=== PATIENT | male | born 1960 | race Caucasian/White ===

== ENCOUNTER 2022-01-26 16:26 | Emergency (ER) | payer MEDICAID, SELFPAY ==
[2022-01-26 17:32] VITALS: BP 139/53; PULSE 94; RESP 18; TEMP 36.2; O2SAT 100; BMI 18.0
[2022-01-26 17:53] LABS: MANUAL DIFF FLAG NO
[2022-01-26 17:53] LABS: Glucose, Whole Blood 213 mg/dL (60-115)
[2022-01-26 18:05] LABS: Basophils Percent Auto 0.2 % (0-2); Eosinophils Absolute Auto 0.1 X10*3/uL (0.0-0.4); Eosinophils Percent Auto 0.4 % (0-4); Hematocrit 40.9 % (42.0-52.0); Hemoglobin 14.6 g/dl (14.0-18.0); Imm Gran Abs Auto 0.07 X10*3/uL (0.00-0.03); Imm Gran Pct Auto 0.6 % (0.0-0.4); Lymphocytes Absolute Auto 2.4 X10*3/uL (1.2-4.9); Lymphocytes Percent Auto 19.8 % (20-40); Mean Corpuscular HGB Conc 35.7 g/dl (31.0-36.0); Mean Corpuscular Hemoglobin 32.7 pg (27.0-33.0); Mean Corpuscular Volume 91.7 fL (80.0-98.0); Mean Platelet Volume 10.2 fL (9.4-12.4); Monocytes Absolute Auto 0.8 X10*3/uL (0.1-1.2); Monocytes Percent Auto 6.7 % (2-11); Neutrophils Absolute Auto 8.9 x10*3/uL (2.0-8.3); Neutrophils Percent Auto 72.3 % (45-73); Platelet Count 159 X10*3/uL (160-400); Red Blood Count 4.46 X10*6/uL (4.60-5.80); Red Cell Distribution Width 11.6 % (11.0-16.0); White Blood Count 12.3 X10*3/uL (4.8-10.8)
[2022-01-26 18:12] LABS: Anion Gap 17 (12-20); Blood Urea Nitrogen 42 mg/dL (9-16); Calcium 10.2 mg/dL (8.4-10.2); Carbon Dioxide 32 mmol/L (22-29); Chloride 88 mmol/L (96-108); Creatinine Clr Calc Pharmacy 37.9; Estimated Glomerular Filt Rate 47; Glucose Random 127 mg/dL (60-115); Potassium 4.4 mmol/L (3.3-5.1); Sodium 133 mmol/L (135-145)
--- NOTE | 2022-01-26 20:55 | ED.GENADULT ---
HPI - General Adult General Chief complaint: General Medical Stated complaint: ref by doc pancreas not producing enough insulin Time Seen by Provider: 01/26/22 20:55 Source: patient Mode of arrival: ambulatory Limitations: no limitations History of Present Illness HPI narrative: Patient diabetic unable to get insulin for last few weeks and metformin for last 2 months lost about 40 lb in 1 year went to [facility] with a checked his blood sugar was read high and was given 10 units of insulin and sent to the hospital patient been nauseated and vomiting on arrival patient's blood sugar was 213 denies any abdominal pain no fever no chills Related Data Home Medications Medication Instructions Recorded Confirmed insulin glargine 100 unit/mL (3 15 unit SUBCUT QAM 05/18/21 mL) subcutaneous pen (Lantus Solostar U-100 Insulin) Previous Rx's Medication Instructions Recorded blood-glucose meter #1 ea 01/26/22 glipizide 5 mg tablet 5 mg PO DAILY #30 tab 01/26/22 insulin glargine 100 unit/mL (3 15 unit (0.15 mL) SUBCUT QAM #15 ml 01/26/22 mL) subcutaneous pen (Lantus Solostar U-100 Insulin) Allergies Allergy/AdvReac Type Severity Reaction Status Date / Time amitriptyline Allergy Unknown stutter Verified 01/26/22 17:35 gabapentin Allergy Unknown confused Verified 01/26/22 17:35 No Known Allergies Allergy Unverified 07/24/20 16:46 [No Known Allergies*] Review of Systems Review of Systems: Yes all other systems are reviewed and are negative [facility] Past Medical History Medical History (Updated 01/27/22 @ 00:01 by German Melgoza) Diabetes Neuropathy Social History Social History Alcohol intake: current Alcohol intake frequency: a few times a week Alcohol type: other Patient Tobacco Use Status: Current everyday Tobacco user Smoked in Last 30 Days: Yes Use of substances other than those prescribed or required for medical reasons: Yes Substance Use Type: Marijuana Substance Use Frequency: Daily Substance Use Frequency Other:: marijuana for foot pain Advance Directives: No Advance Directives Information Provided: No Physical Exam ED Vital Signs: Vital Signs - 24 hr 01/26/22 17:32 01/26/22 21:08 Temperature 97.2 F 97.8 F Pulse Rate 94 97 Respiratory Rate 18 18 Blood Pressure 139/53 L 141/68 H Pulse Oximetry 100 100 BMI result Body Mass Index 18.0 Appearance: Alert. Oriented X3. No acute distress. Eyes: No pallor or icterus ENT: Pharynx normal. Oral Mucosa moist Neck: Normal inspection. Neck supple. CVS: Normal heart rate and rhythm. Pulses normal. Respiratory: No respiratory distress. Equal air entry bilateral, no wheezing/rales/rhonchi Abdomen: Soft and nontender. Bowel sounds are present, no mass palpable, no CVA tenderness Skin: Skin warm and dry. Normal skin color. Normal skin turgor. Extremities: No lower extremity edema. No calf tenderness Neuro: Oriented X 3. Medical Decision Making MDM Narrative Medical decision making narrative: Patient diabetic not taking his medications blood sugar control after 10 units of insulin given by the [facility]. Will discharge patient home on glipizide will hold metformin as he has elevated creatinine. Will get the prescription for Lantus also advised to take Lantus if blood sugars continue to be high Lab Data Lab results reviewed: Yes I reviewed the patient's lab results. Result diagrams: 01/26/22 17:51 01/26/22 17:51 Labs: Lab Results 01/26/22 01/26/22 01/26/22 Range/Units 17:48 17:51 17:51 WBC 12.3 H (4.8-10.8) X10*3/uL RBC 4.46 L (4.60-5.80) X10*6/uL Hgb 14.6 (14.0-18.0) g/dl Hct 40.9 L (42.0-52.0) % MCV 91.7 (80.0-98.0) fL MCH 32.7 (27.0-33.0) pg MCHC 35.7 (31.0-36.0) g/dl RDW 11.6 (11.0-16.0) % Plt Count 159 L (160-400) X10*3/uL MPV 10.2 (9.4-12.4) fL Immature Gran % (Auto) 0.6 H (0.0-0.4) % Neut % (Auto) 72.3 (45-73) % Lymph % (Auto) 19.8 L (20-40) % [place] % (Auto) 6.7 (2-11) % Eos % (Auto) 0.4 (0-4) % Baso % (Auto) 0.2 (0-2) % Lymph # (Auto) 2.4 (1.2-4.9) X10*3/uL [place] # (Auto) 0.8 (0.1-1.2) X10*3/uL Eos # (Auto) 0.1 (0.0-0.4) X10*3/uL Baso # (Auto) 0.0 (0.0-0.2) X10*3/uL Abs Immat Gran (auto) 0.07 H (0.00-0.03) X10*3/uL Absolute Neuts (auto) 8.9 H (2.0-8.3) x10*3/uL Absolute Nucleated RBC 0.000 (0.0-0.012) X10*3/uL Nucleated RBC % (auto) 0.0 (0.0-0.2) /100WBC Sodium 133 L (135-145) mmol/L Potassium 4.4 (3.3-5.1) mmol/L Chloride 88 L (96-108) mmol/L Carbon Dioxide 32 H (22-29) mmol/L Anion Gap 17 (12-20) BUN 42 H (9-16) mg/dL Creatinine 1.51 H (0.5-1.4) mg/dL Estim Creat Clear Calc 37.9 Estimated GFR 47 POC Glucose 213 H (60-115) mg/dL Random Glucose 127 H (60-115) mg/dL Calcium 10.2 (8.4-10.2) mg/dL Total Bilirubin 1.0 (0.0-1.0) mg/dL Direct Bilirubin 0.5 (0.0-0.5) mg/dL AST 47 H (5-37) U/L ALT 76 H (0-40) U/L Alkaline Phosphatase 120 H (39-117) U/L Total Protein 7.5 (6.5-8.0) g/dL Albumin 4.2 (3.5-5.0) g/dL Lipase 37 (8-78) U/L 01/26/22 Range/Units 21:00 WBC (4.8-10.8) X10*3/uL RBC (4.60-5.80) X10*6/uL Hgb (14.0-18.0) g/dl Hct (42.0-52.0) % MCV (80.0-98.0) fL MCH (27.0-33.0) pg MCHC (31.0-36.0) g/dl RDW (11.0-16.0) % Plt Count (160-400) X10*3/uL MPV (9.4-12.4) fL Immature Gran % (Auto) (0.0-0.4) % Neut % (Auto) (45-73) % Lymph % (Auto) (20-40) % [place] % (Auto) (2-11) % Eos % (Auto) (0-4) % Baso % (Auto) (0-2) % Lymph # (Auto) (1.2-4.9) X10*3/uL [place] # (Auto) (0.1-1.2) X10*3/uL Eos # (Auto) (0.0-0.4) X10*3/uL Baso # (Auto) (0.0-0.2) X10*3/uL Abs Immat Gran (auto) (0.00-0.03) X10*3/uL Absolute Neuts (auto) (2.0-8.3) x10*3/uL Absolute Nucleated RBC (0.0-0.012) X10*3/uL Nucleated RBC % (auto) (0.0-0.2) /100WBC Sodium (135-145) mmol/L Potassium (3.3-5.1) mmol/L Chloride (96-108) mmol/L Carbon Dioxide (22-29) mmol/L Anion Gap (12-20) BUN (9-16) mg/dL Creatinine (0.5-1.4) mg/dL Estim Creat Clear Calc Estimated GFR POC Glucose 155 H (60-115) mg/dL Random Glucose (60-115) mg/dL Calcium (8.4-10.2) mg/dL Total Bilirubin (0.0-1.0) mg/dL Direct Bilirubin (0.0-0.5) mg/dL AST (5-37) U/L ALT (0-40) U/L Alkaline Phosphatase (39-117) U/L Total Protein (6.5-8.0) g/dL Albumin (3.5-5.0) g/dL Lipase (8-78) U/L Discharge Plan Discharge Clinical Impression: Hyperglycemia due to diabetes mellitus Patient Disposition: Home, Self-Care Instructions: Diabetic Hyperglycemia (ED) Additional Instructions: Take glipizide as prescribed Do not take metformin Take insulin if blood sugar is higher than 250mg daily Check blood sugar daily Drink plenty of fluid Follow with PCP Prescriptions: New Lantus Solostar U-100 Insulin 100 unit/mL (3 mL) insulin pen 15 unit subcut QAM Qty: 15 0RF (DME) blood-glucose meter Kit See Rx Instructions .Route Qty: 1 0RF Rx Instructions: As directed glipizide 5 mg tablet 5 mg PO DAILY Qty: 30 0RF No Action Lantus Solostar U-100 Insulin 100 unit/mL (3 mL) insulin pen 15 unit subcut QAM 0RF Interventions: ED Discharge Assessment Last Done: 01/26/22 23:18 Discharge Date/Time: 01/26/22 23:20
[2022-01-26 21:08] VITALS: BP 141/68; PULSE 97; RESP 18; TEMP 36.6; O2SAT 100
[2022-01-26 21:09] LABS: Glucose, Whole Blood 155 mg/dL (60-115)
--- NOTE | 2022-01-26 21:11 | PC.NURSE ---
pt a&ox3, vss - bp slightly elevated, pt reports that he has been off medication for diabetes due to insurance changes (off metformin for ~2 months, off lantus for ~2 weeks). was seen at [facility] this morning to refill meds - BG high at [facility], given 10u insulin per pt and sent here by provider.
[2022-01-26 21:27] LABS: Alanine Aminotransferase 76 U/L (0-40); Albumin Level 4.2 g/dL (3.5-5.0); Alkaline Phosphatase 120 U/L (39-117); Aspartate Amino Transferase 47 U/L (5-37); Bilirubin Direct 0.5 mg/dL (0.0-0.5); Lipase 37 U/L (8-78); Total Protein 7.5 g/dL (6.5-8.0)
[2022-01-26] MEDS: 0.9 % Sodium Chloride 1,000 ML 999 ML IV (21:50)
--- NOTE | 2022-01-26 21:50 | PC.NURSE ---
iv inserted, lab drawn, ivf hanging per order
[2022-01-27 07:14] LABS: Estimated Average Glucose 278 mg/dL; Hemoglobin A1c % 11.3 %
== END 2022-01-26 23:20 | disposition home or self-care (01) ==
PROVIDERS: Emergency Provider Internal Medicine
DX: E11.65 Type 2 diabetes mellitus with hyperglycemia (principal); R11.2 Nausea with vomiting, unspecified; F17.200 Nicotine dependence, unspecified, uncomplicated
CPT/HCPCS: 36415; 80048; 80076; 82947; 83036; 83690; 85025; 96360; 99284

== ENCOUNTER 2023-10-28 21:44 | Inpatient (IN) | payer MEDICAID, SELFPAY ==
--- NOTE | 2023-10-28 | ECG_ITS ---
Test Reason : FAILURE TO TRIVE Blood Pressure : / mmHG Vent. Rate : 118 BPM Atrial Rate : 118 BPM P-R Int : 116 ms QRS Dur : 066 ms QT Int : 288 ms P-R-T Axes : 044 022 014 degrees QTc Int : 403 ms Sinus tachycardia Nonspecific ST abnormality Abnormal ECG No previous ECGs available Referred By: Generic ED Physician Electronically Signed By:GUS NEGRON MD
--- NOTE | ~2023-10-28 | XR_ITS ---
EXAMINATION: XR CHEST CLINICAL INFORMATION: Status post PICC placement. COMPARISON: Most recent CT chest dated 11/12/2023. TECHNIQUE: Frontal view of the chest was obtained. FINDINGS: Interval placement of a left-sided central venous catheter with the tip in the region of the cavoatrial junction. Diffuse interstitial prominence with patchy bilateral airspace opacities, redemonstrated. Findings are slightly decreased when compared to prior examinations. No pleural effusion or pneumothorax. Stable cardiac mediastinal silhouette. XR/XR chest 1V IMPRESSION: 1. Left-sided central venous catheter with the tip in the region of the cavoatrial junction. 2. Diffuse interstitial prominence with patchy bilateral airspace opacities, slightly decreased when compared to the prior examinations.
--- NOTE | ~2023-10-28 | CT_ITS ---
EXAMINATION: CT FOOT WITH CONTRAST, RIGHT CLINICAL INFORMATION: Swelling and drainage. Question gangrene. COMPARISON: None available. TECHNIQUE: CT scan of the right foot is performed with contrast. 85 mL of Omnipaque 350 given intravenously. Reconstruction imaging performed at the acquisition workstation. This CT examination was performed using dose optimization techniques as appropriate, variously including the following: *Automated exposure control *Adjustment of mA and/or kV according to patient size (this includes techniques or standardized protocols for targeted exams where dose is matched to indication/reason for exam; i.e. extremities or head) *Use of iterative reconstruction technique DLP: 149 mGy-cm FINDINGS: There are scattered areas of gas noted throughout the foot extending from the hindfoot through the midfoot into the forefoot. The gas extends primarily along the plantar aspect of the foot but also extends between the third and fourth web space into the dorsal subcutaneous soft tissues in the forefoot. Possible superficial irregularity/ulceration overlying the lateral aspect of the base of the fifth metatarsal suspicious for ulceration. There also appears to be some irregularity of the cortical surface of the base of the fifth metatarsal and perhaps small fracture fragments or bony fragments in the same area. Suspect a small amount of gas extends into the fifth tarsometatarsal joint. There is generalized fluidlike density circumferentially about the foot throughout, compatible with edema and/or cellulitis. No localized fluid collection within the soft tissues. There is [id number] osteoarthritis of the first metatarsophalangeal joint with subchondral cystic change. CT/CT foot RT w IV con IMPRESSION: 1. Extensive gas throughout the foot and extending into the subcutaneous soft tissues of the forefoot. 2. The findings are concerning for gas-forming soft tissue infection/cellulitis. 3. There is some irregularity of the cortical surface of the base of the fifth metatarsal and perhaps small fracture fragments in the same area. This is suspicious for concomitant osteomyelitis perhaps with complicating small fracture fragments. 4. Generalized fluidlike density throughout the foot compatible with edema and/or cellulitis. 5. No localized fluid collection/abscess within the soft tissues.
--- NOTE | ~2023-10-28 | US_ITS ---
EXAMINATION: US RIGHT LOWER EXTREMITY DUPLEX. CLINICAL INFORMATION: White gangrene COMPARISON: None TECHNIQUE: Right lower extremity duplex Doppler techniques with wave form analysis and measurement of velocities in the common femoral, profunda femoral, superficial femoral, popliteal, tibial and peroneal arteries. The study was performed only at rest. 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 Distal to this, flow is preserved through the tibial vessels but velocities reduced due to upstream occlusion. If clinically indicated, CTA runoff should be obtained for further evaluation.
--- NOTE | ~2023-10-28 | XR_ITS ---
EXAMINATION: XR chest 1V CLINICAL INFORMATION: Hypoxia COMPARISON: None TECHNIQUE: Single portable frontal view. Tubes and lines: None Lungs and pleura: Bilateral hazy interstitial opacification upper lobes and both lower lobes concerning for infiltrates. Blunting of right costophrenic angle suggesting small right subpulmonic pleural effusion. Heart and mediastinum: The mediastinum is within normal limits.. Bones/soft tissue: Skeletal structures included are normal for patient's age. XR/XR chest 1V IMPRESSION: * Bilateral hazy interstitial opacification suggesting diffuse patchy infiltrates. * Small right subpulmonic pleural effusion.
--- NOTE | ~2023-10-28 | XR_ITS ---
EXAMINATION: XR CHEST CLINICAL INFORMATION: Hypoxia COMPARISON: Chest x-ray on 11/15/2023 TECHNIQUE: Frontal view of the chest was obtained. FINDINGS: The cardiac silhouette is normal. There is significant increase in the bilateral interstitial and alveolar opacities compared to the prior exam. Lung volumes are diminished. There are no pleural effusions or pneumothoraces. XR/XR chest 1V IMPRESSION: Significant increase in the bilateral interstitial and alveolar opacities.
--- NOTE | ~2023-10-28 | XR_ITS ---
EXAMINATION: XR CHEST CLINICAL INFORMATION: Hypoxia COMPARISON: 10/31/2023. TECHNIQUE: Frontal view of the chest was obtained. FINDINGS: There has been progression of extensive bilateral pulmonary opacities since 10/31/2023. No vascular congestion or effusions. Heart and mediastinum within normal limits. Bony structures are intact. XR/XR chest 1V IMPRESSION: Progression of extensive bilateral pulmonary opacities suspicious for multifocal pneumonia.
[2023-10-28 21:53] VITALS: BP 194/72; PULSE 115; RESP 16; TEMP 38.5; O2SAT 95; BMI 23.5
[2023-10-28 22:51] LABS: Hematocrit 28.2 % (42.0-52.0); Mean Corpuscular HGB Conc 31.9 g/dl (31.0-36.0); Mean Corpuscular Hemoglobin 28.8 pg (27.0-33.0); Mean Corpuscular Volume 90.4 fL (80.0-98.0); Platelet Count 277 X10*3/uL (160-400); Red Blood Count 3.12 X10*6/uL (4.60-5.80); Red Cell Distribution Width 13.8 % (11.0-16.0); White Blood Count 18.8 X10*3/uL (4.8-10.8)
[2023-10-28 22:56] VITALS: BP 176/69; PULSE 116; RESP 16; TEMP 38.5; O2SAT 100
[2023-10-28 23:04] LABS: Alanine Aminotransferase 45 U/L (0-40); Albumin Level 2.5 g/dL (3.5-5.0); Alkaline Phosphatase 214 U/L (39-117); Anion Gap 9 (12-20); Aspartate Amino Transferase 90 U/L (5-37); Bilirubin Total 0.7 mg/dL (0.0-1.0); Blood Urea Nitrogen 32 mg/dL (9-16); Calcium 8.1 mg/dL (8.4-10.2); Carbon Dioxide 27 mmol/L (22-29); Chloride 100 mmol/L (96-108); Creatinine Clr Calc Pharmacy 63.1; Estimated Glomerular Filt Rate > 60; Glucose Random 214 mg/dL (60-115); Lipase 19 U/L (8-78); Potassium 3.8 mmol/L (3.3-5.1); Sodium 132 mmol/L (135-145); Total Protein 7.7 g/dL (6.5-8.0)
[2023-10-28 23:08] LABS: VBG Base Excess 2.5 mmol/L; VBG HCO3 27 mmol/L (22-26); VBG pCO2 43 mmHg; VBG pO2 40 mmHg
[2023-10-28 23:12] LABS: Lactic Acid 1.7 mmol/L (0.5-2.0)
--- NOTE | 2023-10-28 23:15 | ED.GENADULT ---
HPI - General Adult General Chief complaint: Failure to Thrive Stated complaint: Fall/Head inj/Unable to feel feet Time Seen by Provider: 10/28/23 23:02 Source: patient and RN notes reviewed Mode of arrival: ambulatory Limitations: no limitations History of Present Illness HPI narrative: This is a 63-year-old male, with a history of diabetes noncompliant on medication, presenting to the emergency department presenting to the emergency department with complaints of right foot pain x several weeks. Patient denies any recent trauma or injury to his right foot. He reported to the nurse that he has not taken his sock off in over 10 days. He has been in bed for the last 2 weeks. He denies any chest pain or shortness of breath. He denies any abdominal pain, nausea, vomiting or diarrhea. Denies history of similar symptoms in the past. MD complaint: Foot pain Onset (ago): week(s) Location: lower extremity Radiation: non-radiation Quality: aching Pain Consistency: constant Relieving factors: none Exacerbating factors: none Associated symptoms: denies other symptoms Treatments prior to arrival: none Related Data Home Medications Medication Instructions Recorded Confirmed insulin glargine 100 unit/mL (3 15 unit subcut QAM 05/18/21 mL) subcutaneous pen (Lantus Solostar U-100 Insulin) Previous Rx's Medication Instructions Recorded blood-glucose meter #1 ea 01/26/22 glipizide 5 mg tablet 5 mg PO DAILY #30 tabs 01/26/22 insulin glargine 100 unit/mL (3 15 unit (0.15 mL) subcut QAM #15 mL 01/26/22 mL) subcutaneous pen (Lantus Solostar U-100 Insulin) Allergies Allergy/AdvReac Type Severity Reaction Status Date / Time amitriptyline Allergy Unknown stutter Verified 01/26/22 17:35 gabapentin Allergy Unknown confused Verified 01/26/22 17:35 No Known Allergies Allergy Unverified 07/24/20 16:46 [No Known Allergies*] Review of Systems Review of Systems: Yes all other systems are reviewed and are negative Constitutional: Constitutional: Reports as per [facility] Past Medical History Attestation statement: The following information was validated with the patient. Medical History Neuropathy Diabetes Social History Social History Alcohol intake: current Alcohol intake frequency: a few times a week Alcohol type: beer Patient Tobacco Use Status: Current everyday Tobacco user Smoked in Last 30 Days: Yes Use of substances other than those prescribed or required for medical reasons: No Substance Use Type: Marijuana Advance Directives: No Advance Directives Information Provided: No Nutrition Risks: Diabetes new onset/Uncontrolled Physical Exam ED Vital Signs: Vital Signs - 24 hr 10/28/23 21:53 10/28/23 22:56 10/28/23 22:56 Temperature 101.3 F H 101.3 F H Pulse Rate 115 H 116 H Respiratory Rate 16 16 Blood Pressure 194/72 H 176/69 H Pulse Oximetry 95 100 100 Oxygen Delivery Method Room Air Room Air Room Air BMI result Body Mass Index 23.5 Const General: cooperative and ill appearing Nutritional Appearance: cachectic Orientation/consciousness: patient oriented x3 Limitations: no limitations HENMT Head: Yes normal to inspection, Yes normocephalic and Yes atraumatic Ears: hearing grossly normal bilaterally General nose exam: Normal external nose present Face and sinus: Yes normal facial exam Mouth: Normal oral and palatal mucosa present, oropharynx normal and moist mucous membranes Throat: Yes posterior oropharynx normal Eyes General: appearance normal, both eyes and all related structures Eyelids: Yes eyelids normal Conjunctivae: conjunctivae normal Sclerae: sclerae normal Pupils: Equal, round and reactive pupils present EOM: EOMs intact bilaterally Neck Neck: Yes normal visual inspection, Yes full ROM and Yes no lymphadenopathy Lymphatic: no lymphadenopathy noted Chest Chest palpation & inspection: normal inspection of the chest Resp Effort & Inspection: normal respiratory effort and able to speak in complete sentences Auscultation: clear to auscultation bilaterally, no crackles, no rales, no rhonchi and no wheezes Cardio Rate: regular rate Rhythm: regular rhythm Heart sounds: S1 normal heart sound present and S2 normal heart sound present GI Inspection: Yes normal to inspection Skin General skin exam: no rashes or lesions noted Trauma: no lacerations or abrasions Wounds: no wounds Neuro General: patient oriented x3 and moves all extremities Cranial nerves: Yes Equal, round and reactive pupils present Extrem Other: Right foot, with erythema edema and skin sloughing with necrotic tissue noted. DP pulses 2+. Able to flex and extend at the ankle with no pain. General: Yes normal to inspection Right upper extremity: normal to inspection Left upper extremity: normal to inspection Right lower extremity: normal to inspection Left lower extremity: normal to inspection Medications Administered Generic Name Dose Route Start Last Admin Trade Name Freq PRN Reason Stop Dose Admin Acetaminophen 650 mg 10/28/23 23:35 10/29/23 00:39 Acetaminophen 325 Mg Tablet PO 650 mg Q6H PRN Administration Pain, Mild (Pain Scale 1-3) Enoxaparin Sodium 40 mg 10/29/23 00:00 10/29/23 00:24 Enoxaparin Sodium 40 Mg/0.4 Ml Syringe SUBCUT 40 mg BEDTIME ANN Administration Insulin Glargine 14 unit 10/28/23 23:30 10/29/23 00:23 Insulin Glargine,Hum.Rec.Anlog 100 Unit/Ml 10 Ml Vial SUBCUT 14 unit BEDTIME ANN Administration Melatonin 6 mg 10/28/23 23:35 10/29/23 00:39 Melatonin 3 Mg Tablet PO 6 mg BEDTIME PRN Administration Insomnia Sodium Chloride 3 ml 10/29/23 00:00 10/29/23 00:24 0.9 % Sodium Chloride Flush 3 Ml Syringe IVFLUSH 3 ml QSHIFT ANN Administration Discontinued Medications Generic Name Dose Route Start Last Admin Trade Name Freq PRN Reason Stop Dose Admin Sodium Chloride 2,041.17 mls @ 2,041.17 mls/hr 10/28/23 23:21 10/29/23 01:03 Ns 30 ml/kg infuse over 1 hr (2041.17 ml) 10/29/23 00:20 Infused IV Infusion .Q1H STA Piperacillin Sod/Tazobactam 50 mls @ 100 mls/hr 10/28/23 23:21 10/29/23 00:20 Sod 3.375 gm/ Sodium Chloride IV 10/28/23 23:50 Infused ONCE ONE Infusion Vancomycin HCl 1,000 mg/ 535 mls @ 267.5 mls/hr 10/28/23 23:21 10/29/23 00:22 Vancomycin HCl 750 mg/ Sodium IV 10/29/23 01:20 267.5 mls/hr Chloride ONCE ONE Administration Medical Decision Making Medical Decision Making MDM Narrative: 63-year-old male, with history of diabetes noncompliant on medications, presenting to the emergency department with complaints of right foot pain times several weeks. Patient with obvious [id number] necrotic tissue with sloughing, likely requiring vascular intervention. No trauma or injury. I evaluated patient at 11:30PM, patient febrile at 1:01 a.m. 0.3, tachycardic 116, blood pressure 176/69. Patient is cachectic and ill-appearing. Labs were ordered performed revealing leukocytosis at 18.8k, with normocytic anemia with an H&H of 9/28.2. Patient is hyponatremic at 132, elevated liver transaminases, which patient has had a history of, last year. Elevated troponin at 222.5> likely due to increased demand. He has no chest pain. Patient is meeting sepsis criteria. IV fluids, Zosyn and vanco ordered. Consult with hospitalist Dr. Dueñas, who accepts transfer of care. Differential Diagnosis Differential Diagnoses: The differential diagnosis associated with the presentation includes Bacteremia, necrotic wound, osteomyelitis Admission/Observation Consideration of admission/observation: Escalation of care including admission/observation considered Patient needing admission and observation given meeting sepsis criteria Lab Data MDM Lab Attestation statement: I reviewed the patient's lab results. See above 10/28/23 22:40 10/28/23 22:40 Labs: Lab Results 10/28/23 10/28/23 10/28/23 Range/Units 22:40 22:45 22:57 WBC 18.8 H (4.8-10.8) X10*3/uL RBC 3.12 L D (4.60-5.80) X10*6/uL Hgb 9.0 L D (14.0-18.0) g/dl Hct 28.2 L D (42.0-52.0) % MCV 90.4 (80.0-98.0) fL MCH 28.8 (27.0-33.0) pg MCHC 31.9 (31.0-36.0) g/dl RDW 13.8 (11.0-16.0) % Plt Count 277 D (160-400) X10*3/uL MPV 9.0 L (9.4-12.4) fL Absolute Nucleated RBC 0.000 (0.0-0.012) X10*3/uL Nucleated RBC % (auto) 0.0 (0.0-0.2) /100WBC VBG pH 7.40 (7.32-7.43) VBG pCO2 43 mmHg VBG pO2 40 mmHg VBG HCO3 27 H (22-26) mmol/L VBG O2 Saturation 62.0 % VBG Base Excess 2.5 mmol/L Sodium 132 L (135-145) mmol/L Potassium 3.8 (3.3-5.1) mmol/L Chloride 100 (96-108) mmol/L Carbon Dioxide 27 (22-29) mmol/L Anion Gap 9 L (12-20) BUN 32 H (9-16) mg/dL Creatinine 1.12 (0.5-1.4) mg/dL Estim Creat Clear Calc 63.1 Estimated GFR > 60 POC Glucose (60-115) mg/dL Random Glucose 214 H (60-115) mg/dL Lactic Acid 1.7 (0.5-2.0) mmol/L Calcium 8.1 L D (8.4-10.2) mg/dL Total Bilirubin 0.7 (0.0-1.0) mg/dL AST 90 H (5-37) U/L ALT 45 H (0-40) U/L Alkaline Phosphatase 214 H (39-117) U/L Troponin I High Sens 222.5 H* (<3.5-35.0) ng/L Total Protein 7.7 (6.5-8.0) g/dL Albumin 2.5 L (3.5-5.0) g/dL Lipase 19 (8-78) U/L Influenza Type A (PCR) NEGATIVE (Negative) Influenza Type B (PCR) NEGATIVE (Negative) RSV RNA Qual (PCR) NEGATIVE (Negative) SARS-CoV-2 RNA (RT-PCR) NEGATIVE (Negative) 10/28/23 Range/Units 23:18 WBC (4.8-10.8) X10*3/uL RBC (4.60-5.80) X10*6/uL Hgb (14.0-18.0) g/dl Hct (42.0-52.0) % MCV (80.0-98.0) fL MCH (27.0-33.0) pg MCHC (31.0-36.0) g/dl RDW (11.0-16.0) % Plt Count (160-400) X10*3/uL MPV (9.4-12.4) fL Absolute Nucleated RBC (0.0-0.012) X10*3/uL Nucleated RBC % (auto) (0.0-0.2) /100WBC VBG pH (7.32-7.43) VBG pCO2 mmHg VBG pO2 mmHg VBG HCO3 (22-26) mmol/L VBG O2 Saturation % VBG Base Excess mmol/L Sodium (135-145) mmol/L Potassium (3.3-5.1) mmol/L Chloride (96-108) mmol/L Carbon Dioxide (22-29) mmol/L Anion Gap (12-20) BUN (9-16) mg/dL Creatinine (0.5-1.4) mg/dL Estim Creat Clear Calc Estimated GFR POC Glucose 210 H (60-115) mg/dL Random Glucose (60-115) mg/dL Lactic Acid (0.5-2.0) mmol/L Calcium (8.4-10.2) mg/dL Total Bilirubin (0.0-1.0) mg/dL AST (5-37) U/L ALT (0-40) U/L Alkaline Phosphatase (39-117) U/L Troponin I High Sens (<3.5-35.0) ng/L Total Protein (6.5-8.0) g/dL Albumin (3.5-5.0) g/dL Lipase (8-78) U/L Influenza Type A (PCR) (Negative) Influenza Type B (PCR) (Negative) RSV RNA Qual (PCR) (Negative) SARS-CoV-2 RNA (RT-PCR) (Negative) Independent Interpretation I performed an independent interpretation of an: EKG Interpretation: Sinus tachycardia at a ventricular rate of 118 beats per minute, no ST elevation or depression. QTC 403 Chronic Conditions Patient?s care impacted by: Diabetes Critical Care Time Critical Care Time Critical Care Time: Yes Total Critical Care Time: 60 Attestation: I have personally provided critical care time exclusive of time spent on separately billable procedures. Time includes review of lab data, radiology results, discussion with consultants, and monitoring for potential decompensation. Intervention performed as documented. Discharge Plan Discharge Clinical Impression: Sepsis, Foot infection Patient Disposition: Admitted As Inpatient
[2023-10-28 23:18] LABS: Troponin-I High Sensitivity 222.5 ng/L (<3.5-35.0)
[2023-10-28 23:19] LABS: Venous Blood Gas Refer to POC result
[2023-10-28 23:23] LABS: Glucose, Whole Blood 210 mg/dL (60-115)
--- NOTE | 2023-10-28 23:24 | PC.NURSE ---
Pt aox4 presents reporting feeling tired and cold. Sinus tach on monitor. HR 115. Rectal temp 101.3F. Necrotic right foot. MLP notified. Picture uploaded to MAR Pt reports having to take insulin to manage diabetes but running out of medication. POC 210.
[2023-10-28] MEDS: Piperacillin Sodium/Tazobactam 3.375 GM in 0.9 % Sodium Chloride 50 ML IV (23:31)
[2023-10-28 23:32] LABS: Influenza A PCR NEGATIVE (Negative); Influenza B PCR NEGATIVE (Negative); Resp Syncy Virus RNA Qual PCR NEGATIVE (Negative); SARS COV2 PCR INHOUSE NEGATIVE (Negative)
[2023-10-28] MEDS: 0.9 % Sodium Chloride 2,041.17 ML 2041.17 ML IV (23:32)
--- NOTE | 2023-10-28 23:36 | PM.IMHP ---
History of Present Illness Date of Service: 10/28/23 Chief Complaint: foot infection This is a 63-year-old male with pertinent history of insulin-dependent diabetes mellitus, noncompliant with medications who presents to the emergency department for evaluation of right foot pain. Patient states he has been having right foot pain for the last few weeks. It is associated with foul-smelling purulent drainage. Patient has not removed his socks for the last 10 days. No associated fevers or chills. No nausea, vomiting. No history of trauma or similar complaints in the past. Patient states he did get out of his bed for the last 2 weeks. No chest discomfort, palpitations, shortness of breath, abdominal pain, changes in urinary or bowel habits. In the emergency department, patient was found to be septic and glucose found to be elevated Review of Systems Constitutional: Constitutional: Reports malaise and Reports weakness Cardiovascular: Cardiovascular: Reports no additional cardiovascular complaints Respiratory: Respiratory: Reports no additional respiratory complaints Gastrointestinal: Gastrointestinal: Reports no additional gastrointestinal complaints Genitourinary: Genitourinary: Reports no additional male genitourinary complaints Musculoskeletal: Musculoskeletal: Reports arthralgias Neurologic: Reports weakness [facility] Medical History Neuropathy Diabetes Pertinent family history: No family history of early CAD Social History Alcohol intake: current Alcohol intake frequency: a few times a week Alcohol type: beer Patient Tobacco Use Status: Current everyday Tobacco user Smoked in Last 30 Days: Yes Use of substances other than those prescribed or required for medical reasons: No Substance Use Type: Marijuana Advance Directives: No Advance Directives Information Provided: No Nutrition Risks: Diabetes new onset/Uncontrolled Meds Allergies Allergy/AdvReac Type Severity Reaction Status Date / Time amitriptyline Allergy Unknown stutter Verified 01/26/22 17:35 gabapentin Allergy Unknown confused Verified 01/26/22 17:35 No Known Allergies Allergy Unverified 07/24/20 16:46 [No Known Allergies*] Active Medications: Current Medications Dextrose (Dextrose 50 % 25 Gm/50 Ml Syringe) 25 gm IVPUSH Q15M PRN; Protocol PRN Reason: per Hypoglycemia Standing Ord. Glucose (Glucose Gel 15 Gm Gel..Gram.) 15 gm PO Q15M PRN; Protocol PRN Reason: per Hypoglycemia Standing Ord. Sodium Chloride (Ns) 2,041.17 mls @ 2,041.17 mls/hr 30 ml/kg infuse over 1 hr (2041.17 ml) IV .Q1H STA Stop: 10/29/23 00:20 Last Admin: 10/28/23 23:32 Dose: 2,041.17 mls/hr Piperacillin Sod/Tazobactam (Sod 3.375 gm/ Sodium Chloride) 50 mls @ 100 mls/hr IV ONCE ONE Stop: 10/28/23 23:50 Last Admin: 10/28/23 23:31 Dose: 100 mls/hr Vancomycin HCl 1,000 mg/Vancomycin HCl 750 mg/ Sodium Chloride 535 mls @ 267.5 mls/hr IV ONCE ONE Stop: 10/29/23 01:20 Piperacillin Sod/Tazobactam (Sod 4.5 gm/ Sodium Chloride) 100 mls @ 200 mls/hr IV Q6H [facility] Insulin Glargine (Insulin Glargine,Hum.Rec.Anlog 100 Unit/Ml 10 Ml Vial) 14 unit SUBCUT BEDTIME ANN Insulin Human Lispro (Insulin Lispro 100 Unit/Ml 3 Ml Vial) 0 unit SUBCUT QIDACHS ANN; Protocol Pharmacy Consult (Consult Rx Vancomycin Dosing) 1 each MISCELLANE DAILY PRN PRN Reason: Consult order Home Medications Medication Instructions Recorded Confirmed Last Taken Type insulin glargine 100 unit/mL (3 15 unit subcut QAM 05/18/21 Unknown History mL) subcutaneous pen (Lantus Solostar U-100 Insulin) Physical Exam Vital Signs and Narrative: Vital Signs: Last Vital Signs Temp 101.3 F H 10/28/23 22:56 Pulse 116 H 10/28/23 22:56 Resp 16 10/28/23 22:56 BP 176/69 H 10/28/23 22:56 Pulse Ox 100 10/28/23 22:56 O2 Del Method Room Air 10/28/23 22:56 BMI result Body Mass Index 23.5 Middle-aged male, ill-appearing, poorly kempt lying in bed in no distress Neck supple, no JVD Tachycardic with regular rhythm, S1-S2 heard Regular breath sounds bilaterally, no wheezing or crackles appreciated Abdomen soft nontender, no guarding, no rigidity Patient is awake, alert and oriented to self, place, time and person ; no focal motor deficit Extremity: Right foot as imaged below Psych: Normal mood Extrem: Other: Right foot, with erythema edema and skin sloughing with necrotic tissue noted. DP pulses 2+. Able to flex and extend at the ankle with no pain. General: Yes normal to inspection Right upper extremity: normal to inspection Left upper extremity: normal to inspection Right lower extremity: normal to inspection Left lower extremity: normal to inspection Results Labs 10/28/23 22:40 10/28/23 22:40 Labs: Laboratory Results - last 24 hr 10/28/23 10/28/23 10/28/23 22:40 22:45 22:57 MCV 90.4 MCH 28.8 MCHC 31.9 RDW 13.8 Plt Count 277 D MPV 9.0 L Absolute Nucleated RBC 0.000 Nucleated RBC % (auto) 0.0 VBG pH 7.40 VBG pCO2 43 VBG pO2 40 VBG HCO3 27 H VBG O2 Saturation 62.0 VBG Base Excess 2.5 Anion Gap 9 L Estim Creat Clear Calc 63.1 Estimated GFR > 60 POC Glucose Random Glucose 214 H Lactic Acid 1.7 Calcium 8.1 L D Total Bilirubin 0.7 AST 90 H ALT 45 H Alkaline Phosphatase 214 H Total Protein 7.7 Albumin 2.5 L Lipase 19 Influenza Type A (PCR) NEGATIVE Influenza Type B (PCR) NEGATIVE RSV RNA Qual (PCR) NEGATIVE SARS-CoV-2 RNA (RT-PCR) NEGATIVE 10/28/23 23:18 MCV MCH MCHC RDW Plt Count MPV Absolute Nucleated RBC Nucleated RBC % (auto) VBG pH VBG pCO2 VBG pO2 VBG HCO3 VBG O2 Saturation VBG Base Excess Anion Gap Estim Creat Clear Calc Estimated GFR POC Glucose 210 H Random Glucose Lactic Acid Calcium Total Bilirubin AST ALT Alkaline Phosphatase Total Protein Albumin Lipase Influenza Type A (PCR) Influenza Type B (PCR) RSV RNA Qual (PCR) SARS-CoV-2 RNA (RT-PCR) Assessment and Plan (1) Sepsis: Status: Acute (2) Foot infection: Status: Acute Plan This is a 63-year-old male with pertinent history of insulin-dependent diabetes mellitus, noncompliant with medications who presents to the emergency department for evaluation of right foot pain. #. Sepsis due to right foot wet gangrene with purulent cellulitis: Will admit patient and initiating empiric IV antibiotics. Resuscitated with IV crystalloids. Lactic acid and blood culture obtained. Consulting vascular surgery, appreciate assistance. Imaging pending #. Insulin-dependent diabetes mellitus with hyperglycemia: Initiating basal plus insulin regimen. Patient is noncompliant with his antihyperglycemics #. Normocytic anemia due to chronic disease: Hemoglobin above transfusion threshold #. Elevated troponin: Likely type 2 in the setting of increased demand. No chest pain. Will trend DVT prophylaxis: Kayy Full code Admit as inpatient and will require two night minimum hospital stay for IV antibiotics (as above), which is not possible in a lesser acute setting. Specialist consult pending Quality Stroke Does the patient have a stroke diagnosis?: No VTE Prior VTE?: No VTE Risk Level:: Medical - moderate - high VTE Device Contraindication: Treatment Not Indicated VTE Drug Contraindication: N/A - Med Ordered
--- NOTE | 2023-10-28 23:57 | PC.NURSE ---
Dry dressing applied to right foot. Pt tolerated well.
[2023-10-29] VITALS (10 sets, daily range): BP systolic 132–161; BP diastolic 56–70; PULSE 64–104; RESP 12–22; TEMP 36.4–37.3; O2SAT 82–98; BMI 19.7
[2023-10-29] MEDS: vancomycin HCL 1,000 MG, vancomycin HCL 750 MG in 0.9 % Sodium Chloride 500 ML 267.5 MG IV (00:22)
[2023-10-29] MEDS: Insulin Glargine,Hum.rec.anlog 100 UNIT/ML 10 ML VIAL 14 UNIT SUBCUT (00:23)
[2023-10-29] MEDS: Enoxaparin Sodium 40 MG/0.4 ML SYRINGE SUBCUT ×2 (00:24→23:09)
[2023-10-29] MEDS: 0.9 % Sodium Chloride Flush 3 ML SYRINGE IVFLUSH ×3 (00:24→14:18)
[2023-10-29] MEDS: Melatonin 3 MG TABLET 6 MG PO ×2 (00:39→23:10)
[2023-10-29] MEDS: Acetaminophen 325 MG TABLET 650 MG PO (00:39)
--- NOTE | 2023-10-29 01:14 | PC.NURSE ---
Pt declining to have imaging studies done at this time. Pt states I want to be left alone. I want to sleep. If I don't sleep here then I will go home to sleep . Pt encouraged to stay and follow through with treatment. Pt continues to decline having studies done. [place] text sent to Dr. Dueñas who orders for pt to rest at this time and will revisit doing imaging at a later time. O2 sat noted to be at 82% RA while pt sleeping. Pt placed on 2L nc with o2 improvement to 94%. No distress noted. Pt currently resting at the bedside. IV fluids done. Vanco running. Pt tolerating well.
--- NOTE | 2023-10-29 03:46 | PC.NURSE ---
Pt reporting right foot pain, 06/16. Requesting pain medication and sleep medication as melatonin had no effect. [place] text sent to Dr. Dueñas.
--- NOTE | 2023-10-29 04:07 | PC.NURSE ---
New orders for pain and sleep in the JAN. Pt declined new orders stating they will not work. Pt continues to decline imaging studies and reports I will be going home in a few hours. [place] text sent to Dr. Dueñas.
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
[2023-10-29] MEDS: Morphine Sulfate 4 MG/ML CARTRIDGE IVPUSH ×2 (05:20→15:14)
[2023-10-29] MEDS: ondansetron HCL 4 MG/2 ML VIAL IVPUSH (05:20)
--- NOTE | 2023-10-29 05:30 | PC.NURSE ---
Pt medicated as ordered for pain. Pt tolerated well. Pt agrees to have imaging done in one hour. Pt advised room has been assigned and ct scan and u/s will be done prior to pt going upstairs. Pt states Give me about an hour . Ct scan dept notified pt is ready to have scans done.
[2023-10-29] MEDS: Piperacillin Sodium/Tazobactam 4.5 GM in 0.9 % Sodium Chloride 100 ML IV ×4 (06:04→23:10)
--- NOTE | 2023-10-29 07:43 | PC.NURSE ---
patient agreeable to ultrasound at this time, I guess I don't have any other choice . educated on need for imaging.
[2023-10-29] MEDS: iohexoL 350 MG/ML 100 ML INFUS..BTL IV (08:34)
--- NOTE | 2023-10-29 09:10 | PHA.MEDREC ---
Pharmacy Consult ? Medication Reconciliation Pharmacy has completed the medication reconciliation. Patient reports no home prescription medications. Takes tylenol PM prn.
[2023-10-29 09:18] LABS: Glucose, Whole Blood 114 mg/dL (60-115)
--- NOTE | 2023-10-29 09:26 | PHA.PROG ---
Admission Date/Time: October 28, 2023 23:35 Indication: diabetic foot Weight in k.039 kg Adjusted body weight in Kg: [place] body weight in Kg: Obesity Dosing Indication % IBW: Serum Creatinine - Last 168 Hours 10/28/23 22:40 Creatinine 1.12 Estimated CrCl and GFR - Last 168 Hours 10/28/23 22:40 Estim Creat Clear Calc 63.1 Estimated GFR > 60 Vancomycin Loading Dose: 1750 Current Vancomycin Dosing Regimen: 750 q12h Vancomycin Monitoring using AUC goal of 400 - 600 range with trough as surrogate marker: 533 Date and Time for next Vancomycin Level to be drawn: 10/30/23 1000 Pharmacist Comments on Vancomycin Plan: Vancomycin dosing will take advantage of [employer] as a clinical decision support tool that uses Bayesian modeling to calculate individual patient's pharmacokinetic parameters and forecast the patient's drug concentration time course with the target goal AUC 24 range of 400 - 600 mg/L/hr.
[2023-10-29 09:57] LABS: Hematocrit 24.5 % (42.0-52.0); Hemoglobin 7.4 g/dl (14.0-18.0); Mean Corpuscular HGB Conc 30.2 g/dl (31.0-36.0); Mean Corpuscular Hemoglobin 29.2 pg (27.0-33.0); Mean Corpuscular Volume 96.8 fL (80.0-98.0); Mean Platelet Volume 9.6 fL (9.4-12.4); Platelet Count 168 X10*3/uL (160-400); Red Blood Count 2.53 X10*6/uL (4.60-5.80); Red Cell Distribution Width 13.9 % (11.0-16.0); White Blood Count 9.8 X10*3/uL (4.8-10.8)
[2023-10-29 10:15] LABS: Anion Gap 10 (12-20); Blood Urea Nitrogen 31 mg/dL (9-16); Chloride 107 mmol/L (96-108); Creatinine Clr Calc Pharmacy 70.6; Estimated Glomerular Filt Rate > 60; Glucose Random 105 mg/dL (60-115); Potassium 3.5 mmol/L (3.3-5.1); Sodium 132 mmol/L (135-145)
[2023-10-29 10:25] LABS: Troponin-I High Sensitivity 129.8 ng/L (<3.5-35.0)
[2023-10-29 10:26] LABS: Calcium 7.2 mg/dL (8.4-10.2); Carbon Dioxide 19 mmol/L (22-29)
--- NOTE | 2023-10-29 11:23 | PC.NURSE ---
Addendum entered by Sendy Thompson RN 10/29/23 11:25: patient refusing lunch time POC and vital signs.education provided on the importance of blood sugar control and vital sign monitoring, but patient still refuses. MD notified. Original Note: patient refusing lunch time POC and vital signs. MD notified
[2023-10-29] MEDS: vancomycin HCL 750 MG in 0.9 % Sodium Chloride 250 ML 265 MG IV (14:13)
--- NOTE | 2023-10-29 15:03 | HO.PM.IMPN ---
Subjective Subjective Date of Service: 10/29/23 Review of Systems Follow up gangrene some pain to foot noted No fever or chills Physical Exam Vital Signs: Vital Signs: Last Vital Signs Temp 97.5 F 10/29/23 08:00 Pulse 64 10/29/23 08:00 Resp 18 10/29/23 08:00 BP 132/63 10/29/23 08:00 Pulse Ox 98 10/29/23 08:00 O2 Del Method Room Air 10/29/23 08:00 O2 Flow Rate 2 10/29/23 03:44 BMI result Body Mass Index 19.7 Appearing in no acute distress lung sounds are clear to auscultation heart regular rate rhythm, clear S1, S2 positive bowel sounds, abdomen is soft, nontender neuro patient is alert x3, no focal deficits Right foot dry and wet gangrene noted, malodorous Objective Data Active Medications Acetaminophen (Acetaminophen 325 Mg Tablet) 650 mg PO Q6H PRN PRN Reason: Pain, Mild (Pain Scale 1-3) Last Admin: 10/29/23 00:39 Dose: 650 mg Documented By: ZAHIDA Dextrose (Dextrose 50 % 25 Gm/50 Ml Syringe) 25 gm IVPUSH Q15M PRN; Protocol PRN Reason: per Hypoglycemia Standing Ord. Enoxaparin Sodium (Enoxaparin Sodium 40 Mg/0.4 Ml Syringe) 40 mg SUBCUT BEDTIME [facility] Last Admin: 10/29/23 00:24 Dose: 40 mg Documented By: ZAHIDA Glucose (Glucose Gel 15 Gm Gel..Gram.) 15 gm PO Q15M PRN; Protocol PRN Reason: per Hypoglycemia Standing Ord. Piperacillin Sod/Tazobactam (Sod 4.5 gm/ Sodium Chloride) 100 mls @ 200 mls/hr IV Q6H [facility] Last Infusion: 10/29/23 14:19 Dose: Infused Documented By: SAROJ Vancomycin HCl 750 mg/ Sodium (Chloride) 265 mls @ 265 mls/hr IV Q12H [facility] Last Admin: 10/29/23 14:13 Dose: 265 mls/hr Documented By: SARJO Insulin Glargine (Insulin Glargine,Hum.Rec.Anlog 100 Unit/Ml 10 Ml Vial) 14 unit SUBCUT BEDTIME [facility] Last Admin: 10/29/23 00:23 Dose: 14 unit Documented By: ZAHIDA Insulin Human Lispro (Insulin Lispro 100 Unit/Ml 3 Ml Vial) [facility] Protocol Last Admin: 10/29/23 11:33 Dose: Not Given Documented By: SAROJ Non-Admin Reason: patient refused POC Melatonin (Melatonin 3 Mg Tablet) 6 mg PO BEDTIME PRN PRN Reason: Insomnia Last Admin: 10/29/23 00:39 Dose: 6 mg Documented By: ZAHIDA Morphine Sulfate (Morphine Sulfate 4 Mg/Ml Cartridge) 4 mg IVPUSH Q6H PRN; Protocol PRN Reason: Pain, Severe (Pain Scale 7-10) Last Admin: 10/29/23 05:20 Dose: 4 mg Documented By: AZHIDA Ondansetron HCl (Ondansetron Hcl 4 Mg/2 Ml Vial) 4 mg IVPUSH Q8H PRN PRN Reason: Nausea and Vomiting Last Admin: 10/29/23 05:20 Dose: 4 mg Documented By: ZAHIDA Pharmacy Consult (Consult Rx Vancomycin Dosing) 1 each MISCELLANE DAILY PRN PRN Reason: Consult order Sodium Chloride (0.9 % Sodium Chloride Flush 3 Ml Syringe) [facility] Last Admin: 10/29/23 14:18 Dose: 3 ml Documented By: SAROJ Tramadol HCl (Tramadol Hcl 50 Mg Tablet) 50 mg PO Q4H PRN PRN Reason: Pain, Moderate(Pain Scale 4-6) Zolpidem Tartrate (Zolpidem Tartrate 5 Mg Tablet) 5 mg PO BEDTIME PRN PRN Reason: Insomnia Labs 10/29/23 09:34 10/29/23 09:34 Labs: Laboratory Results - last 24 hr 10/28/23 10/28/23 10/28/23 22:40 22:45 22:57 MCV 90.4 MCH 28.8 MCHC 31.9 RDW 13.8 Plt Count 277 D MPV 9.0 L Absolute Nucleated RBC 0.000 Nucleated RBC % (auto) 0.0 VBG pH 7.40 VBG pCO2 43 VBG pO2 40 VBG HCO3 27 H VBG O2 Saturation 62.0 VBG Base Excess 2.5 Anion Gap 9 L Estim Creat Clear Calc 63.1 Estimated GFR > 60 POC Glucose Random Glucose 214 H Lactic Acid 1.7 Calcium 8.1 L D Total Bilirubin 0.7 AST 90 H ALT 45 H Alkaline Phosphatase 214 H Total Protein 7.7 Albumin 2.5 L Lipase 19 Influenza Type A (PCR) NEGATIVE Influenza Type B (PCR) NEGATIVE RSV RNA Qual (PCR) NEGATIVE SARS-CoV-2 RNA (RT-PCR) NEGATIVE 10/28/23 10/29/23 10/29/23 23:18 08:55 09:34 MCV 96.8 D MCH 29.2 MCHC 30.2 L RDW 13.9 Plt Count 168 D MPV 9.6 Absolute Nucleated RBC 0.000 Nucleated RBC % (auto) 0.0 VBG pH VBG pCO2 VBG pO2 VBG HCO3 VBG O2 Saturation VBG Base Excess Anion Gap 10 L Estim Creat Clear Calc 70.6 Estimated GFR > 60 POC Glucose 210 H 114 Random Glucose 105 Lactic Acid Calcium 7.2 L D Total Bilirubin AST ALT Alkaline Phosphatase Total Protein Albumin Lipase Influenza Type A (PCR) Influenza Type B (PCR) RSV RNA Qual (PCR) SARS-CoV-2 RNA (RT-PCR) Microbiology Microbiology Results: Microbiology 10/28/23 22:40 Blood Culture - Preliminary Blood - Venous Prelim: GPC Gram Stain only Assessment and Plan (1) Foot infection: Status: Acute Plan 63-year-old male with pertinent history of insulin-dependent diabetes mellitus, noncompliant with medications who presents to the emergency department for evaluation of right foot pain. GPC bacteremia 1/2 continue vancomcyin follow final cx Sepsis due to right foot wet gangrene with purulent cellulitis Vancomycin and Zosyn Resuscitated with IV crystalloids. Lactic acid and blood culture obtained. General surgery>rec amputation, patient declined today, will check in am keep NPO after midnight Insulin-dependent diabetes mellitus 2 sliding scale, ada diet Normocytic anemia due to chronic disease Hemoglobin above transfusion threshold Elevated troponin Likely type 2 in the setting of increased demand. No chest pain. Will trend DVT prophylaxis: Kayy Attending Dr. Oden Full code continued hospital stay for IV antibiotics (as above), which is not possible in a lesser acute setting. Specialist consult pending for possible amputation Quality Stroke Does the patient have a stroke diagnosis?: No VTE Prior VTE?: No VTE Risk Level:: Medical - moderate - high VTE Device Contraindication: Treatment Not Indicated VTE Drug Contraindication: N/A - Med Ordered
--- NOTE | 2023-10-29 15:14 | P.CONGS_ITS ---
History of Present Illness Consult details Consult date: 10/29/23 Narrative: 63M admitted last night for right foot pain. The patient is currently not very cooperative and does not answer questions well. He says he has had neuropathy on both feet but does not say how long he has had problems with pain and foul-odor. According the admit notes, he has had pain for several weeks and had not taken his socks off for 10 days prior to admission. In the ER, he was noted to have dark discoloration of the entire sole of his right foot, along with foul odor. He had fulfilled sepsis criteria so he was admitted. He does not have fever or chills. He has a known history of diabetes but his blood sugars appear to have been good since he had been admitted to the hospital. He says he lives with his brother. He admits that he has very poor self-care. Review of Systems 2 Constitutional: Constitutional: Denies chills and Denies fever(s) Cardiovascular: Cardiovascular: Denies chest pain Respiratory: Respiratory: Denies cough Gastrointestinal: Gastrointestinal: Denies abdominal pain Genitourinary: Genitourinary: Denies difficulty urinating Musculoskeletal: Comments: Right foot pain, also neuropathy PMFSH Past Medical History Medical History (Updated 11/03/23 @ 08:17 by Richard Gross MD) Gangrene of foot Bacteremia Neuropathy Diabetes Social History Social History Household Members: Family Housing: Apartment Do you presently have visiting nurse or other home services: No Alcohol intake: current Alcohol intake frequency: does not drink Alcohol type: beer Comment: Patient off unit in [place] Patient Tobacco Use Status: Current everyday Tobacco user Tobacco use type: Cigarette e-Cigarette/Vaping Use: Never Used Second Hand Smoke Exposure: No Substance Use Type: Marijuana and Opiates service: No Meds Allergies Allergy/AdvReac Type Severity Reaction Status Date / Time amitriptyline Allergy Unknown stutter Verified 01/26/22 17:35 gabapentin Allergy Unknown confused Verified 01/26/22 17:35 Active Medications: Current Medications Acetaminophen (Acetaminophen 325 Mg Tablet) 650 mg PO Q6H PRN PRN Reason: Pain, Mild (Pain Scale 1-3) Last Admin: 10/29/23 00:39 Dose: 650 mg Dextrose (Dextrose 50 % 25 Gm/50 Ml Syringe) 25 gm IVPUSH Q15M PRN; Protocol PRN Reason: per Hypoglycemia Standing Ord. Enoxaparin Sodium (Enoxaparin Sodium 40 Mg/0.4 Ml Syringe) 40 mg SUBCUT BEDTIME [facility] Last Admin: 10/29/23 00:24 Dose: 40 mg Glucose (Glucose Gel 15 Gm Gel..Gram.) 15 gm PO Q15M PRN; Protocol PRN Reason: per Hypoglycemia Standing Ord. Piperacillin Sod/Tazobactam (Sod 4.5 gm/ Sodium Chloride) 100 mls @ 200 mls/hr IV Q6H [facility] Last Infusion: 10/29/23 14:19 Dose: Infused Vancomycin HCl 750 mg/ Sodium (Chloride) 265 mls @ 265 mls/hr IV Q12H [facility] Last Admin: 10/29/23 14:13 Dose: 265 mls/hr Insulin Glargine (Insulin Glargine,Hum.Rec.Anlog 100 Unit/Ml 10 Ml Vial) 14 unit SUBCUT BEDTIME [facility] Last Admin: 10/29/23 00:23 Dose: 14 unit Insulin Human Lispro (Insulin Lispro 100 Unit/Ml 3 Ml Vial) 0 unit SUBCUT QIDACHS [facility]; Protocol Last Admin: 10/29/23 11:33 Dose: Not Given Melatonin (Melatonin 3 Mg Tablet) 6 mg PO BEDTIME PRN PRN Reason: Insomnia Last Admin: 10/29/23 00:39 Dose: 6 mg Morphine Sulfate (Morphine Sulfate 4 Mg/Ml Cartridge) 4 mg IVPUSH Q6H PRN; Protocol PRN Reason: Pain, Severe (Pain Scale 7-10) Last Admin: 10/29/23 05:20 Dose: 4 mg Ondansetron HCl (Ondansetron Hcl 4 Mg/2 Ml Vial) 4 mg IVPUSH Q8H PRN PRN Reason: Nausea and Vomiting Last Admin: 10/29/23 05:20 Dose: 4 mg Pharmacy Consult (Consult Rx Vancomycin Dosing) 1 each MISCELLANE DAILY PRN PRN Reason: Consult order Sodium Chloride (0.9 % Sodium Chloride Flush 3 Ml Syringe) [facility] Last Admin: 10/29/23 14:18 Dose: 3 ml Tramadol HCl (Tramadol Hcl 50 Mg Tablet) 50 mg PO Q4H PRN PRN Reason: Pain, Moderate(Pain Scale 4-6) Zolpidem Tartrate (Zolpidem Tartrate 5 Mg Tablet) 5 mg PO BEDTIME PRN PRN Reason: Insomnia Home Medications Medication Instructions Recorded Confirmed Last Taken Type diphenhydramine 25 2 tab PO BEDTIME PRN Pain 10/29/23 10/29/23 Unknown History mg-acetaminophen 500 mg tablet Physical Exam 2 Vital Signs: Vital Signs: Last Vital Signs Temp 97.5 F 10/29/23 08:00 Pulse 64 10/29/23 08:00 Resp 18 10/29/23 08:00 BP 132/63 10/29/23 08:00 Pulse Ox 98 10/29/23 08:00 O2 Del Method Room Air 10/29/23 08:00 O2 Flow Rate 2 10/29/23 03:44 BMI result Body Mass Index 19.7 Const: General: comfortable and no acute distress O rientation/consciousness: patient oriented x3 Neck: Neck: Yes no lymphadenopathy Resp: Auscultation: clear to auscultation bilaterally Cardio: Rhythm: regular rhythm GI: Palpation (GI): Soft to palpation, nontender and no guarding Neuro: General: patient oriented x3 Extrem: Other: the entire sole of the right foot is darkly discolored with fall other consistent with gangrene of the skin and the subcutaneous layer, with open wounds, no cellulitis of dorsum Results Labs 11/03/23 05:37 11/03/23 05:37 Labs: Abnormal lab results 10/28/23 10/28/23 10/28/23 Range/Units 22:40 22:57 23:18 WBC 18.8 H (4.8-10.8) X10*3/uL RBC 3.12 L D (4.60-5.80) X10*6/uL Hgb 9.0 L D (14.0-18.0) g/dl Hct 28.2 L D (42.0-52.0) % MCHC (31.0-36.0) g/dl MPV 9.0 L (9.4-12.4) fL VBG HCO3 27 H (22-26) mmol/L Sodium 132 L (135-145) mmol/L Carbon Dioxide (22-29) mmol/L Anion Gap 9 L (12-20) BUN 32 H (9-16) mg/dL POC Glucose 210 H (60-115) mg/dL Random Glucose 214 H (60-115) mg/dL Calcium 8.1 L D (8.4-10.2) mg/dL AST 90 H (5-37) U/L ALT 45 H (0-40) U/L Alkaline Phosphatase 214 H (39-117) U/L Troponin I High Sens 222.5 H* (<3.5-35.0) ng/L Albumin 2.5 L (3.5-5.0) g/dL 10/29/23 Range/Units 09:34 WBC (4.8-10.8) X10*3/uL RBC 2.53 L (4.60-5.80) X10*6/uL Hgb 7.4 L (14.0-18.0) g/dl Hct 24.5 L (42.0-52.0) % MCHC 30.2 L (31.0-36.0) g/dl MPV (9.4-12.4) fL VBG HCO3 (22-26) mmol/L Sodium 132 L (135-145) mmol/L Carbon Dioxide 19 L (22-29) mmol/L Anion Gap 10 L (12-20) BUN 31 H (9-16) mg/dL POC Glucose (60-115) mg/dL Random Glucose (60-115) mg/dL Calcium 7.2 L D (8.4-10.2) mg/dL AST (5-37) U/L ALT (0-40) U/L Alkaline Phosphatase (39-117) U/L Troponin I High Sens 129.8 H* (<3.5-35.0) ng/L Albumin (3.5-5.0) g/dL Short CBC 10/28/23 10/29/23 Range/Units 22:40 09:34 WBC 18.8 H 9.8 (4.8-10.8) X10*3/uL Hgb 9.0 L D 7.4 L (14.0-18.0) g/dl Hct 28.2 L D 24.5 L (42.0-52.0) % Plt Count 277 D 168 D (160-400) X10*3/uL BMP 10/28/23 10/29/23 22:40 09:34 Sodium 132 L 132 L Potassium 3.8 3.5 Chloride 100 107 Carbon Dioxide 27 19 L BUN 32 H 31 H Creatinine 1.12 1.00 Calcium 8.1 L D 7.2 L D Liver Function 10/28/23 Range/Units 22:40 Total Bilirubin 0.7 (0.0-1.0) mg/dL AST 90 H (5-37) U/L ALT 45 H (0-40) U/L Alkaline Phosphatase 214 H (39-117) U/L Albumin 2.5 L (3.5-5.0) g/dL All other labs normal. Imaging Additional studies: Laboratory Results WBC 9.8 X10*3/uL (4.8-10.8) 10/29/23 09:34 RBC 2.53 X10*6/uL (4.60-5.80) L 10/29/23 09:34 Hgb 7.4 g/dl (14.0-18.0) L 10/29/23 09:34 Hct 24.5 % (42.0-52.0) L 10/29/23 09:34 MCV 96.8 fL (80.0-98.0) D 10/29/23 09:34 MCH 29.2 pg (27.0-33.0) 10/29/23 09:34 MCHC 30.2 g/dl (31.0-36.0) L 10/29/23 09:34 RDW 13.9 % (11.0-16.0) 10/29/23 09:34 Plt Count 168 X10*3/uL (160-400) D 10/29/23 09:34 MPV 9.6 fL (9.4-12.4) 10/29/23 09:34 Absolute Nucleated RBC 0.000 X10*3/uL (0.0-0.012) 10/29/23 09:34 Nucleated RBC % (auto) 0.0 /100WBC (0.0-0.2) 10/29/23 09:34 VBG pH 7.40 (7.32-7.43) 10/28/23 22:57 VBG pCO2 43 mmHg 10/28/23 22:57 VBG pO2 40 mmHg 10/28/23 22:57 VBG HCO3 27 mmol/L (22-26) H 10/28/23 22:57 VBG O2 Saturation 62.0 % 10/28/23 22:57 VBG Base Excess 2.5 mmol/L 10/28/23 22:57 Sodium 132 mmol/L (135-145) L 10/29/23 09:34 Potassium 3.5 mmol/L (3.3-5.1) 10/29/23 09:34 Chloride 107 mmol/L (96-108) 10/29/23 09:34 Carbon Dioxide 19 mmol/L (22-29) L 10/29/23 09:34 Anion Gap 10 (12-20) L 10/29/23 09:34 BUN 31 mg/dL (9-16) H 10/29/23 09:34 Creatinine 1.00 mg/dL (0.5-1.4) 10/29/23 09:34 Estim Creat Clear Calc 70.6 10/29/23 09:34 Estimated GFR > 60 10/29/23 09:34 POC Glucose 114 mg/dL (60-115) 10/29/23 08:55 Random Glucose 105 mg/dL (60-115) 10/29/23 09:34 Lactic Acid 1.7 mmol/L (0.5-2.0) 10/28/23 22:45 Calcium 7.2 mg/dL (8.4-10.2) L D 10/29/23 09:34 Total Bilirubin 0.7 mg/dL (0.0-1.0) 10/28/23 22:40 AST 90 U/L (5-37) H 10/28/23 22:40 ALT 45 U/L (0-40) H 10/28/23 22:40 Alkaline Phosphatase 214 U/L (39-117) H 10/28/23 22:40 Troponin I High Sens 129.8 ng/L (<3.5-35.0) H* 10/29/23 09:34 Total Protein 7.7 g/dL (6.5-8.0) 10/28/23 22:40 Albumin 2.5 g/dL (3.5-5.0) L 10/28/23 22:40 Lipase 19 U/L (8-78) 10/28/23 22:40 Influenza Type A (PCR) NEGATIVE (Negative) 10/28/23 22:45 Influenza Type B (PCR) NEGATIVE (Negative) 10/28/23 22:45 RSV RNA Qual (PCR) NEGATIVE (Negative) 10/28/23 22:45 SARS-CoV-2 RNA (RT-PCR) NEGATIVE (Negative) 10/28/23 22:45 Impressions Duplex Scan Lower Extremity Artery 10/29/23 07:53 IMPRESSION: 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 Distal to this, flow is preserved through the tibial vessels but velocities reduced due to upstream occlusion. If clinically indicated, CTA runoff should be obtained for further evaluation. Foot CT 10/29/23 08:51 IMPRESSION: 1. Extensive gas throughout the foot and extending into the subcutaneous soft tissues of the forefoot. 2. The findings are concerning for gas-forming soft tissue infection/cellulitis. 3. There is some irregularity of the cortical surface of the base of the fifth metatarsal and perhaps small fracture fragments in the same area. This is suspicious for concomitant osteomyelitis perhaps with complicating small fracture fragments. 4. Generalized fluidlike density throughout the foot compatible with edema and/or cellulitis. 5. No localized fluid collection/abscess within the soft tissues. Assessment and Plan (1) Foot infection: Status: Acute He has what appears to gangrene of the skin and part of the subcutaneous layer of the entire plantar aspect of the foot and subcutaneous layer. He does that he has had this for several weeks prior. He admits to have poor self-care. I explained to him that it may be best to proceed with debridement and possible BKA. I did explained to the technique of this procedure. I reviewed the risks of bleeding, infections, poor healing, postop pain, as well as the benefits and alternatives He had repeatedly refused to proceed with surgery at this time. I had revisited this with him along with the hospitalist service and he remains adamant about not going ahead with amputation. He says that he might think about it . He understands the risk of worsening sepsis. I had multiple discussions with the patient and he says that he refused any surgical option at this time. I will revision with him in the morning. He also stated that he does not want any family member involved with this decision making for now. He does look comfortable at this time and is not toxic looking. He does not have tachycardia or fever. However, I did explain to him that it will still be best to proceed with debridement and possible BKA. His x-ray shows air in the subcutaneous layer although this may be secondary to tracking from his open wounds. (2) Gangrene of foot: Status: Acute As above Procedures Date of Service Date of Service: 11/03/23
--- NOTE | 2023-10-29 16:12 | MHC.CM.PN ---
PT REPORTS HE LIVES WITH HIS BROTHER AND IS INDEPENDENT WITH CARE WHEN ASKED IF HE USES DME, HE STATES NOT YET HE HAS NO PCP HE DECLINES TO COMPLETE A HCP DCP: HOME NO SERVICES PT STATES HE HAS A RIDE
[2023-10-29 16:24] LABS: Glucose, Whole Blood 89 mg/dL (60-115)
[2023-10-29 20:43] LABS: Glucose, Whole Blood 74 mg/dL (60-115)
[2023-10-29] MEDS: traMADoL HCL 50 MG TABLET PO (23:11)
[2023-10-30] VITALS (9 sets, daily range): BP systolic 134–180; BP diastolic 61–77; PULSE 65–97; RESP 16–20; TEMP 36.3–37.4; O2SAT 90–95
[2023-10-30] MEDS: Morphine Sulfate 4 MG/ML CARTRIDGE IVPUSH ×4 (00:14→20:30)
[2023-10-30] MEDS: vancomycin HCL 750 MG in 0.9 % Sodium Chloride 250 ML 265 MG IV (00:15)
--- NOTE | 2023-10-30 01:17 | PC.NURSE ---
pt POC at hs 74, orders for NPO at 0000. notified of lab values with order from to hold scheduled hs lantus.
[2023-10-30] MEDS: Piperacillin Sodium/Tazobactam 4.5 GM in 0.9 % Sodium Chloride 100 ML IV ×3 (05:48→20:27)
[2023-10-30 05:52] LABS: MANUAL DIFF FLAG NO
[2023-10-30 06:04] LABS: Basophils Percent Auto 0.1 % (0-2); Eosinophils Percent Auto 0.2 % (0-4); Hematocrit 22.4 % (42.0-52.0); Hemoglobin 7.3 g/dl (14.0-18.0); Imm Gran Abs Auto 0.11 X10*3/uL (0.00-0.03); Imm Gran Pct Auto 0.7 % (0.0-0.4); Lymphocytes Absolute Auto 1.2 X10*3/uL (1.2-4.9); Lymphocytes Percent Auto 7.6 % (20-40); Mean Corpuscular HGB Conc 32.6 g/dl (31.0-36.0); Mean Corpuscular Hemoglobin 29.4 pg (27.0-33.0); Mean Corpuscular Volume 90.3 fL (80.0-98.0); Mean Platelet Volume 9.2 fL (9.4-12.4); Monocytes Absolute Auto 1.2 X10*3/uL (0.1-1.2); Monocytes Percent Auto 7.7 % (2-11); Neutrophils Absolute Auto 12.8 x10*3/uL (2.0-8.3); Neutrophils Percent Auto 83.7 % (45-73); Platelet Count 232 X10*3/uL (160-400); Red Blood Count 2.48 X10*6/uL (4.60-5.80); Red Cell Distribution Width 13.8 % (11.0-16.0); White Blood Count 15.2 X10*3/uL (4.8-10.8)
--- NOTE | 2023-10-30 06:04 | PC.NURSE ---
pt agitated repeatedly stating he is not having surgery today and to give him something to drink. Attempted to educate pt on importance of procedure, without success. Md aware that pt is refusing procedure today.
[2023-10-30 06:08] LABS: Anion Gap 11 (12-20); Blood Urea Nitrogen 28 mg/dL (9-16); Calcium 7.5 mg/dL (8.4-10.2); Carbon Dioxide 21 mmol/L (22-29); Chloride 108 mmol/L (96-108); Creatinine Clr Calc Pharmacy 53.9; Estimated Glomerular Filt Rate > 60; Glucose Random 64 mg/dL (60-115); Potassium 3.6 mmol/L (3.3-5.1); Sodium 136 mmol/L (135-145)
[2023-10-30] MEDS: ondansetron HCL 4 MG/2 ML VIAL IVPUSH (07:39)
[2023-10-30] MEDS: traMADoL HCL 50 MG TABLET PO (07:39)
[2023-10-30] MEDS: Dextrose 50 % 25 GM/50 ML SYRINGE IVPUSH (07:39)
[2023-10-30] MEDS: Acetaminophen 325 MG TABLET 650 MG PO (07:40)
[2023-10-30 07:46] LABS: Glucose, Whole Blood 66 mg/dL (60-115)
[2023-10-30] MEDS: 0.9 % Sodium Chloride Flush 3 ML SYRINGE IVFLUSH ×3 (07:51→13:47)
--- NOTE | 2023-10-30 07:56 | PC.NURSE ---
Patient refusing surgery this morning, stating, I need ice water and a jalil nilsa . POC- 6, given dextrose IV. Dr. Gross aware of patient's requests , state he will speak with him at the bedside. Will keep NPO for now.
[2023-10-30 08:09] LABS: Iron 12 mcg/dL (45-160); Percent Iron Saturation 10 % (15-50); Total Iron Binding Capacity 123 mcg/dL (228-428); Unsaturated Iron Binding 111 ug/dL
[2023-10-30 09:09] LABS: Glucose, Whole Blood 110 mg/dL (60-115)
[2023-10-30 09:20] LABS: Vancomycin Trough 28.9 mcg/mL (10.0-20.0)
--- NOTE | 2023-10-30 09:44 | HE.PHANOTE ---
Vanco level 28.9 after 3 doses of vancomycin. Of note, the pt weight was in as 68 kg when the loading dose was ordered then was corrected to 57 kg. Pt's Scr has increased so crcl has gone from 70 to 54. Hold dose, recheck level at 2130 and resume as appropriate.
--- NOTE | 2023-10-30 10:34 | PM.PNGS ---
Subjective Subjective Date of Service: 11/01/23 Interval history: No new events patient describes some pain on the foot on the right side does not want to proceed with surgery today no fever overnight Physical Exam Vital Signs: Vital Signs: Last Vital Signs Temp 97.4 F 10/30/23 10:14 Pulse 65 10/30/23 10:14 Resp 18 10/30/23 10:14 BP 134/61 10/30/23 10:14 Pulse Ox 92 10/30/23 07:27 O2 Del Method Room Air 10/30/23 07:27 O2 Flow Rate 2 10/29/23 03:44 BMI result Body Mass Index 19.7 Const: General: comfortable and no acute distress Orientation/consciousness: patient oriented x3 Resp: Effort & Inspection: normal respiratory effort Cardio: Rate: regular rate GI: Palpation (GI): Soft to palpation and not firm Neuro: General: patient oriented x3 Extrem: Other: discoloration of the entire plantar aspect of right foot consistent with gangrene, with daughter, no cellulitis on the skin of the dorsum of the foot Objective Data Active Medications Acetaminophen (Acetaminophen 325 Mg Tablet) 650 mg PO Q6H PRN PRN Reason: Pain, Mild (Pain Scale 1-3) Last Admin: 10/30/23 07:40 Dose: 650 mg Documented By: SARABJIT Dextrose (Dextrose 50 % 25 Gm/50 Ml Syringe) 25 gm IVPUSH Q15M PRN; Protocol PRN Reason: per Hypoglycemia Standing Ord. Last Admin: 10/30/23 07:39 Dose: 25 gm Documented By: SARBAJIT Enoxaparin Sodium (Enoxaparin Sodium 40 Mg/0.4 Ml Syringe) 40 mg SUBCUT BEDTIME [facility] Last Admin: 10/29/23 23:09 Dose: 40 mg Documented By: LALITHA Glucose (Glucose Gel 15 Gm Gel..Gram.) 15 gm PO Q15M PRN; Protocol PRN Reason: per Hypoglycemia Standing Ord. Piperacillin Sod/Tazobactam (Sod 4.5 gm/ Sodium Chloride) 100 mls @ 200 mls/hr IV Q6H [facility] Last Infusion: 10/30/23 06:18 Dose: Infused Documented By: LALITHA Vancomycin HCl 750 mg/ Sodium (Chloride) 265 mls @ 265 mls/hr IV Q12H [facility] Last Infusion: 10/30/23 01:15 Dose: Infused Documented By: LALITHA Insulin Glargine (Insulin Glargine,Hum.Rec.Anlog 100 Unit/Ml 10 Ml Vial) 14 unit SUBCUT BEDTIME [facility] Last Admin: 10/29/23 21:00 Dose: Not Given Documented By: LALITHA Non-Admin Reason: Physician Approved Insulin Human Lispro (Insulin Lispro 100 Unit/Ml 3 Ml Vial) [facility]; Protocol Last Admin: 10/30/23 07:51 Dose: Not Given Documented By: SARABJIT Non-Admin Reason: No Insulin Coverage Melatonin (Melatonin 3 Mg Tablet) 6 mg PO BEDTIME PRN PRN Reason: Insomnia Last Admin: 10/29/23 23:10 Dose: 6 mg Documented By: LALITHA Morphine Sulfate (Morphine Sulfate 4 Mg/Ml Cartridge) 4 mg IVPUSH Q6H PRN; Protocol PRN Reason: Pain, Severe (Pain Scale 7-10) Last Admin: 10/30/23 06:53 Dose: 4 mg Documented By: LALITHA Ondansetron HCl (Ondansetron Hcl 4 Mg/2 Ml Vial) 4 mg IVPUSH Q8H PRN PRN Reason: Nausea and Vomiting Last Admin: 10/30/23 07:39 Dose: 4 mg Documented By: SARABJIT Pharmacy Consult (Consult Rx Vancomycin Dosing) 1 each MISCELLANE DAILY PRN PRN Reason: Consult order Sodium Chloride (0.9 % Sodium Chloride Flush 3 Ml Syringe) 3 ml IVFSH [facility] Last Admin: 10/30/23 07:51 Dose: 3 ml Documented By: SARABJIT Tramadol HCl (Tramadol Hcl 50 Mg Tablet) 50 mg PO Q4H PRN PRN Reason: Pain, Moderate(Pain Scale 4-6) Last Admin: 10/30/23 07:39 Dose: 50 mg Documented By: SARABJIT Zolpidem Tartrate (Zolpidem Tartrate 5 Mg Tablet) 5 mg PO BEDTIME PRN PRN Reason: Insomnia Labs 11/01/23 06:51 11/01/23 06:51 Labs: Laboratory Results - last 24 hr 10/29/23 10/29/23 10/30/23 16:19 20:39 05:37 MCV 90.3 D MCH 29.4 MCHC 32.6 RDW 13.8 Plt Count 232 D MPV 9.2 L Immature Gran % (Auto) 0.7 H Neut % (Auto) 83.7 H Lymph % (Auto) 7.6 L Emanuel % (Auto) 7.7 Eos % (Auto) 0.2 Baso % (Auto) 0.1 Lymph # (Auto) 1.2 Emanuel # (Auto) 1.2 Eos # (Auto) 0.0 Baso # (Auto) 0.0 Abs Immat Gran (auto) 0.11 H Absolute Neuts (auto) 12.8 H Absolute Nucleated RBC 0.000 Nucleated RBC % (auto) 0.0 Hold Purple Top Anion Gap 11 L Estim Creat Clear Calc 53.9 Estimated GFR > 60 POC Glucose 89 74 Random Glucose 64 Calcium 7.5 L Iron 12 L TIBC 123 L % Saturation 10 L Unsat Iron Binding 111 Hold Yellow Top Vancomycin Trough Blood Type Antibody Screen Crossmatch 10/30/23 10/30/23 10/30/23 07:29 08:39 09:05 MCV MCH MCHC RDW Plt Count MPV Immature Gran % (Auto) Neut % (Auto) Lymph % (Auto) Emanuel % (Auto) Eos % (Auto) Baso % (Auto) Lymph # (Auto) Emanuel # (Auto) Eos # (Auto) Baso # (Auto) Abs Immat Gran (auto) Absolute Neuts (auto) Absolute Nucleated RBC Nucleated RBC % (auto) Hold Purple Top SEE NOTE Anion Gap Estim Creat Clear Calc Estimated GFR POC Glucose 66 110 Random Glucose Calcium Iron TIBC % Saturation Unsat Iron Binding Hold Yellow Top See Note Vancomycin Trough 28.9 H* Blood Type O Positive Antibody Screen NEGATIVE Crossmatch See Detail Microbiology Microbiology Results: Microbiology 10/28/23 22:40 Blood Culture - Preliminary Blood - Venous Prelim: GPC Gram Stain only 10/28/23 22:40 Blood Culture - Preliminary Blood - Venous Prelim: GPC Gram Stain only Procedures Date of Service Date of Service: 11/01/23 Progress Note: A&P Assessment and plan (1) Foot infection: Status: Acute Assessment and Plan: exam consistent with gangrene of the skin and subcutaneous tissue of the right foot he continues to refuse any surgical intervention I have had multiple discussions with him morning with regards to this he says he understands that he will not get better without debridement at least or BKA he says that he will continue to think about surgical option he says he will not be ready to decide on this for a couple of days he says he does not want me to talk to any family member he appears to be competent with regards to the decision- making Plan he still does not want surgery today he says he will do it tomorrow he understands risk of worsening infection scheduled again for debridement, poss. BKA of rigt foot tomorrow seen and examined independently Time Spent With Patient Time: Total time managing care of this patient today ____ minutes. Quality Stroke Does the patient have a stroke diagnosis?: No VTE Prior VTE?: No VTE Risk Level:: Medical - moderate - high VTE Device Contraindication: Treatment Not Indicated VTE Drug Contraindication: N/A - Med Ordered
--- NOTE | 2023-10-30 11:13 | HO.PM.IMPN ---
Subjective Subjective Date of Service: 10/30/23 Review of Systems Follow up gangrene some pain to foot noted No fever or chills Physical Exam Vital Signs: Vital Signs: Last Vital Signs Temp 97.4 F 10/30/23 10:14 Pulse 65 10/30/23 10:14 Resp 18 10/30/23 10:14 BP 134/61 10/30/23 10:14 Pulse Ox 92 10/30/23 07:27 O2 Del Method Room Air 10/30/23 07:27 O2 Flow Rate 2 10/29/23 03:44 BMI result Body Mass Index 19.7 Appearing in no acute distress lung sounds are clear to auscultation heart regular rate rhythm, clear S1, S2 positive bowel sounds, abdomen is soft, nontender neuro patient is alert x3, no focal deficits Objective Data Active Medications Acetaminophen (Acetaminophen 325 Mg Tablet) 650 mg PO Q6H PRN PRN Reason: Pain, Mild (Pain Scale 1-3) Last Admin: 10/30/23 07:40 Dose: 650 mg Documented By: SARABJIT Dextrose (Dextrose 50 % 25 Gm/50 Ml Syringe) 25 gm IVPUSH Q15M PRN; Protocol PRN Reason: per Hypoglycemia Standing Ord. Last Admin: 10/30/23 07:39 Dose: 25 gm Documented By: SARABJIT Enoxaparin Sodium (Enoxaparin Sodium 40 Mg/0.4 Ml Syringe) 40 mg SUBCUT BEDTIME ANN Last Admin: 10/29/23 23:09 Dose: 40 mg Documented By: LALITHA Glucose (Glucose Gel 15 Gm Gel..Gram.) 15 gm PO Q15M PRN; Protocol PRN Reason: per Hypoglycemia Standing Ord. Piperacillin Sod/Tazobactam (Sod 4.5 gm/ Sodium Chloride) 100 mls @ 200 mls/hr IV Q6H [facility] Last Infusion: 10/30/23 06:18 Dose: Infused Documented By: LALITHA Vancomycin HCl 750 mg/ Sodium (Chloride) 265 mls @ 265 mls/hr IV Q12H [facility] Last Infusion: 10/30/23 01:15 Dose: Infused Documented By: LALITHA Insulin Glargine (Insulin Glargine,Hum.Rec.Anlog 100 Unit/Ml 10 Ml Vial) 14 unit SUBCUT BEDTIME [facility] Last Admin: 10/29/23 21:00 Dose: Not Given Documented By: LALITHA Non-Admin Reason: Physician Approved Insulin Human Lispro (Insulin Lispro 100 Unit/Ml 3 Ml Vial) 0 unit SUBCUT [facility]; Protocol Last Admin: 10/30/23 07:51 Dose: Not Given Documented By: SARABJIT Non-Admin Reason: No Insulin Coverage Melatonin (Melatonin 3 Mg Tablet) 6 mg PO BEDTIME PRN PRN Reason: Insomnia Last Admin: 10/29/23 23:10 Dose: 6 mg Documented By: LALITHA Morphine Sulfate (Morphine Sulfate 4 Mg/Ml Cartridge) 4 mg IVPUSH Q6H PRN; Protocol PRN Reason: Pain, Severe (Pain Scale 7-10) Last Admin: 10/30/23 06:53 Dose: 4 mg Documented By: LALITHA Ondansetron HCl (Ondansetron Hcl 4 Mg/2 Ml Vial) 4 mg IVPUSH Q8H PRN PRN Reason: Nausea and Vomiting Last Admin: 10/30/23 07:39 Dose: 4 mg Documented By: SARABJIT Pharmacy Consult (Consult Rx Vancomycin Dosing) 1 each MISCELLANE DAILY PRN PRN Reason: Consult order Sodium Chloride (0.9 % Sodium Chloride Flush 3 Ml Syringe) 3 ml [facility] [place] Last Admin: 10/30/23 07:51 Dose: 3 ml Documented By: SARABJIT Tramadol HCl (Tramadol Hcl 50 Mg Tablet) 50 mg PO Q4H PRN PRN Reason: Pain, Moderate(Pain Scale 4-6) Last Admin: 10/30/23 07:39 Dose: 50 mg Documented By: SARABJIT Zolpidem Tartrate (Zolpidem Tartrate 5 Mg Tablet) 5 mg PO BEDTIME PRN PRN Reason: Insomnia Labs 10/30/23 05:37 10/30/23 05:37 Labs: Laboratory Results - last 24 hr 10/29/23 10/29/23 10/30/23 16:19 20:39 05:37 MCV 90.3 D MCH 29.4 MCHC 32.6 RDW 13.8 Plt Count 232 D MPV 9.2 L Immature Gran % (Auto) 0.7 H Neut % (Auto) 83.7 H Lymph % (Auto) 7.6 L [place] % (Auto) 7.7 Eos % (Auto) 0.2 Baso % (Auto) 0.1 Lymph # (Auto) 1.2 [place] # (Auto) 1.2 Eos # (Auto) 0.0 Baso # (Auto) 0.0 Abs Immat Gran (auto) 0.11 H Absolute Neuts (auto) 12.8 H Absolute Nucleated RBC 0.000 Nucleated RBC % (auto) 0.0 Hold Purple Top Anion Gap 11 L Estim Creat Clear Calc 53.9 Estimated GFR > 60 POC Glucose 89 74 Random Glucose 64 Calcium 7.5 L Iron 12 L TIBC 123 L % Saturation 10 L Unsat Iron Binding 111 Hold Yellow Top Vancomycin Trough Blood Type Antibody Screen Crossmatch 10/30/23 10/30/23 10/30/23 07:29 08:39 09:05 MCV MCH MCHC RDW Plt Count MPV Immature Gran % (Auto) Neut % (Auto) Lymph % (Auto) [place] % (Auto) Eos % (Auto) Baso % (Auto) Lymph # (Auto) [place] # (Auto) Eos # (Auto) Baso # (Auto) Abs Immat Gran (auto) Absolute Neuts (auto) Absolute Nucleated RBC Nucleated RBC % (auto) Hold Purple Top SEE NOTE Anion Gap Estim Creat Clear Calc Estimated GFR POC Glucose 66 110 Random Glucose Calcium Iron TIBC % Saturation Unsat Iron Binding Hold Yellow Top See Note Vancomycin Trough 28.9 H* Blood Type O Positive Antibody Screen NEGATIVE Crossmatch See Detail Microbiology Microbiology Results: Microbiology 10/28/23 22:40 Blood Culture - Preliminary Blood - Venous Staphylococcus aureus 10/28/23 22:40 Blood Culture - Preliminary Blood - Venous Staphylococcus aureus Assessment and Plan (1) Foot infection: Status: Acute Plan 63-year-old male with pertinent history of insulin-dependent diabetes mellitus, noncompliant with medications who presents to the emergency department for evaluation of right foot pain. 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 General surgery>rec amputation. Plan will be for Tuesday keep NPO after midnight tuesday night Insulin-dependent diabetes mellitus 2 sliding scale, ada diet Normocytic anemia due to chronic disease Hemoglobin above transfusion threshold Elevated troponin Likely type 2 in the setting of increased demand. No chest pain. Will trend DVT prophylaxis: Lovenox Attending Dr. Oden Full code continued hospital stay for IV antibiotics (as above), which is not possible in a lesser acute setting. Specialist consult pending for possible amputation Quality Stroke Does the patient have a stroke diagnosis?: No VTE Prior VTE?: No VTE Risk Level:: Medical - moderate - high VTE Device Contraindication: Treatment Not Indicated VTE Drug Contraindication: N/A - Med Ordered
[2023-10-30 11:31] LABS: Glucose, Whole Blood 99 mg/dL (60-115)
[2023-10-30 15:32] LABS: Glucose, Whole Blood 134 mg/dL (60-115)
[2023-10-30 16:32] LABS: Appearance Urine Cloudy; Color Urine Dark Yellow; Glucose Urine UA Negative (Negative); Leukocyte Esterase Urine Negative (Negative); Nitrite Urine Negative (Negative); Specific Gravity - Urine >= 1.030 (1.005-1.025); UMIC TRIGGER UACC YES; Urine Blood Moderate (2+) (Negative); Urine Ketones Negative (Negative); Urine Protein 100 (2+) mg/dL (Neg-Trace)
[2023-10-30 17:03] LABS: Bacteria Urine None Seen (None Seen); Hyaline Casts Urine 0-2 /LPF (0-2); WBC Urine 0-5 /HPF (0-5)
--- NOTE | 2023-10-30 18:39 | PC.NURSE ---
Patient had a fall at this time. This was a witnessed fall. JOSEPH Mejia in room with patient when patient asked to stand to use urinal. JOSEPH Mejia originally was by his side for balance when patient refused to let her be by him anymore, requesting privacy. JOSEPH Mejia was by the room sink the entire time when patient began to lose his balance. Per patient he felt himself losing balance, grabbed the bedside rail and lowered self to ground, landing on right side side. Did not hit head. Did not lose consciousness. Patient denies any pain or injury at this time. MD Cari at bedside at this time to assess patient. No further interventions ordered at this time.
--- NOTE | 2023-10-30 18:46 | PM.EVENT ---
Event Note Date of Service: 10/30/23 Event Note: patient had witnessed mechanical fall, no LOC, no head strike, denies pain or injury. Time Spent With Patient Time: Total time managing care of this patient today ____ minutes.
[2023-10-30 20:25] LABS: Glucose, Whole Blood 117 mg/dL (60-115)
[2023-10-30] MEDS: Enoxaparin Sodium 40 MG/0.4 ML SYRINGE SUBCUT (20:27)
[2023-10-30 21:51] LABS: Vancomycin Random 23.1 mcg/mL (15-20)
--- NOTE | 2023-10-30 22:05 | HE.PHANOTE ---
RE: vanco Trough on 10/30 came back high at 23.1; held PM dose. another level to be drawn 10/31 @0800. Changed dose to 750mg Q24H pending level, predicted trough of 474 mg/L, trough of 14.5
[2023-10-31] VITALS (9 sets, daily range): BP systolic 112–172; BP diastolic 54–95; PULSE 62–95; RESP 16–20; TEMP 36.2–37.3; O2SAT 79–98
[2023-10-31] MEDS: 0.9 % Sodium Chloride Flush 3 ML SYRINGE IVFLUSH ×3 (02:36→11:02)
[2023-10-31] MEDS: Piperacillin Sodium/Tazobactam 4.5 GM in 0.9 % Sodium Chloride 100 ML IV ×2 (02:36→07:29)
[2023-10-31 07:13] LABS: Creatinine Clr Calc Pharmacy 41.1; Estimated Glomerular Filt Rate 48; Vancomycin Random 18.4 mcg/mL (15-20)
--- NOTE | 2023-10-31 07:27 | HE.PHANOTE ---
RE GUILLERMO SCR ELEVATED AT 1.48, TROUGH TODAY WAS 18.4. WILL LOWER THE DOSE AND ALSO GIVE IN THE EVENING TO GIVE BODY MORE TIME TO CLEAR. RANDOM LEVEL DUE 11/01 @1800. AUC 417, TROUGH 13.6 MAGALY
[2023-10-31] MEDS: traMADoL HCL 50 MG TABLET PO ×2 (07:29→14:53)
[2023-10-31] MEDS: Morphine Sulfate 4 MG/ML CARTRIDGE IVPUSH ×3 (07:29→20:54)
[2023-10-31] MEDS: Acetaminophen 325 MG TABLET 650 MG PO ×2 (07:29→15:46)
[2023-10-31 07:42] LABS: Glucose, Whole Blood 163 mg/dL (60-115)
[2023-10-31] MEDS: Insulin Lispro 100 UNIT/ML 3 ML VIAL SUBCUT (07:45)
--- NOTE | 2023-10-31 07:50 | PC.NURSE ---
Rocket gummy candy infused with cannbis found on patient's bedside table. Patient agreeable to lock them up with security at this time to be returned upon discharge. Meghan Dowling GAS MAKER HELPER at bedside during event.
--- NOTE | 2023-10-31 09:18 | HO.PM.IMPN ---
Subjective Subjective Date of Service: 10/31/23 Review of Systems Follow up gangrene some pain to foot noted No fever or chills Physical Exam Vital Signs: Vital Signs: Last Vital Signs Temp 99.1 F 10/31/23 07:17 Pulse 75 10/31/23 07:17 Resp 18 10/31/23 07:17 BP 120/56 L 10/31/23 07:17 Pulse Ox 95 10/31/23 08:01 O2 Del Method Nasal Cannula 10/31/23 08:01 O2 Flow Rate 2 10/31/23 08:01 BMI result Body Mass Index 19.7 Appearing in no acute distress lung sounds are clear to auscultation heart regular rate rhythm, clear S1, S2 positive bowel sounds, abdomen is soft, nontender neuro patient is alert x3, no focal deficits And dry gangrene, degloving of skin Objective Data Active Medications Acetaminophen (Acetaminophen 325 Mg Tablet) 650 mg PO Q6H PRN PRN Reason: Pain, Mild (Pain Scale 1-3) Last Admin: 10/31/23 07:29 Dose: 650 mg Documented By: SARABJIT Dextrose (Dextrose 50 % 25 Gm/50 Ml Syringe) 25 gm IVPUSH Q15M PRN; Protocol PRN Reason: per Hypoglycemia Standing Ord. Last Admin: 10/30/23 07:39 Dose: 25 gm Documented By: SARABJIT Enoxaparin Sodium (Enoxaparin Sodium 40 Mg/0.4 Ml Syringe) 40 mg SUBCUT BEDTIME ANN Last Admin: 10/30/23 20:27 Dose: 40 mg Documented By: SONIA Glucose (Glucose Gel 15 Gm Gel..Gram.) 15 gm PO Q15M PRN; Protocol PRN Reason: per Hypoglycemia Standing Ord. Piperacillin Sod/Tazobactam (Sod 4.5 gm/ Sodium Chloride) 100 mls @ 200 mls/hr IV Q6H ANN Last Admin: 10/31/23 07:29 Dose: 200 mls/hr Documented By: SARABJIT Vancomycin HCl 500 mg/ Sodium (Chloride) 110 mls @ 110 mls/hr IV Q24H [facility] Insulin Glargine (Insulin Glargine,Hum.Rec.Anlog 100 Unit/Ml 10 Ml Vial) 14 unit SUBCUT BEDTIME ANN Last Admin: 10/30/23 20:48 Dose: Not Given Documented By: SONIA Non-Admin Reason: poc 117 Insulin Human Lispro (Insulin Lispro 100 Unit/Ml 3 Ml Vial) 0 unit SUBCUT [facility]; Protocol Last Admin: 10/31/23 07:45 Dose: 2 unit Documented By: SARABJIT Melatonin (Melatonin 3 Mg Tablet) 6 mg PO BEDTIME PRN PRN Reason: Insomnia Last Admin: 10/29/23 23:10 Dose: 6 mg Documented By: LALITHA Morphine Sulfate (Morphine Sulfate 4 Mg/Ml Cartridge) 4 mg IVPUSH Q6H PRN; Protocol PRN Reason: Pain, Severe (Pain Scale 7-10) Last Admin: 10/31/23 07:29 Dose: 4 mg Documented By: SARABJIT Ondansetron HCl (Ondansetron Hcl 4 Mg/2 Ml Vial) 4 mg IVPUSH Q8H PRN PRN Reason: Nausea and Vomiting Last Admin: 10/30/23 07:39 Dose: 4 mg Documented By: SARABJIT Pharmacy Consult (Consult Rx Vancomycin Dosing) 1 each MISCELLANE DAILY PRN PRN Reason: Consult order Sodium Chloride (0.9 % Sodium Chloride Flush 3 Ml Syringe) 3 ml [facility] [place] Last Admin: 10/31/23 07:29 Dose: 3 ml Documented By: SARABJIT Tramadol HCl (Tramadol Hcl 50 Mg Tablet) 50 mg PO Q4H PRN PRN Reason: Pain, Moderate(Pain Scale 4-6) Last Admin: 10/31/23 07:29 Dose: 50 mg Documented By: SARABJIT Zolpidem Tartrate (Zolpidem Tartrate 5 Mg Tablet) 5 mg PO BEDTIME PRN PRN Reason: Insomnia Labs 10/30/23 05:37 10/31/23 06:45 Labs: Laboratory Results - last 24 hr 10/30/23 10/30/23 10/30/23 08:39 11:20 15:08 Estim Creat Clear Calc Estimated GFR POC Glucose 99 134 H Urine Color Urine Appearance Urine pH Ur Specific [place] Urine Protein Urine Glucose (UA) Urine Ketones Urine Blood Urine Nitrite Ur Leukocyte Esterase Urine RBC Urine WBC Ur Squamous Epith Cells Urine Bacteria Hyaline Casts Vancomycin Trough 28.9 H* Random Vancomycin Blood Type O Positive Antibody Screen NEGATIVE Crossmatch See Detail 10/30/23 10/30/23 10/30/23 16:17 20:19 21:28 Estim Creat Clear Calc Estimated GFR POC Glucose 117 H Urine Color Dark Yellow Urine Appearance Cloudy Urine pH 5.0 Ur Specific [place] >= 1.030 H Urine Protein 100 (2+) H Urine Glucose (UA) Negative Urine Ketones Negative Urine Blood Moderate (2+) H Urine Nitrite Negative Ur Leukocyte Esterase Negative Urine RBC 3-5 H Urine WBC 0-5 Ur Squamous Epith Cells 6-10 Urine Bacteria None Seen Hyaline Casts 0-2 Vancomycin Trough Random Vancomycin 23.1 H Blood Type Antibody Screen Crossmatch 10/31/23 10/31/23 06:45 07:24 Estim Creat Clear Calc 41.1 Estimated GFR 48 POC Glucose 163 H Urine Color Urine Appearance Urine pH Ur Specific [place] Urine Protein Urine Glucose (UA) Urine Ketones Urine Blood Urine Nitrite Ur Leukocyte Esterase Urine RBC Urine WBC Ur Squamous Epith Cells Urine Bacteria Hyaline Casts Vancomycin Trough Random Vancomycin 18.4 Blood Type Antibody Screen Crossmatch Microbiology Microbiology Results: Microbiology 10/28/23 22:40 Blood Culture - Final Blood - Venous Staphylococcus aureus 10/28/23 22:40 Blood Culture - Final Blood - Venous Staphylococcus aureus Assessment and Plan (1) Foot infection: Status: Acute Plan 63-year-old male with pertinent history of insulin-dependent diabetes mellitus, noncompliant with medications who presents to the emergency department for evaluation of right foot pain. staph aureus 2/2 Sensitive to clindamycin follow final cx Infectious disease consultation Sepsis due to right foot wet gangrene with purulent cellulitis Sepsis resolved Blood cultures sensitive to clindamycin, also on vanco Resuscitated with IV crystalloids. General surgery>rec amputation. Plan will be for Tuesday keep NPO after midnight Tuesday night Fall had a witnessed fall overnight 10/30/2023 TIGER MACHINE OPERATOR was in the room with him to help him get up, he slowly slid to the ground no injury Insulin-dependent diabetes mellitus 2 sliding scale, ada diet Normocytic anemia due to chronic disease Hemoglobin above transfusion threshold Elevated troponin Likely type 2 in the setting of increased demand. No chest pain. Will trend DVT prophylaxis: Lovejesusitax Attending Dr. Teran Full code continued hospital stay for IV antibiotics (as above), which is not possible in a lesser acute setting. Specialist consult pending for possible amputation Quality Stroke Does the patient have a stroke diagnosis?: No VTE Prior VTE?: No VTE Risk Level:: Medical - moderate - high VTE Device Contraindication: Treatment Not Indicated VTE Drug Contraindication: N/A - Med Ordered
[2023-10-31 10:12] LABS: Hemoglobin 8.3 g/dl (14.0-18.0); Mean Corpuscular HGB Conc 31.9 g/dl (31.0-36.0); Mean Corpuscular Hemoglobin 29.5 pg (27.0-33.0); Mean Corpuscular Volume 92.5 fL (80.0-98.0); Mean Platelet Volume 9.4 fL (9.4-12.4); Platelet Count 215 X10*3/uL (160-400); Red Blood Count 2.81 X10*6/uL (4.60-5.80); Red Cell Distribution Width 14.3 % (11.0-16.0); White Blood Count 13.7 X10*3/uL (4.8-10.8)
[2023-10-31] MEDS: Dextrose 50 % 25 GM/50 ML SYRINGE IVPUSH (10:26)
[2023-10-31 10:30] LABS: Anion Gap 12 (12-20); Blood Urea Nitrogen 30 mg/dL (9-16); Calcium 7.7 mg/dL (8.4-10.2); Carbon Dioxide 23 mmol/L (22-29); Chloride 108 mmol/L (96-108); Creatinine Clr Calc Pharmacy 41.1; Estimated Glomerular Filt Rate 48; Glucose Random 59 mg/dL (60-115); Potassium 3.5 mmol/L (3.3-5.1); Sodium 139 mmol/L (135-145)
[2023-10-31 10:31] LABS: B Type Natriuretic Peptide 1670 pg/mL (<100)
[2023-10-31] MEDS: Furosemide 20 MG/2 ML VIAL IVPUSH ×2 (11:01→16:52)
[2023-10-31] MEDS: Clindamycin Phosphate/D5W 600 MG/50 ML PIGGYBACK 100 MG IV ×3 (11:02→22:26)
[2023-10-31 11:30] LABS: Glucose, Whole Blood 189 mg/dL (60-115)
[2023-10-31] MEDS: Iron Sucrose Complex 200 MG in 0.9 % Sodium Chloride 100 ML 440 MG IV (11:42)
[2023-10-31] MEDS: Ferrous Sulfate 324 MG TABLET.DR PO (15:47)
[2023-10-31 16:08] LABS: Glucose, Whole Blood 133 mg/dL (60-115)
[2023-10-31 17:30] LABS: OBS1 NEGATIVE (NEGATIVE)
[2023-10-31 17:31] LABS: OBS Int Ctl Valid YES
[2023-10-31 20:18] LABS: Glucose, Whole Blood 151 mg/dL (60-115)
[2023-10-31] MEDS: vancomycin HCL 500 MG in 0.9 % Sodium Chloride 100 ML 110 MG IV (20:54)
[2023-11-01] MEDS: 0.9 % Sodium Chloride Flush 3 ML SYRINGE IVFLUSH ×4 (00:05→16:45)
[2023-11-01] MEDS: Morphine Sulfate 4 MG/ML CARTRIDGE IVPUSH ×3 (02:48→18:19)
[2023-11-01 03:53] VITALS: BP 156/72; PULSE 76; RESP 18; TEMP 37; O2SAT 98
[2023-11-01] MEDS: Clindamycin Phosphate/D5W 600 MG/50 ML PIGGYBACK 100 MG IV ×4 (04:16→22:08)
[2023-11-01 05:27] VITALS: BMI 20.9
--- NOTE | 2023-11-01 07:00 | CA_ITS ---
Transthoracic Echocardiogram Patient (Last, First, Middle): Dov Ji, Gender: Male Date of : 1960 Age: 63 Procedure Date: 11/01/2023 Procedure Type: Transthoracic Echocardiogram Location: [facility] [place] Height: 170.18 cm Weight: 60.33 kg BSA: 1.70 m2 Heart Rate: 87 bpm BP: 160 / 60 mmHg Hide Dyer: DEVAN Referring MD: Meghan Dowling NP Symptoms: chf Study Quality: Adequate ECG Rhythm: Sinus Conclusions: - The left ventricular systolic function is low normal. The visually estimated ejection fraction is between 50-55%. - The basal inferior, mid inferior, and mid inferoseptal segments are hypokinetic. - Evidence suggests grade II (moderate) diastolic dysfunction. - There is mild mitral valve regurgitation. - There is mild tricuspid valve regurgitation. - Mild to moderate pulmonary hypertension is present. - There is a small loculated pericardial effusion overlying the right atrium. Findings Left Ventricle Normal left ventricular cavity size. There is normal left ventricular wall thickness. The left ventricular systolic function is low normal. The visually estimated ejection fraction is between 50-55%. There is evidence of regional wall motion abnormalities. Evidence suggests grade II (moderate) diastolic dysfunction. Wall Motion Rest Echo Findings The basal inferior, mid inferior, and mid inferoseptal segments are hypokinetic. Right Ventricle Normal right ventricular cavity size and systolic function. Atria The left atrium is mildly dilated. The right atrium is normal in size. Aortic Valve There is a normal trileaflet aortic valve. There is no aortic valve stenosis. There is no aortic valve regurgitation. Mitral Valve There is mild posterior mitral annular calcification. There is mild mitral valve regurgitation. There is no mitral valve stenosis. Pulmonic Valve The pulmonic valve is likely normal. Tricuspid Valve Normal tricuspid valve structure. There is mild tricuspid valve regurgitation. The right ventricular systolic pressure is 55 mmHg. Mild to moderate pulmonary hypertension is present. Great Vessels The asc aorta is normal in size. Venous The inferior vena cava is normal in size and collapses greater than 50% with inspiration. Pericardium/Pleural There is a small loculated pericardial effusion overlying the right atrium. There are no definitive echocardiographic findings of tamponade physiology. Prior Study Comparison No prior study available for comparison. Measurements 2D Linear Measurements IVSd: 1.03 0.6-0.9/0.6-1.0 cm LVIDd: 4.46 3.9-5.3/4.2-5.9 cm LVIDd Index: 2.62 2.4-3.2/2.2-3.1 cm/m2 LVIDs: 3.18 2.0-3.6 cm LVPWd: 0.99 0.7-1.1 cm LA Diam: 3.60 2.7-3.8/3.0-4.0 cm LAIDs Index: 2.12 1.5-2.3 cm/m2 LV Mass: 190.59 67-162/88-224 g LV Mass Index: 112.11 43-95/49-115 g/m2 LVOT Diam: 2.00 3.0+(-)1.3 cm 2D Systolic Function EF 4C: 54.10 >55% EF 2C: 56.30 >55% EF BiP: 54.90 >55% Mitral Valve MV Pk E: 1.18 MV PK A: 0.99 MV Decel Time: 139.00 E/A: 1.20 E'Lateral: 7.94 E'Medial: 6.31 E/E' Med: 18.70 E/E' Lat: 14.90 PHT: 41.00 MVA PHT: 5.37 Decel [place]: 8.52 Aortic Valve AoV Pk Koby: 1.35 AoV Mn Koby: 0.88 AoV VTI: 0.28 AoV Pk Grad: 7.00 Aov Mn Grad: 4.00 JORGE LUIS Cont.VTI: 2.32 LVOT LVOT Pk Koby: 1.08 LVOT Mn Koby: 0.67 LVOT VTI: 0.21 LVOT Pk Grad: 5.00 LVOT Mn Grad: 2.00 LVOT Diam: 2.00 LVOT Area: 3.14 Diastolic Function MV Pk E: 1.18 MV Pk A: 0.99 E/A: 1.20 E'Medial: 6.31 E/E' Med: 18.70 E' Laterial: 7.94 E/E' Lat: 14.90 Right Ventricle TAPSE (mm): 26.10 Tricuspid Valve TR Pk Koby: 3.59 TR Pk Grad: 52.00 RA Press: 3.00 RVSP: 55.00 Great Vessels Aorta Sinus of Valsalva: 3.10 2.0-3.5 cm Ao Asc: 3.30 2.1-3.4 cm Pulmonary Valve PV Pk Koby: 1.03 Peak PV Grad: 4.00 Updated in Other Vendor System with Status of Final Bayron Mauricio MD electronically signed on 11/01/2023 11:15:52 AM with status of Final
[2023-11-01 07:08] LABS: Glucose, Whole Blood 154 mg/dL (60-115)
[2023-11-01 07:10] VITALS: BP 160/60; PULSE 85; RESP 20; TEMP 37.3; O2SAT 97
[2023-11-01 07:21] LABS: Hematocrit 28.5 % (42.0-52.0); Hemoglobin 9.2 g/dl (14.0-18.0); Mean Corpuscular HGB Conc 32.3 g/dl (31.0-36.0); Mean Corpuscular Hemoglobin 29.1 pg (27.0-33.0); Mean Corpuscular Volume 90.2 fL (80.0-98.0); Mean Platelet Volume 8.9 fL (9.4-12.4); Platelet Count 247 X10*3/uL (160-400); Red Blood Count 3.16 X10*6/uL (4.60-5.80); Red Cell Distribution Width 14.2 % (11.0-16.0); White Blood Count 15.9 X10*3/uL (4.8-10.8)
[2023-11-01 07:42] LABS: Anion Gap 12 (12-20); Blood Urea Nitrogen 28 mg/dL (9-16); Carbon Dioxide 20 mmol/L (22-29); Chloride 107 mmol/L (96-108); Creatinine Clr Calc Pharmacy 45.5; Estimated Glomerular Filt Rate 50; Glucose Random 141 mg/dL (60-115); Potassium 3.8 mmol/L (3.3-5.1); Sodium 135 mmol/L (135-145)
[2023-11-01 07:46] LABS: B Type Natriuretic Peptide 1228 pg/mL (<100)
--- NOTE | 2023-11-01 07:47 | PM.PNGS ---
Subjective Subjective Date of Service: 11/01/23 <Alexandria Watts PA-C - Last Filed: 11/01/23 12:32> 11/01/23 <Richard Gross MD - Last Filed: 11/01/23 13:26> Interval history: Refusing surgical intervention today but states tomorrow is the day. States he still needs to talk to some people. Refusing dressing change states it was changed late last night. <Alexandria Watts PA-C - Last Filed: 11/01/23 12:32> Physical Exam Vital Signs: Vital Signs: Last Vital Signs Temp 99.2 F 11/01/23 07:10 Pulse 85 11/01/23 07:10 Resp 20 11/01/23 07:10 BP 160/60 H 11/01/23 07:10 Pulse Ox 97 11/01/23 07:10 O2 Del Method Nasal Cannula 11/01/23 07:10 O2 Flow Rate 4 11/01/23 07:10 BMI result Body Mass Index 20.9 <Alexandria Watts PA-C - Last Filed: 11/01/23 12:32> Const: General: comfortable, no acute distress and alert <Alexandria Watts PA-C - Last Filed: 11/01/23 12:32> Orientation/consciousness: patient oriented x3 <Alexandria Watts PA-C - Last Filed: 11/01/23 12:32> Neuro: General: patient oriented x3 <Alexandria Watts PA-C - Last Filed: 11/01/23 12:32> Extrem: Other: right foot dressing intact <Alexandria Watts PA-C - Last Filed: 11/01/23 12:32> Objective Data Active Medications Acetaminophen (Acetaminophen 325 Mg Tablet) 650 mg PO Q6H PRN PRN Reason: Pain, Mild (Pain Scale 1-3) Last Admin: 10/31/23 15:46 Dose: 650 mg Documented By: SARABJIT Dextrose (Dextrose 50 % 25 Gm/50 Ml Syringe) 25 gm IVPUSH Q15M PRN; Protocol PRN Reason: per Hypoglycemia Standing Ord. Last Admin: 10/31/23 10:26 Dose: 25 gm Documented By: SARABJIT Enoxaparin Sodium (Enoxaparin Sodium 40 Mg/0.4 Ml Syringe) 40 mg SUBCUT BEDTIME [facility] Last Admin: 10/31/23 21:29 Dose: Not Given Documented By: RUBEN Non-Admin Reason: Physician Approved Comments: Patient scheduled for surgery tomorrow 11/01. Ferrous Sulfate (Ferrous Sulfate 324 Mg Tablet.) 324 mg PO BIDWM [facility] Last Admin: 10/31/23 15:47 Dose: 324 mg Documented By: SARABJIT Furosemide (Furosemide 20 Mg/2 Ml Vial) 20 mg IVPUSH BID@0900,1800 [facility]; Protocol Last Admin: 10/31/23 16:52 Dose: 20 mg Documented By: SARABJIT Glucose (Glucose Gel 15 Gm Gel..Gram.) 15 gm PO Q15M PRN; Protocol PRN Reason: per Hypoglycemia Standing Ord. Vancomycin HCl 500 mg/ Sodium (Chloride) 110 mls @ 110 mls/hr IV Q24H [facility] Last Infusion: 10/31/23 22:33 Dose: Infused Documented By: RUBEN Clindamycin Phosphate (Cleocin) 600 mg in 50 mls @ 100 mls/hr IV Q6H [facility] Last Infusion: 11/01/23 04:50 Dose: Infused Documented By: GUMARO Insulin Glargine (Insulin Glargine,Hum.Rec.Anlog 100 Unit/Ml 10 Ml Vial) 14 unit SUBCUT BEDTIME [facility] Last Admin: 10/31/23 21:29 Dose: Not Given Documented By: RUBEN Non-Admin Reason: POC 151, NPO after midnight. Insulin Human Lispro (Insulin Lispro 100 Unit/Ml 3 Ml Vial) 0 unit SUBCUT QIDACHS [facility]; Protocol Last Admin: 10/31/23 21:13 Dose: Not Given Documented By: RUBEN Non-Admin Reason: POC 151, NPO after midnight. Melatonin (Melatonin 3 Mg Tablet) 6 mg PO BEDTIME PRN PRN Reason: Insomnia Last Admin: 10/29/23 23:10 Dose: 6 mg Documented By: LALITHA Morphine Sulfate (Morphine Sulfate 4 Mg/Ml Cartridge) 4 mg IVPUSH Q6H PRN; Protocol PRN Reason: Pain, Severe (Pain Scale 7-10) Last Admin: 11/01/23 02:48 Dose: 4 mg Documented By: GUMARO Ondansetron HCl (Ondansetron Hcl 4 Mg/2 Ml Vial) 4 mg IVPUSH Q8H PRN PRN Reason: Nausea and Vomiting Last Admin: 10/30/23 07:39 Dose: 4 mg Documented By: SARABJIT Pharmacy Consult (Consult Rx Vancomycin Dosing) 1 each MISCELLANE DAILY PRN PRN Reason: Consult order Sodium Chloride (0.9 % Sodium Chloride Flush 3 Ml Syringe) [address] [facility] Last Admin: 11/01/23 00:05 Dose: 3 ml Documented By: GUMARO Tramadol HCl (Tramadol Hcl 50 Mg Tablet) 50 mg PO Q4H PRN PRN Reason: Pain, Moderate(Pain Scale 4-6) Last Admin: 10/31/23 14:53 Dose: 50 mg Documented By: SARABJIT Zolpidem Tartrate (Zolpidem Tartrate 5 Mg Tablet) 5 mg PO BEDTIME PRN PRN Reason: Insomnia <Alexandria Watts PA-C - Last Filed: 11/01/23 12:32> Labs CBC & Chem 7: 11/01/23 06:51 11/01/23 06:51 <Alexandria Watts PA-C - Last Filed: 11/01/23 12:32> Labs: Laboratory Results - last 24 hr 10/31/23 10/31/23 10/31/23 09:42 11:25 16:05 MCV 92.5 MCH 29.5 MCHC 31.9 RDW 14.3 Plt Count 215 MPV 9.4 Absolute Nucleated RBC 0.000 Nucleated RBC % (auto) 0.0 Anion Gap 12 Estim Creat Clear Calc 41.1 Estimated GFR 48 POC Glucose 189 H 133 H Random Glucose 59 L* Calcium 7.7 L B-Natriuretic Peptide 1670 H Stool Occult Blood 10/31/23 10/31/23 10/31/23 17:08 17:15 20:09 MCV MCH MCHC RDW Plt Count MPV Absolute Nucleated RBC Nucleated RBC % (auto) Anion Gap Estim Creat Clear Calc Estimated GFR POC Glucose 151 H Random Glucose Calcium B-Natriuretic Peptide Stool Occult Blood Cancelled NEGATIVE 11/01/23 11/01/23 06:51 07:04 MCV 90.2 MCH 29.1 MCHC 32.3 RDW 14.2 Plt Count 247 MPV 8.9 L Absolute Nucleated RBC 0.000 Nucleated RBC % (auto) 0.0 Anion Gap 12 Estim Creat Clear Calc 45.5 Estimated GFR 50 POC Glucose 154 H Random Glucose 141 H Calcium 8.0 L B-Natriuretic Peptide 1228 H Stool Occult Blood <Alexandria Watts PA-C - Last Filed: 11/01/23 12:32> Microbiology Microbiology Results: Microbiology 10/28/23 22:40 Blood Culture - Final Blood - Venous Staphylococcus aureus 10/28/23 22:40 Blood Culture - Final Blood - Venous Staphylococcus aureus <Alexandria Watts PA-C - Last Filed: 11/01/23 12:32> Procedures Date of Service Date of Service: 11/01/23 <Alexandria Watts PA-C - Last Filed: 11/01/23 12:32> 11/01/23 <Richard Gross MD - Last Filed: 11/01/23 13:26> Progress Note: A&P Assessment and plan (1) Foot infection: Status: Acute <Alexandria Watts PA-C - Last Filed: 11/01/23 12:32> Assessment and Plan: Refusing debridement or BKA today says Says he will do it tomorrow He understands risk of worsening infection I explained the technique of excision debridement and likely BKA I reviewed the risks including but not limited to bleeding, infections, poor healing, the need for more proximal amputation, postop pain as well as the benefits, and alternatives. He has given consent Seen examined independently <Richard Gross MD - Last Filed: 11/01/23 13:26> (2) Diabetes: Status: Acute <Alexandria Watts PA-C - Last Filed: 11/01/23 12:32> Assessment and Plan: Refusing surgical intervention again today but is currently in agreement for tomorrow. Can eat today, NPO after midnight. Plan for BKA tomorrow. Continue local wound care. <Alexandria Watts PA-C - Last Filed: 11/01/23 12:32> Time Spent With Patient Time: Total time managing care of this patient today ____ minutes. <JON Rolle Last Filed: 11/01/23 12:32> Quality Stroke Does the patient have a stroke diagnosis?: No <Alexandria Watts PA-C - Last Filed: 11/01/23 12:32> VTE Prior VTE?: No <Alexandria Watts PA-C - Last Filed: 11/01/23 12:32> VTE Risk Level:: Medical - moderate - high <Alexandria Watts PA-C - Last Filed: 11/01/23 12:32> VTE Device Contraindication: Treatment Not Indicated <Alexandria Watts PA-C - Last Filed: 11/01/23 12:32> VTE Drug Contraindication: N/A - Med Ordered <Alexandria Watts PA-C - Last Filed: 11/01/23 12:32>
[2023-11-01] MEDS: Insulin Lispro 100 UNIT/ML 3 ML VIAL SUBCUT (08:13)
[2023-11-01] MEDS: Furosemide 20 MG/2 ML VIAL IVPUSH ×2 (08:14→16:44)
--- NOTE | 2023-11-01 09:21 | P.CONGS_ITS ---
History of Present Illness Consult details Consult date: 11/01/23 Reason for consult: other (PAD) Narrative: Very complex 63-year-old gentleman presents for evaluation regarding nonhealing right foot ulcer. He originally presented on October 28. He reports that he had now removed his shoes and socks in over a week. He has had significant discomfort of that foot. Was brought in to the emergency room. He has been seen and assessed by the general surgery team who has actually been planning for amputation. Unfortunately the patient has been quite resistant to this. Review of Systems 2 Review of Systems: Yes all other systems are reviewed and are negative Constitutional: Constitutional: Reports no additional constitutional complaints ENT: Reports Normal hearing present Cardiovascular: Cardiovascular: Denies chest pain, Denies chest pain at rest, Denies chest pain with activity and Denies pedal edema Respiratory: Respiratory: Denies cough Gastrointestinal: Gastrointestinal: Denies abdominal pain Musculoskeletal: Musculoskeletal: Denies abnormal gait, Denies muscle cramps and Denies radiating pain into limb Integumentary/Breasts: Skin/Breast: Denies skin ulcer and Denies wounds Neurologic: Reports Normal hearing present and Denies abnormal gait Psychiatric: Psychiatric: Reports no additional psychiatric complaints PMFSH Past Medical History Medical History Neuropathy Diabetes Social History Social History Household Members: Family Housing: Apartment Do you presently have visiting nurse or other home services: No Alcohol intake: current Alcohol intake frequency: a few times a week Alcohol type: beer Patient Tobacco Use Status: Current someday Tobacco user Tobacco use type: Cigarette e-Cigarette/Vaping Use: Never Used Substance Use Type: Marijuana and Opiates service: No Meds Allergies Allergy/AdvReac Type Severity Reaction Status Date / Time amitriptyline Allergy Unknown stutter Verified 01/26/22 17:35 gabapentin Allergy Unknown confused Verified 01/26/22 17:35 No Known Allergies Allergy Unverified 07/24/20 16:46 [No Known Allergies*] Active Medications: Current Medications Acetaminophen (Acetaminophen 325 Mg Tablet) 650 mg PO Q6H PRN PRN Reason: Pain, Mild (Pain Scale 1-3) Last Admin: 10/31/23 15:46 Dose: 650 mg Dextrose (Dextrose 50 % 25 Gm/50 Ml Syringe) 25 gm IVPUSH Q15M PRN; Protocol PRN Reason: per Hypoglycemia Standing Ord. Last Admin: 10/31/23 10:26 Dose: 25 gm Enoxaparin Sodium (Enoxaparin Sodium 40 Mg/0.4 Ml Syringe) 40 mg SUBCUT BEDTIME [facility] Last Admin: 10/31/23 21:29 Dose: Not Given Ferrous Sulfate (Ferrous Sulfate 324 Mg Tablet.Dr) 324 mg PO BIDWM [facility] Last Admin: 10/31/23 15:47 Dose: 324 mg Furosemide (Furosemide 20 Mg/2 Ml Vial) 20 mg IVPUSH BID@0900,1800 [facility]; Protocol Last Admin: 11/01/23 08:14 Dose: 20 mg Glucose (Glucose Gel 15 Gm Gel..Gram.) 15 gm PO Q15M PRN; Protocol PRN Reason: per Hypoglycemia Standing Ord. Vancomycin HCl 500 mg/ Sodium (Chloride) 110 mls @ 110 mls/hr IV Q24H [facility] Last Infusion: 10/31/23 22:33 Dose: Infused Clindamycin Phosphate (Cleocin) 600 mg in 50 mls @ 100 mls/hr IV Q6H [facility] Last Admin: 11/01/23 08:17 Dose: 100 mls/hr Insulin Glargine (Insulin Glargine,Hum.Rec.Anlog 100 Unit/Ml 10 Ml Vial) 14 unit SUBCUT BEDTIME [facility] Last Admin: 10/31/23 21:29 Dose: Not Given Insulin Human Lispro (Insulin Lispro 100 Unit/Ml 3 Ml Vial) 0 unit SUBCUT QIDACHS [facility]; Protocol Last Admin: 11/01/23 08:13 Dose: 2 unit Melatonin (Melatonin 3 Mg Tablet) 6 mg PO BEDTIME PRN PRN Reason: Insomnia Last Admin: 10/29/23 23:10 Dose: 6 mg Morphine Sulfate (Morphine Sulfate 4 Mg/Ml Cartridge) 4 mg IVPUSH Q6H PRN; Protocol PRN Reason: Pain, Severe (Pain Scale 7-10) Last Admin: 11/01/23 02:48 Dose: 4 mg Ondansetron HCl (Ondansetron Hcl 4 Mg/2 Ml Vial) 4 mg IVPUSH Q8H PRN PRN Reason: Nausea and Vomiting Last Admin: 10/30/23 07:39 Dose: 4 mg Pharmacy Consult (Consult Rx Vancomycin Dosing) 1 each MISCELLANE DAILY PRN PRN Reason: Consult order Sodium Chloride (0.9 % Sodium Chloride Flush 3 Ml Syringe) [address] [facility] Last Admin: 11/01/23 08:14 Dose: 3 ml Tramadol HCl (Tramadol Hcl 50 Mg Tablet) 50 mg PO Q4H PRN PRN Reason: Pain, Moderate(Pain Scale 4-6) Last Admin: 10/31/23 14:53 Dose: 50 mg Zolpidem Tartrate (Zolpidem Tartrate 5 Mg Tablet) 5 mg PO BEDTIME PRN PRN Reason: Insomnia Home Medications Medication Instructions Recorded Confirmed Last Taken Type diphenhydramine 25 2 tab PO BEDTIME PRN Pain 10/29/23 10/29/23 Unknown History mg-acetaminophen 500 mg tablet Physical Exam 2 Vital Signs: Vital Signs: Last Vital Signs Temp 99.2 F 11/01/23 07:10 Pulse 85 11/01/23 07:10 Resp 20 11/01/23 07:10 BP 160/60 H 11/01/23 07:10 Pulse Ox 97 11/01/23 07:10 O2 Del Method Nasal Cannula 11/01/23 07:10 O2 Flow Rate 4 11/01/23 07:10 BMI result Body Mass Index 20.9 Const: General: cooperative, healthy appearing and comfortable O rientation/consciousness: oriented to person, oriented to place and oriented to time HEENT: Head: Yes normal to inspection Neck: Neck: Yes normal visual inspection Carotids: no bruits Chest: Chest palpation & inspection: normal inspection of the chest Resp: Effort & Inspection: normal respiratory effort and able to speak in complete sentences Auscultation: clear to auscultation bilaterally, no crackles, no rales, no rhonchi and no wheezes Cardio: Rate: regular rate Rhythm: regular rhythm Heart sounds: S1 normal heart sound present and S2 normal heart sound present Bruits: no carotid bruits Peripheral pulses: Peripheral pulses 2+ throughout GI: Inspection: Yes normal to inspection Skin: Other: Right foot devitalized tissue foul odor Wounds: no wounds Hair: normal Neuro: General: oriented to person, oriented to place and oriented to time Cranial nerves: Yes CN's II-XII intact bilaterally and Yes Normal hearing present Cognition (Neuro): normal cognition Motor exam (neuro): 5/5 motor strength present throughout Extrem: Other: venous exam: No significant superficial varicosities or spider telangiectasias, minimal edema General: No clubbing, No cyanosis and No edema Psych: Appearance: grossly normal Mental Status: mental status grossly normal Speech and movement: Normal speech and movement present Results Labs 11/01/23 06:51 11/01/23 06:51 Labs: Abnormal lab results 10/31/23 10/31/23 10/31/23 Range/Units 09:42 11:25 16:05 WBC 13.7 H (4.8-10.8) X10*3/uL RBC 2.81 L (4.60-5.80) X10*6/uL Hgb 8.3 L (14.0-18.0) g/dl Hct 26.0 L (42.0-52.0) % MPV (9.4-12.4) fL Carbon Dioxide (22-29) mmol/L BUN 30 H (9-16) mg/dL Creatinine 1.48 H (0.5-1.4) mg/dL POC Glucose 189 H 133 H (60-115) mg/dL Random Glucose 59 L* (60-115) mg/dL Calcium 7.7 L (8.4-10.2) mg/dL B-Natriuretic Peptide 1670 H (<100) pg/mL 10/31/23 11/01/23 11/01/23 Range/Units 20:09 06:51 07:04 WBC 15.9 H (4.8-10.8) X10*3/uL RBC 3.16 L (4.60-5.80) X10*6/uL Hgb 9.2 L (14.0-18.0) g/dl Hct 28.5 L (42.0-52.0) % MPV 8.9 L (9.4-12.4) fL Carbon Dioxide 20 L (22-29) mmol/L BUN 28 H (9-16) mg/dL Creatinine 1.42 H (0.5-1.4) mg/dL POC Glucose 151 H 154 H (60-115) mg/dL Random Glucose 141 H (60-115) mg/dL Calcium 8.0 L (8.4-10.2) mg/dL B-Natriuretic Peptide 1228 H (<100) pg/mL Short CBC 10/31/23 11/01/23 Range/Units 09:42 06:51 WBC 13.7 H 15.9 H (4.8-10.8) X10*3/uL Hgb 8.3 L 9.2 L (14.0-18.0) g/dl Hct 26.0 L 28.5 L (42.0-52.0) % Plt Count 215 247 (160-400) X10*3/uL BMP 10/31/23 11/01/23 09:42 06:51 Sodium 139 135 Potassium 3.5 3.8 Chloride 108 107 Carbon Dioxide 23 20 L BUN 30 H 28 H Creatinine 1.48 H 1.42 H Calcium 7.7 L 8.0 L Urine 10/30/23 Range/Units 16:17 Urine Color Dark Yellow Urine Appearance Cloudy Urine pH 5.0 (5.0-9.0) Ur Specific [place] >= 1.030 H (1.005-1.025) Urine Protein 100 (2+) H (Neg-Trace) mg/dL Urine Glucose (UA) Negative (Negative) mg/dL All other labs normal. Imaging Additional studies: Ultrasound from 10/29/2023 demonstrates complete occlusion of that right SFA Assessment and Plan (1) PAD (peripheral artery disease): Status: Acute Plan In short patient has nonhealing right lower extremity diabetic foot ulcer with peripheral arterial disease. Unfortunately he has a total SFA occlusion with a devitalized foot. Of note last hemoglobin A1c was 11.2. I agree with the General surgery team that the best course of action is a below-knee amputation. He is at high risk for this not to heal and may require an above knee amputation. We did have an extensive discussion about compliance and diabetes control. In addition I did discuss the importance of good nutrition in order to heal this amputation. May be helpful to have a nutrition evaluation as well. We will follow on an as-needed basis with you. Thank you for allowing us to assist in his care. If there are any questions or concerns please do not hesitate to contact us. Procedures Date of Service Date of Service: 11/01/23
--- NOTE | 2023-11-01 09:57 | P.PNIM_ITS ---
Subjective Subjective Date of Service: 11/01/23 Review of Systems Follow up gangrene some pain to foot noted No fever or chills Physical Exam 2 Vital Signs: Vital Signs: Last Vital Signs Temp 99.2 F 11/01/23 07:10 Pulse 85 11/01/23 07:10 Resp 20 11/01/23 07:10 BP 160/60 H 11/01/23 07:10 Pulse Ox 97 11/01/23 07:10 O2 Del Method Nasal Cannula 11/01/23 07:10 O2 Flow Rate 4 11/01/23 07:10 BMI result Body Mass Index 20.9 Appearing in no acute distress lung sounds are clear to auscultation heart regular rate rhythm, clear S1, S2 positive bowel sounds, abdomen is soft, nontender neuro patient is alert x3, no focal deficits Right foot wet and dry gangrene Objective Data Active Medications Acetaminophen (Acetaminophen 325 Mg Tablet) 650 mg PO Q6H PRN PRN Reason: Pain, Mild (Pain Scale 1-3) Last Admin: 10/31/23 15:46 Dose: 650 mg Documented By: SARABJIT Dextrose (Dextrose 50 % 25 Gm/50 Ml Syringe) 25 gm IVPUSH Q15M PRN; Protocol PRN Reason: per Hypoglycemia Standing Ord. Last Admin: 10/31/23 10:26 Dose: 25 gm Documented By: SARABJIT Enoxaparin Sodium (Enoxaparin Sodium 40 Mg/0.4 Ml Syringe) 40 mg SUBCUT BEDTIME [facility] Last Admin: 10/31/23 21:29 Dose: Not Given Documented By: RUBEN Non-Admin Reason: Physician Approved Comments: Patient scheduled for surgery tomorrow 11/01. Ferrous Sulfate (Ferrous Sulfate 324 Mg Arun.) 324 mg PO BIDWM [facility] Last Admin: 10/31/23 15:47 Dose: 324 mg Documented By: SARABJIT Furosemide (Furosemide 20 Mg/2 Ml Vial) 20 mg IVPUSH BID@0900,1800 [facility]; Protocol Last Admin: 11/01/23 08:14 Dose: 20 mg Documented By: PRAVEEN Glucose (Glucose Gel 15 Gm Gel..Gram.) 15 gm PO Q15M PRN; Protocol PRN Reason: per Hypoglycemia Standing Ord. Vancomycin HCl 500 mg/ Sodium (Chloride) 110 mls @ 110 mls/hr IV Q24H [facility] Last Infusion: 10/31/23 22:33 Dose: Infused Documented By: RUBEN Clindamycin Phosphate (Cleocin) 600 mg in 50 mls @ 100 mls/hr IV Q6H [facility] Last Admin: 11/01/23 08:17 Dose: 100 mls/hr Documented By: PRAVEEN Insulin Glargine (Insulin Glargine,Hum.Rec.Anlog 100 Unit/Ml 10 Ml Vial) 14 unit SUBCUT BEDTIME [facility] Last Admin: 10/31/23 21:29 Dose: Not Given Documented By: RUBEN Non-Admin Reason: POC 151, NPO after midnight. Insulin Human Lispro (Insulin Lispro 100 Unit/Ml 3 Ml Vial) 0 unit SUBCUT QIDACHS [facility]; Protocol Last Admin: 11/01/23 08:13 Dose: 2 unit Documented By: PRAVEEN Melatonin (Melatonin 3 Mg Tablet) 6 mg PO BEDTIME PRN PRN Reason: Insomnia Last Admin: 10/29/23 23:10 Dose: 6 mg Documented By: LALITHA Morphine Sulfate (Morphine Sulfate 4 Mg/Ml Cartridge) 4 mg IVPUSH Q6H PRN; Protocol PRN Reason: Pain, Severe (Pain Scale 7-10) Last Admin: 11/01/23 02:48 Dose: 4 mg Documented By: GUMARO Ondansetron HCl (Ondansetron Hcl 4 Mg/2 Ml Vial) 4 mg IVPUSH Q8H PRN PRN Reason: Nausea and Vomiting Last Admin: 10/30/23 07:39 Dose: 4 mg Documented By: SARABJIT Pharmacy Consult (Consult Rx Vancomycin Dosing) 1 each MISCELLANE DAILY PRN PRN Reason: Consult order Sodium Chloride (0.9 % Sodium Chloride Flush 3 Ml Syringe) [facility] Last Admin: 11/01/23 08:14 Dose: 3 ml Documented By: PRAVEEN Tramadol HCl (Tramadol Hcl 50 Mg Tablet) 50 mg PO Q4H PRN PRN Reason: Pain, Moderate(Pain Scale 4-6) Last Admin: 10/31/23 14:53 Dose: 50 mg Documented By: SARABJIT Zolpidem Tartrate (Zolpidem Tartrate 5 Mg Tablet) 5 mg PO BEDTIME PRN PRN Reason: Insomnia Labs 11/01/23 06:51 11/01/23 06:51 Labs: Laboratory Results - last 24 hr 10/31/23 10/31/23 10/31/23 09:42 11:25 16:05 MCV 92.5 MCH 29.5 MCHC 31.9 RDW 14.3 Plt Count 215 MPV 9.4 Absolute Nucleated RBC 0.000 Nucleated RBC % (auto) 0.0 Anion Gap 12 Estim Creat Clear Calc 41.1 Estimated GFR 48 POC Glucose 189 H 133 H Random Glucose 59 L* Calcium 7.7 L B-Natriuretic Peptide 1670 H Stool Occult Blood 10/31/23 10/31/23 10/31/23 17:08 17:15 20:09 MCV MCH MCHC RDW Plt Count MPV Absolute Nucleated RBC Nucleated RBC % (auto) Anion Gap Estim Creat Clear Calc Estimated GFR POC Glucose 151 H Random Glucose Calcium B-Natriuretic Peptide Stool Occult Blood Cancelled NEGATIVE 11/01/23 11/01/23 06:51 07:04 MCV 90.2 MCH 29.1 MCHC 32.3 RDW 14.2 Plt Count 247 MPV 8.9 L Absolute Nucleated RBC 0.000 Nucleated RBC % (auto) 0.0 Anion Gap 12 Estim Creat Clear Calc 45.5 Estimated GFR 50 POC Glucose 154 H Random Glucose 141 H Calcium 8.0 L B-Natriuretic Peptide 1228 H Stool Occult Blood Microbiology Microbiology Results: Microbiology 10/28/23 22:40 Blood Culture - Final Blood - Venous Staphylococcus aureus 10/28/23 22:40 Blood Culture - Final Blood - Venous Staphylococcus aureus Assessment and Plan (1) Foot infection: Status: Acute Plan 63-year-old male with pertinent history of insulin-dependent diabetes mellitus, noncompliant with medications who presents to the emergency department for evaluation of right foot pain. Iron def anemia. unspecified no acute blood loss s/p PRBC tx 10/30/23 iron 12, TIBC 123 s/p iron infusion iron sup started stable HH today Acute hypoxic resp failure secondary to CHF, unspecified hypoxia resolved BNP 1670, 1228 cxr noted opacifications and small effusion continue lasix 20mg BID IV Echo pending Sepsis due to right foot wet gangrene with purulent cellulitis Sepsis resolved Blood cultures sensitive to clindamycin, also on vanco Resuscitated with IV crystalloids. General surgery>rec amputation, likely BKA. Plan will be for Tuesday keep NPO after midnight tonight staph aureus 2/2 Sensitive to clindamycin follow final cx Infectious disease consultation CKD stage 3 close to baseline Fall had a witnessed fall overnight 10/30/2023 DR[employer] CAPTAIN was in the room with him to help him get up, he slowly slid to the ground no injury Insulin-dependent diabetes mellitus 2 sliding scale, ada diet Elevated troponin Likely type 2 in the setting of increased demand. No chest pain. Will trend DVT prophylaxis: Kayy Attending Dr. Dunham Full code continued hospital stay for IV antibiotics (as above), which is not possible in a lesser acute setting. Specialist consult pending for possible amputation Quality Stroke Does the patient have a stroke diagnosis?: No VTE Prior VTE?: No VTE Risk Level:: Medical - moderate - high VTE Device Contraindication: Treatment Not Indicated VTE Drug Contraindication: N/A - Med Ordered
[2023-11-01] MEDS: Ferrous Sulfate 324 MG TABLET.DR PO ×2 (10:25→15:59)
[2023-11-01 10:55] LABS: Glucose, Whole Blood 94 mg/dL (60-115)
[2023-11-01 11:00] VITALS: BP 180/70; PULSE 92; RESP 20; TEMP 37.1; O2SAT 93
[2023-11-01] MEDS: Acetaminophen 325 MG TABLET 650 MG PO (11:34)
--- NOTE | 2023-11-01 13:28 | MHC.CM.PN ---
CM spoke to pt. to ask if we can set him up and a PCP appt., he does not currently have one. He agreed to having us try to get him an appt. and requested that it be in [place]. CM to follow up, and assist with DC planning.
[2023-11-01 15:03] VITALS: BP 146/66; PULSE 75; RESP 20; TEMP 36.3; O2SAT 93
--- NOTE | 2023-11-01 16:01 | P.CDIM_ITS ---
PROVIDER RESPONSE TEXT: To clarify, the appropriate diagnosis supported by the clinical indicators: Other (explain): Gangrenous foot QUERY TEXT: PHYSICIAN'S DOCUMENTATION REQUEST Date of Query: 11/01/2023 02:20 PM EST Patient Name: Dov Ji Admit Date: 10/29/2023 Dear Meghan Dowling, A review of the medical record indicates additional documentation may be needed. Please review below and update the documentation accordingly. Documentation includes the conditions of purulent cellulitis and Insulin-dependent diabetes mellitus 2 . Please clarify the relationship between these conditions: Yes, purulent cellulitis is related to / associated with / due to Insulin-dependent diabetes mellitus 2 No, purulent cellulitis is not related to / associated with / due to Insulin-dependent diabetes melli tus 2 Other (explain) Clinically unable to determine (explain) Thank you, Mary Lundberg RN Use of terms such as suspected, likely, concern for, or probable (associated with a specific diagnosi s that is being evaluated, monitored, or treated as if it exists) are acceptable and can be coded in the inpatient se tting, when documented at the time of discharge. Please use your independent medical judgment in providing your response. THIS QUERY IS PART OF THE PERMANENT MEDICAL RECORD
[2023-11-01 16:06] LABS: Glucose, Whole Blood 108 mg/dL (60-115)
[2023-11-01] MEDS: traMADoL HCL 50 MG TABLET PO (16:44)
[2023-11-01 19:36] LABS: Vancomycin Random 15.7 mcg/mL (15-20)
[2023-11-01 19:49] VITALS: BP 189/73; PULSE 93; RESP 20; TEMP 37.4; O2SAT 96
[2023-11-01] MEDS: Enoxaparin Sodium 40 MG/0.4 ML SYRINGE SUBCUT (20:44)
[2023-11-01] MEDS: vancomycin HCL 500 MG in 0.9 % Sodium Chloride 100 ML 110 MG IV (20:45)
[2023-11-01 21:18] LABS: Glucose, Whole Blood 132 mg/dL (60-115)
[2023-11-01 22:07] VITALS: BP 170/68
[2023-11-01] MEDS: Insulin Glargine,Hum.rec.anlog 100 UNIT/ML 10 ML VIAL 14 UNIT SUBCUT (22:08)
[2023-11-02] VITALS (13 sets, daily range): BP systolic 124–192; BP diastolic 45–87; PULSE 70–116; RESP 16–21; TEMP 36.3–37.9; O2SAT 90–99; BMI 19.2
[2023-11-02] MEDS: Clindamycin Phosphate/D5W 600 MG/50 ML PIGGYBACK 100 MG IV ×2 (03:47→11:48)
--- NOTE | 2023-11-02 07:23 | PM.EVENT ---
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
[2023-11-02 07:28] LABS: Glucose, Whole Blood 79 mg/dL (60-115)
--- NOTE | 2023-11-02 08:18 | P.CONAN_ITS ---
HPI - Anesthesia Eval Consult details Narrative: for right below knee amputation PMFSH Active Problems Active Problems: All Active Problems (Updated 11/01/23 @ 09:26 by Bin Wesley MD) PAD (peripheral artery disease) (Acute) Foot infection (Acute) Sepsis (Acute) Diabetes (Acute) Past Medical History Medical History Neuropathy Diabetes Family History Family history of problems with anesthesia: No Surgical History History of Problems with Anesthesia: No Social History Social History Household Members: Family Housing: Apartment Do you presently have visiting nurse or other home services: No Alcohol intake: current Alcohol intake frequency: does not drink Alcohol type: beer Patient Tobacco Use Status: Current everyday Tobacco user Tobacco use type: Cigarette e-Cigarette/Vaping Use: Never Used Second Hand Smoke Exposure: No Substance Use Type: Marijuana and Opiates service: No Meds Allergies Allergy/AdvReac Type Severity Reaction Status Date / Time amitriptyline Allergy Unknown stutter Verified 01/26/22 17:35 gabapentin Allergy Unknown confused Verified 01/26/22 17:35 Active Medications: Current Medications Acetaminophen (Acetaminophen 325 Mg Tablet) 650 mg PO Q6H PRN PRN Reason: Pain, Mild (Pain Scale 1-3) Last Admin: 11/01/23 11:34 Dose: 650 mg Dextrose (Dextrose 50 % 25 Gm/50 Ml Syringe) 25 gm IVPUSH Q15M PRN; Protocol PRN Reason: per Hypoglycemia Standing Ord. Last Admin: 10/31/23 10:26 Dose: 25 gm Enoxaparin Sodium (Enoxaparin Sodium 40 Mg/0.4 Ml Syringe) 40 mg SUBCUT BEDTIME NAN Last Admin: 11/01/23 20:44 Dose: 40 mg Ferrous Sulfate (Ferrous Sulfate 324 Mg Tablet.Dr) 324 mg PO BIDWM ANN Last Admin: 11/02/23 07:37 Dose: Not Given Furosemide (Furosemide 20 Mg/2 Ml Vial) 20 mg IVPUSH BID@0900,1800 ANN; Protocol Last Admin: 11/02/23 08:10 Dose: Not Given Glucose (Glucose Gel 15 Gm Gel..Gram.) 15 gm PO Q15M PRN; Protocol PRN Reason: per Hypoglycemia Standing Ord. Vancomycin HCl 500 mg/ Sodium (Chloride) 110 mls @ 110 mls/hr IV Q24H [facility] Last Infusion: 11/01/23 22:12 Dose: Infused Clindamycin Phosphate (Cleocin) 600 mg in 50 mls @ 100 mls/hr IV Q6H [facility] Last Infusion: 11/02/23 04:35 Dose: Infused Insulin Glargine (Insulin Glargine,Hum.Rec.Anlog 100 Unit/Ml 10 Ml Vial) 14 unit SUBCUT BEDTIME [facility] Last Admin: 11/01/23 22:08 Dose: 14 unit Insulin Human Lispro (Insulin Lispro 100 Unit/Ml 3 Ml Vial) 0 unit SUBCUT QIDACHS [facility]; Protocol Last Admin: 11/02/23 07:36 Dose: Not Given Melatonin (Melatonin 3 Mg Tablet) 6 mg PO BEDTIME PRN PRN Reason: Insomnia Last Admin: 10/29/23 23:10 Dose: 6 mg Morphine Sulfate (Morphine Sulfate 4 Mg/Ml Cartridge) 4 mg IVPUSH Q6H PRN; Protocol PRN Reason: Pain, Severe (Pain Scale 7-10) Last Admin: 11/01/23 18:19 Dose: 4 mg Ondansetron HCl (Ondansetron Hcl 4 Mg/2 Ml Vial) 4 mg IVPUSH Q8H PRN PRN Reason: Nausea and Vomiting Last Admin: 10/30/23 07:39 Dose: 4 mg Pharmacy Consult (Consult Rx Vancomycin Dosing) 1 each MISCELLANE DAILY PRN PRN Reason: Consult order Sodium Chloride (0.9 % Sodium Chloride Flush 3 Ml Syringe) [facility] Last Admin: 11/02/23 07:38 Dose: Not Given Tramadol HCl (Tramadol Hcl 50 Mg Tablet) 50 mg PO Q4H PRN PRN Reason: Pain, Moderate(Pain Scale 4-6) Last Admin: 11/01/23 16:44 Dose: 50 mg Zolpidem Tartrate (Zolpidem Tartrate 5 Mg Tablet) 5 mg PO BEDTIME PRN PRN Reason: Insomnia Home Medications Medication Instructions Recorded Confirmed Last Taken Type diphenhydramine 25 2 tab PO BEDTIME PRN Pain 10/29/23 10/29/23 Unknown History mg-acetaminophen 500 mg tablet Exam Height,Weight and Vital Signs: Height 5 ft 7 in Weight 55.6 kg Last Vital Signs Temp 100.2 F 11/02/23 06:44 Pulse 99 11/02/23 06:44 Resp 16 11/02/23 06:44 BP 144/57 H 11/02/23 06:44 Pulse Ox 90 L 11/02/23 06:44 O2 Del Method Room Air 11/02/23 06:44 O2 Flow Rate 2 11/02/23 02:00 Pertinent Lab Results Pertinent Lab Results: Laboratory Tests 10/28/23 10/28/23 10/28/23 22:40 22:45 22:57 WBC 18.8 H RBC 3.12 L D Hgb 9.0 L D Hct 28.2 L D MCV 90.4 MCH 28.8 MCHC 31.9 RDW 13.8 Plt Count 277 D MPV 9.0 L Immature Gran % (Auto) Neut % (Auto) Lymph % (Auto) [place] % (Auto) Eos % (Auto) Baso % (Auto) Lymph # (Auto) [place] # (Auto) Eos # (Auto) Baso # (Auto) Abs Immat Gran (auto) Absolute Neuts (auto) Absolute Nucleated RBC 0.000 Nucleated RBC % (auto) 0.0 Hold Purple Top VBG pH 7.40 VBG pCO2 43 VBG pO2 40 VBG HCO3 27 H VBG O2 Saturation 62.0 VBG Base Excess 2.5 Sodium 132 L Potassium 3.8 Chloride 100 Carbon Dioxide 27 Anion Gap 9 L BUN 32 H Creatinine 1.12 Estim Creat Clear Calc 63.1 Estimated GFR > 60 POC Glucose Random Glucose 214 H Lactic Acid 1.7 Calcium 8.1 L D Iron TIBC % Saturation Unsat Iron Binding Total Bilirubin 0.7 AST 90 H ALT 45 H Alkaline Phosphatase 214 H Troponin I High Sens 222.5 H* B-Natriuretic Peptide Total Protein 7.7 Albumin 2.5 L Lipase 19 Hold Yellow Top Urine Color Urine Appearance Urine pH Ur Specific [place] Urine Protein Urine Glucose (UA) Urine Ketones Urine Blood Urine Nitrite Ur Leukocyte Esterase Urine RBC Urine WBC Ur Squamous Epith Cells Urine Bacteria Hyaline Casts Stool Occult Blood Vancomycin Trough Random Vancomycin Influenza Type A (PCR) NEGATIVE Influenza Type B (PCR) NEGATIVE RSV RNA Qual (PCR) NEGATIVE SARS-CoV-2 RNA (RT-PCR) NEGATIVE Blood Type Antibody Screen Crossmatch 10/28/23 10/29/23 10/29/23 23:18 08:55 09:34 WBC 9.8 RBC 2.53 L Hgb 7.4 L Hct 24.5 L MCV 96.8 D MCH 29.2 MCHC 30.2 L RDW 13.9 Plt Count 168 D MPV 9.6 Immature Gran % (Auto) Neut % (Auto) Lymph % (Auto) [place] % (Auto) Eos % (Auto) Baso % (Auto) Lymph # (Auto) [place] # (Auto) Eos # (Auto) Baso # (Auto) Abs Immat Gran (auto) Absolute Neuts (auto) Absolute Nucleated RBC 0.000 Nucleated RBC % (auto) 0.0 Hold Purple Top VBG pH VBG pCO2 VBG pO2 VBG HCO3 VBG O2 Saturation VBG Base Excess Sodium 132 L Potassium 3.5 Chloride 107 Carbon Dioxide 19 L Anion Gap 10 L BUN 31 H Creatinine 1.00 Estim Creat Clear Calc 70.6 Estimated GFR > 60 POC Glucose 210 H 114 Random Glucose 105 Lactic Acid Calcium 7.2 L D Iron TIBC % Saturation Unsat Iron Binding Total Bilirubin AST ALT Alkaline Phosphatase Troponin I High Sens 129.8 H* B-Natriuretic Peptide Total Protein Albumin Lipase Hold Yellow Top Urine Color Urine Appearance Urine pH Ur Specific [place] Urine Protein Urine Glucose (UA) Urine Ketones Urine Blood Urine Nitrite Ur Leukocyte Esterase Urine RBC Urine WBC Ur Squamous Epith Cells Urine Bacteria Hyaline Casts Stool Occult Blood Vancomycin Trough Random Vancomycin Influenza Type A (PCR) Influenza Type B (PCR) RSV RNA Qual (PCR) SARS-CoV-2 RNA (RT-PCR) Blood Type Antibody Screen Crossmatch 10/29/23 10/29/23 10/30/23 16:19 20:39 05:37 WBC 15.2 H RBC 2.48 L Hgb 7.3 L Hct 22.4 L MCV 90.3 D MCH 29.4 MCHC 32.6 RDW 13.8 Plt Count 232 D MPV 9.2 L Immature Gran % (Auto) 0.7 H Neut % (Auto) 83.7 H Lymph % (Auto) 7.6 L [place] % (Auto) 7.7 Eos % (Auto) 0.2 Baso % (Auto) 0.1 Lymph # (Auto) 1.2 [place] # (Auto) 1.2 Eos # (Auto) 0.0 Baso # (Auto) 0.0 Abs Immat Gran (auto) 0.11 H Absolute Neuts (auto) 12.8 H Absolute Nucleated RBC 0.000 Nucleated RBC % (auto) 0.0 Hold Purple Top VBG pH VBG pCO2 VBG pO2 VBG HCO3 VBG O2 Saturation VBG Base Excess Sodium 136 Potassium 3.6 Chloride 108 Carbon Dioxide 21 L Anion Gap 11 L BUN 28 H Creatinine 1.13 Estim Creat Clear Calc 53.9 Estimated GFR > 60 POC Glucose 89 74 Random Glucose 64 Lactic Acid Calcium 7.5 L Iron 12 L TIBC 123 L % Saturation 10 L Unsat Iron Binding 111 Total Bilirubin AST ALT Alkaline Phosphatase Troponin I High Sens B-Natriuretic Peptide Total Protein Albumin Lipase Hold Yellow Top Urine Color Urine Appearance Urine pH Ur Specific [place] Urine Protein Urine Glucose (UA) Urine Ketones Urine Blood Urine Nitrite Ur Leukocyte Esterase Urine RBC Urine WBC Ur Squamous Epith Cells Urine Bacteria Hyaline Casts Stool Occult Blood Vancomycin Trough Random Vancomycin Influenza Type A (PCR) Influenza Type B (PCR) RSV RNA Qual (PCR) SARS-CoV-2 RNA (RT-PCR) Blood Type Antibody Screen Crossmatch 10/30/23 10/30/23 10/30/23 07:29 08:39 09:05 WBC RBC Hgb Hct MCV MCH MCHC RDW Plt Count MPV Immature Gran % (Auto) Neut % (Auto) Lymph % (Auto) [place] % (Auto) Eos % (Auto) Baso % (Auto) Lymph # (Auto) [place] # (Auto) Eos # (Auto) Baso # (Auto) Abs Immat Gran (auto) Absolute Neuts (auto) Absolute Nucleated RBC Nucleated RBC % (auto) Hold Purple Top SEE NOTE VBG pH VBG pCO2 VBG pO2 VBG HCO3 VBG O2 Saturation VBG Base Excess Sodium Potassium Chloride Carbon Dioxide Anion Gap BUN Creatinine Estim Creat Clear Calc Estimated GFR POC Glucose 66 110 Random Glucose Lactic Acid Calcium Iron TIBC % Saturation Unsat Iron Binding Total Bilirubin AST ALT Alkaline Phosphatase Troponin I High Sens B-Natriuretic Peptide Total Protein Albumin Lipase Hold Yellow Top See Note Urine Color Urine Appearance Urine pH Ur Specific [place] Urine Protein Urine Glucose (UA) Urine Ketones Urine Blood Urine Nitrite Ur Leukocyte Esterase Urine RBC Urine WBC Ur Squamous Epith Cells Urine Bacteria Hyaline Casts Stool Occult Blood Vancomycin Trough 28.9 H* Random Vancomycin Influenza Type A (PCR) Influenza Type B (PCR) RSV RNA Qual (PCR) SARS-CoV-2 RNA (RT-PCR) Blood Type O Positive Antibody Screen NEGATIVE Crossmatch See Detail 10/30/23 10/30/23 10/30/23 11:20 15:08 16:17 WBC RBC Hgb Hct MCV MCH MCHC RDW Plt Count MPV Immature Gran % (Auto) Neut % (Auto) Lymph % (Auto) [place] % (Auto) Eos % (Auto) Baso % (Auto) Lymph # (Auto) [place] # (Auto) Eos # (Auto) Baso # (Auto) Abs Immat Gran (auto) Absolute Neuts (auto) Absolute Nucleated RBC Nucleated RBC % (auto) Hold Purple Top VBG pH VBG pCO2 VBG pO2 VBG HCO3 VBG O2 Saturation VBG Base Excess Sodium Potassium Chloride Carbon Dioxide Anion Gap BUN Creatinine Estim Creat Clear Calc Estimated GFR POC Glucose 99 134 H Random Glucose Lactic Acid Calcium Iron TIBC % Saturation Unsat Iron Binding Total Bilirubin AST ALT Alkaline Phosphatase Troponin I High Sens B-Natriuretic Peptide Total Protein Albumin Lipase Hold Yellow Top Urine Color Dark Yellow Urine Appearance Cloudy Urine pH 5.0 Ur Specific [place] >= 1.030 H Urine Protein 100 (2+) H Urine Glucose (UA) Negative Urine Ketones Negative Urine Blood Moderate (2+) H Urine Nitrite Negative Ur Leukocyte Esterase Negative Urine RBC 3-5 H Urine WBC 0-5 Ur Squamous Epith Cells 6-10 Urine Bacteria None Seen Hyaline Casts 0-2 Stool Occult Blood Vancomycin Trough Random Vancomycin Influenza Type A (PCR) Influenza Type B (PCR) RSV RNA Qual (PCR) SARS-CoV-2 RNA (RT-PCR) Blood Type Antibody Screen Crossmatch 10/30/23 10/30/23 10/31/23 20:19 21:28 06:45 WBC RBC Hgb Hct MCV MCH MCHC RDW Plt Count MPV Immature Gran % (Auto) Neut % (Auto) Lymph % (Auto) [place] % (Auto) Eos % (Auto) Baso % (Auto) Lymph # (Auto) [place] # (Auto) Eos # (Auto) Baso # (Auto) Abs Immat Gran (auto) Absolute Neuts (auto) Absolute Nucleated RBC Nucleated RBC % (auto) Hold Purple Top VBG pH VBG pCO2 VBG pO2 VBG HCO3 VBG O2 Saturation VBG Base Excess Sodium Potassium Chloride Carbon Dioxide Anion Gap BUN Creatinine 1.48 H Estim Creat Clear Calc 41.1 Estimated GFR 48 POC Glucose 117 H Random Glucose Lactic Acid Calcium Iron TIBC % Saturation Unsat Iron Binding Total Bilirubin AST ALT Alkaline Phosphatase Troponin I High Sens B-Natriuretic Peptide Total Protein Albumin Lipase Hold Yellow Top Urine Color Urine Appearance Urine pH Ur Specific [place] Urine Protein Urine Glucose (UA) Urine Ketones Urine Blood Urine Nitrite Ur Leukocyte Esterase Urine RBC Urine WBC Ur Squamous Epith Cells Urine Bacteria Hyaline Casts Stool Occult Blood Vancomycin Trough Random Vancomycin 23.1 H 18.4 Influenza Type A (PCR) Influenza Type B (PCR) RSV RNA Qual (PCR) SARS-CoV-2 RNA (RT-PCR) Blood Type Antibody Screen Crossmatch 10/31/23 10/31/23 10/31/23 07:24 09:42 11:25 WBC 13.7 H RBC 2.81 L Hgb 8.3 L Hct 26.0 L MCV 92.5 MCH 29.5 MCHC 31.9 RDW 14.3 Plt Count 215 MPV 9.4 Immature Gran % (Auto) Neut % (Auto) Lymph % (Auto) [place] % (Auto) Eos % (Auto) Baso % (Auto) Lymph # (Auto) [place] # (Auto) Eos # (Auto) Baso # (Auto) Abs Immat Gran (auto) Absolute Neuts (auto) Absolute Nucleated RBC 0.000 Nucleated RBC % (auto) 0.0 Hold Purple Top VBG pH VBG pCO2 VBG pO2 VBG HCO3 VBG O2 Saturation VBG Base Excess Sodium 139 Potassium 3.5 Chloride 108 Carbon Dioxide 23 Anion Gap 12 BUN 30 H Creatinine 1.48 H Estim Creat Clear Calc 41.1 Estimated GFR 48 POC Glucose 163 H 189 H Random Glucose 59 L* Lactic Acid Calcium 7.7 L Iron TIBC % Saturation Unsat Iron Binding Total Bilirubin AST ALT Alkaline Phosphatase Troponin I High Sens B-Natriuretic Peptide 1670 H Total Protein Albumin Lipase Hold Yellow Top Urine Color Urine Appearance Urine pH Ur Specific [place] Urine Protein Urine Glucose (UA) Urine Ketones Urine Blood Urine Nitrite Ur Leukocyte Esterase Urine RBC Urine WBC Ur Squamous Epith Cells Urine Bacteria Hyaline Casts Stool Occult Blood Vancomycin Trough Random Vancomycin Influenza Type A (PCR) Influenza Type B (PCR) RSV RNA Qual (PCR) SARS-CoV-2 RNA (RT-PCR) Blood Type Antibody Screen Crossmatch 10/31/23 10/31/23 10/31/23 16:05 17:08 17:15 WBC RBC Hgb Hct MCV MCH MCHC RDW Plt Count MPV Immature Gran % (Auto) Neut % (Auto) Lymph % (Auto) [place] % (Auto) Eos % (Auto) Baso % (Auto) Lymph # (Auto) [place] # (Auto) Eos # (Auto) Baso # (Auto) Abs Immat Gran (auto) Absolute Neuts (auto) Absolute Nucleated RBC Nucleated RBC % (auto) Hold Purple Top VBG pH VBG pCO2 VBG pO2 VBG HCO3 VBG O2 Saturation VBG Base Excess Sodium Potassium Chloride Carbon Dioxide Anion Gap BUN Creatinine Estim Creat Clear Calc Estimated GFR POC Glucose 133 H Random Glucose Lactic Acid Calcium Iron TIBC % Saturation Unsat Iron Binding Total Bilirubin AST ALT Alkaline Phosphatase Troponin I High Sens B-Natriuretic Peptide Total Protein Albumin Lipase Hold Yellow Top Urine Color Urine Appearance Urine pH Ur Specific [place] Urine Protein Urine Glucose (UA) Urine Ketones Urine Blood Urine Nitrite Ur Leukocyte Esterase Urine RBC Urine WBC Ur Squamous Epith Cells Urine Bacteria Hyaline Casts Stool Occult Blood Cancelled NEGATIVE Vancomycin Trough Random Vancomycin Influenza Type A (PCR) Influenza Type B (PCR) RSV RNA Qual (PCR) SARS-CoV-2 RNA (RT-PCR) Blood Type Antibody Screen Crossmatch 10/31/23 11/01/23 11/01/23 20:09 06:51 07:04 WBC 15.9 H RBC 3.16 L Hgb 9.2 L Hct 28.5 L MCV 90.2 MCH 29.1 MCHC 32.3 RDW 14.2 Plt Count 247 MPV 8.9 L Immature Gran % (Auto) Neut % (Auto) Lymph % (Auto) [place] % (Auto) Eos % (Auto) Baso % (Auto) Lymph # (Auto) [place] # (Auto) Eos # (Auto) Baso # (Auto) Abs Immat Gran (auto) Absolute Neuts (auto) Absolute Nucleated RBC 0.000 Nucleated RBC % (auto) 0.0 Hold Purple Top VBG pH VBG pCO2 VBG pO2 VBG HCO3 VBG O2 Saturation VBG Base Excess Sodium 135 Potassium 3.8 Chloride 107 Carbon Dioxide 20 L Anion Gap 12 BUN 28 H Creatinine 1.42 H Estim Creat Clear Calc 45.5 Estimated GFR 50 POC Glucose 151 H 154 H Random Glucose 141 H Lactic Acid Calcium 8.0 L Iron TIBC % Saturation Unsat Iron Binding Total Bilirubin AST ALT Alkaline Phosphatase Troponin I High Sens B-Natriuretic Peptide 1228 H Total Protein Albumin Lipase Hold Yellow Top Urine Color Urine Appearance Urine pH Ur Specific [place] Urine Protein Urine Glucose (UA) Urine Ketones Urine Blood Urine Nitrite Ur Leukocyte Esterase Urine RBC Urine WBC Ur Squamous Epith Cells Urine Bacteria Hyaline Casts Stool Occult Blood Vancomycin Trough Random Vancomycin Influenza Type A (PCR) Influenza Type B (PCR) RSV RNA Qual (PCR) SARS-CoV-2 RNA (RT-PCR) Blood Type Antibody Screen Crossmatch 11/01/23 11/01/23 11/01/23 10:51 16:03 19:08 WBC RBC Hgb Hct MCV MCH MCHC RDW Plt Count MPV Immature Gran % (Auto) Neut % (Auto) Lymph % (Auto) [place] % (Auto) Eos % (Auto) Baso % (Auto) Lymph # (Auto) [place] # (Auto) Eos # (Auto) Baso # (Auto) Abs Immat Gran (auto) Absolute Neuts (auto) Absolute Nucleated RBC Nucleated RBC % (auto) Hold Purple Top VBG pH VBG pCO2 VBG pO2 VBG HCO3 VBG O2 Saturation VBG Base Excess Sodium Potassium Chloride Carbon Dioxide Anion Gap BUN Creatinine Estim Creat Clear Calc Estimated GFR POC Glucose 94 108 Random Glucose Lactic Acid Calcium Iron TIBC % Saturation Unsat Iron Binding Total Bilirubin AST ALT Alkaline Phosphatase Troponin I High Sens B-Natriuretic Peptide Total Protein Albumin Lipase Hold Yellow Top Urine Color Urine Appearance Urine pH Ur Specific [place] Urine Protein Urine Glucose (UA) Urine Ketones Urine Blood Urine Nitrite Ur Leukocyte Esterase Urine RBC Urine WBC Ur Squamous Epith Cells Urine Bacteria Hyaline Casts Stool Occult Blood Vancomycin Trough Random Vancomycin 15.7 Influenza Type A (PCR) Influenza Type B (PCR) RSV RNA Qual (PCR) SARS-CoV-2 RNA (RT-PCR) Blood Type Antibody Screen Crossmatch 11/01/23 11/02/23 21:07 07:24 WBC RBC Hgb Hct MCV MCH MCHC RDW Plt Count MPV Immature Gran % (Auto) Neut % (Auto) Lymph % (Auto) [place] % (Auto) Eos % (Auto) Baso % (Auto) Lymph # (Auto) [place] # (Auto) Eos # (Auto) Baso # (Auto) Abs Immat Gran (auto) Absolute Neuts (auto) Absolute Nucleated RBC Nucleated RBC % (auto) Hold Purple Top VBG pH VBG pCO2 VBG pO2 VBG HCO3 VBG O2 Saturation VBG Base Excess Sodium Potassium Chloride Carbon Dioxide Anion Gap BUN Creatinine Estim Creat Clear Calc Estimated GFR POC Glucose 132 H 79 Random Glucose Lactic Acid Calcium Iron TIBC % Saturation Unsat Iron Binding Total Bilirubin AST ALT Alkaline Phosphatase Troponin I High Sens B-Natriuretic Peptide Total Protein Albumin Lipase Hold Yellow Top Urine Color Urine Appearance Urine pH Ur Specific [place] Urine Protein Urine Glucose (UA) Urine Ketones Urine Blood Urine Nitrite Ur Leukocyte Esterase Urine RBC Urine WBC Ur Squamous Epith Cells Urine Bacteria Hyaline Casts Stool Occult Blood Vancomycin Trough Random Vancomycin Influenza Type A (PCR) Influenza Type B (PCR) RSV RNA Qual (PCR) SARS-CoV-2 RNA (RT-PCR) Blood Type Antibody Screen Crossmatch Airway Mallampati Class: Patient Non-Cooperative Neck ROM: Limited Heart: rrr Lungs: cta Assessment and Plan Assessment Anesthesia Assessment: Anesthesia Plan Discussed Final Anesthetic Review Family History of Problems with Anesthesia: No History of Problems with Anesthesia: No NPO: Yes ASA Class: IV Final Preanesthetic Review: No Changes in Pt Med Stat, Meds/Allgs Chart Reviewed, Consent Obtained/Reviewed and Anes Risks/Benef Reviewed Patient Risk: Intermediate Procedure Risk: Intermediate Anesthetic Plan Anesthetic Plan: MAC: Disposition: Standard PACU
[2023-11-02 08:44] LABS: Creatinine Clr Calc Pharmacy 51.2; Estimated Glomerular Filt Rate > 60
--- NOTE | 2023-11-02 08:50 | HO.WOUND ---
Wound Consult: Initial 63yr old male admitted to [facility] on? 10/28/23 23:35- See progress notes and H&P for detailed history. Brief chart review reveals patient is set for OR today for Right BKA. Dr Luz Gross and general surgery team will continue to follow and make topical recommendations. No topical interventions needed at this time will discontinue Wound care consult at this time. TT with provider Jessica Dowling NP to reconsult if surgery signs off and topical interventions are needed.
--- NOTE | 2023-11-02 10:01 | W.PM.OPN ---
Operative Note Operative Note Date of Service: 11/02/23 Narrative: Preop Diagnosis: Gangrene, right foot Postop diagnosis: The same Procedure: Below-knee amputation, right foot Surgeon: Richard Gross MD Assistants: Ramos Wesley MD, KAYLYNN Watts The patient is a 63-year-old male, with known diabetes, markedly elevated hemoglobin A1c, admitted for gangrene of the right foot. He had been refusing amputation but eventually had agreed. He understood the technique of the planned procedure as well as the risks, benefits, and alternatives. He was brought to the operating room. He was placed supine under monitored anesthesia care. I femoral block had been done earlier by the anesthesiologist. The right leg was prepped and draped all the way to above the knee. A tourniquet had been position in the proximal thigh. A surgical time-out was done. The patient was getting IV antibiotics on schedule. I marked my planned line of incision about 15 cm distal to the tibial tubercle transversely, and downwards distally on both lateral aspects. Made the incision on the skin using a blade 15. This carried down with electrocautery through the full-thickness of the skin, subcutaneous fat and fascia. We proceeded to expose the tibia mom for sleep. We used a bone saw to transect this about 1 cm proximal to the skin level. We proceeded to then expose the pedicles and ligated and divided these. We divided through the anterior and lateral compartments to expose the fibula. The fibula was transected with a bone saw. This allowed us access to the posterior compartment and we proceeded to continue to divide the muscles and preserve the gastrocnemius as a flap. We completed the amputation by dividing the rest of the muscle attachments. We had the tourniquet up and we least this after completion of the transection of the muscles. The specimen was sent for pathology. We proceeded to ensure hemostasis by ligating any significant vessel. I used electrocautery as well on the divided muscle. We irrigated. I proceeded to transect more of the fibula using a bone saw about 1 cm proximal to the level of the tibia. We irrigated. Once hemostasis was confirmed, I proceeded to then do myodesis of the gastrocnemius flap to the tibia using a nylon 2-0 stitch. The gastrocnemius flap appeared viable with good vascular supply. We reapposed the fascia to complete our flap closure using served to 0 simple interrupted sutures. Skin closure was achieved with skin lavon. Things were applied. The procedure was completed The patient tolerated procedure well. There were no immediate complications. Initial final counts of sponges and instruments were correct. Estimated blood loss was about 50 cc The patient was then transferred to the recovery room with stable vital signs.
--- NOTE | 2023-11-02 10:28 | MHC.CM.PN ---
Per ROUNDS discussion, not medically cleared for dc (surgical debridement today vs BKA of (R) Foot); Patient has no PCP and may need STR. CM will follow.
[2023-11-02 11:33] LABS: Glucose, Whole Blood 68 mg/dL (60-115)
--- NOTE | 2023-11-02 12:58 | P.CNID_ITS ---
History of Present Illness Data of Consult Service Date: 11/01/23 Requesting physician: Tacho Duncan Primary Care Provider: None Physician HPI Reason for consult: sepsis,right foot OM,PSSA bacteremia He presents with redness and pain right foot for last two weeks ,worsening and in bed. He has fever,leukocytosis and tachycardia. He has PSSA bacteremia and OM fifth right metatarsal on CT scan. He has DM not well controlled. Review of Systems 2 Musculoskeletal: Comments: right foot pain PMFSH Past Medical History Medical History (Updated 11/02/23 @ 13:03 by Mone Peters MD) Bacteremia Neuropathy Diabetes Family History Family history: reviewed and not pertinent Social History Social History Household Members: Family Housing: Apartment Do you presently have visiting nurse or other home services: No Alcohol intake: current Alcohol intake frequency: does not drink Alcohol type: beer Comment: Patient off unit in OR Patient Tobacco Use Status: Current everyday Tobacco user Tobacco use type: Cigarette e-Cigarette/Vaping Use: Never Used Second Hand Smoke Exposure: No Substance Use Type: Marijuana and Opiates service: No Meds Allergies Allergy/AdvReac Type Severity Reaction Status Date / Time amitriptyline Allergy Unknown stutter Verified 01/26/22 17:35 gabapentin Allergy Unknown confused Verified 01/26/22 17:35 Active Medications: Current Medications Acetaminophen (Acetaminophen 325 Mg Tablet) 650 mg PO Q6H PRN PRN Reason: Pain, Mild (Pain Scale 1-3) Last Admin: 11/01/23 11:34 Dose: 650 mg Dextrose (Dextrose 50 % 25 Gm/50 Ml Syringe) 25 gm IVPUSH Q15M PRN; Protocol PRN Reason: per Hypoglycemia Standing Ord. Last Admin: 10/31/23 10:26 Dose: 25 gm Enoxaparin Sodium (Enoxaparin Sodium 40 Mg/0.4 Ml Syringe) 40 mg SUBCUT BEDTIME ANN Last Admin: 11/01/23 20:44 Dose: 40 mg Ferrous Sulfate (Ferrous Sulfate 324 Mg Tablet.Dr) 324 mg PO BIDWM ANN Last Admin: 11/02/23 07:37 Dose: Not Given Furosemide (Furosemide 20 Mg/2 Ml Vial) 20 mg IVPUSH BID@0900,1800 ANN; Protocol Last Admin: 11/02/23 08:10 Dose: Not Given Glucose (Glucose Gel 15 Gm Gel..Gram.) 15 gm PO Q15M PRN; Protocol PRN Reason: per Hypoglycemia Standing Ord. Vancomycin HCl 500 mg/ Sodium (Chloride) 110 mls @ 110 mls/hr IV Q24H [facility] Last Infusion: 11/01/23 22:12 Dose: Infused Clindamycin Phosphate (Cleocin) 600 mg in 50 mls @ 100 mls/hr IV Q6H [facility] Insulin Glargine (Insulin Glargine,Hum.Rec.Anlog 100 Unit/Ml 10 Ml Vial) 14 unit SUBCUT BEDTIME [facility] Last Admin: 11/01/23 22:08 Dose: 14 unit Insulin Human Lispro (Insulin Lispro 100 Unit/Ml 3 Ml Vial) 0 unit SUBCUT QIDACHS [facility]; Protocol Last Admin: 11/02/23 11:36 Dose: Not Given Melatonin (Melatonin 3 Mg Tablet) 6 mg PO BEDTIME PRN PRN Reason: Insomnia Last Admin: 10/29/23 23:10 Dose: 6 mg Morphine Sulfate (Morphine Sulfate 4 Mg/Ml Cartridge) 4 mg IVPUSH Q4H PRN; Protocol PRN Reason: Pain, Severe (Pain Scale 7-10) Ondansetron HCl (Ondansetron Hcl 4 Mg/2 Ml Vial) 4 mg IVPUSH Q8H PRN PRN Reason: Nausea and Vomiting Last Admin: 10/30/23 07:39 Dose: 4 mg Pharmacy Consult (Consult Rx Vancomycin Dosing) 1 each MISCELLANE DAILY PRN PRN Reason: Consult order Sodium Chloride (0.9 % Sodium Chloride Flush 3 Ml Syringe) 3 ml IVFLUSH [facility] Last Admin: 11/02/23 07:38 Dose: Not Given Tramadol HCl (Tramadol Hcl 50 Mg Tablet) 50 mg PO Q4H PRN PRN Reason: Pain, Moderate(Pain Scale 4-6) Last Admin: 11/01/23 16:44 Dose: 50 mg Tramadol HCl (Tramadol Hcl 50 Mg Tablet) 100 mg PO Q4H PRN PRN Reason: Pain, Severe (Pain Scale 7-10) Zolpidem Tartrate (Zolpidem Tartrate 5 Mg Tablet) 5 mg PO BEDTIME PRN PRN Reason: Insomnia Home Medications Medication Instructions Recorded Confirmed Last Taken Type diphenhydramine 25 2 tab PO BEDTIME PRN Pain 10/29/23 10/29/23 Unknown History mg-acetaminophen 500 mg tablet Physical Exam 2 Vital Signs: Vital Signs: Last Vital Signs Temp 98.5 F 11/02/23 11:20 Pulse 77 11/02/23 11:20 Resp 20 11/02/23 11:20 BP 154/70 H 11/02/23 11:20 Pulse Ox 98 11/02/23 11:20 O2 Del Method Nasal Cannula 11/02/23 11:20 O2 Flow Rate 1 11/02/23 11:20 BMI result Body Mass Index 19.2 Extrem: Other: right foot degloving type tissue injury odor and serous discharge pulses plus 2 bilaterally Results Labs 11/01/23 06:51 11/02/23 08:20 Labs: BMP 11/02/23 08:20 Creatinine 1.16 Microbiology Microbiology Results: Microbiology 10/28/23 22:40 Blood - Venous Blood Culture - Final Staphylococcus aureus 10/28/23 22:40 Blood - Venous Blood Culture - Final Staphylococcus aureus Assessment and Plan (1) PAD (peripheral artery disease): Status: Acute (2) Foot infection: Status: Acute (3) Sepsis: Status: Acute (4) Diabetes: Status: Acute (5) Bacteremia: Status: Acute He has penicillin sensitive staph aureus bacteremia This is likely related to foot infection. There is no MRSA but anerobes may be implicated. Plan Kefzol and Flagyl Alternatively PCN can be used but Kefzol has ease of administration. Surgery to see if foot remains viable. 4-6 weeks IV Kefzol from first negative blood culture. Flagyl likely 10 days.
[2023-11-02 13:05] LABS: Glucose, Whole Blood 91 mg/dL (60-115)
--- NOTE | 2023-11-02 13:26 | P.PNIM_ITS ---
Subjective Subjective Date of Service: 11/02/23 Interval History: underwent right BKA this a.m. without issue. No acute issues the immediate postop period Review of Systems Denies chest pain Denies shortness of breath Denies nausea vomiting diarrhea Denies fever chills Physical Exam 2 Vital Signs: Vital Signs: Last Vital Signs Temp 98.5 F 11/02/23 11:20 Pulse 77 11/02/23 11:20 Resp 20 11/02/23 11:20 BP 154/70 H 11/02/23 11:20 Pulse Ox 98 11/02/23 11:20 O2 Del Method Nasal Cannula 11/02/23 11:20 O2 Flow Rate 1 11/02/23 11:20 BMI result Body Mass Index 19.2 Const: Other: awake alert oriented x3 no acute distress Resp: Other: clear to auscultation bilaterally no rales rhonchi or wheezes Cardio: Other: no S4; positive S1-S2; no S3 murmurs rubs or gallops GI: Other: soft nontender nondistended normoactive bow Extrem: Other: right BKA stump dressing clean during intact. Objective Data Active Medications Acetaminophen (Acetaminophen 325 Mg Tablet) 650 mg PO Q6H PRN PRN Reason: Pain, Mild (Pain Scale 1-3) Last Admin: 11/01/23 11:34 Dose: 650 mg Documented By: PRAVEEN Dextrose (Dextrose 50 % 25 Gm/50 Ml Syringe) 25 gm IVPUSH Q15M PRN; Protocol PRN Reason: per Hypoglycemia Standing Ord. Last Admin: 10/31/23 10:26 Dose: 25 gm Documented By: SARABJIT Enoxaparin Sodium (Enoxaparin Sodium 40 Mg/0.4 Ml Syringe) 40 mg SUBCUT BEDTIME [facility] Last Admin: 11/01/23 20:44 Dose: 40 mg Documented By: HOLLI Ferrous Sulfate (Ferrous Sulfate 324 Mg Tablet.) 324 mg PO BIDWM [facility] Last Admin: 11/02/23 07:37 Dose: Not Given Documented By: DIANA Non-Admin Reason: Patient in OR Furosemide (Furosemide 20 Mg/2 Ml Vial) 20 mg IVPUSH BID@0900,1800 [facility]; Protocol Last Admin: 11/02/23 08:10 Dose: Not Given Documented By: DIANA Non-Admin Reason: Patient off unit in OR Glucose (Glucose Gel 15 Gm Gel..Gram.) 15 gm PO Q15M PRN; Protocol PRN Reason: per Hypoglycemia Standing Ord. Cefazolin Sodium 2 gm/ Sodium (Chloride) 50 mls @ 100 mls/hr IV Q8H [facility] Metronidazole (Flagyl) 500 mg in 100 mls @ 100 mls/hr IV Q8H [facility] Insulin Glargine (Insulin Glargine,Hum.Rec.Anlog 100 Unit/Ml 10 Ml Vial) 14 unit SUBCUT BEDTIME [facility] Last Admin: 11/01/23 22:08 Dose: 14 unit Documented By: HOLLI Insulin Human Lispro (Insulin Lispro 100 Unit/Ml 3 Ml Vial) 0 unit SUBCUT QIDACHS [facility]; Protocol Last Admin: 11/02/23 11:36 Dose: Not Given Documented By: DIANA Non-Admin Reason: BG below range, not indicated Melatonin (Melatonin 3 Mg Tablet) 6 mg PO BEDTIME PRN PRN Reason: Insomnia Last Admin: 10/29/23 23:10 Dose: 6 mg Documented By: LALITHA Morphine Sulfate (Morphine Sulfate 4 Mg/Ml Cartridge) 4 mg IVPUSH Q4H PRN; Protocol PRN Reason: Pain, Severe (Pain Scale 7-10) Ondansetron HCl (Ondansetron Hcl 4 Mg/2 Ml Vial) 4 mg IVPUSH Q8H PRN PRN Reason: Nausea and Vomiting Last Admin: 10/30/23 07:39 Dose: 4 mg Documented By: SARABJIT Pharmacy Consult (Consult Rx Vancomycin Dosing) 1 each MISCELLANE DAILY PRN PRN Reason: Consult order Sodium Chloride (0.9 % Sodium Chloride Flush 3 Ml Syringe) 3 ml IVFLUSH QSHIFT [facility] Last Admin: 11/02/23 07:38 Dose: Not Given Documented By: DIANA Non-Admin Reason: Patient in OR Tramadol HCl (Tramadol Hcl 50 Mg Tablet) 50 mg PO Q4H PRN PRN Reason: Pain, Moderate(Pain Scale 4-6) Last Admin: 11/01/23 16:44 Dose: 50 mg Documented By: PRAVEEN Tramadol HCl (Tramadol Hcl 50 Mg Tablet) 100 mg PO Q4H PRN PRN Reason: Pain, Severe (Pain Scale 7-10) Zolpidem Tartrate (Zolpidem Tartrate 5 Mg Tablet) 5 mg PO BEDTIME PRN PRN Reason: Insomnia Labs 11/01/23 06:51 11/02/23 08:20 Labs: Laboratory Results - last 24 hr 11/01/23 11/01/23 11/01/23 16:03 19:08 21:07 Estim Creat Clear Calc Estimated GFR POC Glucose 108 132 H Random Vancomycin 15.7 Blood Type Antibody Screen 11/02/23 11/02/23 11/02/23 07:24 08:20 11:26 Estim Creat Clear Calc 51.2 Estimated GFR > 60 POC Glucose 79 68 Random Vancomycin Blood Type O Positive Antibody Screen NEGATIVE 11/02/23 13:01 Estim Creat Clear Calc Estimated GFR POC Glucose 91 Random Vancomycin Blood Type Antibody Screen Assessment and Plan (1) Sepsis: Status: Acute (2) Bacteremia: Status: Acute (3) PAD (peripheral artery disease): Status: Acute Plan 63-year-old male with pertinent history of insulin-dependent diabetes mellitus, noncompliant with medications who presents to the emergency department for evaluation of right foot pain. 1.Sepsis due to right foot wet gangrene with purulent cellulitis Sepsis resolved; To OR this a.m. for successful right BKA. No acute issues postop. 2/2 blood cultures with MSSA;ID recommends Kefzol 4-6 weeks after negative blood culture; metronidazole 10 day total - continue Kefzol as ordered - repeat blood cultures today - once blood cultures negative will need PICC line 2.Iron def anemia. unspecified No acute blood loss; receive 1 unit of packed red cells as well as in [place] transfusion - continue oral iron supplement - follow CBCs 3.Acute hypoxic resp failure secondary to CHF,(unspecified) Hypoxia resolved; echo with LVEF 55%...good response to IV Lasix - continue current Lasix dosing -follow renals/divalents 4.MSSA -as per #1 5.CKD stage 3 Creatinine now back to baseline; stable -follow renal/divalents 6.Insulin-dependent diabetes mellitus 2 Sugars slightly lower than normal. Follow his response to diet -DC Lantus at bedtime -lispro correctional scale -adjust as indicated Lovenox Full code Requires ongoing hospitalization for IV antibiotics to treat positive blood cultures. Will need ongoing follow in hospital until 2 blood cultures have been negative for 48 hours and ultimately will need PICC line Quality Stroke Does the patient have a stroke diagnosis?: No VTE Prior VTE?: No VTE Risk Level:: Medical - moderate - high VTE Device Contraindication: Treatment Not Indicated VTE Drug Contraindication: N/A - Med Ordered
[2023-11-02] MEDS: metroNIDAZOLE/NS 500 MG/100 ML PIGGYBACK 100 MG IV (14:07)
--- NOTE | 2023-11-02 15:11 | PM.EVENT ---
Event Note Date of Service: 11/02/23 Event Note: Seen postop Status post BKA from this morning Says he has good pain control Stable vital signs Dressings dry Pain management Keep current dressings on for at least 48 hours Keep right leg elevated on pillow Time Spent With Patient Time: Total time managing care of this patient today ____ minutes.
[2023-11-02 16:24] LABS: Glucose, Whole Blood 89 mg/dL (60-115)
[2023-11-02] MEDS: Ferrous Sulfate 324 MG TABLET.DR PO (16:29)
[2023-11-02] MEDS: lisinopriL 5 MG TABLET PO (16:29)
[2023-11-02] MEDS: 0.9 % Sodium Chloride Flush 3 ML SYRINGE IVFLUSH (16:29)
[2023-11-02] MEDS: Morphine Sulfate 4 MG/ML CARTRIDGE IVPUSH ×2 (16:36→20:43)
[2023-11-02] MEDS: Furosemide 20 MG/2 ML VIAL IVPUSH (17:58)
[2023-11-02 18:47] LABS: Vancomycin Random 15.2 mcg/mL (15-20)
[2023-11-02 20:24] LABS: Glucose, Whole Blood 88 mg/dL (60-115)
[2023-11-02] MEDS: Enoxaparin Sodium 40 MG/0.4 ML SYRINGE SUBCUT (20:43)
[2023-11-03] VITALS (7 sets, daily range): BP systolic 102–188; BP diastolic 62–80; PULSE 80–115; RESP 20; TEMP 36.2–36.9; O2SAT 92–95
[2023-11-03] MEDS: Morphine Sulfate 4 MG/ML CARTRIDGE IVPUSH ×6 (00:40→22:33)
[2023-11-03] MEDS: metroNIDAZOLE/NS 500 MG/100 ML PIGGYBACK 100 MG IV ×3 (01:40→14:12)
[2023-11-03] MEDS: 0.9 % Sodium Chloride Flush 3 ML SYRINGE IVFLUSH ×3 (01:41→16:13)
[2023-11-03] MEDS: traMADoL HCL 50 MG TABLET 100 MG PO ×2 (02:01→07:54)
[2023-11-03] MEDS: HYDROmorphone HCl 1 MG/ML SYRINGE IVPUSH (04:01)
[2023-11-03 05:55] LABS: MANUAL DIFF FLAG NO
[2023-11-03 06:17] LABS: Basophils Percent Auto 0.1 % (0-2); Hematocrit 26.1 % (42.0-52.0); Hemoglobin 8.9 g/dl (14.0-18.0); Imm Gran Abs Auto 0.25 X10*3/uL (0.00-0.03); Imm Gran Pct Auto 1.6 % (0.0-0.4); Lymphocytes Absolute Auto 0.8 X10*3/uL (1.2-4.9); Lymphocytes Percent Auto 5.4 % (20-40); Mean Corpuscular HGB Conc 34.1 g/dl (31.0-36.0); Mean Corpuscular Hemoglobin 29.7 pg (27.0-33.0); Mean Platelet Volume 8.7 fL (9.4-12.4); Monocytes Absolute Auto 0.9 X10*3/uL (0.1-1.2); Monocytes Percent Auto 5.7 % (2-11); Neutrophils Absolute Auto 13.2 x10*3/uL (2.0-8.3); Neutrophils Percent Auto 87.2 % (45-73); Platelet Count 217 X10*3/uL (160-400); Red Cell Distribution Width 14.5 % (11.0-16.0); White Blood Count 15.2 X10*3/uL (4.8-10.8)
[2023-11-03 06:22] LABS: Alanine Aminotransferase 16 U/L (0-40); Albumin Level 1.9 g/dL (3.5-5.0); Alkaline Phosphatase 107 U/L (39-117); Anion Gap 13 (12-20); Aspartate Amino Transferase 43 U/L (5-37); Bilirubin Total 0.5 mg/dL (0.0-1.0); Blood Urea Nitrogen 18 mg/dL (9-16); Calcium 7.6 mg/dL (8.4-10.2); Carbon Dioxide 21 mmol/L (22-29); Chloride 104 mmol/L (96-108); Creatinine Clr Calc Pharmacy 61.9; Estimated Glomerular Filt Rate > 60; Glucose Fasting 60 mg/dL (60-99); Potassium 3.1 mmol/L (3.3-5.1); Sodium 135 mmol/L (135-145); Total Protein 6.2 g/dL (6.5-8.0)
[2023-11-03 07:04] LABS: Glucose, Whole Blood 51 mg/dL (60-115)
--- NOTE | 2023-11-03 07:31 | PC.NURSE ---
Patient c/o right leg pain throughout night. BP as high [id number]/75. Hospitalist notified Dilaudid 1 mg IVP ordered as additional medication. Noted to have good effect. Patient sleeping intermittently .
[2023-11-03 07:33] LABS: Glucose, Whole Blood 104 mg/dL (60-115)
[2023-11-03] MEDS: Acetaminophen 325 MG TABLET 650 MG PO ×2 (07:54→16:23)
[2023-11-03] MEDS: Ferrous Sulfate 324 MG TABLET.DR PO ×2 (07:55→16:23)
[2023-11-03] MEDS: lisinopriL 5 MG TABLET PO (07:55)
[2023-11-03] MEDS: Furosemide 20 MG/2 ML VIAL IVPUSH ×2 (07:55→16:23)
[2023-11-03] MEDS: Potassium Chloride Packet 20 MEQ PACKET 40 MEQ PO ×2 (07:56→22:38)
--- NOTE | 2023-11-03 07:56 | HO.POSTANES ---
Post Anesthesia Evaluation Post Anesthesia Evaluation Date of Service: 11/03/23 Vital Signs: Vital Signs Temp Pulse Resp BP Pulse Ox O2 Del Method O2 Flow Rate 11/03/23 07:05 98.5 F 100 20 170/80 H 92 Nasal Cannula 3 11/03/23 03:10 98.0 F 115 H 20 188/75 H 92 Nasal Cannula 11/03/23 02:04 185/80 H 11/02/23 23:33 99.5 F 116 H 21 H 192/87 H 91 L Nasal Cannula 11/02/23 20:42 98.0 F Anesthesia: General LMA Mental Status: Awake Pain Control: Satisfactory Nausea/Vomiting: None Hydration: Adequate Anesthesia-Related Issues: No Anes. Related Issues
[2023-11-03 08:08] LABS: Estimated Average Glucose 117 mg/dL; Hemoglobin A1c % 5.7 % (<6.0)
--- NOTE | 2023-11-03 08:16 | PM.PNGS ---
Subjective Subjective Date of Service: 11/03/23 Interval history: says he is comfortable no events reported Physical Exam Vital Signs: Vital Signs: Last Vital Signs Temp 98.5 F 11/03/23 07:05 Pulse 100 11/03/23 07:05 Resp 20 11/03/23 07:05 BP 170/80 H 11/03/23 07:05 Pulse Ox 92 11/03/23 07:05 O2 Del Method Nasal Cannula 11/03/23 07:05 O2 Flow Rate 3 11/03/23 07:05 BMI result Body Mass Index 19.2 Const: General: comfortable and no acute distress Resp: Effort & Inspection: normal respiratory effort Extrem: Other: dressings dry Objective Data Active Medications Acetaminophen (Acetaminophen 325 Mg Tablet) 650 mg PO Q6H PRN PRN Reason: Pain, Mild (Pain Scale 1-3) Last Admin: 11/03/23 07:54 Dose: 650 mg Documented By: JOHN Dextrose (Dextrose 50 % 25 Gm/50 Ml Syringe) 25 gm IVPUSH Q15M PRN; Protocol PRN Reason: per Hypoglycemia Standing Ord. Last Admin: 10/31/23 10:26 Dose: 25 gm Documented By: SARABJIT Enoxaparin Sodium (Enoxaparin Sodium 40 Mg/0.4 Ml Syringe) 40 mg SUBCUT BEDTIME [facility] Last Admin: 11/02/23 20:43 Dose: 40 mg Documented By: SONIA Ferrous Sulfate (Ferrous Sulfate 324 Mg Tablet.Dr) 324 mg PO BIDWM [facility] Last Admin: 11/03/23 07:55 Dose: 324 mg Documented By: JOHN Furosemide (Furosemide 20 Mg/2 Ml Vial) 20 mg IVPUSH BID@0900,1800 [facility]; Protocol Last Admin: 11/03/23 07:55 Dose: 20 mg Documented By: JOHN Glucose (Glucose Gel 15 Gm Gel..Gram.) 15 gm PO Q15M PRN; Protocol PRN Reason: per Hypoglycemia Standing Ord. Cefazolin Sodium 2 gm/ Sodium (Chloride) 50 mls @ 100 mls/hr IV Q8H [facility] Last Infusion: 11/03/23 06:33 Dose: Infused Documented By: SONIA Metronidazole (Flagyl) 500 mg in 100 mls @ 100 mls/hr IV Q8H [facility] Last Admin: 11/03/23 07:56 Dose: 100 mls/hr Documented By: JOHN Insulin Glargine (Insulin Glargine,Hum.Rec.Anlog 100 Unit/Ml 10 Ml Vial) 14 unit SUBCUT BEDTIME [facility] Last Admin: 11/02/23 20:44 Dose: Not Given Documented By: SONIA Non-Admin Reason: No Insulin Coverage Insulin Human Lispro (Insulin Lispro 100 Unit/Ml 3 Ml Vial) 0 unit SUBCUT QIDACHS [facility]; Protocol Last Admin: 11/03/23 07:43 Dose: Not Given Documented By: JOHN Non-Admin Reason: No Insulin Coverage Lisinopril (Lisinopril 5 Mg Tablet) 5 mg PO DAILY [facility]; Protocol Last Admin: 11/03/23 07:55 Dose: 5 mg Documented By: JOHN Melatonin (Melatonin 3 Mg Tablet) 6 mg PO BEDTIME PRN PRN Reason: Insomnia Last Admin: 10/29/23 23:10 Dose: 6 mg Documented By: LALITHA Morphine Sulfate (Morphine Sulfate 4 Mg/Ml Cartridge) 4 mg IVPUSH Q3H PRN; Protocol PRN Reason: Pain, Severe (Pain Scale 7-10) Ondansetron HCl (Ondansetron Hcl 4 Mg/2 Ml Vial) 4 mg IVPUSH Q8H PRN PRN Reason: Nausea and Vomiting Last Admin: 10/30/23 07:39 Dose: 4 mg Documented By: SARABJIT Potassium Chloride (Potassium Chloride Packet 20 Meq Packet) 40 meq PO BID [facility] Stop: 11/03/23 21:01 Last Admin: 11/03/23 07:56 Dose: 40 meq Documented By: JOHN Sodium Chloride (0.9 % Sodium Chloride Flush 3 Ml Syringe) 3 ml IVFLUSH QSHIFT [facility] Last Admin: 11/03/23 07:55 Dose: 3 ml Documented By: JOHN Tramadol HCl (Tramadol Hcl 50 Mg Tablet) 100 mg PO Q4H PRN PRN Reason: Pain, Severe (Pain Scale 7-10) Last Admin: 11/03/23 07:54 Dose: 100 mg Documented By: JOHN Labs 11/03/23 05:37 11/03/23 05:37 Labs: Laboratory Results - last 24 hr 11/02/23 11/02/2311/02/23 08:20 11:26 13:01 MCV MCH MCHC RDW Plt Count MPV Immature Gran % (Auto) Neut % (Auto) Lymph % (Auto) Harmon % (Auto) Eos % (Auto) Baso % (Auto) Lymph # (Auto) Harmon # (Auto) Eos # (Auto) Baso # (Auto) Abs Immat Gran (auto) Absolute Neuts (auto) Absolute Nucleated RBC Nucleated RBC % (auto) Anion Gap Estim Creat Clear Calc 51.2 Estimated GFR > 60 POC Glucose 68 91 Fasting Glucose Estimat Average Glucose Hemoglobin A1c % Calcium Total Bilirubin AST ALT Alkaline Phosphatase Total Protein Albumin Random Vancomycin Blood Type O Positive Antibody Screen NEGATIVE 11/02/23 11/02/23 11/02/23 16:05 18:13 20:19 MCV MCH MCHC RDW Plt Count MPV Immature Gran % (Auto) Neut % (Auto) Lymph % (Auto) Harmon % (Auto) Eos % (Auto) Baso % (Auto) Lymph # (Auto) Harmon # (Auto) Eos # (Auto) Baso # (Auto) Abs Immat Gran (auto) Absolute Neuts (auto) Absolute Nucleated RBC Nucleated RBC % (auto) Anion Gap Estim Creat Clear Calc Estimated GFR POC Glucose 89 88 Fasting Glucose Estimat Average Glucose Hemoglobin A1c % Calcium Total Bilirubin AST ALT Alkaline Phosphatase Total Protein Albumin Random Vancomycin 15.2 Blood Type Antibody Screen 11/03/23 11/03/23 11/03/23 05:37 06:57 07:29 MCV 87.0 MCH 29.7 MCHC 34.1 RDW 14.5 Plt Count 217 MPV 8.7 L Immature Gran % (Auto) 1.6 H Neut % (Auto) 87.2 H Lymph % (Auto) 5.4 L Harmon % (Auto) 5.7 Eos % (Auto) 0.0 Baso % (Auto) 0.1 Lymph # (Auto) 0.8 L Harmon # (Auto) 0.9 Eos # (Auto) 0.0 Baso # (Auto) 0.0 Abs Immat Gran (auto) 0.25 H Absolute Neuts (auto) 13.2 H Absolute Nucleated RBC 0.000 Nucleated RBC % (auto) 0.0 Anion Gap 13 Estim Creat Clear Calc 61.9 Estimated GFR > 60 POC Glucose 51 L* 104 Fasting Glucose 60 Estimat Average Glucose 117 Hemoglobin A1c % 5.7 Calcium 7.6 L Total Bilirubin 0.5 AST 43 H ALT 16 Alkaline Phosphatase 107 Total Protein 6.2 L Albumin 1.9 L Random Vancomycin Blood Type Antibody Screen Procedures Date of Service Date of Service: 11/03/23 Progress Note: A&P Assessment and plan (1) Gangrene of foot: Status: Acute Assessment and Plan: S/P BKA good pain control will keep dressings for today - plan to change tomorrow replace K Time Spent With Patient Time: Total time managing care of this patient today ____ minutes. Quality Stroke Does the patient have a stroke diagnosis?: No VTE Prior VTE?: No VTE Risk Level:: Medical - moderate - high VTE Device Contraindication: Treatment Not Indicated VTE Drug Contraindication: N/A - Med Ordered
[2023-11-03 10:55] LABS: Glucose, Whole Blood 103 mg/dL (60-115)
--- NOTE | 2023-11-03 12:32 | P.PNIM_ITS ---
Subjective Subjective Date of Service: 11/03/23 Interval History: seen and examined this morning follow up for bacteremia, gangrene of right foot s/p right BKA patient frustrated and declines evaluation and physical exam this morning unable to obtain ROS as patient not cooperative. feels fine Physical Exam 2 Vital Signs: Vital Signs: Last Vital Signs Temp 97.1 F 11/03/23 10:59 Pulse 80 11/03/23 10:59 Resp 20 11/03/23 10:59 BP 150/68 H 11/03/23 10:59 Pulse Ox 92 11/03/23 10:59 O2 Del Method Nasal Cannula 11/03/23 10:59 O2 Flow Rate 3 11/03/23 10:59 BMI result Body Mass Index 19.2 Const: General: no acute distress, alert and awake Nutritional Appearance: thin Resp: Other: breathing non labored, speaking in full sentences Extrem: Other: RLE wrapped in dry intact dressing Objective Data Active Medications Acetaminophen (Acetaminophen 325 Mg Tablet) 650 mg PO Q6H PRN PRN Reason: Pain, Mild (Pain Scale 1-3) Last Admin: 11/03/23 07:54 Dose: 650 mg Documented By: JOHN Dextrose (Dextrose 50 % 25 Gm/50 Ml Syringe) 25 gm IVPUSH Q15M PRN; Protocol PRN Reason: per Hypoglycemia Standing Ord. Last Admin: 10/31/23 10:26 Dose: 25 gm Documented By: SARABJIT Enoxaparin Sodium (Enoxaparin Sodium 40 Mg/0.4 Ml Syringe) 40 mg SUBCUT BEDTIME [facility] Last Admin: 11/02/23 20:43 Dose: 40 mg Documented By: SONIA Ferrous Sulfate (Ferrous Sulfate 324 Mg Tablet.) 324 mg PO BIDWM ANN Last Admin: 11/03/23 07:55 Dose: 324 mg Documented By: JOHN Furosemide (Furosemide 20 Mg/2 Ml Vial) 20 mg IVPUSH BID@0900,1800 [facility]; Protocol Last Admin: 11/03/23 07:55 Dose: 20 mg Documented By: JOHN Glucose (Glucose Gel 15 Gm Gel..Gram.) 15 gm PO Q15M PRN; Protocol PRN Reason: per Hypoglycemia Standing Ord. Cefazolin Sodium 2 gm/ Sodium (Chloride) 50 mls @ 100 mls/hr IV Q8H [facility] Last Infusion: 12/28/23 06:33 Dose: Infused Documented By: SONIA Metronidazole (Flagyl) 500 mg in 100 mls @ 100 mls/hr IV Q8H [facility] Last Infusion: 11/03/23 09:32 Dose: Infused Documented By: JOHN Insulin Human Lispro (Insulin Lispro 100 Unit/Ml 3 Ml Vial) 0 unit SUBCUT QIDACHS [facility]; Protocol Last Admin: 11/03/23 07:43 Dose: Not Given Documented By: JOHN Non-Admin Reason: No Insulin Coverage Lisinopril (Lisinopril 5 Mg Tablet) 5 mg PO DAILY [facility]; Protocol Last Admin: 11/03/23 07:55 Dose: 5 mg Documented By: JOHN Melatonin (Melatonin 3 Mg Tablet) 6 mg PO BEDTIME PRN PRN Reason: Insomnia Last Admin: 10/29/23 23:10 Dose: 6 mg Documented By: LALITHA Morphine Sulfate (Morphine Sulfate 4 Mg/Ml Cartridge) 4 mg IVPUSH Q3H PRN; Protocol PRN Reason: Pain, Severe (Pain Scale 7-10) Last Admin: 11/03/23 11:02 Dose: 4 mg Documented By: JOHN Ondansetron HCl (Ondansetron Hcl 4 Mg/2 Ml Vial) 4 mg IVPUSH Q8H PRN PRN Reason: Nausea and Vomiting Last Admin: 10/30/23 07:39 Dose: 4 mg Documented By: SARABJIT Potassium Chloride (Potassium Chloride Packet 20 Meq Packet) 40 meq PO BID [facility] Stop: 11/03/23 21:01 Last Admin: 11/03/23 07:56 Dose: 40 meq Documented By: JOHN Sodium Chloride (0.9 % Sodium Chloride Flush 3 Ml Syringe) [facility] Last Admin: 11/03/23 07:55 Dose: 3 ml Documented By: JOHN Tramadol HCl (Tramadol Hcl 50 Mg Tablet) 100 mg PO Q4H PRN PRN Reason: Pain, Severe (Pain Scale 7-10) Last Admin: 11/03/23 07:54 Dose: 100 mg Documented By: JOHN Labs 11/03/23 05:37 11/03/23 05:37 Labs: Laboratory Results - last 24 hr 11/02/23 11/02/23 11/02/23 13:01 16:05 18:13 MCV MCH MCHC RDW Plt Count MPV Immature Gran % (Auto) Neut % (Auto) Lymph % (Auto) [place] % (Auto) Eos % (Auto) Baso % (Auto) Lymph # (Auto) [place] # (Auto) Eos # (Auto) Baso # (Auto) Abs Immat Gran (auto) Absolute Neuts (auto) Absolute Nucleated RBC Nucleated RBC % (auto) Anion Gap Estim Creat Clear Calc Estimated GFR POC Glucose 91 89 Fasting Glucose Estimat Average Glucose Hemoglobin A1c % Calcium Total Bilirubin AST ALT Alkaline Phosphatase Total Protein Albumin Random Vancomycin 15.2 11/02/23 11/03/23 11/03/23 20:19 05:37 06:57 MCV 87.0 MCH 29.7 MCHC 34.1 RDW 14.5 Plt Count 217 MPV 8.7 L Immature Gran % (Auto) 1.6 H Neut % (Auto) 87.2 H Lymph % (Auto) 5.4 L [place] % (Auto) 5.7 Eos % (Auto) 0.0 Baso % (Auto) 0.1 Lymph # (Auto) 0.8 L [place] # (Auto) 0.9 Eos # (Auto) 0.0 Baso # (Auto) 0.0 Abs Immat Gran (auto) 0.25 H Absolute Neuts (auto) 13.2 H Absolute Nucleated RBC 0.000 Nucleated RBC % (auto) 0.0 Anion Gap 13 Estim Creat Clear Calc 61.9 Estimated GFR > 60 POC Glucose 88 51 L* Fasting Glucose 60 Estimat Average Glucose 117 Hemoglobin A1c % 5.7 Calcium 7.6 L Total Bilirubin 0.5 AST 43 H ALT 16 Alkaline Phosphatase 107 Total Protein 6.2 L Albumin 1.9 L Random Vancomycin 11/03/23 11/03/23 07:29 10:51 MCV MCH MCHC RDW Plt Count MPV Immature Gran % (Auto) Neut % (Auto) Lymph % (Auto) [place] % (Auto) Eos % (Auto) Baso % (Auto) Lymph # (Auto) [place] # (Auto) Eos # (Auto) Baso # (Auto) Abs Immat Gran (auto) Absolute Neuts (auto) Absolute Nucleated RBC Nucleated RBC % (auto) Anion Gap Estim Creat Clear Calc Estimated GFR POC Glucose 104 103 Fasting Glucose Estimat Average Glucose Hemoglobin A1c % Calcium Total Bilirubin AST ALT Alkaline Phosphatase Total Protein Albumin Random Vancomycin Assessment and Plan (1) Gangrene of foot: Status: Acute (2) Bacteremia: Status: Acute (3) Diabetes: Status: Acute Plan This is a 63-year-old male with pertinent history of insulin-dependent diabetes mellitus, noncompliant with medications who presents to the emergency department for evaluation of right foot pain found to have gangrene and subsequently underwent right BKA Sepsis due to right foot wet gangrene with purulent cellulitis and MSSA bacteremia s/p right BKA 11/02 2/2 blood cultures with MSSA; ID recommends Kefzol 4-6 weeks from first negative blood culture; metronidazole 10 day total - continue Kefzol, flagyl - repeat blood cultures pending - once blood cultures negative will need PICC line - surgery following Acute hypoxic resp failure secondary to acute HFpEF echo with LVEF 50-55%, small pericardial effusion, grade II diastolic dysfunction and basal inferior, mid inferior and mid inferoseptal hypokinesis. no previous echo for comparison mild elevation in cardiac enzymes. EKG with sinus tachycardia, no previous EKG for comparison -continue current Lasix dosing -will obtain cardiology consult MSSA -as per #1 Hypokalemia K 3.1 replace and follow HTN continue lisinopril started this admission, titrate prn Iron def anemia. unspecified No acute blood loss; receive 1 unit of packed red cells as well as iron transfusion H/H stable - continue oral iron supplement CKD stage 3 Creatinine now back to baseline; stable -follow renal/divalents Insulin-dependent diabetes mellitus 2 episode of asymptomatic hypoglycemia 11/03 am Hba1c checked and 5.7 will d/c Lantus -continue SSI, follow POCs Lovenox Full code attending - Dr. Dunham Requires ongoing hospitalization for IV antibiotics to treat positive blood cultures. Will need ongoing follow in hospital until 2 blood cultures have been negative for 48 hours and ultimately will need PICC line and likely placement. Quality Stroke Does the patient have a stroke diagnosis?: No VTE Prior VTE?: No VTE Risk Level:: Medical - moderate - high VTE Device Contraindication: Treatment Not Indicated VTE Drug Contraindication: N/A - Med Ordered
--- NOTE | 2023-11-03 13:02 | MHC.CM.PN ---
CM office obtained new PCP appt. for pt with Dr. Anna Singh in [place]. Information was given to pt. along with the number for him to call [facility] to let them know if change in PCP. Pt accepted and was appreciative of information.
[2023-11-03 16:08] LABS: Glucose, Whole Blood 110 mg/dL (60-115)
[2023-11-03] MEDS: ceFAZolin Sodium/Dextrose,Iso 2 GM/50 ML PIGGYBACK IV (16:13)
[2023-11-03 20:44] LABS: Glucose, Whole Blood 108 mg/dL (60-115)
[2023-11-03] MEDS: Enoxaparin Sodium 40 MG/0.4 ML SYRINGE SUBCUT (22:37)
[2023-11-03 23:58] LABS: Glucose, Whole Blood 106 mg/dL (60-115)
[2023-11-04] VITALS (11 sets, daily range): BP systolic 122–196; BP diastolic 66–102; PULSE 87–134; RESP 13–22; TEMP 36.3–37.4; O2SAT 91–97; BMI 19.3
--- NOTE | 2023-11-04 | ECG_ITS ---
Test Reason : TACHYCARDIA Blood Pressure : / mmHG Vent. Rate : 139 BPM Atrial Rate : 139 BPM P-R Int : 152 ms QRS Dur : 066 ms QT Int : 292 ms P-R-T Axes : 069 024 026 degrees QTc Int : 444 ms Sinus tachycardia Abnormal ECG When compared with ECG of 28-OCT-2023 22:30, No significant change was found Referred By: Judy Hernandez Electronically Signed By:LILLIAN GOFF
[2023-11-04] MEDS: metroNIDAZOLE/NS 500 MG/100 ML PIGGYBACK 100 MG IV ×4 (00:26→23:33)
[2023-11-04] MEDS: 0.9 % Sodium Chloride Flush 3 ML SYRINGE IVFLUSH ×3 (00:41→20:36)
[2023-11-04] MEDS: ceFAZolin Sodium/Dextrose,Iso 2 GM/50 ML PIGGYBACK IV ×2 (01:30→10:47)
[2023-11-04] MEDS: Morphine Sulfate 4 MG/ML CARTRIDGE IVPUSH ×5 (03:46→23:33)
[2023-11-04 06:47] LABS: Glucose, Whole Blood 136 mg/dL (60-115)
[2023-11-04 06:56] LABS: Basophils Percent Auto 0.2 % (0-2); Eosinophils Percent Auto 0.1 % (0-4); Hematocrit 34.3 % (42.0-52.0); Hemoglobin 11.2 g/dl (14.0-18.0); Imm Gran Abs Auto 0.11 X10*3/uL (0.00-0.03); Imm Gran Pct Auto 0.7 % (0.0-0.4); Lymphocytes Absolute Auto 0.5 X10*3/uL (1.2-4.9); MANUAL DIFF FLAG SCAN; Mean Corpuscular HGB Conc 32.7 g/dl (31.0-36.0); Mean Corpuscular Hemoglobin 28.9 pg (27.0-33.0); Mean Corpuscular Volume 88.4 fL (80.0-98.0); Mean Platelet Volume 8.9 fL (9.4-12.4); Monocytes Absolute Auto 0.4 X10*3/uL (0.1-1.2); Monocytes Percent Auto 2.5 % (2-11); Neutrophils Absolute Auto 14.7 x10*3/uL (2.0-8.3); Neutrophils Percent Auto 93.5 % (45-73); Platelet Count 248 X10*3/uL (160-400); Red Blood Count 3.88 X10*6/uL (4.60-5.80); Red Cell Distribution Width 14.8 % (11.0-16.0); SCAN SMEAR FLAG 1; White Blood Count 15.7 X10*3/uL (4.8-10.8)
[2023-11-04 07:12] LABS: Alanine Aminotransferase 12 U/L (0-40); Albumin Level 1.9 g/dL (3.5-5.0); Alkaline Phosphatase 110 U/L (39-117); Anion Gap 14 (12-20); Aspartate Amino Transferase 41 U/L (5-37); Bilirubin Total 0.4 mg/dL (0.0-1.0); Blood Urea Nitrogen 23 mg/dL (9-16); Calcium 7.9 mg/dL (8.4-10.2); Carbon Dioxide 20 mmol/L (22-29); Chloride 105 mmol/L (96-108); Creatinine Clr Calc Pharmacy 56.6; Estimated Glomerular Filt Rate > 60; Glucose Fasting 127 mg/dL (60-99); Potassium 3.9 mmol/L (3.3-5.1); Sodium 135 mmol/L (135-145); Total Protein 6.5 g/dL (6.5-8.0)
[2023-11-04 07:16] LABS: B Type Natriuretic Peptide 1465 pg/mL (<100)
[2023-11-04 07:20] LABS: SLIDE REVIEW VERIFIED
[2023-11-04] MEDS: Furosemide 20 MG/2 ML VIAL IVPUSH (08:12)
[2023-11-04] MEDS: lisinopriL 10 MG TABLET PO (08:23)
[2023-11-04] MEDS: Ferrous Sulfate 324 MG TABLET.DR PO ×2 (08:23→18:28)
[2023-11-04] MEDS: traMADoL HCL 50 MG TABLET 100 MG PO ×2 (08:27→19:41)
[2023-11-04] MEDS: Acetaminophen 325 MG TABLET 650 MG PO ×2 (08:27→19:42)
[2023-11-04] MEDS: Furosemide 40 MG/4 ML VIAL IVPUSH (09:03)
[2023-11-04 09:06] LABS: ABG Base Excess -1.2 mmol/L; ABG HCO3 21 mmol/L (22-26); ABG pCO2 29 mmHg (32-45); ABG pH 7.47 (7.35-7.45); ABG pO2 110 mmHg (83-108)
[2023-11-04 09:43] LABS: Magnesium 1.6 mg/dL (1.6-2.6)
[2023-11-04 09:59] LABS: Procalcitonin 0.78 ng/mL
[2023-11-04 10:01] LABS: Glucose, Whole Blood 145 mg/dL (60-115)
--- NOTE | 2023-11-04 10:03 | P.CONCA_ITS ---
History of Present Illness History of Present Illness Date of Service: 11/04/23 Chief complaint: foot infection Narrative: This is a cardiology consultation regarding abnormal echocardiogram. It showed evidence of wall motion abnormalities as well as diastolic dysfunction. Hence we are contacted. He has been in the hospital for the last few days. Per initial H and P, history of insulin-dependent diabetes, but not compliant with medications. Apparently, came with right foot pain and full smelling purulent drainage. Per surgical note, he apparently underwent right below knee amputation for gangrene. In this context, echocardiogram was abnormal showing wall motion abnormalities as above. Try to evaluate patient at the bedside but he is not able to really give lot of answers. He is quite tachycardic and when I specifically questioned him about chest pain or shortness of breath, he states no. Otherwise, the ict development manager is also the bedside trying to evaluate him for ICU care. Otherwise, no history is obtainable apart from what is available in the chart. Review of Systems 2 Review of Systems: Patient not able to give much of review of systems. Neurologic: Reports confusion Psychiatric: Psychiatric: Reports confusion PMFSH Past Medical History Medical History (Updated 11/04/23 @ 10:17 by Bayron Mauricio MD) Gangrene of foot Bacteremia Neuropathy Diabetes Family History Pertinent family history: Unable to obtain. Family history: reviewed and not pertinent Social History Social History Household Members: Family Housing: Apartment Do you presently have visiting nurse or other home services: No Alcohol intake: current Alcohol intake frequency: does not drink Alcohol type: beer Comment: Patient off unit in [place] Patient Tobacco Use Status: Current everyday Tobacco user Tobacco use type: Cigarette e-Cigarette/Vaping Use: Never Used Second Hand Smoke Exposure: No Substance Use Type: Marijuana and Opiates service: No Meds Allergies Allergy/AdvReac Type Severity Reaction Status Date / Time amitriptyline Allergy Unknown stutter Verified 01/26/22 17:35 gabapentin Allergy Unknown confused Verified 01/26/22 17:35 Active Medications: Current Medications Acetaminophen (Acetaminophen 325 Mg Tablet) 650 mg PO Q6H PRN PRN Reason: Pain, Mild (Pain Scale 1-3) Last Admin: 11/04/23 08:27 Dose: 650 mg Dextrose (Dextrose 50 % 25 Gm/50 Ml Syringe) 25 gm IVPUSH Q15M PRN; Protocol PRN Reason: per Hypoglycemia Standing Ord. Last Admin: 10/31/23 10:26 Dose: 25 gm Enoxaparin Sodium (Enoxaparin Sodium 40 Mg/0.4 Ml Syringe) 40 mg SUBCUT BEDTIME [facility] Last Admin: 11/03/23 22:37 Dose: 40 mg Ferrous Sulfate (Ferrous Sulfate 324 Mg Tablet.Dr) 324 mg PO BIDWM [facility] Last Admin: 11/04/23 08:23 Dose: 324 mg Furosemide (Furosemide 20 Mg/2 Ml Vial) 40 mg IVPUSH BID@0900,1800 [facility]; Protocol Glucose (Glucose Gel 15 Gm Gel..Gram.) 15 gm PO Q15M PRN; Protocol PRN Reason: per Hypoglycemia Standing Ord. Metronidazole (Flagyl) 500 mg in 100 mls @ 100 mls/hr IV Q8H [facility] Last Infusion: 11/04/23 08:21 Dose: Infused Cefazolin Sodium/Dextrose (Ancef) 2 gm in 50 mls @ 100 mls/hr IV Q8H [facility] Last Infusion: 11/04/23 02:00 Dose: Infused Insulin Human Lispro (Insulin Lispro 100 Unit/Ml 3 Ml Vial) 0 unit SUBCUT QIDACHS [facility]; Protocol Last Admin: 11/04/23 08:20 Dose: Not Given Lisinopril (Lisinopril 10 Mg Tablet) 10 mg PO DAILY [facility]; Protocol Last Admin: 11/04/23 08:23 Dose: 10 mg Melatonin (Melatonin 3 Mg Tablet) 6 mg PO BEDTIME PRN PRN Reason: Insomnia Last Admin: 10/29/23 23:10 Dose: 6 mg Morphine Sulfate (Morphine Sulfate 4 Mg/Ml Cartridge) 4 mg IVPUSH Q3H PRN; Protocol PRN Reason: Pain, Severe (Pain Scale 7-10) Last Admin: 11/04/23 08:09 Dose: 4 mg Ondansetron HCl (Ondansetron Hcl 4 Mg/2 Ml Vial) 4 mg IVPUSH Q8H PRN PRN Reason: Nausea and Vomiting Last Admin: 10/30/23 07:39 Dose: 4 mg Sodium Chloride (0.9 % Sodium Chloride Flush 3 Ml Syringe) 3 ml IVFLUSH QSHIFT [facility] Last Admin: 11/04/23 08:13 Dose: 3 ml Tramadol HCl (Tramadol Hcl 50 Mg Tablet) 100 mg PO Q4H PRN PRN Reason: Pain, Severe (Pain Scale 7-10) Last Admin: 11/04/23 08:27 Dose: 100 mg Home Medications Medication Instructions Recorded Confirmed Last Taken Type diphenhydramine 25 2 tab PO BEDTIME PRN Pain 10/29/23 10/29/23 Unknown History mg-acetaminophen 500 mg tablet Physical Exam 2 Vital Signs: Vital Signs: Last Vital Signs Temp 98.9 F 11/04/23 07:30 Pulse 134 H 11/04/23 07:30 Resp 20 11/04/23 07:30 BP 184/102 H 11/04/23 07:30 Pulse Ox 92 11/04/23 07:30 O2 Del Method Nasal Cannula 11/04/23 07:30 O2 Flow Rate 5 11/04/23 07:30 BMI result Body Mass Index 19.3 Const: General: in distress, confusion, ill appearing, poor hygiene and tired appearing Orientation/consciousness: No patient oriented x3 and confusion HEENT: Other: Unremarkable Head: Yes normal to inspection Neck: Neck: Yes normal visual inspection Chest: Chest palpation & inspection: normal inspection of the chest Resp: Other: Diminished breath sounds Cardio: Palpation: normal PMI Heart sounds: S1 normal heart sound present, S2 normal heart sound present, no gallops, no murmurs and no rubs GI: Palpation (GI): Soft to palpation Back/Spine/Pelvis: Other: unremarkable Skin: General skin exam: no rashes or lesions noted Neuro: General: No patient oriented x3 and confusion Extrem: General: Yes normal to inspection Psych: Mental Status: mental status grossly abnormal Objective Labs and Meds 11/04/23 06:48 11/04/23 06:48 Lab results: Laboratory Results - last 24 hr 11/03/23 11/03/23 11/03/23 10:51 16:03 20:39 WBC RBC Hgb Hct MCV MCH MCHC RDW Plt Count MPV Immature Gran % (Auto) Neut % (Auto) Lymph % (Auto) [place] % (Auto) Eos % (Auto) Baso % (Auto) Lymph # (Auto) [place] # (Auto) Eos # (Auto) Baso # (Auto) Abs Immat Gran (auto) Absolute Neuts (auto) Absolute Nucleated RBC Nucleated RBC % (auto) Smear Tech's Comments Hold Purple Top Hold Blue Top O2 Saturation ABG pH at Pt Temp ABG pCO2 at Pt Temp ABG pO2 at Pt Temp ABG HCO3 ABG Base Excess (Actual) Sodium Potassium Chloride Carbon Dioxide Anion Gap BUN Creatinine Estim Creat Clear Calc Estimated GFR POC Glucose 103 110 108 Fasting Glucose Calcium Magnesium Total Bilirubin AST ALT Alkaline Phosphatase B-Natriuretic Peptide Total Protein Albumin Procalcitonin Hold Yellow Top 11/03/23 11/04/23 11/04/23 23:23 06:43 06:48 WBC 15.7 H RBC 3.88 L D Hgb 11.2 L D Hct 34.3 L D MCV 88.4 MCH 28.9 MCHC 32.7 RDW 14.8 Plt Count 248 MPV 8.9 L Immature Gran % (Auto) 0.7 H Neut % (Auto) 93.5 H Lymph % (Auto) 3.0 L [place] % (Auto) 2.5 Eos % (Auto) 0.1 Baso % (Auto) 0.2 Lymph # (Auto) 0.5 L [place] # (Auto) 0.4 Eos # (Auto) 0.0 Baso # (Auto) 0.0 Abs Immat Gran (auto) 0.11 H Absolute Neuts (auto) 14.7 H Absolute Nucleated RBC 0.000 Nucleated RBC % (auto) 0.0 Smear Tech's Comments VERIFIED Hold Purple Top Hold Blue Top O2 Saturation ABG pH at Pt Temp ABG pCO2 at Pt Temp ABG pO2 at Pt Temp ABG HCO3 ABG Base Excess (Actual) Sodium 135 Potassium 3.9 D Chloride 105 Carbon Dioxide 20 L Anion Gap 14 BUN 23 H Creatinine 1.05 Estim Creat Clear Calc 56.6 Estimated GFR > 60 POC Glucose 106 136 H Fasting Glucose 127 H Calcium 7.9 L Magnesium 1.6 Total Bilirubin 0.4 AST 41 H ALT 12 Alkaline Phosphatase 110 B-Natriuretic Peptide 1465 H Total Protein 6.5 Albumin 1.9 L Procalcitonin 0.78 Hold Yellow Top 11/04/23 11/04/23 11/04/23 09:00 09:41 09:57 WBC RBC Hgb Hct MCV MCH MCHC RDW Plt Count MPV Immature Gran % (Auto) Neut % (Auto) Lymph % (Auto) [place] % (Auto) Eos % (Auto) Baso % (Auto) Lymph # (Auto) [place] # (Auto) Eos # (Auto) Baso # (Auto) Abs Immat Gran (auto) Absolute Neuts (auto) Absolute Nucleated RBC Nucleated RBC % (auto) Smear Tech's Comments Hold Purple Top SEE NOTE Hold Blue Top SEE NOTE O2 Saturation 99.0 ABG pH at Pt Temp 7.47 H ABG pCO2 at Pt Temp 29 L ABG pO2 at Pt Temp 110 H ABG HCO3 21 L ABG Base Excess (Actual) -1.2 Sodium Potassium Chloride Carbon Dioxide Anion Gap BUN Creatinine Estim Creat Clear Calc Estimated GFR POC Glucose 145 H Fasting Glucose Calcium Magnesium Total Bilirubin AST ALT Alkaline Phosphatase B-Natriuretic Peptide Total Protein Albumin Procalcitonin Hold Yellow Top See Note ECG Interpretation: EKG shows sinus tachycardia at 139 per. Prior EKG from a week ago is also similar. Imaging Radiologist's impression: Impressions Chest X-Ray 11/04/23 08:08 IMPRESSION: Progression of extensive bilateral pulmonary opacities suspicious for multifocal pneumonia. Assessment and Plan (1) Acute respiratory failure: Status: Acute (2) Acute CHF: Status: Acute Plan Troponin levels at 222, 129. Another set today's pending. Echocardiogram with LVEF of 50-55%. Basal inferior, mid inferior and mid inferoseptal hypokinesis. Moderate diastolic dysfunction. Mild mitral/tricuspid regurgitation. [id number] pulmonary hypertension. Chest x-ray shows extensive infiltrates reported as multifocal pneumonia. Seems to have progressed compared to the prior x-ray. Overall, respiratory failure. Either ARDS or some combination of ARDS/congestive heart failure. Difficult to assess. Cardiac BNP is on the higher side. He appears quite ill and high risk for decompensation. He may need to be intubated as well. Otherwise, empiric diuretics as much able. Antibiotics for presumed infection. Supplemental oxygen and respiratory care. If the next set of troponins significantly higher, then may need IV heparin drip. Blood pressure response could be related to his respiratory distress. Discussed with . Consider transfer to ICU. Discussed with Judy Hernandez. Procedures Date of Service Date of Service: 11/04/23
[2023-11-04 10:17] LABS: Troponin-I High Sensitivity 98.8 ng/L (<3.5-35.0)
--- NOTE | 2023-11-04 11:39 | PC.RT ---
placed patient on HFNC 45l 40% . Lizy well. Sats 95% and hr 105. Pt awake/alert. RR was in the upper 20' now down to low 20's after HFNC placed. Will hold off ICU for now unless pt decompensates. ICU aware
--- NOTE | 2023-11-04 12:19 | MHC.CM.PN ---
Pt has had a change in respiratory and cardiac condition, requiring increased care, possible ICU. Provider requested HCP be assigned and contacted. Pt would like his brother, Jeffy to HCP, RENETTA called Jeffy Ji at [phone] today and left a VM message for him to call today.
--- NOTE | 2023-11-04 12:48 | MHC.CM.PN ---
Pt.'s brotherJeffy contact # is: [phone]
--- NOTE | 2023-11-04 12:59 | PM.PNGS ---
Subjective Subjective Date of Service: 11/04/23 <Alexandria Wtats PA-C - Last Filed: 11/04/23 13:04> 11/04/23 <Richard Gross MD - Last Filed: 11/04/23 13:52> Interval history: Not appearing well this morning. C/o pain. <Alexandria Watts PA-C - Last Filed: 11/04/23 13:04> Physical Exam Vital Signs: Vital Signs: Last Vital Signs Temp 98.4 F 11/04/23 10:28 Pulse 110 H 11/04/23 10:28 Resp 22 H 11/04/23 11:35 BP 150/68 H 11/04/23 10:28 Pulse Ox 97 11/04/23 10:28 O2 Del Method Oxymask 11/04/23 10:28 O2 Flow Rate 11 11/04/23 10:28 BMI result Body Mass Index 19.3 <Alexandria Watts PA-C - Last Filed: 11/04/23 13:04> Const: General: alert and in distress <Alexandria Watts PA-C - Last Filed: 11/04/23 13:04> Orientation/consciousness: patient oriented x3 <Alexandria Watts PA-C - Last Filed: 11/04/23 13:04> Resp: Effort & Inspection: tachypneic <Alexandria Watts PA-C - Last Filed: 11/04/23 13:04> Cardio: Rate: tachycardic <Alexandria Watts PA-C - Last Filed: 11/04/23 13:04> Skin: General skin exam: no rashes or lesions noted and no jaundice <Alexandria Watts PA-C - Last Filed: 11/04/23 13:04> Neuro: General: patient oriented x3 <JON Rolle Last Filed: 11/04/23 13:04> Extrem: Other: right BKA stump lavon intact and site clean, mild surrounding edema <JON Rolle Last Filed: 11/04/23 13:04> Objective Data Active Medications Acetaminophen (Acetaminophen 325 Mg Tablet) 650 mg PO Q6H PRN PRN Reason: Pain, Mild (Pain Scale 1-3) Last Admin: 11/04/23 08:27 Dose: 650 mg Documented By: STELLA Dextrose (Dextrose 50 % 25 Gm/50 Ml Syringe) 25 gm IVPUSH Q15M PRN; Protocol PRN Reason: per Hypoglycemia Standing Ord. Last Admin: 10/31/23 10:26 Dose: 25 gm Documented By: KILEY-RIVCHRISTOPHER Enoxaparin Sodium (Enoxaparin Sodium 40 Mg/0.4 Ml Syringe) 40 mg SUBCUT BEDTIME [facility] Last Admin: 11/03/23 22:37 Dose: 40 mg Documented By: OREN Ferrous Sulfate (Ferrous Sulfate 324 Mg Tablet.Dr) 324 mg PO BIDWM [facility] Last Admin: 11/04/23 08:23 Dose: 324 mg Documented By: STELLA Furosemide (Furosemide 20 Mg/2 Ml Vial) 40 mg IVPUSH BID@0900,1800 [facility]; Protocol Last Admin: 11/04/23 10:19 Dose: Not Given Documented By: STELLA Non-Admin Reason: hold per Glucose (Glucose Gel 15 Gm Gel..Gram.) 15 gm PO Q15M PRN; Protocol PRN Reason: per Hypoglycemia Standing Ord. Metronidazole (Flagyl) 500 mg in 100 mls @ 100 mls/hr IV Q8H [facility] Last Infusion: 11/04/23 08:21 Dose: Infused Documented By: STELLA Cefazolin Sodium/Dextrose (Ancef) 2 gm in 50 mls @ 100 mls/hr IV Q8H [facility] Last Infusion: 11/04/23 11:43 Dose: Infused Documented By: STELLA Insulin Human Lispro (Insulin Lispro 100 Unit/Ml 3 Ml Vial) 0 unit SUBCUT QIDACHS [facility]; Protocol Last Admin: 11/04/23 10:54 Dose: Not Given Documented By: STELLA Non-Admin Reason: No Insulin Coverage Lisinopril (Lisinopril 10 Mg Tablet) 10 mg PO DAILY [facility]; Protocol Last Admin: 11/04/23 08:23 Dose: 10 mg Documented By: STELLA Melatonin (Melatonin 3 Mg Tablet) 6 mg PO BEDTIME PRN PRN Reason: Insomnia Last Admin: 10/29/23 23:10 Dose: 6 mg Documented By: LALITHA Morphine Sulfate (Morphine Sulfate 4 Mg/Ml Cartridge) 4 mg IVPUSH Q3H PRN; Protocol PRN Reason: Pain, Severe (Pain Scale 7-10) Last Admin: 11/04/23 08:09 Dose: 4 mg Documented By: STELLA Ondansetron HCl (Ondansetron Hcl 4 Mg/2 Ml Vial) 4 mg IVPUSH Q8H PRN PRN Reason: Nausea and Vomiting Last Admin: 10/30/23 07:39 Dose: 4 mg Documented By: KILEY-RIVCHRISTOPHER Sodium Chloride (0.9 % Sodium Chloride Flush 3 Ml Syringe) 3 ml IVFLUSH [facility] Last Admin: 11/04/23 08:13 Dose: 3 ml Documented By: STELLA Tramadol HCl (Tramadol Hcl 50 Mg Tablet) 100 mg PO Q4H PRN PRN Reason: Pain, Severe (Pain Scale 7-10) Last Admin: 11/04/23 08:27 Dose: 100 mg Documented By: STELLA <Alexandria Watts PA-C - Last Filed: 11/04/23 13:04> Labs CBC & Chem 7: 11/04/23 06:48 11/04/23 06:48 <Alexandria Watts PA-C - Last Filed: 11/04/23 13:04> Labs: Laboratory Results - last 24 hr 11/03/23 11/03/23 11/03/23 16:03 20:39 23:23 MCV MCH MCHC RDW Plt Count MPV Immature Gran % (Auto) Neut % (Auto) Lymph % (Auto) [place] % (Auto) Eos % (Auto) Baso % (Auto) Lymph # (Auto) [place] # (Auto) Eos # (Auto) Baso # (Auto) Abs Immat Gran (auto) Absolute Neuts (auto) Absolute Nucleated RBC Nucleated RBC % (auto) Smear Tech's Comments Hold Purple Top Hold Blue Top O2 Saturation ABG pH at Pt Temp ABG pCO2 at Pt Temp ABG pO2 at Pt Temp ABG HCO3 ABG Base Excess (Actual) Anion Gap Estim Creat Clear Calc Estimated GFR POC Glucose 110 108 106 Fasting Glucose Calcium Magnesium Total Bilirubin AST ALT Alkaline Phosphatase B-Natriuretic Peptide Total Protein Albumin Procalcitonin Hold Yellow Top 11/04/23 11/04/23 11/04/23 06:43 06:48 09:00 MCV 88.4 MCH 28.9 MCHC 32.7 RDW 14.8 Plt Count 248 MPV 8.9 L Immature Gran % (Auto) 0.7 H Neut % (Auto) 93.5 H Lymph % (Auto) 3.0 L [place] % (Auto) 2.5 Eos % (Auto) 0.1 Baso % (Auto) 0.2 Lymph # (Auto) 0.5 L [place] # (Auto) 0.4 Eos # (Auto) 0.0 Baso # (Auto) 0.0 Abs Immat Gran (auto) 0.11 H Absolute Neuts (auto) 14.7 H Absolute Nucleated RBC 0.000 Nucleated RBC % (auto) 0.0 Smear Tech's Comments VERIFIED Hold Purple Top Hold Blue Top O2 Saturation 99.0 ABG pH at Pt Temp 7.47 H ABG pCO2 at Pt Temp 29 L ABG pO2 at Pt Temp 110 H ABG HCO3 21 L ABG Base Excess (Actual) -1.2 Anion Gap 14 Estim Creat Clear Calc 56.6 Estimated GFR > 60 POC Glucose 136 H Fasting Glucose 127 H Calcium 7.9 L Magnesium 1.6 Total Bilirubin 0.4 AST 41 H ALT 12 Alkaline Phosphatase 110 B-Natriuretic Peptide 1465 H Total Protein 6.5 Albumin 1.9 L Procalcitonin 0.78 Hold Yellow Top 11/04/23 11/04/23 09:41 09:57 MCV MCH MCHC RDW Plt Count MPV Immature Gran % (Auto) Neut % (Auto) Lymph % (Auto) [place] % (Auto) Eos % (Auto) Baso % (Auto) Lymph # (Auto) [place] # (Auto) Eos # (Auto) Baso # (Auto) Abs Immat Gran (auto) Absolute Neuts (auto) Absolute Nucleated RBC Nucleated RBC % (auto) Smear Tech's Comments Hold Purple Top SEE NOTE Hold Blue Top SEE NOTE O2 Saturation ABG pH at Pt Temp ABG pCO2 at Pt Temp ABG pO2 at Pt Temp ABG HCO3 ABG Base Excess (Actual) Anion Gap Estim Creat Clear Calc Estimated GFR POC Glucose 145 H Fasting Glucose Calcium Magnesium Total Bilirubin AST ALT Alkaline Phosphatase B-Natriuretic Peptide Total Protein Albumin Procalcitonin Hold Yellow Top See Note <Alexandria Watts PA-C - Last Filed: 11/04/23 13:04> Microbiology Microbiology Results: Microbiology 11/02/23 14:00 Blood Culture - Preliminary Blood - Venous No growth after 24 hours. 11/02/23 14:00 Blood Culture - Preliminary Blood - Venous No growth after 24 hours. <Alexandria Watts PA-C - Last Filed: 11/04/23 13:04> Procedures Date of Service Date of Service: 11/04/23 <Alexandria Watts PA-C - Last Filed: 11/04/23 13:04> 11/04/23 <Richard Gross MD - Last Filed: 11/04/23 13:52> Progress Note: A&P Assessment and plan (1) Status post below knee amputation of right lower extremity: Status: Acute <Alexandria Watts PA-C - Last Filed: 11/04/23 13:04> Assessment and Plan: pt had respiratory distress, low O2 sats early this AM now better wtih hi flow O2 appears comfortable stump appears clean and dry dressings changed continue daily wound care with dry gauze, wrap with Kerlix and Dejan seen and examined independently <Richard Gross MD - Last Filed: 11/04/23 13:52> Assessment and Plan: POD #2 s/p right BKA. Site clean appearing, lavon intact, mild surrounding edema. Cont R leg elevation, daily dressing changes with fluffs, kerlix and dejan wrap. Patient tachypneic, tachycardic and ill appearing upon entering room. Medicine team aware. Remainder of care per medicine. <Alexandria Watts PA-C - Last Filed: 11/04/23 13:04> Time Spent With Patient Time: Total time managing care of this patient today ____ minutes. <Alexandria Watts PA-C - Last Filed: 11/04/23 13:04> Quality Stroke Does the patient have a stroke diagnosis?: No <Alexandria Watts PA-C - Last Filed: 11/04/23 13:04> VTE Prior VTE?: No <Alexandria Watts PA-C - Last Filed: 11/04/23 13:04> VTE Risk Level:: Medical - moderate - high <Alexandria Watts PA-C - Last Filed: 11/04/23 13:04> VTE Device Contraindication: Treatment Not Indicated <Alexandria Watts PA-C - Last Filed: 11/04/23 13:04> VTE Drug Contraindication: N/A - Med Ordered <Alexandria Watts PA-C - Last Filed: 11/04/23 13:04>
--- NOTE | 2023-11-04 13:10 | P.PNIM_ITS ---
Subjective Subjective Date of Service: 11/04/23 Interval History: seen and examined this morning follow up for bacteremia, foot infection s/p BKA appeared to be in respiratory distress this am, increasing o2 requirements, high bp, tachycardia patient remains frustrated, denies sob Review of Systems Review of Systems: Yes all other systems are reviewed and are negative Constitutional Constitutional: Denies chills and Denies fever(s) Cardiovascular Cardiovascular: Denies chest pain Gastrointestinal Gastrointestinal: Denies abdominal pain Physical Exam 2 Vital Signs: Vital Signs: Last Vital Signs Temp 98.4 F 11/04/23 10:28 Pulse 110 H 11/04/23 10:28 Resp 22 H 11/04/23 11:35 BP 150/68 H 11/04/23 10:28 Pulse Ox 97 11/04/23 10:28 O2 Del Method Oxymask 11/04/23 10:28 O2 Flow Rate 11 11/04/23 10:28 BMI result Body Mass Index 19.3 Const: Other: chronically ill appearing, thin General: alert and awake Nutritional Appearance: thin Resp: Other: increased WOB; diminished breath sounds, basilar rales Cardio: Rate: tachycardic GI: Inspection: No distended Palpation (GI): Soft to palpation and nontender Neuro: Other: grossly nonfocal Extrem: Other: s/p right BKA no leg edema left leg Objective Data Active Medications Acetaminophen (Acetaminophen 325 Mg Tablet) 650 mg PO Q6H PRN PRN Reason: Pain, Mild (Pain Scale 1-3) Last Admin: 11/04/23 08:27 Dose: 650 mg Documented By: STELLA Dextrose (Dextrose 50 % 25 Gm/50 Ml Syringe) 25 gm IVPUSH Q15M PRN; Protocol PRN Reason: per Hypoglycemia Standing Ord. Last Admin: 10/31/23 10:26 Dose: 25 gm Documented By: SARABJIT Enoxaparin Sodium (Enoxaparin Sodium 40 Mg/0.4 Ml Syringe) 40 mg SUBCUT BEDTIME [facility] Last Admin: 11/03/23 22:37 Dose: 40 mg Documented By: OREN Ferrous Sulfate (Ferrous Sulfate 324 Mg Tablet.) 324 mg PO BIDWM ANN Last Admin: 11/04/23 08:23 Dose: 324 mg Documented By: STELLA Furosemide (Furosemide 20 Mg/2 Ml Vial) 40 mg IVPUSH BID@0900,1800 [facility]; Protocol Last Admin: 11/04/23 10:19 Dose: Not Given Documented By: STELLA Non-Admin Reason: hold per Glucose (Glucose Gel 15 Gm Gel..Gram.) 15 gm PO Q15M PRN; Protocol PRN Reason: per Hypoglycemia Standing Ord. Metronidazole (Flagyl) 500 mg in 100 mls @ 100 mls/hr IV Q8H [facility] Last Infusion: 11/04/23 08:21 Dose: Infused Documented By: STELLA Cefazolin Sodium/Dextrose (Ancef) 2 gm in 50 mls @ 100 mls/hr IV Q8H [facility] Last Infusion: 11/04/23 11:43 Dose: Infused Documented By: STELLA Insulin Human Lispro (Insulin Lispro 100 Unit/Ml 3 Ml Vial) 0 unit SUBCUT QIDACHS [facility]; Protocol Last Admin: 11/04/23 10:54 Dose: Not Given Documented By: STELLA Non-Admin Reason: No Insulin Coverage Lisinopril (Lisinopril 10 Mg Tablet) 10 mg PO DAILY [facility]; Protocol Last Admin: 11/04/23 08:23 Dose: 10 mg Documented By: STELLA Melatonin (Melatonin 3 Mg Tablet) 6 mg PO BEDTIME PRN PRN Reason: Insomnia Last Admin: 10/29/23 23:10 Dose: 6 mg Documented By: LALITHA Morphine Sulfate (Morphine Sulfate 4 Mg/Ml Cartridge) 4 mg IVPUSH Q3H PRN; Protocol PRN Reason: Pain, Severe (Pain Scale 7-10) Last Admin: 11/04/23 08:09 Dose: 4 mg Documented By: STELLA Ondansetron HCl (Ondansetron Hcl 4 Mg/2 Ml Vial) 4 mg IVPUSH Q8H PRN PRN Reason: Nausea and Vomiting Last Admin: 10/30/23 07:39 Dose: 4 mg Documented By: KILEY-RIVLA Sodium Chloride (0.9 % Sodium Chloride Flush 3 Ml Syringe) 3 ml IVFLUSH QSHIFT [facility] Last Admin: 11/04/23 08:13 Dose: 3 ml Documented By: STELLA Tramadol HCl (Tramadol Hcl 50 Mg Tablet) 100 mg PO Q4H PRN PRN Reason: Pain, Severe (Pain Scale 7-10) Last Admin: 11/04/23 08:27 Dose: 100 mg Documented By: STELLA Labs 11/04/23 06:48 11/04/23 06:48 Labs: Laboratory Results - last 24 hr 11/03/23 11/03/23 11/03/23 16:03 20:39 23:23 MCV MCH MCHC RDW Plt Count MPV Immature Gran % (Auto) Neut % (Auto) Lymph % (Auto) [place] % (Auto) Eos % (Auto) Baso % (Auto) Lymph # (Auto) [place] # (Auto) Eos # (Auto) Baso # (Auto) Abs Immat Gran (auto) Absolute Neuts (auto) Absolute Nucleated RBC Nucleated RBC % (auto) Smear Tech's Comments Hold Purple Top Hold Blue Top O2 Saturation ABG pH at Pt Temp ABG pCO2 at Pt Temp ABG pO2 at Pt Temp ABG HCO3 ABG Base Excess (Actual) Anion Gap Estim Creat Clear Calc Estimated GFR POC Glucose 110 108 106 Fasting Glucose Calcium Magnesium Total Bilirubin AST ALT Alkaline Phosphatase B-Natriuretic Peptide Total Protein Albumin Procalcitonin Hold Yellow Top 11/04/23 11/04/23 11/04/23 06:43 06:48 09:00 MCV 88.4 MCH 28.9 MCHC 32.7 RDW 14.8 Plt Count 248 MPV 8.9 L Immature Gran % (Auto) 0.7 H Neut % (Auto) 93.5 H Lymph % (Auto) 3.0 L [place] % (Auto) 2.5 Eos % (Auto) 0.1 Baso % (Auto) 0.2 Lymph # (Auto) 0.5 L [place] # (Auto) 0.4 Eos # (Auto) 0.0 Baso # (Auto) 0.0 Abs Immat Gran (auto) 0.11 H Absolute Neuts (auto) 14.7 H Absolute Nucleated RBC 0.000 Nucleated RBC % (auto) 0.0 Smear Tech's Comments VERIFIED Hold Purple Top Hold Blue Top O2 Saturation 99.0 ABG pH at Pt Temp 7.47 H ABG pCO2 at Pt Temp 29 L ABG pO2 at Pt Temp 110 H ABG HCO3 21 L ABG Base Excess (Actual) -1.2 Anion Gap 14 Estim Creat Clear Calc 56.6 Estimated GFR > 60 POC Glucose 136 H Fasting Glucose 127 H Calcium 7.9 L Magnesium 1.6 Total Bilirubin 0.4 AST 41 H ALT 12 Alkaline Phosphatase 110 B-Natriuretic Peptide 1465 H Total Protein 6.5 Albumin 1.9 L Procalcitonin 0.78 Hold Yellow Top 11/04/23 11/04/23 09:41 09:57 MCV MCH MCHC RDW Plt Count MPV Immature Gran % (Auto) Neut % (Auto) Lymph % (Auto) [place] % (Auto) Eos % (Auto) Baso % (Auto) Lymph # (Auto) [place] # (Auto) Eos # (Auto) Baso # (Auto) Abs Immat Gran (auto) Absolute Neuts (auto) Absolute Nucleated RBC Nucleated RBC % (auto) Smear Tech's Comments Hold Purple Top SEE NOTE Hold Blue Top SEE NOTE O2 Saturation ABG pH at Pt Temp ABG pCO2 at Pt Temp ABG pO2 at Pt Temp ABG HCO3 ABG Base Excess (Actual) Anion Gap Estim Creat Clear Calc Estimated GFR POC Glucose 145 H Fasting Glucose Calcium Magnesium Total Bilirubin AST ALT Alkaline Phosphatase B-Natriuretic Peptide Total Protein Albumin Procalcitonin Hold Yellow Top See Note Microbiology Microbiology Results: Microbiology 11/02/23 14:00 Blood Culture - Preliminary Blood - Venous No growth after 24 hours. 11/02/23 14:00 Blood Culture - Preliminary Blood - Venous No growth after 24 hours. Assessment and Plan (1) Status post below knee amputation of right lower extremity: Status: Acute (2) Acute respiratory failure: Status: Acute (3) Acute CHF: Status: Acute (4) Gangrene of foot: Status: Acute (5) Bacteremia: Status: Acute (6) Sepsis: Status: Acute Plan This is a 63-year-old male with pertinent history of insulin-dependent diabetes mellitus, noncompliant with medications who presents to the emergency department for evaluation of right foot pain found to have gangrene and subsequently underwent right BKA Acute hypoxic resp failure, multifactorial. worsening respiratory status today, now on high flow secondary to acute HFpEF and possible ARDS vs multifocal pneumonia echo with LVEF 50-55%, small pericardial effusion, grade II diastolic dysfunction and basal inferior, mid inferior and mid inferoseptal hypokinesis. no previous echo for comparison mild elevation in cardiac enzymes. EKG with sinus tachycardia, no previous EKG for comparison received IV lasix this am discussed with ICU, initially planned to transfer to ICU for further care, but ultimately decided for trial of high flow oxygen cardiology following ronquillo for accurate Is&Os -hold off on further diuretics for now per ICU -will broaden abx coverage to cover for pneumonia -pulmonary consult pending Sepsis due to right foot wet gangrene with purulent cellulitis and MSSA bacteremia s/p right BKA 11/02 2/2 blood cultures with MSSA; - broadening antibiotic coverage to cover for possible pneumonia as above for now, but will need Kefzol 4-6 weeks from first negative blood culture; metronidazole 10 day total per ID rec - repeat blood cultures negative to date - will need PICC line - surgery following, dressing changes per surgery rec Hypokalemia improved with replacement HTN uncontrolled continue lisinopril started this admission, increased to 10 mg daily Iron def anemia. unspecified No acute blood loss; receive 1 unit of packed red cells as well as iron transfusion H/H stable - continue oral iron supplement CKD stage 3 Creatinine now back to baseline Insulin-dependent diabetes mellitus 2 episode of asymptomatic hypoglycemia 11/03 am Hba1c checked and 5.7 will d/c Lantus -continue SSI, follow POCs Moderate protein calorie malnutrition BMI 19.3 supplements added to diet Lovenox Full code attending - Dr. Dunham HCP - brother Jeffy Ji - updated brother today on status. [phone] Requires ongoing hospitalization for IV antibiotics to treat bacteremia, probable pneumonia, CHF and ARDS now requiring high flow oxygen. needs close monitor of respiratory status as patient at high risk for decompensation Quality Stroke Does the patient have a stroke diagnosis?: No VTE Prior VTE?: No VTE Risk Level:: Medical - moderate - high VTE Device Contraindication: Treatment Not Indicated VTE Drug Contraindication: N/A - Med Ordered
--- NOTE | 2023-11-04 13:42 | P.CDIM_ITS ---
PROVIDER RESPONSE TEXT: To clarify, the appropriate diagnosis supported by the clinical indicators: Moderate Protein Calorie Malnutrition QUERY TEXT: PHYSICIAN'S DOCUMENTATION REQUEST Date of Query: 11/04/2023 09:20 AM EST Patient Name: Dov Ji Admit Date: 10/29/2023 Dear Judy Hernandez, A review of the medical record indicates additional documentation may be needed. Please review below and update the documentation accordingly. Clinical Indicators: Height: ( ) 5'7 Weight: ( ) 55.9 kg BMI: ( ) 19.3 Other Clinical Notes Supporting Significance of the BMI: FTT/Cachectic documented in ED Physician documentation Total protein 6.2 Albumin 2.5 no Nutrition Assessment If possible, please provide an associated diagnosis related to the abnormal BMI, such as: Underweight FTT Cachexia Moderate Protein Calorie Malnutrition BMI is not significant Other (explain) Clinically unable to determine (explain) Thank you, Mary Lundberg RN Use of terms such as suspected, likely, concern for, or probable (associated with a specific diagnosi s that is being evaluated, monitored, or treated as if it exists) are acceptable and can be coded in the inpatient se tting, when documented at the time of discharge. Please use your independent medical judgment in providing your response. THIS QUERY IS PART OF THE PERMANENT MEDICAL RECORD
[2023-11-04] MEDS: Ampicillin Sodium/Sulbactam Na 3 GM in 0.9 % Sodium Chloride 100 ML IV (14:34)
--- NOTE | 2023-11-04 15:51 | PC.NURSE ---
Assumed care at 0700, patient HR 140's Sinus tachycardia. SBP 180-200's. Desating in the high 80's. Nasal cannula increased from 5 liters to 6 liters. c/o pain 07/17, 4 mg IV Morphine, Tramadol and tylenol given. MD and respiratory at bedside. CXR and EKG done. Crackles and nonproductive cough noted. Total 60 mg IV Lasix given with good output, 1 large incontinece that soaked the bed. [place] catheter in placed. MD ordered ronquillo catheter placement but patient refused. ABG drawn by respiratory on [address] Vargas at bedside to [facility]. Patient was going to be transfered to ICU, but appeared to be improving. HR down to 90's, SBP 150's. Mentation better. ICU transfer on hold. Patient then placed on high flow 45 liter Fio2 40%. Patient continues to saturate in the 90's. Will call [employer]ENT if decompensates. Receiving IV abx. Pulmonology consulted. Right BKA dsg CDI. Call yang at bedside, bed alarm on, safety maintained. Brother at bedside and updated.
[2023-11-04 16:31] LABS: Glucose, Whole Blood 141 mg/dL (60-115)
[2023-11-04] MEDS: ondansetron HCL 4 MG/2 ML VIAL IVPUSH (16:44)
[2023-11-04] MEDS: Lactated Ringers 1,000 ML 50 ML IVCONT (18:02)
--- NOTE | 2023-11-04 18:28 | W.PM.CCCN ---
History of Present Illness Data of Consult Service Date: 11/04/23 Requesting physician: Judy Hernandez Primary Care Provider: None Physician HPI Reason for consult: Hypoxemic respiratory failure 63-year-old with fairly cachectic looking male is nondiabetic but had peripheral vascular insufficiency right lower extremity with gangrene requiring a [id number] amputation but in the antrum septic on methicillin sensitive staph aureus infection treated with Ancef and Flagyl to cover potential anaerobes started to develop increasing dyspnea and tachypnea and notably progressive hypoxic respiratory failure requiring increasing FiO2 to the point now where we were on a high-flow mechanism and he developed extensive bilateral infiltrates by chest x-ray seemingly consistent with ARDS at this point but yet he is no where near his maximum voluntary ventilation threshold and I think he has reserve not using accessory muscles although mildly hyper been E echo no significant diaphragmatic effort either just mild S as scattered bilateral rales and and expiratory wheezing with adequate bilateral carotid upstrokes and no apparent neck vein distension sitting upright at about 45 degrees neck veins were 5 and bedside echo showing normal LV size but mild diffuse hypokinesis with 45% ejection fraction and evidence of diastolic dysfunction so so clearly he has got the so early reduction of systolic and diastolic reserve of the ventricle but is inferior vena cava is absolutely flat so he is relatively hypovolemic and initially when I saw him I just recommended neither giving him volume nor diuresing him I thought he was clinically euvolemic to may be minimally hypovolemic with preserved renal function but at this point I think he can be placed at least on a modest to moderate amount of of fluid maintenance therapy and continue to deliver oxygen via high-flow mechanism and should he start to develop increased work of breathing and start to approaches maximum voluntary ventilatory capability will bring him down for intubation but right now he is oriented x3 no signs of delirium or any other organ compromise nor is the hypotensive and quite the contrary he is hypertensive so there is no obvious need for pressor support Review of Systems Review of Systems: Yes all other systems are reviewed and are negative PMFSH Past Medical History Medical History (Updated 11/04/23 @ 18:34 by Rc Vargas MD) Gangrene of foot Bacteremia Neuropathy Diabetes Family History Family history: reviewed and not pertinent Social History Social History Household Members: Family Housing: Apartment Do you presently have visiting nurse or other home services: No Alcohol intake: current Alcohol intake frequency: does not drink Alcohol type: beer Comment: Patient off unit in [place] Patient Tobacco Use Status: Current everyday Tobacco user Tobacco use type: Cigarette e-Cigarette/Vaping Use: Never Used Second Hand Smoke Exposure: No Substance Use Type: Marijuana and Opiates service: No Meds Allergies Allergy/AdvReac Type Severity Reaction Status Date / Time amitriptyline Allergy Unknown stutter Verified 01/26/22 17:35 gabapentin Allergy Unknown confused Verified 01/26/22 17:35 Active Medications: Current Medications Acetaminophen (Acetaminophen 325 Mg Tablet) 650 mg PO Q6H PRN PRN Reason: Pain, Mild (Pain Scale 1-3) Last Admin: 11/04/23 08:27 Dose: 650 mg Dextrose (Dextrose 50 % 25 Gm/50 Ml Syringe) 25 gm IVPUSH Q15M PRN; Protocol PRN Reason: per Hypoglycemia Standing Ord. Last Admin: 10/31/23 10:26 Dose: 25 gm Enoxaparin Sodium (Enoxaparin Sodium 40 Mg/0.4 Ml Syringe) 40 mg SUBCUT BEDTIME [facility] Last Admin: 11/03/23 22:37 Dose: 40 mg Ferrous Sulfate (Ferrous Sulfate 324 Mg Tablet.Dr) 324 mg PO BIDWM ANN Last Admin: 11/04/23 08:23 Dose: 324 mg Furosemide (Furosemide 20 Mg/2 Ml Vial) 40 mg IVPUSH BID@0900,1800 ANN; Protocol Last Admin: 11/04/23 10:19 Dose: Not Given Glucose (Glucose Gel 15 Gm Gel..Gram.) 15 gm PO Q15M PRN; Protocol PRN Reason: per Hypoglycemia Standing Ord. Metronidazole (Flagyl) 500 mg in 100 mls @ 100 mls/hr IV Q8H [facility] Stop: 11/12/23 14:59 Last Infusion: 11/04/23 17:51 Dose: Infused Lactated Ringer's (Lr) 1,000 mls @ 50 mls/hr IVCONT .Q20H [facility] Stop: 11/05/23 11:44 Last Admin: 11/04/23 18:02 Dose: 50 mls/hr Cefazolin Sodium 1 gm/ Sodium (Chloride) 50 mls @ 100 mls/hr IV Q8H [facility] Insulin Human Lispro (Insulin Lispro 100 Unit/Ml 3 Ml Vial) 0 unit SUBCUT QIDACHS [facility]; Protocol Last Admin: 11/04/23 16:35 Dose: Not Given Lisinopril (Lisinopril 10 Mg Tablet) 10 mg PO DAILY [facility]; Protocol Last Admin: 11/04/23 08:23 Dose: 10 mg Melatonin (Melatonin 3 Mg Tablet) 6 mg PO BEDTIME PRN PRN Reason: Insomnia Last Admin: 10/29/23 23:10 Dose: 6 mg Morphine Sulfate (Morphine Sulfate 4 Mg/Ml Cartridge) 4 mg IVPUSH Q3H PRN; Protocol PRN Reason: Pain, Severe (Pain Scale 7-10) Last Admin: 11/04/23 18:03 Dose: 4 mg Ondansetron HCl (Ondansetron Hcl 4 Mg/2 Ml Vial) 4 mg IVPUSH Q8H PRN PRN Reason: Nausea and Vomiting Last Admin: 11/04/23 16:44 Dose: 4 mg Sodium Chloride (0.9 % Sodium Chloride Flush 3 Ml Syringe) 3 ml IVFLUSH [facility] Last Admin: 11/04/23 16:36 Dose: Not Given Tramadol HCl (Tramadol Hcl 50 Mg Tablet) 100 mg PO Q4H PRN PRN Reason: Pain, Severe (Pain Scale 7-10) Last Admin: 11/04/23 08:27 Dose: 100 mg Home Medications Medication Instructions Recorded Confirmed Last Taken Type diphenhydramine 25 2 tab PO BEDTIME PRN Pain 10/29/23 10/29/23 Unknown History mg-acetaminophen 500 mg tablet Physical Exam Vital Signs: Vital Signs: Last Vital Signs Temp 98.4 F 11/04/23 15:53 Pulse 111 H 11/04/23 15:53 Resp 20 11/04/23 18:03 BP 196/74 H 11/04/23 15:53 Pulse Ox 94 11/04/23 15:53 O2 Del Method High Flow Nasal C annula 11/04/23 15:53 O2 Flow Rate 45 11/04/23 15:53 FiO2 40 11/04/23 15:53 BMI result Body Mass Index 19.3 Relative hypertension and he is awake very foul mood but he is oriented it of Leukine tele still is a little bit cloudy in some of his responses Compensated arterial blood gas no metabolic issues there chemistry including renal function all compensated Abdomen soft no organomegaly Chest with scattered rales and minimal expiratory wheezing Cardiac exam by bedside echo very mild diffuse hypokinesis left ventricle 45 to high 40 breath percentage range ejection fraction Results Labs 11/04/23 06:48 11/04/23 06:48 Labs: Short CBC 11/04/23 Range/Units 06:48 WBC 15.7 H (4.8-10.8) X10*3/uL Hgb 11.2 L D (14.0-18.0) g/dl Hct 34.3 L D (42.0-52.0) % Plt Count 248 (160-400) X10*3/uL BMP 11/04/23 06:48 Sodium 135 Potassium 3.9 D Chloride 105 Carbon Dioxide 20 L BUN 23 H Creatinine 1.05 Calcium 7.9 L Liver Function 11/04/23 Range/Units 06:48 Total Bilirubin 0.4 (0.0-1.0) mg/dL AST 41 H (5-37) U/L ALT 12 (0-40) U/L Alkaline Phosphatase 110 (39-117) U/L Albumin 1.9 L (3.5-5.0) g/dL Microbiology Microbiology Results: Microbiology 11/02/23 14:00 Blood - Venous Blood Culture - Preliminary No growth after 48 hours. 11/02/23 14:00 Blood - Venous Blood Culture - Preliminary No growth after 48 hours. 10/28/23 22:40 Blood - Venous Blood Culture - Final Staphylococcus aureus 10/28/23 22:40 Blood - Venous Blood Culture - Final Staphylococcus aureus Assessment and Plan (1) Status post below knee amputation of right lower extremity: Status: Acute (2) Acute CHF: Status: Acute (3) Acute respiratory failure: Status: Acute (4) Gangrene of foot: Status: Acute (5) Diabetes: Status: Acute (6) Sepsis: Status: Acute (7) Foot infection: Status: Acute (8) PAD (peripheral artery disease): Status: Acute (9) Bacteremia: Status: Acute (10) ARDS (adult respiratory distress syndrome): Status: Acute (11) Acute hypoxemic respiratory failure: Status: Acute (12) Congestive cardiomyopathy: Status: Acute Plan So for now no requirement for positive inotrope P or pressor support I would just place him on maintenance fluids he a is mildly volume depleted and the hypernatremia is in other indicator of free water deficit so will use a half normal saline mixture and we have an expectorated some sputum so you take that with a grain of salt but growing Gram-positive cocci with 4+ polys I would at least cover with a dose or 2 of vancomycin for for the time being for the sake of safety but I would consider instead because of the MSSA bacteremia instead using a drug such as Unasyn rather than Ancef to better cover him for any potential secondary lung infection Total time managing care of this patient today: 45 minutes.
[2023-11-04] MEDS: Melatonin 3 MG TABLET 6 MG PO (19:41)
[2023-11-04] MEDS: Enoxaparin Sodium 40 MG/0.4 ML SYRINGE SUBCUT (20:32)
[2023-11-04] MEDS: HYDROmorphone HCl 1 MG/ML SYRINGE IVPUSH (20:33)
[2023-11-04 20:40] LABS: Glucose, Whole Blood 171 mg/dL (60-115)
[2023-11-05] VITALS (11 sets, daily range): BP systolic 149–166; BP diastolic 68–77; PULSE 81–118; RESP 15–22; TEMP 36.3–37.2; O2SAT 86–97; BMI 18.4
[2023-11-05] MEDS: Morphine Sulfate 4 MG/ML CARTRIDGE IVPUSH ×5 (05:17→20:35)
[2023-11-05 06:15] LABS: Basophils Percent Auto 0.1 % (0-2); Eosinophils Percent Auto 0.1 % (0-4); Hematocrit 31.8 % (42.0-52.0); Hemoglobin 9.9 g/dl (14.0-18.0); Imm Gran Abs Auto 0.06 X10*3/uL (0.00-0.03); Imm Gran Pct Auto 0.7 % (0.0-0.4); Lymphocytes Absolute Auto 0.5 X10*3/uL (1.2-4.9); Lymphocytes Percent Auto 6.2 % (20-40); MANUAL DIFF FLAG SCAN; Mean Corpuscular HGB Conc 31.1 g/dl (31.0-36.0); Mean Corpuscular Volume 93.3 fL (80.0-98.0); Mean Platelet Volume 9.4 fL (9.4-12.4); Monocytes Absolute Auto 0.2 X10*3/uL (0.1-1.2); Monocytes Percent Auto 2.6 % (2-11); Neutrophils Absolute Auto 7.2 x10*3/uL (2.0-8.3); Neutrophils Percent Auto 90.3 % (45-73); Platelet Count 162 X10*3/uL (160-400); Red Blood Count 3.41 X10*6/uL (4.60-5.80); Red Cell Distribution Width 15.1 % (11.0-16.0); SCAN SMEAR FLAG 1
[2023-11-05 06:30] LABS: Alanine Aminotransferase 6 U/L (0-40); Albumin Level 1.7 g/dL (3.5-5.0); Alkaline Phosphatase 88 U/L (39-117); Anion Gap 14 (12-20); Aspartate Amino Transferase 39 U/L (5-37); Bilirubin Total 0.3 mg/dL (0.0-1.0); Blood Urea Nitrogen 28 mg/dL (9-16); Calcium 7.5 mg/dL (8.4-10.2); Carbon Dioxide 20 mmol/L (22-29); Chloride 103 mmol/L (96-108); Creatinine Clr Calc Pharmacy 54.3; Estimated Glomerular Filt Rate > 60; Glucose Fasting 108 mg/dL (60-99); Potassium 3.7 mmol/L (3.3-5.1); Sodium 133 mmol/L (135-145)
[2023-11-05 06:34] LABS: SLIDE REVIEW VERIFIED
--- NOTE | 2023-11-05 06:46 | PC.NURSE ---
pt is very dyspniec with exertion. O2 sats went down to 82% after cleaning this morning. RT was called to adjust the settings for the HFNC.
[2023-11-05] MEDS: metroNIDAZOLE/NS 500 MG/100 ML PIGGYBACK 100 MG IV ×3 (07:30→22:24)
[2023-11-05] MEDS: lisinopriL 10 MG TABLET PO ×2 (08:07→11:25)
[2023-11-05] MEDS: Ferrous Sulfate 324 MG TABLET.DR PO ×2 (08:07→16:31)
[2023-11-05 08:15] LABS: Glucose, Whole Blood 114 mg/dL (60-115)
[2023-11-05] MEDS: ceFAZolin Sodium/Dextrose,Iso 2 GM/50 ML PIGGYBACK IV ×2 (09:00→19:10)
[2023-11-05 09:05] LABS: Adenovirus PCR Not Detected (Not Detect.); Bordetella parapertussis PCR Not Detected (Not Detect.); Bordetella pertussis PCR Not Detected (Not Detect.); Chlamydia pneumoniae PCR Not Detected (Not Detect.); Coronavirus 229E PCR Not Detected (Not Detect.); Coronavirus HKU1 PCR Not Detected (Not Detect.); Coronavirus NL63 PCR Not Detected (Not Detect.); Coronavirus OC43 PCR Not Detected (Not Detect.); Human metapneumovirus PCR Not Detected (Not Detect.); Influenza A PCR Not Detected (Not Detect.); Influenza B PCR Not Detected (Not Detect.); Mycoplasma pneumoniae PCR Not Detected (Not Detect.); Parainfluenza 1 PCR Not Detected (Not Detect.); Parainfluenza 2 PCR Not Detected (Not Detect.); Parainfluenza 3 PCR Not Detected (Not Detect.); Parainfluenza 4 PCR Not Detected (Not Detect.); RSV PCR Not Detected (Not Detect.); Rhino/Enterovirus PCR Not Detected (Not Detect.); SARS-CoV-2 PCR Detected (Not Detect.)
--- NOTE | 2023-11-05 11:17 | P.PNCA_ITS ---
Subjective Subjective Date of Service: 11/05/23 Interval history: He is not able to give much of information. Overall, he does look quite ill. New supposed to go to ICU but then it seems that he was not accepted and hence staying back in the floor. Review of Systems Review of Systems He is unable to give any clear-cut review of systems. Physical Exam Vital Signs: Last Vital Signs Temp 98.5 F 11/05/23 10:54 Pulse 110 H 11/05/23 10:54 Resp 20 11/05/23 11:12 BP 155/71 H 11/05/23 10:54 Pulse Ox 94 11/05/23 10:54 O2 Del Method High Flow Nasal Cannula 11/05/23 10:54 O2 Flow Rate 45 11/05/23 10:54 FiO2 50 11/05/23 10:54 BMI result Body Mass Index 18.4 Const General: ill appearing Orientation/consciousness: patient oriented x3 HEENT Other: Unremarkable Head: Yes normal to inspection Neck Neck: Yes normal visual inspection Chest Chest palpation & inspection: normal inspection of the chest Resp Auscultation: crackles bilateral Cardio Palpation: normal PMI Heart sounds: S1 normal heart sound present, S2 normal heart sound present, no gallops, no murmurs and no rubs GI Palpation (GI): Soft to palpation Back/Spine/Pelvis Other: unremarkable Skin General skin exam: no rashes or lesions noted Neuro General: patient oriented x3 Extrem Other: R BKA General: Yes normal to inspection Psych Mental Status: mental status grossly normal Objective Labs and Meds 11/05/23 05:53 11/05/23 05:53 Lab results: Laboratory Results - last 24 hr 11/04/23 11/04/23 11/05/23 16:28 20:33 05:53 WBC 8.0 RBC 3.41 L Hgb 9.9 L Hct 31.8 L MCV 93.3 MCH 29.0 MCHC 31.1 RDW 15.1 Plt Count 162 D MPV 9.4 Immature Gran % (Auto) 0.7 H Neut % (Auto) 90.3 H Lymph % (Auto) 6.2 L [place] % (Auto) 2.6 Eos % (Auto) 0.1 Baso % (Auto) 0.1 Lymph # (Auto) 0.5 L [place] # (Auto) 0.2 Eos # (Auto) 0.0 Baso # (Auto) 0.0 Abs Immat Gran (auto) 0.06 H Absolute Neuts (auto) 7.2 Absolute Nucleated RBC 0.000 Nucleated RBC % (auto) 0.0 Smear Tech's Comments VERIFIED Sodium 133 L Potassium 3.7 Chloride 103 Carbon Dioxide 20 L Anion Gap 14 BUN 28 H Creatinine 1.10 Estim Creat Clear Calc 54.3 Estimated GFR > 60 POC Glucose 141 H 171 H Fasting Glucose 108 H Calcium 7.5 L Total Bilirubin 0.3 AST 39 H ALT 6 Alkaline Phosphatase 88 Total Protein 6.0 L Albumin 1.7 L 11/05/23 07:22 WBC RBC Hgb Hct MCV MCH MCHC RDW Plt Count MPV Immature Gran % (Auto) Neut % (Auto) Lymph % (Auto) [place] % (Auto) Eos % (Auto) Baso % (Auto) Lymph # (Auto) [place] # (Auto) Eos # (Auto) Baso # (Auto) Abs Immat Gran (auto) Absolute Neuts (auto) Absolute Nucleated RBC Nucleated RBC % (auto) Smear Tech's Comments Sodium Potassium Chloride Carbon Dioxide Anion Gap BUN Creatinine Estim Creat Clear Calc Estimated GFR POC Glucose 114 Fasting Glucose Calcium Total Bilirubin AST ALT Alkaline Phosphatase Total Protein Albumin Progress Note: A&P Assessment and plan (1) Acute respiratory failure: Status: Acute (2) Acute CHF: Status: Acute Plan Troponin levels at 222, 129, 98.8 Echocardiogram with LVEF of 50-55%. Basal inferior, mid inferior and mid inferoseptal hypokinesis. Moderate diastolic dysfunction. Mild mitral/tricuspid regurgitation. [id number] pulmonary hypertension. Chest x-ray shows extensive infiltrates reported as multifocal pneumonia. Seems to have progressed compared to the prior x-ray. Overall, respiratory failure. Either ARDS or some combination of ARDS/congestive heart failure. Difficult to assess. Cardiac BNP is on the higher side. He appears quite ill and high risk for decompensation. Consider empiric diuretics. Antibiotics for presumed infection. May increase the lisinopril to to high blood pressure. Supplemental oxygen. Supportive care otherwise. If gets worse, readdress need for ICU transfer. Prognosis is guarded. Discussed with yesterday. Discussed with Judy Hernandez today. Time Spent With Patient Time: Total time managing care of this patient today ____ minutes. Progress Note: Quality Stroke Does the patient have a stroke diagnosis?: No Procedures Date of Service Date of Service: 11/05/23
[2023-11-05] MEDS: predniSONE 20 MG TABLET 40 MG PO (11:25)
[2023-11-05] MEDS: levoFLOXacin/D5W 750 MG/150 ML PIGGYBACK 100 MG IV (11:25)
[2023-11-05] MEDS: traMADoL HCL 50 MG TABLET 100 MG PO (11:27)
[2023-11-05 12:02] LABS: Glucose, Whole Blood 119 mg/dL (60-115)
--- NOTE | 2023-11-05 14:56 | PC.NURSE ---
at ~1400 pts resp panel came back and he was positive for covid. KAYLYNN Parada notified and pt Moved to [facility] pressure room [phone], RN Los to take over care
--- NOTE | 2023-11-05 15:16 | P.PNIM_ITS ---
Subjective Subjective Date of Service: 11/05/23 Interval History: seen and examined this morning follow up for respiratory failure, bacteremia, foot infection s/p BKA now testing + for COVID 19 reporting right stump pain breathing easier, +dry cough Review of Systems Review of Systems: Yes all other systems are reviewed and are negative Constitutional Constitutional: Denies chills and Denies fever(s) Cardiovascular Cardiovascular: Denies chest pain, Denies palpitations and Denies dyspnea Respiratory Respiratory: Reports cough and Denies dyspnea Gastrointestinal Gastrointestinal: Denies abdominal pain Endocrine Endocrine: Denies palpitations Physical Exam 2 Vital Signs: Vital Signs: Last Vital Signs Temp 98.5 F 11/05/23 10:54 Pulse 110 H 11/05/23 10:54 Resp 20 11/05/23 11:12 BP 155/71 H 11/05/23 10:54 Pulse Ox 94 11/05/23 10:54 O2 Del Method High Flow Nasal C annula 11/05/23 10:54 O2 Flow Rate 45 11/05/23 10:54 FiO2 50 11/05/23 10:54 BMI result Body Mass Index 18.4 Const: Other: thin, ill appearing General: alert and awake Nutritional Appearance: thin O rientation/consciousness: patient oriented x3 Resp: Other: on high flow oxygen diminished breath sounds, no wheezing Effort & Inspection: normal respiratory effort, able to speak in complete sentences, no respiratory distress and no use of accessory muscles Cardio: Rate: regular rate GI: Inspection: No distended Palpation (GI): Soft to palpation and nontender Neuro: General: patient oriented x3 Extrem: Other: s/p Right BKA dressing c/d/i Objective Data Active Medications Acetaminophen (Acetaminophen 325 Mg Tablet) 650 mg PO Q6H PRN PRN Reason: Pain, Mild (Pain Scale 1-3) Last Admin: 11/04/23 19:42 Dose: 650 mg Documented By: COLBY Dexamethasone (Dexamethasone 6 Mg Tablet) 6 mg PO DAILY [facility] Dextrose (Dextrose 50 % 25 Gm/50 Ml Syringe) 25 gm IVPUSH Q15M PRN; Protocol PRN Reason: per Hypoglycemia Standing Ord. Last Admin: 10/31/23 10:26 Dose: 25 gm Documented By: SARABJIT Enoxaparin Sodium (Enoxaparin Sodium 40 Mg/0.4 Ml Syringe) 40 mg SUBCUT BEDTIME [facility] Last Admin: 11/04/23 20:32 Dose: 40 mg Documented By: COLBY Ferrous Sulfate (Ferrous Sulfate 324 Mg Tablet.Dr) 324 mg PO BIDWM [facility] Last Admin: 11/05/23 08:07 Dose: 324 mg Documented By: JOYA Furosemide (Furosemide 20 Mg/2 Ml Vial) 40 mg IVPUSH BID@0900,1800 [facility]; Protocol Last Admin: 11/04/23 10:19 Dose: Not Given Documented By: STELLA Non-Admin Reason: hold per Glucose (Glucose Gel 15 Gm Gel..Gram.) 15 gm PO Q15M PRN; Protocol PRN Reason: per Hypoglycemia Standing Ord. Metronidazole (Flagyl) 500 mg in 100 mls @ 100 mls/hr IV Q8H [facility] Stop: 11/12/23 14:59 Last Infusion: 11/05/23 08:33 Dose: Infused Documented By: JOYA Cefazolin Sodium/Dextrose (Ancef) 2 gm in 50 mls @ 100 mls/hr IV Q8H [facility] Last Infusion: 11/05/23 10:38 Dose: Infused Documented By: JOYA Remdesivir 200 mg/ Sodium (Chloride) 210 mls @ 105 mls/hr IV ONCE ONE Stop: 11/05/23 17:59 Remdesivir 100 mg/ Sodium (Chloride) 230 mls @ 115 mls/hr IV Q24H [facility] Stop: 11/09/23 17:59 Insulin Human Lispro (Insulin Lispro 100 Unit/Ml 3 Ml Vial) 0 unit SUBCUT QIDACHS [facility]; Protocol Last Admin: 11/05/23 12:16 Dose: Not Given Documented By: JOYA Non-Admin Reason: No Insulin Coverage Lisinopril (Lisinopril 20 Mg Tablet) 20 mg PO DAILY [facility]; Protocol Melatonin (Melatonin 3 Mg Tablet) 6 mg PO BEDTIME PRN PRN Reason: Insomnia Last Admin: 11/04/23 19:41 Dose: 6 mg Documented By: COLBY Morphine Sulfate (Morphine Sulfate 4 Mg/Ml Cartridge) 4 mg IVPUSH Q3H PRN; Protocol PRN Reason: Pain, Severe (Pain Scale 7-10) Last Admin: 11/05/23 13:28 Dose: 4 mg Documented By: JOYA Ondansetron HCl (Ondansetron Hcl 4 Mg/2 Ml Vial) 4 mg IVPUSH Q8H PRN PRN Reason: Nausea and Vomiting Last Admin: 11/04/23 16:44 Dose: 4 mg Documented By: PODMORP Sodium Chloride (0.9 % Sodium Chloride Flush 3 Ml Syringe) 3 ml IVFLUSH [facility] Last Admin: 11/05/23 08:05 Dose: Not Given Documented By: JOYA Non-Admin Reason: IV Running Tramadol HCl (Tramadol Hcl 50 Mg Tablet) 100 mg PO Q4H PRN PRN Reason: Pain, Severe (Pain Scale 7-10) Last Admin: 11/05/23 11:27 Dose: 100 mg Documented By: VALENTÍNSCEL Labs 11/05/23 05:53 11/05/23 05:53 Labs: Laboratory Results - last 24 hr 11/04/23 11/04/23 11/04/23 15:50 16:28 20:33 MCV MCH MCHC RDW Plt Count MPV Immature Gran % (Auto) Neut % (Auto) Lymph % (Auto) [place] % (Auto) Eos % (Auto) Baso % (Auto) Lymph # (Auto) [place] # (Auto) Eos # (Auto) Baso # (Auto) Abs Immat Gran (auto) Absolute Neuts (auto) Absolute Nucleated RBC Nucleated RBC % (auto) Smear Tech's Comments Anion Gap Estim Creat Clear Calc Estimated GFR POC Glucose 141 H 171 H Fasting Glucose Calcium Total Bilirubin AST ALT Alkaline Phosphatase Total Protein Albumin Respiratory Panel [place] See Note Adenovirus (Rapid PCR) Not Detected B.pert (TEM-PCR) Not Detected B.parapertussis DNA PCR Not Detected C. pneumoniae DNA (PCR) Not Detected Coronavirus OC43 (PCR) Not Detected Coronavirus HKU1 (PCR) Not Detected Coronavirus 229E (PCR) Not Detected Coronavirus NL63 (PCR) Not Detected Human Metapneumovir PCR Not Detected Influenza A (RT-PCR) Not Detected Influenza B (RT-PCR) Not Detected M. pneumoniae (PCR) Not Detected Parainfluenza 1 (PCR) Not Detected Parainfluenza 2 (PCR) Not Detected Parainfluenza 3 (PCR) Not Detected Parainfluenza 4 (PCR) Not Detected RSV (PCR) Not Detected Entero/Rhino (PCR) Not Detected SARS-CoV-2 RNA (RT-PCR) Detected A 11/05/23 11/05/23 11/05/23 05:53 07:22 10:55 MCV 93.3 MCH 29.0 MCHC 31.1 RDW 15.1 Plt Count 162 D MPV 9.4 Immature Gran % (Auto) 0.7 H Neut % (Auto) 90.3 H Lymph % (Auto) 6.2 L [place] % (Auto) 2.6 Eos % (Auto) 0.1 Baso % (Auto) 0.1 Lymph # (Auto) 0.5 L [place] # (Auto) 0.2 Eos # (Auto) 0.0 Baso # (Auto) 0.0 Abs Immat Gran (auto) 0.06 H Absolute Neuts (auto) 7.2 Absolute Nucleated RBC 0.000 Nucleated RBC % (auto) 0.0 Smear Tech's Comments VERIFIED Anion Gap 14 Estim Creat Clear Calc 54.3 Estimated GFR > 60 POC Glucose 114 119 H Fasting Glucose 108 H Calcium 7.5 L Total Bilirubin 0.3 AST 39 H ALT 6 Alkaline Phosphatase 88 Total Protein 6.0 L Albumin 1.7 L Respiratory Panel [place] Adenovirus (Rapid PCR) B.pert (TEM-PCR) B.parapertussis DNA PCR C. pneumoniae DNA (PCR) Coronavirus OC43 (PCR) Coronavirus HKU1 (PCR) Coronavirus 229E (PCR) Coronavirus NL63 (PCR) Human Metapneumovir PCR Influenza A (RT-PCR) Influenza B (RT-PCR) M. pneumoniae (PCR) Parainfluenza 1 (PCR) Parainfluenza 2 (PCR) Parainfluenza 3 (PCR) Parainfluenza 4 (PCR) RSV (PCR) Entero/Rhino (PCR) SARS-CoV-2 RNA (RT-PCR) Microbiology Microbiology Results: Microbiology 11/02/23 14:00 Blood Culture - Preliminary Blood - Venous No growth after 48 hours. 11/02/23 14:00 Blood Culture - Preliminary Blood - Venous No growth after 48 hours. Assessment and Plan (1) ARDS (adult respiratory distress syndrome): Status: Acute (2) Acute hypoxemic respiratory failure: Status: Acute (3) Bacteremia: Status: Acute (4) Gangrene of foot: Status: Acute Plan This is a 63-year-old male with pertinent history of insulin-dependent diabetes mellitus, noncompliant with medications who presents to the emergency department for evaluation of right foot pain found to have gangrene and subsequently underwent right BKA subsequently developed respiratory distress, ARDS and has now tested positive for COVID 19 Acute hypoxic resp failure, multifactorial. secondary to acute HFpEF and possible ARDS and covid 19 echo with LVEF 50-55%, small pericardial effusion, grade II diastolic dysfunction and basal inferior, mid inferior and mid inferoseptal hypokinesis. no previous echo for comparison mild elevation in cardiac enzymes. EKG with sinus tachycardia, no previous EKG for comparison discussed with ICU, initially planned to transfer to ICU for further care, but ultimately decided for trial of high flow oxygen. if decompensates will need transfer to ICU and likely intubation ICU attending did bedside echo - flat IVC, rec to hold further diuresis for now cardiology following patient declined [place] placement covid 19 seen by pulmonology - rec remdecivir and decadron wean high flow oxygen as tolerated Sepsis due to right foot wet gangrene with purulent cellulitis and MSSA bacteremia s/p right BKA 11/02 2/2 blood cultures with MSSA - ID rec to continue kefzol, will need 4-6 weeks from first negative blood culture; metronidazole 10 day total per ID rec - repeat blood cultures negative to date - will need PICC line for intermediate abx - surgery following, dressing changes per surgery rec Hypokalemia improved with replacement HTN uncontrolled continue lisinopril started this admission, increased to 20 mg daily Iron def anemia. unspecified No acute blood loss; receive 1 unit of packed red cells as well as iron transfusion H/H stable - continue oral iron supplement CKD stage 3 Creatinine now back to baseline Insulin-dependent diabetes mellitus 2 episode of asymptomatic hypoglycemia 11/03 am Hba1c checked and 5.7 will d/c Lantus -continue SSI, follow POCs Moderate protein calorie malnutrition BMI 19.3 supplements added to diet Lovenox Full code attending - Dr. Roger HCP - brother Jeffy Ji - [phone] Requires ongoing hospitalization for IV antibiotics to treat bacteremia, probable pneumonia, CHF and ARDS now requiring high flow oxygen. needs close monitor of respiratory status as patient at high risk for decompensation Quality Stroke Does the patient have a stroke diagnosis?: No VTE Prior VTE?: No VTE Risk Level:: Medical - moderate - high VTE Device Contraindication: Treatment Not Indicated VTE Drug Contraindication: N/A - Med Ordered
[2023-11-05] MEDS: 0.9 % Sodium Chloride Flush 3 ML SYRINGE IVFLUSH ×2 (16:33→20:36)
[2023-11-05 16:51] LABS: Glucose, Whole Blood 190 mg/dL (60-115)
[2023-11-05] MEDS: Insulin Lispro 100 UNIT/ML 3 ML VIAL SUBCUT ×2 (19:10→20:51)
[2023-11-05] MEDS: Enoxaparin Sodium 40 MG/0.4 ML SYRINGE SUBCUT (20:35)
[2023-11-05] MEDS: Remdesivir 200 MG in 0.9 % Sodium Chloride 210 ML 105 MG IV (20:36)
[2023-11-05 21:08] LABS: Glucose, Whole Blood 159 mg/dL (60-115)
[2023-11-05] MEDS: oxyCODONE HCl Immed Release 5 MG TABLET PO (22:23)
--- NOTE | 2023-11-05 23:53 | P.CONPL_ITS ---
History of Present Illness History of Present Illness Consult date: 11/05/23 Chief complaint: foot infection Narrative: This is an in patient pulmonary consultation. This is a 63-year-old male with pertinent history of insulin-dependent diabetes mellitus, noncompliant with medications who presents to the emergency department for evaluation of right foot pain. Patient states he has been having right foot pain for the last few weeks. It is associated with foul-smelling purulent drainage. Patient has not removed his socks for the last 10 days. No associated fevers or chills. No nausea, vomiting. No history of trauma or similar complaints in the past. Patient states he did get out of his bed for the last 2 weeks. No chest discomfort, palpitations, shortness of breath, abdominal pain, changes in urinary or bowel habits. +BC for staph. While in the hospital he developed ARF and non cardiogenic pulmonary edema/ARDS. PLaced briefly on BIPAP and now on HF. Pulmonary consulted. Respiratory panel +covid. Review of Systems 2 Constitutional: Constitutional: Reports body ache(s), Reports fatigue and Denies fever(s) ENT: Denies sore throat Cardiovascular: Cardiovascular: Denies chest pain and Reports dyspnea Respiratory: Respiratory: Reports cough, Reports dyspnea and Denies wheezing Gastrointestinal: Gastrointestinal: Reports no additional gastrointestinal complaints Musculoskeletal: Musculoskeletal: Reports as per HPI and Reports myalgias Neurologic: Reports as per HPI Endocrine: Endocrine: Reports fatigue Hematologic/Lymphatic: Hematologic/Lymphatic: Denies easy bruising Allergic/Immunologic: Allergic/Immunologic: Denies wheezing PMFSH Past Medical History Medical History (Updated 11/05/23 @ 23:58 by Mor Dowling MD) Gangrene of foot Bacteremia Neuropathy Diabetes Family History Family history: reviewed and not pertinent Social History Social History Household Members: Family Housing: Apartment Do you presently have visiting nurse or other home services: No Alcohol intake: current Alcohol intake frequency: does not drink Alcohol type: beer Comment: Patient off unit in [place] Patient Tobacco Use Status: Current everyday Tobacco user Tobacco use type: Cigarette e-Cigarette/Vaping Use: Never Used Second Hand Smoke Exposure: No Substance Use Type: Marijuana and Opiates service: No Meds Allergies Allergy/AdvReac Type Severity Reaction Status Date / Time amitriptyline Allergy Unknown stutter Verified 01/26/22 17:35 gabapentin Allergy Unknown confused Verified 01/26/22 17:35 Active Medications: Current Medications Acetaminophen (Acetaminophen 325 Mg Tablet) 650 mg PO Q6H PRN PRN Reason: Pain, Mild (Pain Scale 1-3) Last Admin: 11/04/23 19:42 Dose: 650 mg Dexamethasone (Dexamethasone 6 Mg Tablet) 6 mg PO DAILY [facility] Dextrose (Dextrose 50 % 25 Gm/50 Ml Syringe) 25 gm IVPUSH Q15M PRN; Protocol PRN Reason: per Hypoglycemia Standing Ord. Last Admin: 10/31/23 10:26 Dose: 25 gm Enoxaparin Sodium (Enoxaparin Sodium 40 Mg/0.4 Ml Syringe) 40 mg SUBCUT BEDTIME [facility] Last Admin: 11/05/23 20:35 Dose: 40 mg Ferrous Sulfate (Ferrous Sulfate 324 Mg Tablet.Dr) 324 mg PO BIDWM [facility] Last Admin: 11/05/23 16:31 Dose: 324 mg Furosemide (Furosemide 20 Mg/2 Ml Vial) 40 mg IVPUSH BID@0900,1800 [facility]; Protocol Last Admin: 11/04/23 10:19 Dose: Not Given Glucose (Glucose Gel 15 Gm Gel..Gram.) 15 gm PO Q15M PRN; Protocol PRN Reason: per Hypoglycemia Standing Ord. Metronidazole (Flagyl) 500 mg in 100 mls @ 100 mls/hr IV Q8H [facility] Stop: 11/12/23 14:59 Last Admin: 11/05/23 22:24 Dose: 100 mls/hr Cefazolin Sodium/Dextrose (Ancef) 2 gm in 50 mls @ 100 mls/hr IV Q8H [facility] Last Infusion: 11/05/23 20:37 Dose: Infused Remdesivir 100 mg/ Sodium (Chloride) 230 mls @ 115 mls/hr IV Q24H [facility] Stop: 11/09/23 17:59 Insulin Human Lispro (Insulin Lispro 100 Unit/Ml 3 Ml Vial) 0 unit SUBCUT QIDACHS [facility]; Protocol Last Admin: 11/05/23 20:51 Dose: 2 unit Lisinopril (Lisinopril 20 Mg Tablet) 20 mg PO DAILY [facility]; Protocol Melatonin (Melatonin 3 Mg Tablet) 6 mg PO BEDTIME PRN PRN Reason: Insomnia Last Admin: 11/04/23 19:41 Dose: 6 mg Morphine Sulfate (Morphine Sulfate 4 Mg/Ml Cartridge) 4 mg IVPUSH Q3H PRN; Protocol PRN Reason: Pain, Severe (Pain Scale 7-10) Last Admin: 11/05/23 20:35 Dose: 4 mg Ondansetron HCl (Ondansetron Hcl 4 Mg/2 Ml Vial) 4 mg IVPUSH Q8H PRN PRN Reason: Nausea and Vomiting Last Admin: 11/04/23 16:44 Dose: 4 mg Oxycodone HCl (Oxycodone Hcl Immed Release 5 Mg Tablet) 5 mg PO Q4H PRN PRN Reason: Pain, Moderate(Pain Scale 4-6) Last Admin: 11/05/23 22:23 Dose: 5 mg Sodium Chloride (0.9 % Sodium Chloride Flush 3 Ml Syringe) 3 ml IVFLUSH [facility] Last Admin: 11/05/23 20:36 Dose: 3 ml Home Medications Medication Instructions Recorded Confirmed Last Taken Type diphenhydramine 25 2 tab PO BEDTIME PRN Pain 10/29/23 10/29/23 Unknown History mg-acetaminophen 500 mg tablet Physical Exam 2 Vital Signs: Vital Signs: Last Vital Signs Temp 98.2 F 11/05/23 20:00 Pulse 92 11/05/23 20:00 Resp 16 11/05/23 20:41 BP 149/69 H 11/05/23 20:00 Pulse Ox 90 L 11/05/23 20:00 O2 Del Method High Flow Nasal C annula 11/05/23 20:00 O2 Flow Rate 45 11/05/23 10:54 FiO2 50 11/05/23 10:54 BMI result Body Mass Index 18.4 Const: Other: thin, ill appearing General: alert and awake Nutritional Appearance: thin O rientation/consciousness: patient oriented x3 Resp: Other: on high flow oxygen diminished breath sounds, no wheezing Effort & Inspection: normal respiratory effort, able to speak in complete sentences, no respiratory distress and no use of accessory muscles Cardio: Rate: regular rate GI: Inspection: No distended Palpation (GI): Soft to palpation and nontender Neuro: General: patient oriented x3 Extrem: Other: s/p Right BKA dressing c/d/i Results Laboratory Findings 11/05/23 05:53 11/05/23 05:53 Abnormal lab findings: Abnormal Labs 10/28/23 10/28/23 10/28/23 22:40 22:57 23:18 WBC 18.8 H RBC 3.12 L D Hgb 9.0 L D Hct 28.2 L D MCHC MPV 9.0 L Immature Gran % (Auto) Neut % (Auto) Lymph % (Auto) Lymph # (Auto) Abs Immat Gran (auto) Absolute Neuts (auto) ABG pH at Pt Temp ABG pCO2 at Pt Temp ABG pO2 at Pt Temp ABG HCO3 VBG HCO3 27 H Sodium 132 L Potassium Carbon Dioxide Anion Gap 9 L BUN 32 H Creatinine POC Glucose 210 H Random Glucose 214 H Fasting Glucose Calcium 8.1 L D Iron TIBC % Saturation AST 90 H ALT 45 H Alkaline Phosphatase 214 H Troponin I High Sens 222.5 H* B-Natriuretic Peptide Total Protein Albumin 2.5 L Ur Specific [place] Urine Protein Urine Blood Urine RBC Vancomycin Trough Random Vancomycin SARS-CoV-2 RNA (RT-PCR) Crossmatch 10/29/23 10/30/23 10/30/23 09:34 05:37 08:39 WBC 15.2 H RBC 2.53 L 2.48 L Hgb 7.4 L 7.3 L Hct 24.5 L 22.4 L MCHC 30.2 L MPV 9.2 L Immature Gran % (Auto) 0.7 H Neut % (Auto) 83.7 H Lymph % (Auto) 7.6 L Lymph # (Auto) Abs Immat Gran (auto) 0.11 H Absolute Neuts (auto) 12.8 H ABG pH at Pt Temp ABG pCO2 at Pt Temp ABG pO2 at Pt Temp ABG HCO3 VBG HCO3 Sodium 132 L Potassium Carbon Dioxide 19 L 21 L Anion Gap 10 L 11 L BUN 31 H 28 H Creatinine POC Glucose Random Glucose Fasting Glucose Calcium 7.2 L D 7.5 L Iron 12 L TIBC 123 L % Saturation 10 L AST ALT Alkaline Phosphatase Troponin I High Sens 129.8 H* B-Natriuretic Peptide Total Protein Albumin Ur Specific [place] Urine Protein Urine Blood Urine RBC Vancomycin Trough 28.9 H* Random Vancomycin SARS-CoV-2 RNA (RT-PCR) Crossmatch See Detail 10/30/23 10/30/23 10/30/23 15:08 16:17 20:19 WBC RBC Hgb Hct MCHC MPV Immature Gran % (Auto) Neut % (Auto) Lymph % (Auto) Lymph # (Auto) Abs Immat Gran (auto) Absolute Neuts (auto) ABG pH at Pt Temp ABG pCO2 at Pt Temp ABG pO2 at Pt Temp ABG HCO3 VBG HCO3 Sodium Potassium Carbon Dioxide Anion Gap BUN Creatinine POC Glucose 134 H 117 H Random Glucose Fasting Glucose Calcium Iron TIBC % Saturation AST ALT Alkaline Phosphatase Troponin I High Sens B-Natriuretic Peptide Total Protein Albumin Ur Specific [place] >= 1.030 H Urine Protein 100 (2+) H Urine Blood Moderate (2+) H Urine RBC 3-5 H Vancomycin Trough Random Vancomycin SARS-CoV-2 RNA (RT-PCR) Crossmatch 10/30/23 10/31/23 10/31/23 21:28 06:45 07:24 WBC RBC Hgb Hct MCHC MPV Immature Gran % (Auto) Neut % (Auto) Lymph % (Auto) Lymph # (Auto) Abs Immat Gran (auto) Absolute Neuts (auto) ABG pH at Pt Temp ABG pCO2 at Pt Temp ABG pO2 at Pt Temp ABG HCO3 VBG HCO3 Sodium Potassium Carbon Dioxide Anion Gap BUN Creatinine 1.48 H POC Glucose 163 H Random Glucose Fasting Glucose Calcium Iron TIBC % Saturation AST ALT Alkaline Phosphatase Troponin I High Sens B-Natriuretic Peptide Total Protein Albumin Ur Specific [place] Urine Protein Urine Blood Urine RBC Vancomycin Trough Random Vancomycin 23.1 H SARS-CoV-2 RNA (RT-PCR) Crossmatch 10/31/23 10/31/23 10/31/23 09:42 11:25 16:05 WBC 13.7 H RBC 2.81 L Hgb 8.3 L Hct 26.0 L MCHC MPV Immature Gran % (Auto) Neut % (Auto) Lymph % (Auto) Lymph # (Auto) Abs Immat Gran (auto) Absolute Neuts (auto) ABG pH at Pt Temp ABG pCO2 at Pt Temp ABG pO2 at Pt Temp ABG HCO3 VBG HCO3 Sodium Potassium Carbon Dioxide Anion Gap BUN 30 H Creatinine 1.48 H POC Glucose 189 H 133 H Random Glucose 59 L* Fasting Glucose Calcium 7.7 L Iron TIBC % Saturation AST ALT Alkaline Phosphatase Troponin I High Sens B-Natriuretic Peptide 1670 H Total Protein Albumin Ur Specific [place] Urine Protein Urine Blood Urine RBC Vancomycin Trough Random Vancomycin SARS-CoV-2 RNA (RT-PCR) Crossmatch 10/31/23 11/01/23 11/01/23 20:09 06:51 07:04 WBC 15.9 H RBC 3.16 L Hgb 9.2 L Hct 28.5 L MCHC MPV 8.9 L Immature Gran % (Auto) Neut % (Auto) Lymph % (Auto) Lymph # (Auto) Abs Immat Gran (auto) Absolute Neuts (auto) ABG pH at Pt Temp ABG pCO2 at Pt Temp ABG pO2 at Pt Temp ABG HCO3 VBG HCO3 Sodium Potassium Carbon Dioxide 20 L Anion Gap BUN 28 H Creatinine 1.42 H POC Glucose 151 H 154 H Random Glucose 141 H Fasting Glucose Calcium 8.0 L Iron TIBC % Saturation AST ALT Alkaline Phosphatase Troponin I High Sens B-Natriuretic Peptide 1228 H Total Protein Albumin Ur Specific [place] Urine Protein Urine Blood Urine RBC Vancomycin Trough Random Vancomycin SARS-CoV-2 RNA (RT-PCR) Crossmatch 11/01/23 11/03/23 11/03/23 21:07 05:37 06:57 WBC 15.2 H RBC 3.00 L Hgb 8.9 L Hct 26.1 L MCHC MPV 8.7 L Immature Gran % (Auto) 1.6 H Neut % (Auto) 87.2 H Lymph % (Auto) 5.4 L Lymph # (Auto) 0.8 L Abs Immat Gran (auto) 0.25 H Absolute Neuts (auto) 13.2 H ABG pH at Pt Temp ABG pCO2 at Pt Temp ABG pO2 at Pt Temp ABG HCO3 VBG HCO3 Sodium Potassium 3.1 L Carbon Dioxide 21 L Anion Gap BUN 18 H Creatinine POC Glucose 132 H 51 L* Random Glucose Fasting Glucose Calcium 7.6 L Iron TIBC % Saturation AST 43 H ALT Alkaline Phosphatase Troponin I High Sens B-Natriuretic Peptide Total Protein 6.2 L Albumin 1.9 L Ur Specific [place] Urine Protein Urine Blood Urine RBC Vancomycin Trough Random Vancomycin SARS-CoV-2 RNA (RT-PCR) Crossmatch 11/04/23 11/04/23 11/04/23 06:43 06:48 09:00 WBC 15.7 H RBC 3.88 L D Hgb 11.2 L D Hct 34.3 L D MCHC MPV 8.9 L Immature Gran % (Auto) 0.7 H Neut % (Auto) 93.5 H Lymph % (Auto) 3.0 L Lymph # (Auto) 0.5 L Abs Immat Gran (auto) 0.11 H Absolute Neuts (auto) 14.7 H ABG pH at Pt Temp 7.47 H ABG pCO2 at Pt Temp 29 L ABG pO2 at Pt Temp 110 H ABG HCO3 21 L VBG HCO3 Sodium Potassium Carbon Dioxide 20 L Anion Gap BUN 23 H Creatinine POC Glucose 136 H Random Glucose Fasting Glucose 127 H Calcium 7.9 L Iron TIBC % Saturation AST 41 H ALT Alkaline Phosphatase Troponin I High Sens B-Natriuretic Peptide 1465 H Total Protein Albumin 1.9 L Ur Specific [place] Urine Protein Urine Blood Urine RBC Vancomycin Trough Random Vancomycin SARS-CoV-2 RNA (RT-PCR) Crossmatch 11/04/23 11/04/23 11/04/23 09:41 09:57 15:50 WBC RBC Hgb Hct MCHC MPV Immature Gran % (Auto) Neut % (Auto) Lymph % (Auto) Lymph # (Auto) Abs Immat Gran (auto) Absolute Neuts (auto) ABG pH at Pt Temp ABG pCO2 at Pt Temp ABG pO2 at Pt Temp ABG HCO3 VBG HCO3 Sodium Potassium Carbon Dioxide Anion Gap BUN Creatinine POC Glucose 145 H Random Glucose Fasting Glucose Calcium Iron TIBC % Saturation AST ALT Alkaline Phosphatase Troponin I High Sens 98.8 H B-Natriuretic Peptide Total Protein Albumin Ur Specific [place] Urine Protein Urine Blood Urine RBC Vancomycin Trough Random Vancomycin SARS-CoV-2 RNA (RT-PCR) Detected A Crossmatch 11/04/23 11/04/23 11/05/23 16:28 20:33 05:53 WBC RBC 3.41 L Hgb 9.9 L Hct 31.8 L MCHC MPV Immature Gran % (Auto) 0.7 H Neut % (Auto) 90.3 H Lymph % (Auto) 6.2 L Lymph # (Auto) 0.5 L Abs Immat Gran (auto) 0.06 H Absolute Neuts (auto) ABG pH at Pt Temp ABG pCO2 at Pt Temp ABG pO2 at Pt Temp ABG HCO3 VBG HCO3 Sodium 133 L Potassium Carbon Dioxide 20 L Anion Gap BUN 28 H Creatinine POC Glucose 141 H 171 H Random Glucose Fasting Glucose 108 H Calcium 7.5 L Iron TIBC % Saturation AST 39 H ALT Alkaline Phosphatase Troponin I High Sens B-Natriuretic Peptide Total Protein 6.0 L Albumin 1.7 L Ur Specific [place] Urine Protein Urine Blood Urine RBC Vancomycin Trough Random Vancomycin SARS-CoV-2 RNA (RT-PCR) Crossmatch 11/05/23 11/05/23 11/05/23 10:55 16:13 20:45 WBC RBC Hgb Hct MCHC MPV Immature Gran % (Auto) Neut % (Auto) Lymph % (Auto) Lymph # (Auto) Abs Immat Gran (auto) Absolute Neuts (auto) ABG pH at Pt Temp ABG pCO2 at Pt Temp ABG pO2 at Pt Temp ABG HCO3 VBG HCO3 Sodium Potassium Carbon Dioxide Anion Gap BUN Creatinine POC Glucose 119 H 190 H 159 H Random Glucose Fasting Glucose Calcium Iron TIBC % Saturation AST ALT Alkaline Phosphatase Troponin I High Sens B-Natriuretic Peptide Total Protein Albumin Ur Specific [place] Urine Protein Urine Blood Urine RBC Vancomycin Trough Random Vancomycin SARS-CoV-2 RNA (RT-PCR) Crossmatch Microbiology: Microbiology 11/02/23 14:00 Blood - Venous Blood Culture - Preliminary No growth after 48 hours. 11/02/23 14:00 Blood - Venous Blood Culture - Preliminary No growth after 48 hours. 10/28/23 22:40 Blood - Venous Blood Culture - Final Staphylococcus aureus 10/28/23 22:40 Blood - Venous Blood Culture - Final Staphylococcus aureus Assessment and Plan (1) Acute hypoxemic respiratory failure: Status: Acute (2) ARDS (adult respiratory distress syndrome): Status: Acute (3) COVID-19: Status: Acute (4) Gangrene of foot: Status: Acute (5) Bacteremia: Status: Acute Plan Decadron/rendisiving Abx as per ID diuresis as tolerated continue HF Procedures Date of Service Date of Service: 11/05/23
[2023-11-06] VITALS (16 sets, daily range): BP systolic 137–160; BP diastolic 60–77; PULSE 79–102; RESP 16–24; TEMP 36.3–38.1; O2SAT 88–99; BMI 19.1
[2023-11-06] MEDS: Morphine Sulfate 4 MG/ML CARTRIDGE IVPUSH ×5 (01:02→23:09)
[2023-11-06] MEDS: ceFAZolin Sodium/Dextrose,Iso 2 GM/50 ML PIGGYBACK IV ×3 (01:03→18:30)
[2023-11-06] MEDS: LORazepam 2 MG/ML VIAL 0.5 MG IVPUSH (04:49)
[2023-11-06 06:39] LABS: Anion Gap 11 (12-20); Blood Urea Nitrogen 33 mg/dL (9-16); Calcium 7.3 mg/dL (8.4-10.2); Carbon Dioxide 22 mmol/L (22-29); Chloride 102 mmol/L (96-108); Creatinine Clr Calc Pharmacy 51.8; Estimated Glomerular Filt Rate > 60; Glucose Random 112 mg/dL (60-115); Potassium 3.7 mmol/L (3.3-5.1); Sodium 131 mmol/L (135-145)
[2023-11-06 06:45] LABS: ABG Base Excess 0.5 mmol/L; ABG HCO3 23 mmol/L (22-26); ABG pCO2 32 mmHg (32-45); ABG pH 7.47 (7.35-7.45); ABG pO2 90 mmHg (83-108)
[2023-11-06 06:56] LABS: B Type Natriuretic Peptide 952 pg/mL (<100)
--- NOTE | 2023-11-06 07:25 | PC.NURSE ---
At 1900 pt on 50L 50% via high flow, alert and oriented. Pt started to desat through out the shift, high flow increased to 50L 100% with 5L via oxymask . Pt non compliant , kept removing the mask, increase agitation and anxiety noted, MD ordered one time dose of Ativan 0.5 mg. At 0630, pt desat to low 80s, noted to be drowsy, Rapid response called. MD ordered ABGs. Pt remains on high flow 50L 100% with a non rebreather.
[2023-11-06 07:26] LABS: Glucose, Whole Blood 95 mg/dL (60-115)
[2023-11-06 07:42] LABS: ABG Refer to POC result
[2023-11-06] MEDS: oxyCODONE HCl Immed Release 5 MG TABLET PO ×3 (10:09→20:30)
[2023-11-06] MEDS: lisinopriL 20 MG TABLET PO (10:10)
[2023-11-06] MEDS: metroNIDAZOLE/NS 500 MG/100 ML PIGGYBACK 100 MG IV (10:10)
[2023-11-06] MEDS: Ferrous Sulfate 324 MG TABLET.DR PO ×2 (10:10→16:49)
[2023-11-06] MEDS: 0.9 % Sodium Chloride Flush 3 ML SYRINGE IVFLUSH ×3 (10:10→20:36)
[2023-11-06] MEDS: dexAMETHasone 6 MG TABLET PO (10:10)
[2023-11-06 11:04] LABS: Glucose, Whole Blood 90 mg/dL (60-115)
--- NOTE | 2023-11-06 11:29 | HE.PHANOTE ---
CHANGED METRONIDAZOLE IV TO METRONIDAZOLE PO PER IV TO PO ANTIBIOTIC PROTOCOL
--- NOTE | 2023-11-06 11:42 | PM.PNCARD ---
Subjective Subjective Date of Service: 11/06/23 Interval history: He has now been tested positive for COVID. Moved to a different room. Seems to be on NRB/100% O2. Denies any active complaints but not able to have a conversation much either. Review of Systems Review of Systems Yes all other systems are reviewed and are negative Constitutional: Reports as per HPI and Reports no additional constitutional complaints Eyes: Reports as per HPI and Denies no additional eye complaints Denies system reviewed and no additional complaints, except as documented and Reports as per HPI Cardiovascular: Reports as per HPI, Reports no additional cardiovascular complaints, Denies acrocyanosis, Denies cool extremities, Denies chest pain, Denies leg edema, Denies lightheadedness, Denies palpitations and Denies dyspnea Respiratory: Reports as per HPI, Denies no additional respiratory complaints and Denies dyspnea Gastrointestinal: Reports as per HPI and Denies no additional gastrointestinal complaints Genitourinary: Reports no additional male genitourinary complaints and Reports as per HPI Musculoskeletal: Reports no additional musculoskeletal complaints and Reports as per HPI Skin/Breast: Reports system reviewed and no additional complaints, except as docu Reports system reviewed and no additional complaints, except as documented, Reports as per HPI and Reports confusion Psychiatric: Reports no additional psychiatric complaints, Reports as per HPI and Reports confusion Endocrine: Reports no additional endocrine complaints, Reports as per HPI and Denies palpitations Hematologic/Lymphatic: Reports no additional hematologic/lymphatic complaints and Reports as per HPI Allergic/Immunologic: Reports no additional allergic/immunologic complaints and Reports as per HPI Physical Exam Vital Signs: Last Vital Signs Temp 100.5 F H 11/06/23 11:24 Pulse 102 H 11/06/23 11:24 Resp 22 H 11/06/23 11:37 BP 160/77 H 11/06/23 11:24 Pulse Ox 94 11/06/23 11:24 O2 Del Method High Flow Nasal Cannula 11/06/23 11:24 O2 Flow Rate 45 11/06/23 11:24 FiO2 95 11/06/23 11:24 BMI result Body Mass Index 19.1 Const General: in distress, confusion, ill appearing, poor hygiene and tired appearing Orientation/consciousness: patient oriented x3 and confusion HEENT Other: Unremarkable Head: Yes normal to inspection Neck Neck: Yes normal visual inspection Chest Chest palpation & inspection: normal inspection of the chest Resp Other: Diminished breath sounds Auscultation: crackles bilateral Cardio Palpation: normal PMI Heart sounds: S1 normal heart sound present, S2 normal heart sound present, no gallops, no murmurs and no rubs GI Palpation (GI): Soft to palpation Back/Spine/Pelvis Other: unremarkable Skin General skin exam: no rashes or lesions noted Neuro General: patient oriented x3 and confusion Extrem Other: R BKA General: Yes normal to inspection Psych Mental Status: mental status grossly normal Objective Labs and Meds 11/05/23 05:53 11/06/23 05:51 Lab results: Laboratory Results - last 24 hr 11/04/23 11/05/23 11/05/23 15:50 10:55 16:13 O2 Saturation ABG pH at Pt Temp ABG pCO2 at Pt Temp ABG pO2 at Pt Temp ABG HCO3 ABG Base Excess (Actual) Sodium Potassium Chloride Carbon Dioxide Anion Gap BUN Creatinine Estim Creat Clear Calc Estimated GFR POC Glucose 119 H 190 H Random Glucose Calcium B-Natriuretic Peptide Respiratory Panel [place] See Note Adenovirus (Rapid PCR) Not Detected B.pert (TEM-PCR) Not Detected B.parapertussis DNA PCR Not Detected C. pneumoniae DNA (PCR) Not Detected Coronavirus OC43 (PCR) Not Detected Coronavirus HKU1 (PCR) Not Detected Coronavirus 229E (PCR) Not Detected Coronavirus NL63 (PCR) Not Detected Human Metapneumovir PCR Not Detected Influenza A (RT-PCR) Not Detected Influenza B (RT-PCR) Not Detected M. pneumoniae (PCR) Not Detected Parainfluenza 1 (PCR) Not Detected Parainfluenza 2 (PCR) Not Detected Parainfluenza 3 (PCR) Not Detected Parainfluenza 4 (PCR) Not Detected RSV (PCR) Not Detected Entero/Rhino (PCR) Not Detected SARS-CoV-2 RNA (RT-PCR) Detected A 11/05/23 11/06/23 11/06/23 20:45 05:51 06:38 O2 Saturation 97.0 ABG pH at Pt Temp 7.47 H ABG pCO2 at Pt Temp 32 ABG pO2 at Pt Temp 90 ABG HCO3 23 ABG Base Excess (Actual) 0.5 Sodium 131 L Potassium 3.7 Chloride 102 Carbon Dioxide 22 Anion Gap 11 L BUN 33 H Creatinine 1.14 Estim Creat Clear Calc 51.8 Estimated GFR > 60 POC Glucose 159 H Random Glucose 112 Calcium 7.3 L B-Natriuretic Peptide 952 H Respiratory Panel [place] Adenovirus (Rapid PCR) B.pert (TEM-PCR) B.parapertussis DNA PCR C. pneumoniae DNA (PCR) Coronavirus OC43 (PCR) Coronavirus HKU1 (PCR) Coronavirus 229E (PCR) Coronavirus NL63 (PCR) Human Metapneumovir PCR Influenza A (RT-PCR) Influenza B (RT-PCR) M. pneumoniae (PCR) Parainfluenza 1 (PCR) Parainfluenza 2 (PCR) Parainfluenza 3 (PCR) Parainfluenza 4 (PCR) RSV (PCR) Entero/Rhino (PCR) SARS-CoV-2 RNA (RT-PCR) 11/06/23 11/06/23 07:22 11:00 O2 Saturation ABG pH at Pt Temp ABG pCO2 at Pt Temp ABG pO2 at Pt Temp ABG HCO3 ABG Base Excess (Actual) Sodium Potassium Chloride Carbon Dioxide Anion Gap BUN Creatinine Estim Creat Clear Calc Estimated GFR POC Glucose 95 90 Random Glucose Calcium B-Natriuretic Peptide Respiratory Panel [place] Adenovirus (Rapid PCR) B.pert (TEM-PCR) B.parapertussis DNA PCR C. pneumoniae DNA (PCR) Coronavirus OC43 (PCR) Coronavirus HKU1 (PCR) Coronavirus 229E (PCR) Coronavirus NL63 (PCR) Human Metapneumovir PCR Influenza A (RT-PCR) Influenza B (RT-PCR) M. pneumoniae (PCR) Parainfluenza 1 (PCR) Parainfluenza 2 (PCR) Parainfluenza 3 (PCR) Parainfluenza 4 (PCR) RSV (PCR) Entero/Rhino (PCR) SARS-CoV-2 RNA (RT-PCR) Progress Note: A&P Assessment and plan (1) Acute respiratory failure: Status: Acute (2) Acute CHF: Status: Acute Plan Troponin levels at 222, 129, 98.8 Echocardiogram with LVEF of 50-55%. Basal inferior, mid inferior and mid inferoseptal hypokinesis. Moderate diastolic dysfunction. Mild mitral/tricuspid regurgitation. [id number] pulmonary hypertension. Chest x-ray shows extensive infiltrates reported as multifocal pneumonia. Seems to have progressed compared to the prior x-ray. Overall, respiratory failure. Either ARDS or some combination of ARDS/congestive heart failure. Difficult to assess. Clinically, no overt volume overload either. Overall, quite ill and there is significant risk of decompensating with worsening respiratory failure/. From cardiac no specific management. If there is any clear-cut evidence of edema/volume, we can use diuretics. Continue antibiotics. Blood pressure management. Respiratory support with supplemental oxygen, noninvasive ventilation. If worsens, ICU transfer. Guarded prognosis. Discussed with RN. Discussed with Judy Hernandez today. Time Spent With Patient Time: Total time managing care of this patient today ____ minutes. Progress Note: Quality Stroke Does the patient have a stroke diagnosis?: No Procedures Date of Service Date of Service: 11/06/23
[2023-11-06] MEDS: Acetaminophen 325 MG TABLET 650 MG PO (11:59)
[2023-11-06] MEDS: Furosemide 20 MG/2 ML VIAL IVPUSH (11:59)
--- NOTE | 2023-11-06 12:44 | HO.PM.IMPN ---
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 early this am for hypoxia/lethargy - likely due to dose of ativan awake and alert this morning, but appears tired denies sob, reporting cough Review of Systems Review of Systems: Yes all other systems are reviewed and are negative Constitutional Constitutional: Denies chills and Denies fever(s) Cardiovascular Cardiovascular: Denies chest pain and Denies palpitations Respiratory Respiratory: Reports cough Endocrine Endocrine: Denies palpitations Physical Exam Vital Signs: Vital Signs: Last Vital Signs Temp 100.5 F H 11/06/23 11:24 Pulse 102 H 11/06/23 11:24 Resp 22 H 11/06/23 11:37 BP 160/77 H 11/06/23 11:24 Pulse Ox 94 11/06/23 11:24 O2 Del Method High Flow Nasal C annula 11/06/23 11:24 O2 Flow Rate 45 11/06/23 11:24 FiO2 95 11/06/23 11:24 BMI result Body Mass Index 19.1 Const: Other: thin, ill appearing General: no acute distress, alert and awake Nutritional Appearance: thin Orientation/consciousness: patient oriented x3 Resp: Other: on high flow oxygen diminished breath sounds, no wheezing basilar rales Effort & Inspection: normal respiratory effort, able to speak in complete sentences and no use of accessory muscles Cardio: Rate: regular rate GI: Inspection: No distended Palpation (GI): Soft to palpation and nontender Neuro: Other: grossly nonfocal General: patient oriented x3 and moves all extremities Extrem: Other: s/p Right BKA dressing c/d/i; LLE with pitting edema Objective Data Active Medications Acetaminophen (Acetaminophen 325 Mg Tablet) 650 mg PO Q6H PRN PRN Reason: Pain, Mild (Pain Scale 1-3) Last Admin: 11/06/23 11:59 Dose: 650 mg Documented By: ASAF Dexamethasone (Dexamethasone 6 Mg Tablet) 6 mg PO DAILY ANN Last Admin: 11/06/23 10:10 Dose: 6 mg Documented By: ASAF Dextrose (Dextrose 50 % 25 Gm/50 Ml Syringe) 25 gm IVPUSH Q15M PRN; Protocol PRN Reason: per Hypoglycemia Standing Ord. Last Admin: 10/31/23 10:26 Dose: 25 gm Documented By: SARABJIT Enoxaparin Sodium (Enoxaparin Sodium 40 Mg/0.4 Ml Syringe) 40 mg SUBCUT BEDTIME [facility] Last Admin: 11/05/23 20:35 Dose: 40 mg Documented By: JENNA Ferrous Sulfate (Ferrous Sulfate 324 Mg Tablet.Dr) 324 mg PO BIDWM [facility] Last Admin: 11/06/23 10:10 Dose: 324 mg Documented By: ASAF Glucose (Glucose Gel 15 Gm Gel..Gram.) 15 gm PO Q15M PRN; Protocol PRN Reason: per Hypoglycemia Standing Ord. Cefazolin Sodium/Dextrose (Ancef) 2 gm in 50 mls @ 100 mls/hr IV Q8H [facility] Last Infusion: 11/06/23 10:59 Dose: Infused Documented By: ASAF Remdesivir 100 mg/ Sodium (Chloride) 230 mls @ 115 mls/hr IV Q24H [facility] Stop: 11/09/23 17:59 Insulin Human Lispro (Insulin Lispro 100 Unit/Ml 3 Ml Vial) 0 unit SUBCUT QIDACHS [facility]; Protocol Last Admin: 11/06/23 11:14 Dose: Not Given Documented By: ASAF Non-Admin Reason: No Insulin Coverage Lisinopril (Lisinopril 20 Mg Tablet) 20 mg PO DAILY [facility]; Protocol Last Admin: 11/06/23 10:10 Dose: 20 mg Documented By: ASAF Melatonin (Melatonin 3 Mg Tablet) 6 mg PO BEDTIME PRN PRN Reason: Insomnia Last Admin: 11/04/23 19:41 Dose: 6 mg Documented By: COLBY Metronidazole (Metronidazole 500 Mg Tablet) 500 mg PO Q8H [facility] Morphine Sulfate (Morphine Sulfate 4 Mg/Ml Cartridge) 4 mg IVPUSH Q3H PRN; Protocol PRN Reason: Pain, Severe (Pain Scale 7-10) Last Admin: 11/06/23 04:51 Dose: 4 mg Documented By: JENNA Ondansetron HCl (Ondansetron Hcl 4 Mg/2 Ml Vial) 4 mg IVPUSH Q8H PRN PRN Reason: Nausea and Vomiting Last Admin: 11/04/23 16:44 Dose: 4 mg Documented By: PODMORP Oxycodone HCl (Oxycodone Hcl Immed Release 5 Mg Tablet) 5 mg PO Q4H PRN PRN Reason: Pain, Moderate(Pain Scale 4-6) Last Admin: 11/06/23 10:09 Dose: 5 mg Documented By: ASAF Sodium Chloride (0.9 % Sodium Chloride Flush 3 Ml Syringe) 3 ml IVFLUSH QSHIFT [facility] Last Admin: 11/06/23 10:10 Dose: 3 ml Documented By: ASAF Labs 11/05/23 05:53 11/06/23 05:51 Labs: Laboratory Results - last 24 hr 11/04/23 11/05/23 11/05/23 15:50 16:13 20:45 O2 Saturation ABG pH at Pt Temp ABG pCO2 at Pt Temp ABG pO2 at Pt Temp ABG HCO3 ABG Base Excess (Actual) Anion Gap Estim Creat Clear Calc Estimated GFR POC Glucose 190 H 159 H Random Glucose Calcium B-Natriuretic Peptide Respiratory Panel [place] See Note Adenovirus (Rapid PCR) Not Detected B.pert (TEM-PCR) Not Detected B.parapertussis DNA PCR Not Detected C. pneumoniae DNA (PCR) Not Detected Coronavirus OC43 (PCR) Not Detected Coronavirus HKU1 (PCR) Not Detected Coronavirus 229E (PCR) Not Detected Coronavirus NL63 (PCR) Not Detected Human Metapneumovir PCR Not Detected Influenza A (RT-PCR) Not Detected Influenza B (RT-PCR) Not Detected M. pneumoniae (PCR) Not Detected Parainfluenza 1 (PCR) Not Detected Parainfluenza 2 (PCR) Not Detected Parainfluenza 3 (PCR) Not Detected Parainfluenza 4 (PCR) Not Detected RSV (PCR) Not Detected Entero/Rhino (PCR) Not Detected SARS-CoV-2 RNA (RT-PCR) Detected A 11/06/23 11/06/23 11/06/23 05:51 06:38 07:22 O2 Saturation 97.0 ABG pH at Pt Temp 7.47 H ABG pCO2 at Pt Temp 32 ABG pO2 at Pt Temp 90 ABG HCO3 23 ABG Base Excess (Actual) 0.5 Anion Gap 11 L Estim Creat Clear Calc 51.8 Estimated GFR > 60 POC Glucose 95 Random Glucose 112 Calcium 7.3 L B-Natriuretic Peptide 952 H Respiratory Panel [place] Adenovirus (Rapid PCR) B.pert (TEM-PCR) B.parapertussis DNA PCR C. pneumoniae DNA (PCR) Coronavirus OC43 (PCR) Coronavirus HKU1 (PCR) Coronavirus 229E (PCR) Coronavirus NL63 (PCR) Human Metapneumovir PCR Influenza A (RT-PCR) Influenza B (RT-PCR) M. pneumoniae (PCR) Parainfluenza 1 (PCR) Parainfluenza 2 (PCR) Parainfluenza 3 (PCR) Parainfluenza 4 (PCR) RSV (PCR) Entero/Rhino (PCR) SARS-CoV-2 RNA (RT-PCR) 11/06/23 11:00 O2 Saturation ABG pH at Pt Temp ABG pCO2 at Pt Temp ABG pO2 at Pt Temp ABG HCO3 ABG Base Excess (Actual) Anion Gap Estim Creat Clear Calc Estimated GFR POC Glucose 90 Random Glucose Calcium B-Natriuretic Peptide Respiratory Panel [place] Adenovirus (Rapid PCR) B.pert (TEM-PCR) B.parapertussis DNA PCR C. pneumoniae DNA (PCR) Coronavirus OC43 (PCR) Coronavirus HKU1 (PCR) Coronavirus 229E (PCR) Coronavirus NL63 (PCR) Human Metapneumovir PCR Influenza A (RT-PCR) Influenza B (RT-PCR) M. pneumoniae (PCR) Parainfluenza 1 (PCR) Parainfluenza 2 (PCR) Parainfluenza 3 (PCR) Parainfluenza 4 (PCR) RSV (PCR) Entero/Rhino (PCR) SARS-CoV-2 RNA (RT-PCR) Assessment and Plan (1) COVID-19: Status: Acute (2) ARDS (adult respiratory distress syndrome): Status: Acute (3) Status post below knee amputation of right lower extremity: Status: Acute (4) Gangrene of foot: Status: Acute (5) Bacteremia: Status: Acute Plan This is a 63-year-old male with pertinent history of insulin-dependent diabetes mellitus, noncompliant with medications who presents to the emergency department for evaluation of right foot pain found to have gangrene and eventually required right BKA course complicated by respiratory distress, ARDS and has now tested positive for COVID 19 currently on high flow/NRB. [employer] early this am (11/06) for hypoxia/lethargy Acute hypoxic resp failure, multifactorial. secondary to possible ARDS and covid 19 echo with LVEF 50-55%, small pericardial effusion, grade II diastolic dysfunction and basal inferior, mid inferior and mid inferoseptal hypokinesis. no previous echo for comparison mild elevation in cardiac enzymes. EKG with sinus tachycardia, no previous EKG for comparison was initially diuresed with IV lasix but then respiratory status worsened, repeat CXR 11/04 concerning for multifocal pna vs ARDS and pt ultimately tested + for COVID 19 and diuresis was stopped pulmonary following - rec remdecivir and decadron d/w pulm and ID - no indication for baricitinib cardiology following pulm following- although no overt pulmonary edema will trial one dose of lasix and assess for response given increasing oxygen demands patient now on max high flow and NRB - discussed with ICU attending again today, no indication for transfer to ICU at this time patient declined ronquillo placement covid 19 seen by pulmonology - rec remdecivir and decadron wean high flow oxygen as tolerated Sepsis due to right foot wet gangrene with purulent cellulitis and MSSA bacteremia s/p right BKA 11/02 2/2 blood cultures with MSSA - ID rec to continue kefzol, will need 4-6 weeks from first negative blood culture; metronidazole 10 day total per ID rec - repeat blood cultures negative to date - will need PICC line for intermediate card tender abx - surgery following, dressing changes per surgery rec Hypokalemia improved with replacement HTN uncontrolled continue lisinopril started this admission, increased to 20 mg daily Iron def anemia. unspecified No acute blood loss; receive 1 unit of packed red cells as well as iron transfusion H/H stable continue oral iron supplement CKD stage 3 Creatinine now back to baseline Insulin-dependent diabetes mellitus 2 episode of asymptomatic hypoglycemia 11/03 am Hba1c checked and 5.7 will d/c Lantus -continue SSI, follow POCs Moderate protein calorie malnutrition BMI 19.3 supplements added to diet Lovenox Full code attending - Dr. Roger HCP - brother Jeffy Ji - [phone] Requires ongoing hospitalization for IV antibiotics to treat bacteremia, probable pneumonia, CHF and ARDS/COVID now requiring high flow oxygen. needs close monitor of respiratory status as patient at high risk for decompensation. Quality Stroke Does the patient have a stroke diagnosis?: No VTE Prior VTE?: No VTE Risk Level:: Medical - moderate - high VTE Device Contraindication: Treatment Not Indicated VTE Drug Contraindication: N/A - Med Ordered
[2023-11-06] MEDS: Remdesivir 100 MG in 0.9 % Sodium Chloride 230 ML 115 MG IV (16:09)
[2023-11-06 16:25] LABS: Glucose, Whole Blood 117 mg/dL (60-115)
[2023-11-06] MEDS: metroNIDAZOLE 500 MG TABLET PO (16:49)
[2023-11-06] MEDS: Enoxaparin Sodium 40 MG/0.4 ML SYRINGE SUBCUT (20:30)
[2023-11-06 23:12] LABS: Glucose, Whole Blood 164 mg/dL (60-115)
[2023-11-07] VITALS (14 sets, daily range): BP systolic 113–145; BP diastolic 61–71; PULSE 63–99; RESP 16–24; TEMP 36.4–37.3; O2SAT 87–100; BMI 18.7
[2023-11-07] MEDS: oxyCODONE HCl Immed Release 5 MG TABLET PO ×5 (01:26→20:38)
[2023-11-07] MEDS: ceFAZolin Sodium/Dextrose,Iso 2 GM/50 ML PIGGYBACK IV ×3 (01:26→16:10)
[2023-11-07] MEDS: metroNIDAZOLE 500 MG TABLET PO ×3 (03:53→16:10)
[2023-11-07] MEDS: ondansetron HCL 4 MG/2 ML VIAL IVPUSH (03:53)
[2023-11-07] MEDS: Morphine Sulfate 4 MG/ML CARTRIDGE IVPUSH ×5 (04:04→21:06)
[2023-11-07] MEDS: Acetaminophen 325 MG TABLET 650 MG PO (05:33)
[2023-11-07 06:25] LABS: Hematocrit 27.4 % (42.0-52.0); Hemoglobin 9.1 g/dl (14.0-18.0); Mean Corpuscular HGB Conc 33.2 g/dl (31.0-36.0); Mean Corpuscular Hemoglobin 28.9 pg (27.0-33.0); Mean Platelet Volume 10.6 fL (9.4-12.4); Platelet Count 132 X10*3/uL (160-400); Red Blood Count 3.15 X10*6/uL (4.60-5.80); Red Cell Distribution Width 14.6 % (11.0-16.0); White Blood Count 5.5 X10*3/uL (4.8-10.8)
[2023-11-07 06:31] LABS: Anion Gap 14 (12-20); Blood Urea Nitrogen 42 mg/dL (9-16); Calcium 7.5 mg/dL (8.4-10.2); Carbon Dioxide 19 mmol/L (22-29); Chloride 103 mmol/L (96-108); Creatinine Clr Calc Pharmacy 47.9; Estimated Glomerular Filt Rate > 60; Glucose Random 199 mg/dL (60-115); Potassium 3.8 mmol/L (3.3-5.1); Sodium 132 mmol/L (135-145)
[2023-11-07 08:25] LABS: Glucose, Whole Blood 172 mg/dL (60-115)
[2023-11-07] MEDS: lisinopriL 20 MG TABLET PO (09:26)
[2023-11-07] MEDS: dexAMETHasone 6 MG TABLET PO (09:26)
[2023-11-07] MEDS: Ferrous Sulfate 324 MG TABLET.DR PO ×2 (09:26→16:10)
[2023-11-07] MEDS: 0.9 % Sodium Chloride Flush 3 ML SYRINGE IVFLUSH (09:26)
[2023-11-07 11:18] LABS: Glucose, Whole Blood 177 mg/dL (60-115)
[2023-11-07 11:26] LABS: Leukocytes Stool Qualitative NEGATIVE (NEGATIVE)
[2023-11-07 11:46] LABS: CDiff Gene PCR NEGATIVE (Negative)
--- NOTE | 2023-11-07 12:25 | P.PNIM_ITS ---
Subjective Subjective Date of Service: 11/07/23 Interval History: seen and examined this morning, f/u follow up for bacteremia, respiratory failure, covid and possible heart failure Overall seems better today, O2 has been decreased some Physical Exam 2 Vital Signs: Vital Signs: Last Vital Signs Temp 98.6 F 11/07/23 11:53 Pulse 79 11/07/23 11:53 Resp 20 11/07/23 11:53 BP 115/67 11/07/23 11:53 Pulse Ox 96 11/07/23 11:53 O2 Del Method High Flow Nasal C annula 11/07/23 11:53 O2 Flow Rate 45 11/07/23 11:53 FiO2 100 11/07/23 11:53 BMI result Body Mass Index 18.7 Const: Other: General: AO X 3, no acute distress Resp: bilateral rhonchi CVS: S1,S2,RRR GI: +BS, NT, no distention Skin: No rash, right BKA d/c/i Neuro: motor grossly intact Psych: appropriate affect Objective Data Active Medications Acetaminophen (Acetaminophen 325 Mg Tablet) 650 mg PO Q6H PRN PRN Reason: Pain, Mild (Pain Scale 1-3) Last Admin: 11/07/23 05:33 Dose: 650 mg Documented By: LALITHA Albuterol Sulfate (Albuterol Sulfate (0.083%) 2.5 Mg/3 Ml Vial.Neb) 2.5 mg INHALE Q4H PRN PRN Reason: Shortness of Breath/Wheezing Dexamethasone (Dexamethasone 6 Mg Tablet) 6 mg PO DAILY [facility] Last Admin: 11/07/23 09:26 Dose: 6 mg Documented By: ASAF Dextrose (Dextrose 50 % 25 Gm/50 Ml Syringe) 25 gm IVPUSH Q15M PRN; Protocol PRN Reason: per Hypoglycemia Standing Ord. Last Admin: 10/31/23 10:26 Dose: 25 gm Documented By: SARABJIT Enoxaparin Sodium (Enoxaparin Sodium 40 Mg/0.4 Ml Syringe) 40 mg SUBCUT BEDTIME [facility] Last Admin: 11/06/23 20:30 Dose: 40 mg Documented By: LALITHA Ferrous Sulfate (Ferrous Sulfate 324 Mg Tablet.) 324 mg PO BIDWM [facility] Last Admin: 11/07/23 09:26 Dose: 324 mg Documented By: ASAF Glucose (Glucose Gel 15 Gm Gel..Gram.) 15 gm PO Q15M PRN; Protocol PRN Reason: per Hypoglycemia Standing Ord. Cefazolin Sodium/Dextrose (Ancef) 2 gm in 50 mls @ 100 mls/hr IV Q8H [facility] Last Infusion: 11/07/23 10:03 Dose: Infused Documented By: ASAF Remdesivir 100 mg/ Sodium (Chloride) 230 mls @ 115 mls/hr IV Q24H [facility] Stop: 11/09/23 17:59 Last Infusion: 11/06/23 18:25 Dose: Infused Documented By: ASAF Insulin Human Lispro (Insulin Lispro 100 Unit/Ml 3 Ml Vial) 0 unit SUBCUT QIDACHS [facility]; Protocol Last Admin: 11/07/23 08:44 Dose: Not Given Documented By: ASAF Non-Admin Reason: patient not eating Lisinopril (Lisinopril 20 Mg Tablet) 20 mg PO DAILY [facility]; Protocol Last Admin: 11/07/23 09:26 Dose: 20 mg Documented By: ASAF Melatonin (Melatonin 3 Mg Tablet) 6 mg PO BEDTIME PRN PRN Reason: Insomnia Last Admin: 11/04/23 19:41 Dose: 6 mg Documented By: COLBY Metronidazole (Metronidazole 500 Mg Tablet) 500 mg PO Q8H [facility] Last Admin: 11/07/23 09:26 Dose: 500 mg Documented By: ASAF Morphine Sulfate (Morphine Sulfate 4 Mg/Ml Cartridge) 4 mg IVPUSH Q3H PRN; Protocol PRN Reason: Pain, Severe (Pain Scale 7-10) Last Admin: 11/07/23 09:26 Dose: 4 mg Documented By: ASAF Ondansetron HCl (Ondansetron Hcl 4 Mg/2 Ml Vial) 4 mg IVPUSH Q8H PRN PRN Reason: Nausea and Vomiting Last Admin: 11/07/23 03:53 Dose: 4 mg Documented By: LALITHA Oxycodone HCl (Oxycodone Hcl Immed Release 5 Mg Tablet) 5 mg PO Q4H PRN PRN Reason: Pain, Moderate(Pain Scale 4-6) Last Admin: 11/07/23 10:41 Dose: 5 mg Documented By: ASAF Sodium Chloride (0.9 % Sodium Chloride Flush 3 Ml Syringe) 3 ml IVFLUSH QSHIFT ANN Last Admin: 11/07/23 09:26 Dose: 3 ml Documented By: ASAF Labs 11/07/23 06:06 11/07/23 06:06 Labs: Laboratory Results - last 24 hr 11/06/23 11/06/23 11/07/23 16:22 23:08 06:06 MCV 87.0 D MCH 28.9 MCHC 33.2 RDW 14.6 Plt Count 132 L MPV 10.6 Absolute Nucleated RBC 0.000 Nucleated RBC % (auto) 0.0 Anion Gap 14 Estim Creat Clear Calc 47.9 Estimated GFR > 60 POC Glucose 117 H 164 H Random Glucose 199 H Calcium 7.5 L Stool Leukocytes, Qual C. difficile Tox B Gene 11/07/23 11/07/23 11/07/23 08:18 10:05 11:14 MCV MCH MCHC RDW Plt Count MPV Absolute Nucleated RBC Nucleated RBC % (auto) Anion Gap Estim Creat Clear Calc Estimated GFR POC Glucose 172 H 177 H Random Glucose Calcium Stool Leukocytes, Qual NEGATIVE C. difficile Tox B Gene NEGATIVE Assessment and Plan (1) COVID-19: Status: Acute (2) ARDS (adult respiratory distress syndrome): Status: Acute (3) Status post below knee amputation of right lower extremity: Status: Acute (4) Gangrene of foot: Status: Acute (5) Bacteremia: Status: Acute Plan This is a 63-year-old male with pertinent history of insulin-dependent diabetes mellitus, noncompliant with medications who presented to the emergency department for evaluation of right foot pain found to have gangrene and eventually required right BKA course complicated by respiratory distress, ARDS and has now tested positive for COVID 19 currently on high flow/NRB. 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 ARDS, covid and heart failure. He remains signficantly hypoxic on high flow but has made some progress in lowering O2, ID and pulmonology recommends remdesevir and decadron. Wean O2 as emil Concern of heart failure, echo show EF 50 to 55%, being followed by cardiology and was treated with diuretics, presently no overt signs of heart failure, hold of further diuretics at this time. Sepsis due to right foot wet gangrene with purulent cellulitis and MSSA bacteremia s/p right BKA 11/02 2/2 blood cultures with MSSA - ID rec to continue kefzol, will need 4-6 weeks from first negative blood culture; metronidazole 10 day total per ID rec - repeat blood cultures negative to date - will need PICC line for nursing home abx - surgery following, dressing changes per surgery rec for amputation wound Hypokalemia, resolved. HTN, controlled , continue Lisinopril Iron def anemia. unspecified No acute blood loss; receive 1 unit of packed red cells as well as iron transfusion H/H stable continue oral iron supplement CKD stage 3 Creatinine now back to baseline Insulin-dependent diabetes mellitus 2 episode of asymptomatic hypoglycemia 11/03 am Hba1c is 5.7 -Lantus stopped, continue SSI, follow POCs Moderate protein calorie malnutrition BMI 19.3 supplements added to diet Lovenox Full code HCP - brother Jeffy Ji - [phone] Requires ongoing hospitalization for IV antibiotics to treat bacteremia, probable pneumonia, CHF and ARDS/COVID now requiring high flow oxygen. needs close monitor of respiratory status as patient at high risk for decompensation. Quality Stroke Does the patient have a stroke diagnosis?: No VTE Prior VTE?: No VTE Risk Level:: Medical - moderate - high VTE Device Contraindication: Treatment Not Indicated VTE Drug Contraindication: N/A - Med Ordered
[2023-11-07] MEDS: Remdesivir 100 MG in 0.9 % Sodium Chloride 230 ML 115 MG IV (16:11)
[2023-11-07 16:56] LABS: Glucose, Whole Blood 270 mg/dL (60-115)
[2023-11-07] MEDS: Insulin Lispro 100 UNIT/ML 3 ML VIAL SUBCUT ×2 (17:20→21:06)
[2023-11-07] MEDS: Enoxaparin Sodium 40 MG/0.4 ML SYRINGE SUBCUT (20:39)
[2023-11-07 20:53] LABS: Glucose, Whole Blood 259 mg/dL (60-115)
[2023-11-08] VITALS (12 sets, daily range): BP systolic 113–164; BP diastolic 67–77; PULSE 70–92; RESP 13–24; TEMP 36.2–36.8; O2SAT 89–100; BMI 19.0
[2023-11-08] MEDS: Melatonin 3 MG TABLET 6 MG PO (00:48)
[2023-11-08] MEDS: Morphine Sulfate 4 MG/ML CARTRIDGE IVPUSH ×2 (00:49→05:16)
[2023-11-08] MEDS: ceFAZolin Sodium/Dextrose,Iso 2 GM/50 ML PIGGYBACK IV ×3 (01:13→15:53)
[2023-11-08] MEDS: metroNIDAZOLE 500 MG TABLET PO ×3 (01:13→17:22)
--- NOTE | 2023-11-08 04:23 | PC.NURSE ---
Patient requiring 40L 80% O2 and NRB 10L to maintain O2 saturation. Stable when sleeping, 94-100%. Charge nurse, nurse ornamental ironworking supervisor, and MD aware. No new orders or interventions at this time. Patient in no acute distress now. O2 95% now. Plan to monitor, keep stable, and continue plan of care.
[2023-11-08 08:24] LABS: Glucose, Whole Blood 106 mg/dL (60-115)
[2023-11-08] MEDS: 0.9 % Sodium Chloride Flush 3 ML SYRINGE IVFLUSH ×2 (08:28→17:22)
[2023-11-08] MEDS: dexAMETHasone 6 MG TABLET PO (08:28)
[2023-11-08] MEDS: oxyCODONE HCl Immed Release 5 MG TABLET PO (08:28)
[2023-11-08] MEDS: Ferrous Sulfate 324 MG TABLET.DR PO ×2 (08:28→17:22)
[2023-11-08] MEDS: lisinopriL 20 MG TABLET PO (08:28)
[2023-11-08 12:03] LABS: Glucose, Whole Blood 133 mg/dL (60-115)
[2023-11-08] MEDS: oxyCODONE HCl Immed Release 5 MG TABLET 10 MG PO ×3 (13:02→21:39)
--- NOTE | 2023-11-08 13:37 | MHC.CM.PN ---
Pt. is not yet ready for DC. He is s/p BKA, and being treated for: COVID, ARDS, and Bacteremia. He is requiring IV ABX and high flow O2. CM to follow and assist with DC plan.
--- NOTE | 2023-11-08 13:42 | HO.PM.IMPN ---
Subjective Subjective Date of Service: 11/08/23 Interval History: seen and examined this morning, f/u follow up for bacteremia, respiratory failure, covid and possible heart failure he remains hypoxic, not able to wean from high flow Physical Exam Vital Signs: Vital Signs: Last Vital Signs Temp 98.2 F 11/08/23 11:53 Pulse 75 11/08/23 11:53 Resp 13 11/08/23 11:53 BP 153/70 H 11/08/23 11:53 Pulse Ox 89 L 11/08/23 11:53 O2 Del Method High Flow Nasal C annula 11/08/23 11:53 O2 Flow Rate 40 11/08/23 07:14 FiO2 80 11/08/23 07:14 BMI result Body Mass Index 19.0 Const: Other: General: AO X 3, no acute distress Resp: bilateral rhonchi CVS: S1,S2,RRR GI: +BS, NT, no distention Skin: No rash, right BKA d/c/i Neuro: motor grossly intact Psych: appropriate affect Objective Data Active Medications Acetaminophen (Acetaminophen 325 Mg Tablet) 650 mg PO Q6H PRN PRN Reason: Pain, Mild (Pain Scale 1-3) Last Admin: 11/07/23 05:33 Dose: 650 mg Documented By: LALITHA Albuterol Sulfate (Albuterol Sulfate (0.083%) 2.5 Mg/3 Ml Vial.Neb) 2.5 mg INHALE Q4H PRN PRN Reason: Shortness of Breath/Wheezing Dexamethasone (Dexamethasone 6 Mg Tablet) 6 mg PO DAILY [facility] Last Admin: 11/08/23 08:28 Dose: 6 mg Documented By: SHY Dextrose (Dextrose 50 % 25 Gm/50 Ml Syringe) 25 gm IVPUSH Q15M PRN; Protocol PRN Reason: per Hypoglycemia Standing Ord. Last Admin: 10/31/23 10:26 Dose: 25 gm Documented By: SARABJIT Enoxaparin Sodium (Enoxaparin Sodium 40 Mg/0.4 Ml Syringe) 40 mg SUBCUT BEDTIME [facility] Last Admin: 11/07/23 20:39 Dose: 40 mg Documented By: FANY Ferrous Sulfate (Ferrous Sulfate 324 Mg Tablet.) 324 mg PO BIDWM [facility] Last Admin: 11/08/23 08:28 Dose: 324 mg Documented By: SHY Glucose (Glucose Gel 15 Gm Gel..Gram.) 15 gm PO Q15M PRN; Protocol PRN Reason: per Hypoglycemia Standing Ord. Cefazolin Sodium/Dextrose (Ancef) 2 gm in 50 mls @ 100 mls/hr IV Q8H [facility] Last Infusion: 11/08/23 10:14 Dose: Infused Documented By: SHY Remdesivir 100 mg/ Sodium (Chloride) 230 mls @ 115 mls/hr IV Q24H [facility] Stop: 11/09/23 17:59 Last Infusion: 11/07/23 18:14 Dose: Infused Documented By: ASAF Insulin Human Lispro (Insulin Lispro 100 Unit/Ml 3 Ml Vial) 0 unit SUBCUT QIDAS [facility]; Protocol Last Admin: 11/08/23 12:07 Dose: Not Given Documented By: SHY Non-Admin Reason: No Insulin Coverage Lisinopril (Lisinopril 20 Mg Tablet) 20 mg PO DAILY [facility]; Protocol Last Admin: 11/08/23 08:28 Dose: 20 mg Documented By: SHY Melatonin (Melatonin 3 Mg Tablet) 6 mg PO BEDTIME PRN PRN Reason: Insomnia Last Admin: 11/08/23 00:48 Dose: 6 mg Documented By: FANY Metronidazole (Metronidazole 500 Mg Tablet) 500 mg PO Q8H [facility] Last Admin: 11/08/23 08:28 Dose: 500 mg Documented By: SHY Ondansetron HCl (Ondansetron Hcl 4 Mg/2 Ml Vial) 4 mg IVPUSH Q8H PRN PRN Reason: Nausea and Vomiting Last Admin: 11/07/23 03:53 Dose: 4 mg Documented By: LALITHA Oxycodone HCl (Oxycodone Hcl Immed Release 5 Mg Tablet) 10 mg PO Q4H PRN PRN Reason: Pain, Moderate(Pain Scale 4-6) Last Admin: 11/08/23 13:02 Dose: 10 mg Documented By: SHY Sodium Chloride (0.9 % Sodium Chloride Flush 3 Ml Syringe) [facility] Last Admin: 11/08/23 08:28 Dose: 3 ml Documented By: SHY Labs 11/07/23 06:06 11/07/23 06:06 Labs: Laboratory Results - last 24 hr 11/07/23 11/07/23 11/08/23 16:32 20:49 07:18 POC Glucose 270 H 259 H 106 11/08/23 11:56 POC Glucose 133 H Microbiology Microbiology Results: Microbiology 11/02/23 14:00 Blood Culture - Final Blood - Venous No growth after 5 days. 11/02/23 14:00 Blood Culture - Final Blood - Venous No growth after 5 days. Assessment and Plan (1) COVID-19: Status: Acute (2) ARDS (adult respiratory distress syndrome): Status: Acute (3) Status post below knee amputation of right lower extremity: Status: Acute (4) Gangrene of foot: Status: Acute (5) Bacteremia: Status: Acute Plan This is a 63-year-old male with pertinent history of insulin-dependent diabetes mellitus, noncompliant with medications who presented to the emergency department for evaluation of right foot pain found to have gangrene and eventually required right BKA course complicated by respiratory distress, ARDS and has now tested positive for COVID 19 currently on high flow/NRB. 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 ARDS, covid and heart failure. He remains signficantly hypoxic on high flow, an attempt to wean to NRB was unsucesful, ID and pulmonology recommends remdesevir and decadron. Wean O2 as emil Concern of heart failure, echo show EF 50 to 55%, being followed by cardiology and was treated with diuretics, presently no overt signs of heart failure, hold of further diuretics at this time. 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 HTN, controlled , continue Lisinopril Iron def anemia. unspecified No acute blood loss; receive 1 unit of packed red cells as well as iron transfusion H/H stable continue oral iron supplement CKD stage 3 Creatinine now back to baseline Insulin-dependent diabetes mellitus 2 episode of asymptomatic hypoglycemia 11/03 am Hba1c is 5.7 -Lantus stopped, continue SSI, follow POCs Moderate protein calorie malnutrition BMI 19.3 supplements added to diet Lovenox Full code HCP - brother Jeffy Ji - [phone] Requires ongoing hospitalization for IV antibiotics to treat bacteremia, probable pneumonia, CHF and ARDS/COVID now requiring high flow oxygen. needs close monitor of respiratory status as patient at high risk for decompensation. Quality Stroke Does the patient have a stroke diagnosis?: No VTE Prior VTE?: No VTE Risk Level:: Medical - moderate - high VTE Device Contraindication: Treatment Not Indicated VTE Drug Contraindication: N/A - Med Ordered
[2023-11-08 16:26] LABS: Glucose, Whole Blood 298 mg/dL (60-115)
[2023-11-08] MEDS: Remdesivir 100 MG in 0.9 % Sodium Chloride 230 ML 115 MG IV (17:22)
[2023-11-08] MEDS: Insulin Lispro 100 UNIT/ML 3 ML VIAL SUBCUT ×2 (17:22→19:51)
[2023-11-08 19:43] LABS: Glucose, Whole Blood 282 mg/dL (60-115)
[2023-11-08] MEDS: Enoxaparin Sodium 40 MG/0.4 ML SYRINGE SUBCUT (19:50)
[2023-11-08] MEDS: Acetaminophen 325 MG TABLET 650 MG PO (19:51)
[2023-11-09] VITALS (14 sets, daily range): BP systolic 117–187; BP diastolic 55–88; PULSE 80–112; RESP 17–24; TEMP 36.2–37; O2SAT 87–100; BMI 20.1
[2023-11-09] MEDS: ceFAZolin Sodium/Dextrose,Iso 2 GM/50 ML PIGGYBACK IV ×3 (01:55→16:17)
[2023-11-09] MEDS: oxyCODONE HCl Immed Release 5 MG TABLET 10 MG PO ×2 (02:07→08:06)
[2023-11-09] MEDS: metroNIDAZOLE 500 MG TABLET PO ×3 (02:07→16:17)
[2023-11-09 07:49] LABS: Glucose, Whole Blood 151 mg/dL (60-115)
[2023-11-09] MEDS: dexAMETHasone 6 MG TABLET PO (08:05)
[2023-11-09] MEDS: Ferrous Sulfate 324 MG TABLET.DR PO ×2 (08:05→16:17)
[2023-11-09] MEDS: lisinopriL 20 MG TABLET PO (08:05)
[2023-11-09] MEDS: Acetaminophen 325 MG TABLET 650 MG PO ×2 (08:05→16:17)
[2023-11-09] MEDS: Insulin Lispro 100 UNIT/ML 3 ML VIAL SUBCUT ×4 (08:05→20:40)
[2023-11-09] MEDS: 0.9 % Sodium Chloride Flush 3 ML SYRINGE IVFLUSH ×3 (08:06→20:35)
[2023-11-09 11:35] LABS: Hematocrit 29.7 % (42.0-52.0); Hemoglobin 9.7 g/dl (14.0-18.0); Mean Corpuscular HGB Conc 32.7 g/dl (31.0-36.0); Mean Corpuscular Hemoglobin 28.7 pg (27.0-33.0); Mean Corpuscular Volume 87.9 fL (80.0-98.0); Mean Platelet Volume 10.5 fL (9.4-12.4); Platelet Count 114 X10*3/uL (160-400); Red Blood Count 3.38 X10*6/uL (4.60-5.80); Red Cell Distribution Width 15.1 % (11.0-16.0); White Blood Count 14.6 X10*3/uL (4.8-10.8)
[2023-11-09 11:56] LABS: Anion Gap 13 (12-20); Blood Urea Nitrogen 53 mg/dL (9-16); Calcium 7.8 mg/dL (8.4-10.2); Carbon Dioxide 20 mmol/L (22-29); Chloride 105 mmol/L (96-108); Creatinine Clr Calc Pharmacy 47.4; Estimated Glomerular Filt Rate 55; Glucose Random 145 mg/dL (60-115); Potassium 3.8 mmol/L (3.3-5.1); Sodium 134 mmol/L (135-145)
--- NOTE | 2023-11-09 12:32 | HO.PM.IMPN ---
Subjective Subjective Date of Service: 11/09/23 Interval History: seen and examined this morning, f/u follow up for bacteremia, respiratory failure, covid and possible heart failure he remains hypoxic, not able to wean from high flow Physical Exam Vital Signs: Vital Signs: Last Vital Signs Temp 98.6 F 11/09/23 07:58 Pulse 112 H 11/09/23 07:58 Resp 24 H 11/09/23 12:18 BP 150/75 H 11/09/23 07:58 Pulse Ox 87 L 11/09/23 07:58 O2 Del Method High Flow Nasal C annula 11/09/23 07:58 O2 Flow Rate 50 11/09/23 07:58 FiO2 80 11/09/23 07:58 BMI result Body Mass Index 20.1 Objective Data Active Medications Acetaminophen (Acetaminophen 325 Mg Tablet) 650 mg PO Q6H PRN PRN Reason: Pain, Mild (Pain Scale 1-3) Last Admin: 11/09/23 08:05 Dose: 650 mg Documented By: LYNN Albuterol Sulfate (Albuterol Sulfate (0.083%) 2.5 Mg/3 Ml Vial.Neb) 2.5 mg INHALE Q4H PRN PRN Reason: Shortness of Breath/Wheezing Dexamethasone (Dexamethasone 6 Mg Tablet) 6 mg PO DAILY [facility] [place] Last Admin: 11/09/23 08:05 Dose: 6 mg Documented By: LYNN Dextrose (Dextrose 50 % 25 Gm/50 Ml Syringe) 25 gm IVPUSH Q15M PRN; Protocol PRN Reason: per Hypoglycemia Standing Ord. Last Admin: 10/31/23 10:26 Dose: 25 gm Documented By: SARABJIT Enoxaparin Sodium (Enoxaparin Sodium 40 Mg/0.4 Ml Syringe) 40 mg SUBCUT BEDTIME [facility] [place] Last Admin: 11/08/23 19:50 Dose: 40 mg Documented By: FANY Ferrous Sulfate (Ferrous Sulfate 324 Mg Tablet.) 324 mg PO BIDWM [facility] [place] Last Admin: 11/09/23 08:05 Dose: 324 mg Documented By: LYNN Glucose (Glucose Gel 15 Gm Gel..Gram.) 15 gm PO Q15M PRN; Protocol PRN Reason: per Hypoglycemia Standing Ord. Cefazolin Sodium/Dextrose (Ancef) 2 gm in 50 mls @ 100 mls/hr IV Q8H [facility] Last Infusion: 11/09/23 09:01 Dose: Infused Documented By: LYNN Remdesivir 100 mg/ Sodium (Chloride) 230 mls @ 115 mls/hr IV Q24H [facility] [place] Stop: 11/09/23 17:59 Last Infusion: 11/08/23 21:16 Dose: Infused Documented By: FANY Insulin Human Lispro (Insulin Lispro 100 Unit/Ml 3 Ml Vial) 0 unit SUBCUT QIDACHS [facility] [place]; Protocol Last Admin: 11/09/23 12:22 Dose: 2 unit Documented By: LYNN Lisinopril (Lisinopril 20 Mg Tablet) 20 mg PO DAILY [facility] [place]; Protocol Last Admin: 11/09/23 08:05 Dose: 20 mg Documented By: LYNN Melatonin (Melatonin 3 Mg Tablet) 6 mg PO BEDTIME PRN PRN Reason: Insomnia Last Admin: 11/08/23 00:48 Dose: 6 mg Documented By: FANY Metronidazole (Metronidazole 500 Mg Tablet) 500 mg PO Q8H [facility] [place] Last Admin: 11/09/23 08:06 Dose: 500 mg Documented By: LYNN Ondansetron HCl (Ondansetron Hcl 4 Mg/2 Ml Vial) 4 mg IVPUSH Q8H PRN PRN Reason: Nausea and Vomiting Last Admin: 11/07/23 03:53 Dose: 4 mg Documented By: LALITHA Oxycodone HCl (Oxycodone Hcl Immed Release 5 Mg Tablet) 10 mg PO Q4H PRN PRN Reason: Pain, Moderate(Pain Scale 4-6) Last Admin: 11/09/23 12:24 Dose: 10 mg Documented By: LYNN Sodium Chloride (0.9 % Sodium Chloride Flush 3 Ml Syringe) 3 ml IVFLUSH QSHIFT [facility] [place] Last Admin: 11/09/23 08:06 Dose: 3 ml Documented By: LYNN Labs 11/09/23 10:39 11/09/23 10:39 Labs: Laboratory Results - last 24 hr 11/08/23 11/08/23 11/09/23 16:19 19:38 07:44 MCV MCH MCHC RDW Plt Count MPV Absolute Nucleated RBC Nucleated RBC % (auto) Anion Gap Estim Creat Clear Calc Estimated GFR POC Glucose 298 H 282 H 151 H Random Glucose Calcium 11/09/23 11/09/23 10:39 12:11 MCV 87.9 MCH 28.7 MCHC 32.7 RDW 15.1 Plt Count 114 L MPV 10.5 Absolute Nucleated RBC 0.000 Nucleated RBC % (auto) 0.0 Anion Gap 13 Estim Creat Clear Calc 47.4 Estimated GFR 55 POC Glucose 156 H Random Glucose 145 H Calcium 7.8 L Assessment and Plan (1) COVID-19: Status: Acute (2) ARDS (adult respiratory distress syndrome): Status: Acute (3) Status post below knee amputation of right lower extremity: Status: Acute (4) Gangrene of foot: Status: Acute (5) Bacteremia: Status: Acute Plan This is a 63-year-old male with pertinent history of insulin-dependent diabetes mellitus, noncompliant with medications who presented to the emergency department for evaluation of right foot pain found to have gangrene and eventually required right BKA course complicated by respiratory distress, ARDS and has now tested positive for COVID 19 currently on high flow/NRB. [employer] early this am (11/06) for hypoxia/lethargy Acute hypoxic resp failure, multifactorial, ? ARDS, covid and heart failure. He remains signficantly hypoxic on high flow, but now off NRB, ID and pulmonology recommends remdesevir and decadron. Wean O2 as emil Concern of heart failure, echo show EF 50 to 55%, followed by cardiology and was treated with diuretics, presently no overt signs of heart failure, hold of further diuretics at this time. Sepsis due to right foot wet gangrene with purulent cellulitis and MSSA bacteremia s/p right BKA 11/02 2/2 blood cultures with MSSA - ID rec to continue kefzol, will need 4-6 weeks from first negative blood culture; metronidazole 10 day total per ID rec - repeat blood cultures negative to date - will need PICC line for senior care abx - surgery following, dressing changes per surgery rec for amputation wound -Oxycodone for pain Hypokalemia, resolved. HTN, controlled , continue Lisinopril Iron def anemia. unspecified No acute blood loss; receive 1 unit of packed red cells as well as iron transfusion H/H stable continue oral iron supplement CKD stage 3 Creatinine now back to baseline Insulin-dependent diabetes mellitus 2 episode of asymptomatic hypoglycemia 11/03 am Hba1c is 5.7 -Lantus stopped, continue SSI, follow POCs Moderate protein calorie malnutrition BMI 19.3 supplements added to diet Leukocytosis--likely from steroid Lovenox Full code HCP - brother Jeffy Ji - [phone] Requires ongoing hospitalization for IV antibiotics to treat bacteremia, probable pneumonia, CHF and ARDS/COVID now requiring high flow oxygen. needs close monitor of respiratory status as patient at high risk for decompensation. Quality Stroke Does the patient have a stroke diagnosis?: No VTE Prior VTE?: No VTE Risk Level:: Medical - moderate - high VTE Device Contraindication: Treatment Not Indicated VTE Drug Contraindication: N/A - Med Ordered
[2023-11-09] MEDS: Remdesivir 100 MG in 0.9 % Sodium Chloride 230 ML 115 MG IV (14:13)
[2023-11-09] MEDS: Melatonin 3 MG TABLET 6 MG PO (20:32)
[2023-11-09] MEDS: Enoxaparin Sodium 40 MG/0.4 ML SYRINGE SUBCUT (20:40)
[2023-11-10] VITALS (11 sets, daily range): BP systolic 143–179; BP diastolic 68–87; PULSE 82–132; RESP 16–100; TEMP 36.3–37.8; O2SAT 97–100; BMI 20.1
[2023-11-10] MEDS: ceFAZolin Sodium/Dextrose,Iso 2 GM/50 ML PIGGYBACK IV ×2 (00:46→09:33)
[2023-11-10] MEDS: metroNIDAZOLE 500 MG TABLET PO ×3 (02:06→16:09)
[2023-11-10] MEDS: dexAMETHasone 6 MG TABLET PO (09:24)
[2023-11-10] MEDS: lisinopriL 20 MG TABLET PO (09:24)
[2023-11-10] MEDS: Acetaminophen 325 MG TABLET 650 MG PO (09:24)
[2023-11-10] MEDS: 0.9 % Sodium Chloride Flush 3 ML SYRINGE IVFLUSH ×2 (09:34→14:43)
[2023-11-10 11:36] LABS: Adenovirus F 40/41 Not Detected (Not Detect.); Astrovirus Not Detected (Not Detect.); Campylobacter Not Detected (Not Detect.); Cryptosporidium Not Detected (Not Detect.); Cyclospora cayetanensis Not Detected (Not Detect.); E. coli EAEC Not Detected (Not Detect.); E. coli EPEC Not Detected (Not Detect.); E. coli ETEC Not Detected (Not Detect.); E. coli STEC Not Detected (Not Detect.); Entamoeba histolytica Not Detected (Not Detect.); Giardia lamblia Not Detected (Not Detect.); Norovirus GI/GII Not Detected (Not Detect.); Plesiomonas shigelloides Not Detected (Not Detect.); Rotavirus A Not Detected (Not Detect.); Salmonella Not Detected (Not Detect.); Sapovirus Not Detected (Not Detect.); Shigella sp./EIEC Not Detected (Not Detect.); Vibrio Not Detected (Not Detect.); Vibrio Cholerae Not Detected (Not Detect.); Yersinia enterocolitica Not Detected (Not Detect.)
[2023-11-10] MEDS: Insulin Lispro 100 UNIT/ML 3 ML VIAL SUBCUT ×3 (12:15→21:22)
--- NOTE | 2023-11-10 13:38 | HO.PM.IMPN ---
Subjective Subjective Date of Service: 11/10/23 Interval History: Patient remains hypoxic on high flow and nrb, cxr this morning show Diffuse airspace disease, slightly worse on the left when compared to prior. Findings could represent interstitial edema or diffuse multifocal pneumonic infiltrates. No fever Physical Exam Vital Signs: Vital Signs: Last Vital Signs Temp 97.8 F 11/10/23 12:00 Pulse 96 11/10/23 12:00 Resp 16 11/10/23 12:00 BP 163/74 H 11/10/23 12:00 Pulse Ox 100 11/10/23 12:00 O2 Del Method High Flow Nasal C annula, Non-Rebrea ther Mask 11/10/23 12:00 O2 Flow Rate 50 11/10/23 12:00 FiO2 96 11/10/23 12:00 BMI result Body Mass Index 20.1 Objective Data Active Medications Acetaminophen (Acetaminophen 325 Mg Tablet) 650 mg PO Q6H PRN PRN Reason: Pain, Mild (Pain Scale 1-3) Last Admin: 11/10/23 09:24 Dose: 650 mg Documented By: WILLIE Albuterol Sulfate (Albuterol Sulfate (0.083%) 2.5 Mg/3 Ml Vial.Neb) 2.5 mg INHALE Q4H PRN PRN Reason: Shortness of Breath/Wheezing Dexamethasone (Dexamethasone 6 Mg Tablet) 6 mg PO DAILY [facility] Last Admin: 11/10/23 09:24 Dose: 6 mg Documented By: WILLIE Dextrose (Dextrose 50 % 25 Gm/50 Ml Syringe) 25 gm IVPUSH Q15M PRN; Protocol PRN Reason: per Hypoglycemia Standing Ord. Last Admin: 10/31/23 10:26 Dose: 25 gm Documented By: SARABJIT Enoxaparin Sodium (Enoxaparin Sodium 40 Mg/0.4 Ml Syringe) 40 mg SUBCUT BEDTIME [facility] Last Admin: 11/09/23 20:40 Dose: 40 mg Documented By: LI Ferrous Sulfate (Ferrous Sulfate 324 Mg Tablet.) 324 mg PO BIDWM [facility] Last Admin: 11/10/23 09:34 Dose: Not Given Documented By: WILLIE Non-Admin Reason: Patient Refused Glucose (Glucose Gel 15 Gm Gel..Gram.) 15 gm PO Q15M PRN; Protocol PRN Reason: per Hypoglycemia Standing Ord. Cefazolin Sodium/Dextrose (Ancef) 2 gm in 50 mls @ 100 mls/hr IV Q8H [facility] Last Infusion: 11/10/23 11:23 Dose: Infused Documented By: LYNN Insulin Human Lispro (Insulin Lispro 100 Unit/Ml 3 Ml Vial) 0 unit SUBCUT QIDACHS [facility]; Protocol Last Admin: 11/10/23 12:15 Dose: 2 unit Documented By: LYNN Lisinopril (Lisinopril 20 Mg Tablet) 20 mg PO DAILY [facility]; Protocol Last Admin: 11/10/23 09:24 Dose: 20 mg Documented By: WILLIE Melatonin (Melatonin 3 Mg Tablet) 6 mg PO BEDTIME PRN PRN Reason: Insomnia Last Admin: 11/09/23 20:32 Dose: 6 mg Documented By: LI Metronidazole (Metronidazole 500 Mg Tablet) 500 mg PO Q8H [facility] Last Admin: 11/10/23 09:42 Dose: 500 mg Documented By: WILLIE Nystatin (Nystatin Oral Susp 500,000 Unit/5 Ml Oral.Susp) 500,000 unit PO QID [facility]; Protocol Ondansetron HCl (Ondansetron Hcl 4 Mg/2 Ml Vial) 4 mg IVPUSH Q8H PRN PRN Reason: Nausea and Vomiting Last Admin: 11/07/23 03:53 Dose: 4 mg Documented By: LALITHA Oxycodone HCl (Oxycodone Hcl Immed Release 5 Mg Tablet) 10 mg PO Q4H PRN PRN Reason: Pain, Moderate(Pain Scale 4-6) Last Admin: 11/10/23 12:14 Dose: 10 mg Documented By: LYNN Sodium Chloride (0.9 % Sodium Chloride Flush 3 Ml Syringe) 3 ml IVFLUSH QSHIFT [facility] Last Admin: 11/10/23 09:34 Dose: 3 ml Documented By: WILLIE Labs 11/09/23 10:39 11/09/23 10:39 Labs: Laboratory Results - last 24 hr 11/07/23 11/09/23 11/09/23 10:05 16:08 19:29 O2 Saturation ABG pH at Pt Temp ABG pCO2 at Pt Temp ABG pO2 at Pt Temp ABG HCO3 ABG Base Excess (Actual) POC Glucose 217 H 223 H Stl C. cayetanensis PCR Not Detected Stool Rotavirus A PCR Not Detected Stl Adenov F 40/41 PCR Not Detected Stool Astrovirus (PCR) Not Detected Stool Campylobacter PCR Not Detected Stool Cryptosporidium PCR Not Detected Stl Sh Tox Pr E STEC PCR Not Detected Stool E coli O157 PCR Not applicable Stl Enterotoxigenic E PCR Not Detected Stool EPEC (PCR) Not Detected Stool EAEC (PCR) Not Detected Stl E. histolytica PCR Not Detected Stool Giardia Lamblia PCR Not Detected Stl P. shigelloides PCR Not Detected Stool Salmonella PCR Not Detected Stool Sapovirus (PCR) Not Detected Stl Shigella/EIEC PCR Not Detected St Y.enterocolitica PCR Not Detected Stool Vibrio (PCR) Not Detected Stl Vibrio cholerae PCR Not Detected Stl Norovirus GI/GII PCR Not Detected 11/10/23 11/10/23 11/10/23 07:44 10:39 12:03 O2 Saturation 97.0 ABG pH at Pt Temp 7.52 H ABG pCO2 at Pt Temp 26 L ABG pO2 at Pt Temp 89 ABG HCO3 21 L ABG Base Excess (Actual) 0.0 POC Glucose 106 168 H Stl C. cayetanensis PCR Stool Rotavirus A PCR Stl Adenov F 40/41 PCR Stool Astrovirus (PCR) Stool Campylobacter PCR Stool Cryptosporidium PCR Stl Sh Tox Pr E STEC PCR Stool E coli O157 PCR Stl Enterotoxigenic E PCR Stool EPEC (PCR) Stool EAEC (PCR) Stl E. histolytica PCR Stool Giardia Lamblia PCR Stl P. shigelloides PCR Stool Salmonella PCR Stool Sapovirus (PCR) Stl Shigella/EIEC PCR St Y.enterocolitica PCR Stool Vibrio (PCR) Stl Vibrio cholerae PCR Stl Norovirus GI/GII PCR Assessment and Plan (1) COVID-19: Status: Acute (2) ARDS (adult respiratory distress syndrome): Status: Acute (3) Status post below knee amputation of right lower extremity: Status: Acute (4) Gangrene of foot: Status: Acute (5) Bacteremia: Status: Acute Plan This is a 63-year-old male with pertinent history of insulin-dependent diabetes mellitus, noncompliant with medications who presented to the emergency department for evaluation of right foot pain found to have gangrene and eventually required right BKA course complicated by respiratory distress, ARDS and has now tested positive for COVID 19 currently on high flow/NRB. [employer] early this am (11/06) for hypoxia/lethargy Acute hypoxic resp failure, multifactorial, ? ARDS, covid and heart failure. He remains signficantly hypoxic on high flow, and NRB. To complete Decadron for 10 days, has completed remdesevir. F/u pulmonology eval requested. CXR today finding as noted above Concern of heart failure, echo show EF 50 to 55%, Xray finding could be related to heart failure, give IV diuretics and continue to follow up, may need cardiology follow up again Sepsis due to right foot wet gangrene with purulent cellulitis and MSSA bacteremia s/p right BKA 11/02 2/2 blood cultures with MSSA - ID rec to continue kefzol, will need 4-6 weeks from first negative blood culture; metronidazole 10 day total per ID rec - repeat blood cultures negative to date - will need PICC line for correction abx - Surgery to f/u and change dressing as needed -Oxycodone for pain Hypokalemia, resolved. HTN, controlled , continue Lisinopril Iron def anemia. unspecified No acute blood loss; receive 1 unit of packed red cells as well as iron transfusion H/H stable continue oral iron supplement CKD stage 3 Creatinine now back to baseline Insulin-dependent diabetes mellitus 2 episode of asymptomatic hypoglycemia 11/03 am Hba1c is 5.7 -Lantus stopped, continue SSI, follow POCs Moderate protein calorie malnutrition BMI 19.3 supplements added to diet Leukocytosis--likely from steroid Oral thrush--Nystatin swish and swallow Lovenox Full code HCP - brother Jeffy Ji - [phone] Requires ongoing hospitalization for IV antibiotics to treat bacteremia, probable pneumonia, CHF and ARDS/COVID now requiring high flow oxygen. needs close monitor of respiratory status as patient at high risk for decompensation. Quality Stroke Does the patient have a stroke diagnosis?: No VTE Prior VTE?: No VTE Risk Level:: Medical - moderate - high VTE Device Contraindication: Treatment Not Indicated VTE Drug Contraindication: N/A - Med Ordered
--- NOTE | 2023-11-10 13:54 | PM.PNPUL ---
Subjective Subjective Date of Service: 11/10/23 Interval history: 63-year-old gentleman now with acute hypoxic respiratory failure secondary to combination of COVID-19, post COVID MSSA pneumonia, and pulmonary edema, with plateaued improvement. Objective Data Labs 11/09/23 10:39 11/09/23 10:39 Labs: Laboratory Results - last 24 hr 11/07/23 11/09/23 11/09/23 10:05 16:08 19:29 O2 Saturation ABG pH at Pt Temp ABG pCO2 at Pt Temp ABG pO2 at Pt Temp ABG HCO3 ABG Base Excess (Actual) POC Glucose 217 H 223 H Stl C. cayetanensis PCR Not Detected Stool Rotavirus A PCR Not Detected Stl Adenov F 40/41 PCR Not Detected Stool Astrovirus (PCR) Not Detected Stool Campylobacter PCR Not Detected Stool Cryptosporidium PCR Not Detected Stl Sh Tox Pr E STEC PCR Not Detected Stool E coli O157 PCR Not applicable Stl Enterotoxigenic E PCR Not Detected Stool EPEC (PCR) Not Detected Stool EAEC (PCR) Not Detected Stl E. histolytica PCR Not Detected Stool Giardia Lamblia PCR Not Detected Stl P. shigelloides PCR Not Detected Stool Salmonella PCR Not Detected Stool Sapovirus (PCR) Not Detected Stl Shigella/EIEC PCR Not Detected St Y.enterocolitica PCR Not Detected Stool Vibrio (PCR) Not Detected Stl Vibrio cholerae PCR Not Detected Stl Norovirus GI/GII PCR Not Detected 11/10/23 11/10/23 11/10/23 07:44 10:39 12:03 O2 Saturation 97.0 ABG pH at Pt Temp 7.52 H ABG pCO2 at Pt Temp 26 L ABG pO2 at Pt Temp 89 ABG HCO3 21 L ABG Base Excess (Actual) 0.0 POC Glucose 106 168 H Stl C. cayetanensis PCR Stool Rotavirus A PCR Stl Adenov F 40/41 PCR Stool Astrovirus (PCR) Stool Campylobacter PCR Stool Cryptosporidium PCR Stl Sh Tox Pr E STEC PCR Stool E coli O157 PCR Stl Enterotoxigenic E PCR Stool EPEC (PCR) Stool EAEC (PCR) Stl E. histolytica PCR Stool Giardia Lamblia PCR Stl P. shigelloides PCR Stool Salmonella PCR Stool Sapovirus (PCR) Stl Shigella/EIEC PCR St Y.enterocolitica PCR Stool Vibrio (PCR) Stl Vibrio cholerae PCR Stl Norovirus GI/GII PCR Microbiology Microbiology Results: Microbiology 11/02/23 14:00 Blood - Venous Blood Culture - Final No growth after 5 days. 11/02/23 14:00 Blood - Venous Blood Culture - Final No growth after 5 days. 10/28/23 22:40 Blood - Venous Blood Culture - Final Staphylococcus aureus 10/28/23 22:40 Blood - Venous Blood Culture - Final Staphylococcus aureus Physical Exam Vital Signs: Vital Signs: Last Vital Signs Temp 97.8 F 11/10/23 12:00 Pulse 96 11/10/23 12:00 Resp 16 11/10/23 12:00 BP 163/74 H 11/10/23 12:00 Pulse Ox 100 11/10/23 12:00 O2 Del Method High Flow Nasal C annula, Non-Rebrea ther Mask 11/10/23 12:00 O2 Flow Rate 50 11/10/23 12:00 FiO2 96 11/10/23 12:00 BMI result Body Mass Index 20.1 Const: General: no acute distress, alert and awake Eyes: Sclerae: sclerae normal EOM: EOMs intact bilaterally Neck: Neck: Yes no lymphadenopathy, Yes trachea midline and Yes supple Resp: Effort & Inspection: normal respiratory effort and no respiratory distress Auscultation: crackles (Diffuse bilateral) Cardio: Rate: regular rate Rhythm: regular rhythm Heart sounds: no gallops, no murmurs and no rubs GI: Palpation (GI): Soft to palpation and Other GI palpation findings present ( Nontender) Auscultation: normal bowel sounds Extrem: General: No clubbing, No cyanosis, Yes edema and Yes other (Right BKA) Procedures Date of Service Date of Service: 11/10/23 Assessment and Plan Assessment and plan (1) COVID-19: Status: Acute (2) Acute hypoxemic respiratory failure: Status: Acute (3) Pulmonary edema: Status: Acute Plan Impression: 63-year-old gentleman now with acute hypoxic respiratory failure secondary to combination of post COVID-19 MSSA pneumonia and pulmonary edema. Recommendations: Agree with cephalosporin for coverage of MSSA, will add diuretic for pulmonary edema component. Time Spent With Patient Time: Total time managing care of this patient today ____ minutes. Progress Note: Quality Stroke Does the patient have a stroke diagnosis?: No
[2023-11-10] MEDS: Ferrous Sulfate 324 MG TABLET.DR PO (16:09)
[2023-11-10] MEDS: Enoxaparin Sodium 40 MG/0.4 ML SYRINGE SUBCUT (21:23)
[2023-11-11] VITALS (15 sets, daily range): BP systolic 115–170; BP diastolic 66–85; PULSE 81–119; RESP 18–35; TEMP 36.3–36.8; O2SAT 88–106
[2023-11-11] MEDS: 0.9 % Sodium Chloride Flush 3 ML SYRINGE IVFLUSH ×3 (00:01→17:15)
[2023-11-11] MEDS: dexAMETHasone 6 MG TABLET PO (08:35)
[2023-11-11] MEDS: Ferrous Sulfate 324 MG TABLET.DR PO (08:35)
[2023-11-11] MEDS: lisinopriL 20 MG TABLET PO (08:35)
--- NOTE | 2023-11-11 08:57 | MHC.CM.PN ---
EMR REVIEWED, PT W/R BKA AND COVID19 W/WORSENING CXR, ON HI FLOW O2, PULMONOLOGY CONSULT COMPLETED, NO PLAN FOR DC AT THIS TIME AND CM STILL TRYING TO SECURE A STR BED, CM WILL CONT TO FOLLOW DC NEEDS.
--- NOTE | 2023-11-11 11:04 | PM.PNGS ---
Subjective Subjective Date of Service: 11/11/23 Interval history: With shortness of breath Has COVID-19, ARDS Physical Exam Vital Signs: Vital Signs: Last Vital Signs Temp 98.2 F 11/11/23 08:00 Pulse 105 H 11/11/23 08:00 Resp 20 11/11/23 08:04 BP 170/80 H 11/11/23 08:00 Pulse Ox 97 11/11/23 08:00 O2 Del Method High Flow Nasal C annula 11/11/23 08:00 O2 Flow Rate 50 11/11/23 08:00 FiO2 80 11/11/23 08:00 BMI result Body Mass Index 20.1 Const: Other: Short of breath Resp: Other: Significantly short of breath Extrem: Other: BKA site is well healed, not infected, flaps viable, no infection Objective Data Active Medications Acetaminophen (Acetaminophen 325 Mg Tablet) 650 mg PO Q6H PRN PRN Reason: Pain, Mild (Pain Scale 1-3) Last Admin: 11/10/23 16:09 Dose: 650 mg Documented By: LYNN Albuterol Sulfate (Albuterol Sulfate (0.083%) 2.5 Mg/3 Ml Vial.Neb) 2.5 mg INHALE Q4H PRN PRN Reason: Shortness of Breath/Wheezing Dexamethasone (Dexamethasone 6 Mg Tablet) 6 mg PO DAILY [facility] Last Admin: 11/11/23 08:35 Dose: 6 mg Documented By: SONIA Dextrose (Dextrose 50 % 25 Gm/50 Ml Syringe) 25 gm IVPUSH Q15M PRN; Protocol PRN Reason: per Hypoglycemia Standing Ord. Last Admin: 10/31/23 10:26 Dose: 25 gm Documented By: SARABJIT Enoxaparin Sodium (Enoxaparin Sodium 40 Mg/0.4 Ml Syringe) 40 mg SUBCUT BEDTIME [facility] Last Admin: 11/10/23 21:23 Dose: 40 mg Documented By: SONIA Ferrous Sulfate (Ferrous Sulfate 324 Mg Tablet.) 324 mg PO BIDWM [facility] Last Admin: 11/11/23 08:35 Dose: 324 mg Documented By: SONIA Furosemide (Furosemide 40 Mg/4 Ml Vial) 40 mg IVPUSH DAILY [facility]; Protocol Last Admin: 11/11/23 10:34 Dose: 40 mg Documented By: SONIA Glucose (Glucose Gel 15 Gm Gel..Gram.) 15 gm PO Q15M PRN; Protocol PRN Reason: per Hypoglycemia Standing Ord. Cefazolin Sodium/Dextrose (Ancef) 2 gm in 50 mls @ 100 mls/hr IV Q8H [facility] Last Admin: 11/11/23 08:35 Dose: 100 mls/hr Documented By: SONIA Insulin Human Lispro (Insulin Lispro 100 Unit/Ml 3 Ml Vial) 0 unit SUBCUT QIDACHS [facility]; Protocol Last Admin: 11/11/23 08:36 Dose: Not Given Documented By: SONIA Non-Admin Reason: No Insulin Coverage Lisinopril (Lisinopril 20 Mg Tablet) 20 mg PO DAILY [facility]; Protocol Last Admin: 11/11/23 08:35 Dose: 20 mg Documented By: SONIA Melatonin (Melatonin 3 Mg Tablet) 6 mg PO BEDTIME PRN PRN Reason: Insomnia Last Admin: 11/09/23 20:32 Dose: 6 mg Documented By: LI Metronidazole (Metronidazole 500 Mg Tablet) 500 mg PO Q8H [facility] Last Admin: 11/11/23 10:34 Dose: 500 mg Documented By: SONIA Nystatin (Nystatin Oral Susp 500,000 Unit/5 Ml Oral.Susp) 500,000 unit PO QID [facility]; Protocol Last Admin: 11/11/23 08:35 Dose: 500,000 unit Documented By: SONIA Ondansetron HCl (Ondansetron Hcl 4 Mg/2 Ml Vial) 4 mg IVPUSH Q8H PRN PRN Reason: Nausea and Vomiting Last Admin: 11/07/23 03:53 Dose: 4 mg Documented By: LALITHA Oxycodone HCl (Oxycodone Hcl Immed Release 5 Mg Tablet) 10 mg PO Q4H PRN PRN Reason: Pain, Moderate(Pain Scale 4-6) Last Admin: 11/11/23 10:33 Dose: 10 mg Documented By: SONIA Sodium Chloride (0.9 % Sodium Chloride Flush 3 Ml Syringe) 3 ml IVFLUSH QSHIFT [facility] Last Admin: 11/11/23 08:49 Dose: 3 ml Documented By: SONIA Labs 11/09/23 10:39 11/09/23 10:39 Labs: Laboratory Results - last 24 hr 11/07/23 11/10/23 11/10/23 10:05 12:03 16:10 POC Glucose 168 H Stl C. cayetanensis PCR Not Detected Stool Rotavirus A PCR Not Detected Stl Adenov F 40/41 PCR Not Detected Stool Astrovirus (PCR) Not Detected Stool Campylobacter PCR Not Detected Stool Cryptosporidium PCR Not Detected Stl Sh Tox Pr E STEC PCR Not Detected Stool E coli O157 PCR Not applicable Stl Enterotoxigenic E PCR Not Detected Stool EPEC (PCR) Not Detected Stool EAEC (PCR) Not Detected Stl E. histolytica PCR Not Detected Stool Giardia Lamblia PCR Not Detected Stl P. shigelloides PCR Not Detected Stool Salmonella PCR Not Detected Stool Sapovirus (PCR) Not Detected Stl Shigella/EIEC PCR Not Detected St Y.enterocolitica PCR Not Detected Stool Vibrio (PCR) Not Detected Stl Vibrio cholerae PCR Not Detected Stl Norovirus GI/GII PCR Not Detected C. difficile Tox B Gene NEGATIVE 11/10/23 11/10/23 11/11/23 16:26 20:30 08:02 POC Glucose 240 H 221 H 101 Stl C. cayetanensis PCR Stool Rotavirus A PCR Stl Adenov F 40/41 PCR Stool Astrovirus (PCR) Stool Campylobacter PCR Stool Cryptosporidium PCR Stl Sh Tox Pr E STEC PCR Stool E coli O157 PCR Stl Enterotoxigenic E PCR Stool EPEC (PCR) Stool EAEC (PCR) Stl E. histolytica PCR Stool Giardia Lamblia PCR Stl P. shigelloides PCR Stool Salmonella PCR Stool Sapovirus (PCR) Stl Shigella/EIEC PCR St Y.enterocolitica PCR Stool Vibrio (PCR) Stl Vibrio cholerae PCR Stl Norovirus GI/GII PCR C. difficile Tox B Gene Procedures Date of Service Date of Service: 11/11/23 Progress Note: A&P Assessment and plan (1) Gangrene of foot: Status: Acute Assessment and Plan: Status post BKA Incision healing well Sutures in place I rewrapped the stump with an Dejan bandage Plan to remove sutures next week Time Spent With Patient Time: Total time managing care of this patient today ____ minutes. Quality Stroke Does the patient have a stroke diagnosis?: No VTE Prior VTE?: No VTE Risk Level:: Medical - moderate - high VTE Device Contraindication: Treatment Not Indicated VTE Drug Contraindication: N/A - Med Ordered
--- NOTE | 2023-11-11 11:53 | HO.PM.IMPN ---
Subjective Subjective Date of Service: 11/11/23 Interval History: Unfortunately, he remains hypoxic on high flow and NRB, but maintaining oxygen saturation near 100 % has some pain in the ampuated limb. Diffiult to track I/O d/t to voiding in bed and refusing [place]qu[place] Physical Exam Vital Signs: Vital Signs: Last Vital Signs Temp 98.2 F 11/11/23 08:00 Pulse 105 H 11/11/23 08:00 Resp 20 11/11/23 11:31 BP 170/80 H 11/11/23 08:00 Pulse Ox 97 11/11/23 08:00 O2 Del Method High Flow Nasal C annula 11/11/23 08:00 O2 Flow Rate 50 11/11/23 08:00 FiO2 80 11/11/23 08:00 BMI result Body Mass Index 20.1 Const: Other: Short of breath, looks very ill cachectic Resp: Other: Significantly short of breath on high flow and NRB Skin: Other: no rash Extrem: Other: BKA site is well healed, not infected, flaps viable, no infection leg edema Objective Data Active Medications Acetaminophen (Acetaminophen 325 Mg Tablet) 650 mg PO Q6H PRN PRN Reason: Pain, Mild (Pain Scale 1-3) Last Admin: 11/10/23 16:09 Dose: 650 mg Documented By: LYNN Albuterol Sulfate (Albuterol Sulfate (0.083%) 2.5 Mg/3 Ml Vial.Neb) 2.5 mg INHALE Q4H PRN PRN Reason: Shortness of Breath/Wheezing Dexamethasone (Dexamethasone 6 Mg Tablet) 6 mg PO DAILY [facility] Last Admin: 11/11/23 08:35 Dose: 6 mg Documented By: SONIA Dextrose (Dextrose 50 % 25 Gm/50 Ml Syringe) 25 gm IVPUSH Q15M PRN; Protocol PRN Reason: per Hypoglycemia Standing Ord. Last Admin: 10/31/23 10:26 Dose: 25 gm Documented By: SARABJIT Enoxaparin Sodium (Enoxaparin Sodium 40 Mg/0.4 Ml Syringe) 40 mg SUBCUT BEDTIME [facility] Last Admin: 11/10/23 21:23 Dose: 40 mg Documented By: SONIA Ferrous Sulfate (Ferrous Sulfate 324 Mg Tablet.) 324 mg PO BIDWM [facility] Last Admin: 11/11/23 08:35 Dose: 324 mg Documented By: SONIA Furosemide (Furosemide 40 Mg/4 Ml Vial) 40 mg IVPUSH DAILY [facility]; Protocol Last Admin: 11/11/23 10:34 Dose: 40 mg Documented By: SONIA Glucose (Glucose Gel 15 Gm Gel..Gram.) 15 gm PO Q15M PRN; Protocol PRN Reason: per Hypoglycemia Standing Ord. Cefazolin Sodium/Dextrose (Ancef) 2 gm in 50 mls @ 100 mls/hr IV Q8H [facility] Last Infusion: 11/11/23 11:06 Dose: Infused Documented By: SONIA Insulin Human Lispro (Insulin Lispro 100 Unit/Ml 3 Ml Vial) 0 unit SUBCUT QIDACHS [facility]; Protocol Last Admin: 11/11/23 08:36 Dose: Not Given Documented By: SONIA Non-Admin Reason: No Insulin Coverage Lisinopril (Lisinopril 20 Mg Tablet) 20 mg PO DAILY [facility]; Protocol Last Admin: 11/11/23 08:35 Dose: 20 mg Documented By: SONIA Melatonin (Melatonin 3 Mg Tablet) 6 mg PO BEDTIME PRN PRN Reason: Insomnia Last Admin: 11/09/23 20:32 Dose: 6 mg Documented By: LI Metronidazole (Metronidazole 500 Mg Tablet) 500 mg PO Q8H [facility] Last Admin: 11/11/23 10:34 Dose: 500 mg Documented By: SONIA Nystatin (Nystatin Oral Susp 500,000 Unit/5 Ml Oral.Susp) 500,000 unit PO QID [facility]; Protocol Last Admin: 11/11/23 08:35 Dose: 500,000 unit Documented By: SONIA Ondansetron HCl (Ondansetron Hcl 4 Mg/2 Ml Vial) 4 mg IVPUSH Q8H PRN PRN Reason: Nausea and Vomiting Last Admin: 11/07/23 03:53 Dose: 4 mg Documented By: LALITHA Oxycodone HCl (Oxycodone Hcl Immed Release 5 Mg Tablet) 10 mg PO Q4H PRN PRN Reason: Pain, Moderate(Pain Scale 4-6) Last Admin: 11/11/23 10:33 Dose: 10 mg Documented By: SONIA Sodium Chloride (0.9 % Sodium Chloride Flush 3 Ml Syringe) [facility] Last Admin: 11/11/23 08:49 Dose: 3 ml Documented By: SONIA Labs 11/09/23 10:39 11/09/23 10:39 Labs: Laboratory Results - last 24 hr 11/07/23 11/10/23 11/10/23 10:05 12:03 16:10 Hold Purple Top POC Glucose 168 H Stl C. cayetanensis PCR Not Detected Stool Rotavirus A PCR Not Detected Stl Adenov F 40/41 PCR Not Detected Stool Astrovirus (PCR) Not Detected Stool Campylobacter PCR Not Detected Stool Cryptosporidium PCR Not Detected Stl Sh Tox Pr E STEC PCR Not Detected Stool E coli O157 PCR Not applicable Stl Enterotoxigenic E PCR Not Detected Stool EPEC (PCR) Not Detected Stool EAEC (PCR) Not Detected Stl E. histolytica PCR Not Detected Stool Giardia Lamblia PCR Not Detected Stl P. shigelloides PCR Not Detected Stool Salmonella PCR Not Detected Stool Sapovirus (PCR) Not Detected Stl Shigella/EIEC PCR Not Detected St Y.enterocolitica PCR Not Detected Stool Vibrio (PCR) Not Detected Stl Vibrio cholerae PCR Not Detected Stl Norovirus GI/GII PCR Not Detected C. difficile Tox B Gene NEGATIVE 11/10/23 11/10/23 11/11/23 16:26 20:30 08:02 Hold Purple Top POC Glucose 240 H 221 H 101 Stl C. cayetanensis PCR Stool Rotavirus A PCR Stl Adenov F 40/41 PCR Stool Astrovirus (PCR) Stool Campylobacter PCR Stool Cryptosporidium PCR Stl Sh Tox Pr E STEC PCR Stool E coli O157 PCR Stl Enterotoxigenic E PCR Stool EPEC (PCR) Stool EAEC (PCR) Stl E. histolytica PCR Stool Giardia Lamblia PCR Stl P. shigelloides PCR Stool Salmonella PCR Stool Sapovirus (PCR) Stl Shigella/EIEC PCR St Y.enterocolitica PCR Stool Vibrio (PCR) Stl Vibrio cholerae PCR Stl Norovirus GI/GII PCR C. difficile Tox B Gene 11/11/23 11/11/23 11:31 11:43 Hold Purple Top SEE NOTE POC Glucose 158 H Stl C. cayetanensis PCR Stool Rotavirus A PCR Stl Adenov F 40/41 PCR Stool Astrovirus (PCR) Stool Campylobacter PCR Stool Cryptosporidium PCR Stl Sh Tox Pr E STEC PCR Stool E coli O157 PCR Stl Enterotoxigenic E PCR Stool EPEC (PCR) Stool EAEC (PCR) Stl E. histolytica PCR Stool Giardia Lamblia PCR Stl P. shigelloides PCR Stool Salmonella PCR Stool Sapovirus (PCR) Stl Shigella/EIEC PCR St Y.enterocolitica PCR Stool Vibrio (PCR) Stl Vibrio cholerae PCR Stl Norovirus GI/GII PCR C. difficile Tox B Gene Assessment and Plan (1) COVID-19: Status: Acute (2) ARDS (adult respiratory distress syndrome): Status: Acute (3) Status post below knee amputation of right lower extremity: Status: Acute (4) Gangrene of foot: Status: Acute (5) Bacteremia: Status: Acute Plan This is a 63-year-old male with pertinent history of insulin-dependent diabetes mellitus, noncompliant with medications who presented to the emergency department for evaluation of right foot pain found to have gangrene and eventually required right BKA course complicated by respiratory distress, ARDS and has now tested positive for COVID 19 currently on high flow/NRB. 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 -He remains dependent on hiflo and nrb -To complete Decadron for 10 days, - has completed remdesevir. -pulmonology rec diuresis -weaning trial daily Concern of heart failure, echo show EF 50 to 55%, Xray finding could be related to heart failure, give IV diuretics and continue to follow up, may need cardiology follow up again Sepsis due to right foot wet gangrene with purulent cellulitis and MSSA bacteremia s/p right BKA 11/02 2/2 blood cultures with MSSA - ID rec to continue kefzol, will need 4-6 weeks from first negative blood culture; metronidazole 10 day total per ID rec - repeat blood cultures negative to date - will need PICC line for roasterman abx - Wound looks good per surgery, dressing changes with dry dressing -Oxycodone for pain Hypokalemia, resolved. HTN, controlled , continue Lisinopril Iron def anemia. unspecified No acute blood loss; receive 1 unit of packed red cells as well as iron transfusion H/H stable continue oral iron supplement CKD stage 3, BRENDA resolved. Insulin-dependent diabetes mellitus 2 episode of asymptomatic hypoglycemia 11/03 am Hba1c is 5.7 -Lantus stopped, continue SSI, follow POCs Moderate protein calorie malnutrition BMI 19.3 supplements added to diet Leukocytosis--likely from steroid Oral thrush--Nystatin swish and swallow Lovenox Full code HCP - brother Jeffy Ji - [phone] Requires ongoing hospitalization for IV antibiotics to treat bacteremia, probable pneumonia, CHF and ARDS/COVID now requiring high flow oxygen. needs close monitor of respiratory status as patient at high risk for decompensation. Quality Stroke Does the patient have a stroke diagnosis?: No VTE Prior VTE?: No VTE Risk Level:: Medical - moderate - high VTE Device Contraindication: Treatment Not Indicated VTE Drug Contraindication: N/A - Med Ordered
[2023-11-11] MEDS: Insulin Lispro 100 UNIT/ML 3 ML VIAL SUBCUT ×3 (12:15→20:55)
[2023-11-11] MEDS: Enoxaparin Sodium 40 MG/0.4 ML SYRINGE SUBCUT (20:54)
--- NOTE | 2023-11-11 23:41 | PC.NURSE ---
Addendum entered by Adiel Ramirez RN 11/11/23 23:53: Around 2300, ABG resulted. Respiratory therapist and MD aware. No further interventions ordered as of present. Continue plan of care. Patient's call yang within reach. Addendum entered by Adiel Ramirez RN 11/11/23 23:48: Around 2230, patient appears confused. A+Ox3, vague on situation. Reports he is here because he is sick. No longer moaning in pain. Facial features remain symmetrical. PERRLA. still with equal hand grasp strength bilaterally. O2 stable 95% or greater. MD notified. ABG ordered. Plan of care continues. call yang in patient hand Original Note: Around 2100. Pt in 10/10 pain. Expresses through moaning, facial expression, slightly increased BP compared to previous 143 systolic. Tachypenic at 36 bpm. Pt has slightly delayed responses to questions. Pt appears preoccupied with current pain level. Remains A+Ox4. Equal facial features. equal hand grasp strength. PERRLA. notified. One time dose PO morphine given. Call yang in pt hand. Plan of care continues.
[2023-11-12] VITALS (13 sets, daily range): BP systolic 126–155; BP diastolic 66–80; PULSE 84–108; RESP 18–22; TEMP 36.3–37.1; O2SAT 90–98; BMI 18.5
--- NOTE | 2023-11-12 | ECG_ITS ---
Test Reason : PALPITATIONS Blood Pressure : / mmHG Vent. Rate : 104 BPM Atrial Rate : 104 BPM P-R Int : 124 ms QRS Dur : 070 ms QT Int : 346 ms P-R-T Axes : 031 018 102 degrees QTc Int : 454 ms Sinus tachycardia Nonspecific T wave abnormality Abnormal ECG When compared with ECG of 10-NOV-2023 11:37, No significant change was found Referred By: Daniel Campuzano Electronically Signed By:GUS NEGRON MD
[2023-11-12] MEDS: dexAMETHasone 6 MG TABLET PO (09:39)
[2023-11-12] MEDS: lisinopriL 20 MG TABLET PO (09:39)
[2023-11-12] MEDS: 0.9 % Sodium Chloride Flush 3 ML SYRINGE IVFLUSH (09:41)
[2023-11-12 11:20] LABS: Basophils Percent Auto 0.1 % (0-2); Eosinophils Percent Auto 0.3 % (0-4); Hematocrit 26.5 % (42.0-52.0); Hemoglobin 8.9 g/dl (14.0-18.0); Imm Gran Abs Auto 0.17 X10*3/uL (0.00-0.03); Imm Gran Pct Auto 1.2 % (0.0-0.4); Lymphocytes Absolute Auto 0.3 X10*3/uL (1.2-4.9); Lymphocytes Percent Auto 2.4 % (20-40); MANUAL DIFF FLAG SCAN; Mean Corpuscular HGB Conc 33.6 g/dl (31.0-36.0); Mean Corpuscular Hemoglobin 29.2 pg (27.0-33.0); Mean Corpuscular Volume 86.9 fL (80.0-98.0); Mean Platelet Volume 10.7 fL (9.4-12.4); Monocytes Absolute Auto 0.2 X10*3/uL (0.1-1.2); Monocytes Percent Auto 1.4 % (2-11); Neutrophils Absolute Auto 13.3 x10*3/uL (2.0-8.3); Neutrophils Percent Auto 94.6 % (45-73); Red Blood Count 3.05 X10*6/uL (4.60-5.80); Red Cell Distribution Width 15.6 % (11.0-16.0); SCAN SMEAR FLAG 1; White Blood Count 14.1 X10*3/uL (4.8-10.8)
--- NOTE | 2023-11-12 11:24 | HO.PM.IMPN ---
Subjective Subjective Date of Service: 11/12/23 Interval History: Persistent hypoxica on high flow. cxr show persistent diffuse airspace disease saturating 98 on hi flow Physical Exam Vital Signs: Vital Signs: Last Vital Signs Temp 97.6 F 11/12/23 07:50 Pulse 104 H 11/12/23 07:50 Resp 18 11/12/23 09:41 BP 155/80 H 11/12/23 07:50 Pulse Ox 98 11/12/23 07:50 O2 Del Method High Flow Nasal C annula 11/12/23 07:50 O2 Flow Rate 50 11/12/23 07:50 FiO2 80 11/12/23 07:50 BMI result Body Mass Index 18.5 Const: Other: Short of breath, looks very ill cachectic Resp: Other: Significantly short of breath on high flow and NRB Skin: Other: no rash Extrem: Other: BKA site is well healed, not infected, flaps viable, no infection leg edema Objective Data Active Medications Acetaminophen (Acetaminophen 325 Mg Tablet) 650 mg PO Q6H PRN PRN Reason: Pain, Mild (Pain Scale 1-3) Last Admin: 11/12/23 01:31 Dose: 650 mg Documented By: FANY Albuterol Sulfate (Albuterol Sulfate (0.083%) 2.5 Mg/3 Ml Vial.Nella) 2.5 mg INHALE Q4H PRN PRN Reason: Shortness of Breath/Wheezing Dexamethasone (Dexamethasone 6 Mg Tablet) 6 mg PO DAILY [facility] Last Admin: 11/12/23 09:39 Dose: 6 mg Documented By: SAROJ Dextrose (Dextrose 50 % 25 Gm/50 Ml Syringe) 25 gm IVPUSH Q15M PRN; Protocol PRN Reason: per Hypoglycemia Standing Ord. Last Admin: 10/31/23 10:26 Dose: 25 gm Documented By: SARABJIT Enoxaparin Sodium (Enoxaparin Sodium 40 Mg/0.4 Ml Syringe) 40 mg SUBCUT BEDTIME [facility] Last Admin: 11/11/23 20:54 Dose: 40 mg Documented By: FANY Ferrous Sulfate (Ferrous Sulfate 324 Mg Tablet.) 324 mg PO BIDWM [facility] Last Admin: 11/12/23 09:39 Dose: 324 mg Documented By: SAROJ Furosemide (Furosemide 40 Mg/4 Ml Vial) 40 mg IVPUSH DAILY [facility]; Protocol Last Admin: 11/12/23 09:39 Dose: 40 mg Documented By: ASROJ Glucose (Glucose Gel 15 Gm Gel..Gram.) 15 gm PO Q15M PRN; Protocol PRN Reason: per Hypoglycemia Standing Ord. Cefazolin Sodium/Dextrose (Ancef) 2 gm in 50 mls @ 100 mls/hr IV Q8H [facility] Stop: 12/14/23 01:29 Last Infusion: 11/12/23 10:43 Dose: Infused Documented By: SAROJ Insulin Human Lispro (Insulin Lispro 100 Unit/Ml 3 Ml Vial) 0 unit SUBCUT QIDACHS [facility]; Protocol Last Admin: 11/12/23 07:55 Dose: Not Given Documented By: SAROJ Non-Admin Reason: No Insulin Coverage Lisinopril (Lisinopril 20 Mg Tablet) 20 mg PO DAILY [facility]; Protocol Last Admin: 11/12/23 09:39 Dose: 20 mg Documented By: SAROJ Melatonin (Melatonin 3 Mg Tablet) 6 mg PO BEDTIME PRN PRN Reason: Insomnia Last Admin: 11/09/23 20:32 Dose: 6 mg Documented By: LI Metronidazole (Metronidazole 500 Mg Tablet) 500 mg PO Q8H [facility] Last Admin: 11/12/23 09:39 Dose: 500 mg Documented By: SAROJ Nystatin (Nystatin Oral Susp 500,000 Unit/5 Ml Oral.Susp) 500,000 unit PO QID [facility]; Protocol Last Admin: 11/12/23 09:39 Dose: 500,000 unit Documented By: SAROJ Ondansetron HCl (Ondansetron Hcl 4 Mg/2 Ml Vial) 4 mg IVPUSH Q8H PRN PRN Reason: Nausea and Vomiting Last Admin: 11/07/23 03:53 Dose: 4 mg Documented By: LALITHA Oxycodone HCl (Oxycodone Hcl Immed Release 5 Mg Tablet) 10 mg PO Q4H PRN PRN Reason: Pain, Moderate(Pain Scale 4-6) Last Admin: 11/12/23 05:43 Dose: 10 mg Documented By: LAFLAMChris Sodium Chloride (0.9 % Sodium Chloride Flush 3 Ml Syringe) [facility] Last Admin: 11/12/23 09:41 Dose: 3 ml Documented By: SAROJ Labs 11/09/23 10:39 11/11/23 11:31 Labs: Laboratory Results - last 24 hr 11/11/23 11/11/23 11/11/23 11:31 11:43 15:41 Hold Purple Top SEE NOTE O2 Saturation ABG pH at Pt Temp ABG pCO2 at Pt Temp ABG pO2 at Pt Temp ABG HCO3 ABG Base Excess (Actual) Anion Gap 14 Estim Creat Clear Calc 51.4 Estimated GFR > 60 POC Glucose 158 H 192 H Random Glucose 152 H Calcium 8.4 D 11/11/23 11/11/23 11/12/23 20:29 23:01 07:55 Hold Purple Top O2 Saturation 92.0 ABG pH at Pt Temp 7.50 H ABG pCO2 at Pt Temp 27 L ABG pO2 at Pt Temp 74 L ABG HCO3 21 L ABG Base Excess (Actual) -0.1 Anion Gap Estim Creat Clear Calc Estimated GFR POC Glucose 202 H 125 H Random Glucose Calcium Assessment and Plan (1) COVID-19: Status: Acute (2) ARDS (adult respiratory distress syndrome): Status: Acute (3) Status post below knee amputation of right lower extremity: Status: Acute (4) Gangrene of foot: Status: Acute (5) Bacteremia: Status: Acute Plan This is a 63-year-old male with pertinent history of insulin-dependent diabetes mellitus, noncompliant with medications who presented to the emergency department for evaluation of right foot pain found to have gangrene and eventually required right BKA course complicated by respiratory distress, ARDS and has now tested positive for COVID 19 currently on high flow/NRB. 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 -He remains dependent on hiflo and nrb, not able to wean -To complete Decadron for 10 days, - has completed remdesevir. -pulmonology rec diuresis -weaning trial daily Heart failure with nl EF, clinically markedly fluid overloaded. continue IV Lasix, increase to twice a day, unable to acurately measure i/o since he voids in bed and refusing folwy cath. 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 HTN, controlled , continue Lisinopril Iron def anemia. unspecified No acute blood loss; receive 1 unit of packed red cells as well as iron transfusion H/H stable continue oral iron supplement CKD stage 3, BRENDA resolved. Insulin-dependent diabetes mellitus 2, AC1 5.7 -Lantus stopped d/t hypoglycemia, continue SSI, follow POCs Moderate protein calorie malnutrition BMI 19.3 supplements added to diet Leukocytosis--likely from steroid Oral thrush--Nystatin swish and swallow Lovenox Full code HCP - brother Jeffy Ji - [phone] Requires ongoing hospitalization for IV antibiotics to treat bacteremia, probable pneumonia, CHF and ARDS/COVID now requiring high flow oxygen. needs close monitor of respiratory status as patient at high risk for decompensation. Prognosis is poor Quality Stroke Does the patient have a stroke diagnosis?: No VTE Prior VTE?: No VTE Risk Level:: Medical - moderate - high VTE Device Contraindication: Treatment Not Indicated VTE Drug Contraindication: N/A - Med Ordered
[2023-11-12 11:29] LABS: NRBC Pct Auto 1.1 /100WBC (0.0-0.2)
[2023-11-12 12:12] LABS: Platelet Count 113 X10*3/uL (160-400)
[2023-11-12 12:18] LABS: SLIDE REVIEW VERIFIED
--- NOTE | 2023-11-12 17:16 | PM.EVENT ---
Event Note Date of Service: 11/13/23 Event Note: Given persistent hypoxia and CXR finding not changing much attempted to obtained a CT to better assess pt's pulmonary status, contrast could not be given d/t poor iv, so instead CT without contrast was done. Spoke to patient about code status again and he wants to be full and afirmed that his brother 'Fermín is his health care proxy Time Spent With Patient Time: Total time managing care of this patient today ____ minutes.
--- NOTE | 2023-11-12 19:21 | PM.EVENT ---
Event Note Date of Service: 11/12/23 Event Note: Nurse reported dysphagia with concerns for aspiration. Will change Flagyl from p.o. to IV. Keep patient NPO and get speech to see in a.m. Time Spent With Patient Time: Total time managing care of this patient today ____ minutes.
[2023-11-12] MEDS: Enoxaparin Sodium 40 MG/0.4 ML SYRINGE SUBCUT (19:46)
[2023-11-12] MEDS: Insulin Lispro 100 UNIT/ML 3 ML VIAL SUBCUT (21:31)
[2023-11-13] VITALS (15 sets, daily range): BP systolic 130–166; BP diastolic 63–86; PULSE 90–141; RESP 16–90; TEMP 36.1–37.3; O2SAT 88–100
--- NOTE | 2023-11-13 11:23 | PM.PNPUL ---
Subjective Subjective Date of Service: 11/13/23 Interval history: 63-year-old gentleman now with acute hypoxic respiratory failure secondary to combination of COVID-19, post COVID MSSA pneumonia, and pulmonary edema, with plateaued improvement, still approximately 9 L positive since admission. Objective Data Labs 11/12/23 10:51 11/13/23 08:09 Labs: Laboratory Results - last 24 hr 11/12/23 11/12/23 11/12/23 10:51 11:39 12:30 WBC 14.1 H RBC 3.05 L Hgb 8.9 L Hct 26.5 L MCV 86.9 MCH 29.2 MCHC 33.6 RDW 15.6 Plt Count 113 L MPV 10.7 Immature Gran % (Auto) 1.2 H Neut % (Auto) 94.6 H Lymph % (Auto) 2.4 L [place] % (Auto) 1.4 L Eos % (Auto) 0.3 Baso % (Auto) 0.1 Lymph # (Auto) 0.3 L [place] # (Auto) 0.2 Eos # (Auto) 0.0 Baso # (Auto) 0.0 Abs Immat Gran (auto) 0.17 H Absolute Neuts (auto) 13.3 H Absolute Nucleated RBC 0.150 H Nucleated RBC % (auto) 1.1 H Smear Tech's Comments VERIFIED Hold Purple Top Sodium 124 L Potassium 4.5 Chloride 104 Carbon Dioxide 23 Anion Gap 2 L BUN 48 H Creatinine 1.26 Estim Creat Clear Calc 45.5 Estimated GFR 58 POC Glucose 148 H Random Glucose 171 H Osmolality Calcium 7.7 L D B-Natriuretic Peptide 1333 H TSH 6.60 H Urine Color Urine Appearance Urine pH Ur Specific [place] Urine Protein Urine Glucose (UA) Urine Ketones Urine Blood Urine Nitrite Ur Leukocyte Esterase Urine RBC Urine WBC Ur Squamous Epith Cells Urine Bacteria Hyaline Casts Urine Osmolality Ur Random Sodium 11/12/23 11/12/23 11/12/23 16:40 17:00 20:44 WBC RBC Hgb Hct MCV MCH MCHC RDW Plt Count MPV Immature Gran % (Auto) Neut % (Auto) Lymph % (Auto) [place] % (Auto) Eos % (Auto) Baso % (Auto) Lymph # (Auto) [place] # (Auto) Eos # (Auto) Baso # (Auto) Abs Immat Gran (auto) Absolute Neuts (auto) Absolute Nucleated RBC Nucleated RBC % (auto) Smear Tech's Comments Hold Purple Top Sodium 132 L Potassium 4.4 Chloride 102 Carbon Dioxide 22 Anion Gap 12 BUN Creatinine Estim Creat Clear Calc Estimated GFR POC Glucose 215 H Random Glucose Osmolality 307 H Calcium B-Natriuretic Peptide TSH Urine Color Urine Appearance Urine pH Ur Specific [place] Urine Protein Urine Glucose (UA) Urine Ketones Urine Blood Urine Nitrite Ur Leukocyte Esterase Urine RBC Urine WBC Ur Squamous Epith Cells Urine Bacteria Hyaline Casts Urine Osmolality Ur Random Sodium 11/12/23 11/12/23 11/13/23 20:56 23:47 03:36 WBC RBC Hgb Hct MCV MCH MCHC RDW Plt Count MPV Immature Gran % (Auto) Neut % (Auto) Lymph % (Auto) [place] % (Auto) Eos % (Auto) Baso % (Auto) Lymph # (Auto) [place] # (Auto) Eos # (Auto) Baso # (Auto) Abs Immat Gran (auto) Absolute Neuts (auto) Absolute Nucleated RBC Nucleated RBC % (auto) Smear Tech's Comments Hold Purple Top SEE NOTE Sodium 133 L Potassium 4.8 Chloride 104 Carbon Dioxide 22 Anion Gap 12 BUN Creatinine Estim Creat Clear Calc Estimated GFR POC Glucose 226 H Random Glucose Osmolality Calcium B-Natriuretic Peptide TSH Urine Color Dark Yellow Urine Appearance Cloudy Urine pH 5.5 Ur Specific [place] >= 1.030 H Urine Protein 300 (3+) H Urine Glucose (UA) Negative Urine Ketones Negative Urine Blood Large (3+) H Urine Nitrite Negative Ur Leukocyte Esterase Trace H Urine RBC >20 H Urine WBC 6-10 H Ur Squamous Epith Cells 0-2 Urine Bacteria None Seen Hyaline Casts 6-10 Urine Osmolality 442 Ur Random Sodium 54.0 11/13/23 11/13/23 11/13/23 07:50 08:09 08:09 WBC RBC Hgb Hct MCV MCH MCHC RDW Plt Count MPV Immature Gran % (Auto) Neut % (Auto) Lymph % (Auto) [place] % (Auto) Eos % (Auto) Baso % (Auto) Lymph # (Auto) [place] # (Auto) Eos # (Auto) Baso # (Auto) Abs Immat Gran (auto) Absolute Neuts (auto) Absolute Nucleated RBC Nucleated RBC % (auto) Smear Tech's Comments Hold Purple Top Sodium Cancelled 133 L Potassium Cancelled Chloride Carbon Dioxide Anion Gap BUN Creatinine Estim Creat Clear Calc Estimated GFR POC Glucose 92 Random Glucose Osmolality Calcium B-Natriuretic Peptide TSH Urine Color Urine Appearance Urine pH Ur Specific [place] Urine Protein Urine Glucose (UA) Urine Ketones Urine Blood Urine Nitrite Ur Leukocyte Esterase Urine RBC Urine WBC Ur Squamous Epith Cells Urine Bacteria Hyaline Casts Urine Osmolality Ur Random Sodium 11/13/23 11/13/23 11/13/23 08:09 08:09 08:09 WBC RBC Hgb Hct MCV MCH MCHC RDW Plt Count MPV Immature Gran % (Auto) Neut % (Auto) Lymph % (Auto) [place] % (Auto) Eos % (Auto) Baso % (Auto) Lymph # (Auto) [place] # (Auto) Eos # (Auto) Baso # (Auto) Abs Immat Gran (auto) Absolute Neuts (auto) Absolute Nucleated RBC Nucleated RBC % (auto) Smear Tech's Comments Hold Purple Top Sodium Potassium 4.4 Chloride Cancelled 107 Carbon Dioxide Cancelled 19 L Anion Gap Cancelled BUN Creatinine Estim Creat Clear Calc Estimated GFR POC Glucose Random Glucose Osmolality Calcium B-Natriuretic Peptide TSH Urine Color Urine Appearance Urine pH Ur Specific [place] Urine Protein Urine Glucose (UA) Urine Ketones Urine Blood Urine Nitrite Ur Leukocyte Esterase Urine RBC Urine WBC Ur Squamous Epith Cells Urine Bacteria Hyaline Casts Urine Osmolality Ur Random Sodium 11/13/23 11/13/23 11/13/23 08:09 08:09 08:09 WBC RBC Hgb Hct MCV MCH MCHC RDW Plt Count MPV Immature Gran % (Auto) Neut % (Auto) Lymph % (Auto) [place] % (Auto) Eos % (Auto) Baso % (Auto) Lymph # (Auto) [place] # (Auto) Eos # (Auto) Baso # (Auto) Abs Immat Gran (auto) Absolute Neuts (auto) Absolute Nucleated RBC Nucleated RBC % (auto) Smear Tech's Comments Hold Purple Top Sodium Potassium Chloride Carbon Dioxide Anion Gap 11 L BUN Cancelled 50 H Creatinine Cancelled 1.27 Estim Creat Clear Calc Cancelled Estimated GFR POC Glucose Random Glucose Osmolality Calcium B-Natriuretic Peptide TSH Urine Color Urine Appearance Urine pH Ur Specific [place] Urine Protein Urine Glucose (UA) Urine Ketones Urine Blood Urine Nitrite Ur Leukocyte Esterase Urine RBC Urine WBC Ur Squamous Epith Cells Urine Bacteria Hyaline Casts Urine Osmolality Ur Random Sodium 11/13/23 11/13/23 11/13/23 08:09 08:09 08:09 WBC RBC Hgb Hct MCV MCH MCHC RDW Plt Count MPV Immature Gran % (Auto) Neut % (Auto) Lymph % (Auto) [place] % (Auto) Eos % (Auto) Baso % (Auto) Lymph # (Auto) [place] # (Auto) Eos # (Auto) Baso # (Auto) Abs Immat Gran (auto) Absolute Neuts (auto) Absolute Nucleated RBC Nucleated RBC % (auto) Smear Tech's Comments Hold Purple Top Sodium Potassium Chloride Carbon Dioxide Anion Gap BUN Creatinine Estim Creat Clear Calc 45.2 Estimated GFR Cancelled 57 POC Glucose Random Glucose Cancelled 82 Osmolality Calcium Cancelled B-Natriuretic Peptide TSH Urine Color Urine Appearance Urine pH Ur Specific [place] Urine Protein Urine Glucose (UA) Urine Ketones Urine Blood Urine Nitrite Ur Leukocyte Esterase Urine RBC Urine WBC Ur Squamous Epith Cells Urine Bacteria Hyaline Casts Urine Osmolality Ur Random Sodium 11/13/23 08:09 WBC RBC Hgb Hct MCV MCH MCHC RDW Plt Count MPV Immature Gran % (Auto) Neut % (Auto) Lymph % (Auto) [place] % (Auto) Eos % (Auto) Baso % (Auto) Lymph # (Auto) [place] # (Auto) Eos # (Auto) Baso # (Auto) Abs Immat Gran (auto) Absolute Neuts (auto) Absolute Nucleated RBC Nucleated RBC % (auto) Smear Tech's Comments Hold Purple Top Sodium Potassium Chloride Carbon Dioxide Anion Gap BUN Creatinine Estim Creat Clear Calc Estimated GFR POC Glucose Random Glucose Osmolality Calcium 7.9 L B-Natriuretic Peptide TSH Urine Color Urine Appearance Urine pH Ur Specific [place] Urine Protein Urine Glucose (UA) Urine Ketones Urine Blood Urine Nitrite Ur Leukocyte Esterase Urine RBC Urine WBC Ur Squamous Epith Cells Urine Bacteria Hyaline Casts Urine Osmolality Ur Random Sodium Microbiology Microbiology Results: Microbiology 11/02/23 14:00 Blood - Venous Blood Culture - Final No growth after 5 days. 11/02/23 14:00 Blood - Venous Blood Culture - Final No growth after 5 days. 10/28/23 22:40 Blood - Venous Blood Culture - Final Staphylococcus aureus 10/28/23 22:40 Blood - Venous Blood Culture - Final Staphylococcus aureus Review of Systems Cardiovascular: Reports dyspnea Respiratory: Reports cough, Denies excessive phlegm production, Reports dyspnea and Denies wheezing Allergic/Immunologic: Denies wheezing Physical Exam Vital Signs: Vital Signs: Last Vital Signs Temp 97.6 F 11/13/23 03:19 Pulse 101 H 01/07/24 03:19 Resp 22 H 11/13/23 07:55 BP 150/72 H 11/13/23 03:19 Pulse Ox 90 L 11/13/23 03:19 O2 Del Method High Flow Nasal C emmanuel, Oxymask 11/13/23 03:19 O2 Flow Rate 50 11/13/23 03:19 FiO2 80 11/13/23 03:19 BMI result Body Mass Index 18.5 Const: General: no acute distress, alert and awake Eyes: Sclerae: sclerae normal EOM: EOMs intact bilaterally Neck: Neck: Yes no lymphadenopathy, Yes trachea midline and Yes supple Resp: Effort & Inspection: no respiratory distress Auscultation: crackles (Bilateral) Cardio: Rate: tachycardic Rhythm: regular rhythm Heart sounds: no gallops, no murmurs and no rubs GI: Palpation (GI): Soft to palpation and Other GI palpation findings present ( Nontender) Auscultation: normal bowel sounds Extrem: General: No clubbing, No cyanosis, Yes edema and Yes other (Right BKA) Procedures Date of Service Date of Service: 11/13/23 Assessment and Plan Assessment and plan (1) Pulmonary edema: Status: Acute (2) COVID-19: Status: Acute (3) MSSA (methicillin susceptible Staphylococcus aureus) pneumonia: Status: Acute Plan Impression: 63-year-old gentleman now with acute hypoxic respiratory failure secondary to combination of post COVID-19 MSSA pneumonia and pulmonary edema. Recommendations: Agree with cefazolin for MSSA, consider starting diuretic drip with a goal of 2-3 L negative in 24 hours. Time Spent With Patient Time: Total time managing care of this patient today ____ minutes. Progress Note: Quality Stroke Does the patient have a stroke diagnosis?: No
--- NOTE | 2023-11-13 12:25 | HO.PM.IMPN ---
Subjective Subjective Date of Service: 11/13/23 Interval History: Persistent hypoxica on high flow and nrb, had episode of chocking overnight, cxr and ct show diffuse infilatrate ? infection vs heart failure Physical Exam Vital Signs: Vital Signs: Last Vital Signs Temp 97.6 F 11/13/23 11:39 Pulse 114 H 11/13/23 11:39 Resp 19 11/13/23 11:39 BP 134/63 11/13/23 11:39 Pulse Ox 88 L 11/13/23 11:39 O2 Del Method High Flow Nasal C annula 11/13/23 11:39 O2 Flow Rate 50 11/13/23 11:39 FiO2 80 11/13/23 11:39 BMI result Body Mass Index 18.5 Const: Other: General: alert, oriented and not in distress CVS: S1,S2,RRR GI: +BS, NT, no distention lungs: diffuse rhonchi Skin: No rash, BKA site dressing intact Neuro: motor grossly intact Psych: appropriate affect Objective Data Active Medications Acetaminophen (Acetaminophen 325 Mg Tablet) 650 mg PO Q6H PRN PRN Reason: Pain, Mild (Pain Scale 1-3) Last Admin: 11/12/23 01:31 Dose: 650 mg Documented By: FANY Albuterol Sulfate (Albuterol Sulfate (0.083%) 2.5 Mg/3 Ml Vial.Neb) 2.5 mg INHALE Q4H PRN PRN Reason: Shortness of Breath/Wheezing Dexamethasone (Dexamethasone 6 Mg Tablet) 6 mg PO DAILY [facility] Last Admin: 11/13/23 08:44 Dose: Not Given Documented By: SAROJ Non-Admin Reason: NPO Dextrose (Dextrose 50 % 25 Gm/50 Ml Syringe) 25 gm IVPUSH Q15M PRN; Protocol PRN Reason: per Hypoglycemia Standing Ord. Last Admin: 10/31/23 10:26 Dose: 25 gm Documented By: SARABJIT Enoxaparin Sodium (Enoxaparin Sodium 40 Mg/0.4 Ml Syringe) 40 mg SUBCUT BEDTIME [facility] Last Admin: 11/12/23 19:46 Dose: 40 mg Documented By: FANY Ferrous Sulfate (Ferrous Sulfate 324 Mg Tablet.) 324 mg PO BIDWM [facility] Last Admin: 11/13/23 08:44 Dose: Not Given Documented By: SAROJ Non-Admin Reason: NPO Glucose (Glucose Gel 15 Gm Gel..Gram.) 15 gm PO Q15M PRN; Protocol PRN Reason: per Hypoglycemia Standing Ord. Cefazolin Sodium/Dextrose (Ancef) 2 gm in 50 mls @ 100 mls/hr IV Q8H [facility] Stop: 12/14/23 01:29 Last Infusion: 11/13/23 10:10 Dose: Infused Documented By: SAROJ Metronidazole (Flagyl) 500 mg in 100 mls @ 100 mls/hr IV Q8H [facility] Last Infusion: 11/13/23 05:59 Dose: Infused Documented By: FANY Furosemide 200 mg/ Sodium (Chloride) 100 mls @ 2.5 mls/hr IVCONT .Q24H [facility] Last Admin: 11/13/23 11:51 Dose: 5 mg/hr, 2.5 mls/hr Documented By: SAROJ Insulin Human Lispro (Insulin Lispro 100 Unit/Ml 3 Ml Vial) 0 unit SUBCUT QIDACHS [facility]; Protocol Last Admin: 11/13/23 11:55 Dose: Not Given Documented By: SAROJ Non-Admin Reason: No Insulin Coverage Lisinopril (Lisinopril 20 Mg Tablet) 20 mg PO DAILY [facility]; Protocol Last Admin: 11/13/23 08:44 Dose: Not Given Documented By: SAROJ Non-Admin Reason: NPO Melatonin (Melatonin 3 Mg Tablet) 6 mg PO BEDTIME PRN PRN Reason: Insomnia Last Admin: 11/09/23 20:32 Dose: 6 mg Documented By: LI Morphine Sulfate (Morphine Sulfate 2 Mg/Ml Cartridge) 2 mg IVPUSH Q4H PRN; Protocol PRN Reason: Pain, Severe (Pain Scale 7-10) Last Admin: 11/13/23 04:57 Dose: 2 mg Documented By: FANY Nystatin (Nystatin Oral Susp 500,000 Unit/5 Ml Oral.Susp) 500,000 unit PO QID [facility]; Protocol Last Admin: 11/13/23 08:45 Dose: Not Given Documented By: SAROJ Non-Admin Reason: NPO Ondansetron HCl (Ondansetron Hcl 4 Mg/2 Ml Vial) 4 mg IVPUSH Q8H PRN PRN Reason: Nausea and Vomiting Last Admin: 11/07/23 03:53 Dose: 4 mg Documented By: LALITHA Sodium Chloride (0.9 % Sodium Chloride Flush 3 Ml Syringe) 3 ml IVFLUSH QSHIFT [facility] Last Admin: 11/13/23 08:36 Dose: Not Given Documented By: SAROJ Non-Admin Reason: Patient Refused Labs 11/12/23 10:51 11/13/23 08:09 Labs: Laboratory Results - last 24 hr 11/12/23 11/12/23 11/12/23 12:30 16:40 17:00 Hold Purple Top Anion Gap 2 L Estim Creat Clear Calc 45.5 Estimated GFR 58 POC Glucose 215 H Random Glucose 171 H Osmolality 307 H Calcium 7.7 L D B-Natriuretic Peptide 1333 H TSH 6.60 H Urine Color Urine Appearance Urine pH Ur Specific [place] Urine Protein Urine Glucose (UA) Urine Ketones Urine Blood Urine Nitrite Ur Leukocyte Esterase Urine RBC Urine WBC Ur Squamous Epith Cells Urine Bacteria Hyaline Casts Urine Osmolality Ur Random Sodium 11/12/23 11/12/23 11/12/23 20:44 20:56 23:47 Hold Purple Top SEE NOTE Anion Gap 12 12 Estim Creat Clear Calc Estimated GFR POC Glucose 226 H Random Glucose Osmolality Calcium B-Natriuretic Peptide TSH Urine Color Urine Appearance Urine pH Ur Specific [place] Urine Protein Urine Glucose (UA) Urine Ketones Urine Blood Urine Nitrite Ur Leukocyte Esterase Urine RBC Urine WBC Ur Squamous Epith Cells Urine Bacteria Hyaline Casts Urine Osmolality Ur Random Sodium 11/13/23 11/13/23 11/13/23 03:36 07:50 08:09 Hold Purple Top Anion Gap Cancelled Estim Creat Clear Calc Estimated GFR POC Glucose 92 Random Glucose Osmolality Calcium B-Natriuretic Peptide TSH Urine Color Dark Yellow Urine Appearance Cloudy Urine pH 5.5 Ur Specific [place] >= 1.030 H Urine Protein 300 (3+) H Urine Glucose (UA) Negative Urine Ketones Negative Urine Blood Large (3+) H Urine Nitrite Negative Ur Leukocyte Esterase Trace H Urine RBC >20 H Urine WBC 6-10 H Ur Squamous Epith Cells 0-2 Urine Bacteria None Seen Hyaline Casts 6-10 Urine Osmolality 442 Ur Random Sodium 54.0 11/13/23 11/13/23 11/13/23 08:09 08:09 08:09 Hold Purple Top Anion Gap 11 L Estim Creat Clear Calc Cancelled 45.2 Estimated GFR Cancelled 57 POC Glucose Random Glucose Cancelled Osmolality Calcium B-Natriuretic Peptide TSH Urine Color Urine Appearance Urine pH Ur Specific [place] Urine Protein Urine Glucose (UA) Urine Ketones Urine Blood Urine Nitrite Ur Leukocyte Esterase Urine RBC Urine WBC Ur Squamous Epith Cells Urine Bacteria Hyaline Casts Urine Osmolality Ur Random Sodium 11/13/23 11/13/23 11/13/23 08:09 08:09 11:11 Hold Purple Top Anion Gap Estim Creat Clear Calc Estimated GFR POC Glucose 108 Random Glucose 82 Osmolality Calcium Cancelled 7.9 L B-Natriuretic Peptide TSH Urine Color Urine Appearance Urine pH Ur Specific [place] Urine Protein Urine Glucose (UA) Urine Ketones Urine Blood Urine Nitrite Ur Leukocyte Esterase Urine RBC Urine WBC Ur Squamous Epith Cells Urine Bacteria Hyaline Casts Urine Osmolality Ur Random Sodium Assessment and Plan (1) COVID-19: Status: Acute (2) ARDS (adult respiratory distress syndrome): Status: Acute (3) Status post below knee amputation of right lower extremity: Status: Acute (4) Gangrene of foot: Status: Acute (5) Bacteremia: Status: Acute Plan This is a 63-year-old male with pertinent history of insulin-dependent diabetes mellitus, noncompliant with medications who presented to the emergency department for evaluation of right foot pain found to have gangrene and eventually required right BKA course complicated by respiratory distress, ARDS and has now tested positive for COVID 19 currently on high flow/NRB. DRUM HAND[employer]ER early this am (11/06) for hypoxia/lethargy Acute hypoxic resp failure, multifactorial, covid possible PNA, heart failure. Hypoxia persists despite hiflo and nrb. IV Decadron, pulmonary toileting, continue hiflow and nrb, antibiotics to cover pneumonia. Lasix drip for heart failure. Has completed remdesevir, decadron for 10 days. Wean off O2 as tolerated. Carilogy and pulmonology following. Heart failure with nl EF, clinically markedly fluid overloaded. continue IV Lasix, change to drip, unable to acurately measure i/o since he voids in bed and refusing folwy cath. follow BMP and ask cardiology to additional input Sepsis due to right foot wet gangrene with purulent cellulitis and MSSA bacteremia s/p right BKA 11/02 2/2 blood cultures with MSSA - Kefzol until 12/14/23 - repeat blood cultures negative to date - will need PICC line for senior care abx - Wound looks good per surgery, dressing changes with dry dressing -Oxycodone for pain Hypokalemia, resolved. HTN, controlled , continue Lisinopril Iron def anemia. unspecified No acute blood loss; receive 1 unit of packed red cells as well as iron transfusion H/H stable continue oral iron supplement CKD stage 3, BRENDA resolved. Insulin-dependent diabetes mellitus 2, AC1 5.7 -Lantus stopped d/t hypoglycemia, continue SSI, follow POCs Moderate protein calorie malnutrition BMI 19.3 supplements added to diet Leukocytosis--likely from steroid Oral thrush--Nystatin swish and swallow Dysphagia-swallow eval Lovenox Full code HCP - brother Jeffy Ji - [phone] Requires ongoing hospitalization for IV antibiotics to treat bacteremia, probable pneumonia, CHF and ARDS/COVID now requiring high flow oxygen. needs close monitor of respiratory status as patient at high risk for decompensation. Prognosis is poor Quality Stroke Does the patient have a stroke diagnosis?: No VTE Prior VTE?: No VTE Risk Level:: Medical - moderate - high VTE Device Contraindication: Treatment Not Indicated VTE Drug Contraindication: N/A - Med Ordered
--- NOTE | 2023-11-13 14:31 | PC.NURSE ---
16FR ronquillo cath inserted at 14:31 for accurate I/Os. Balloon inflated with 10mLs of saline. patient tolerated well. Catheter patent and draining scotty urine.
--- NOTE | 2023-11-13 17:12 | PM.EVENT ---
Event Note Date of Service: 11/14/23 Event Note: Events noted Chart reviewed Baseline CKD 3 with creatinine of 1.2 Baseline Na is around 1.32 and dropped to 124 yeserday Repeat was 133 Urine Na and Osm noted Suggest PO water restriction Monitor pNa q 12 hrly OK to use Lasix if clinically indicated Shall follow as needed Time Spent With Patient Time: Total time managing care of this patient today ____ minutes.
[2023-11-13] MEDS: Enoxaparin Sodium 40 MG/0.4 ML SYRINGE SUBCUT (20:35)
[2023-11-14] VITALS (13 sets, daily range): BP systolic 129–161; BP diastolic 61–79; PULSE 86–132; RESP 18–24; TEMP 36.4–38.4; O2SAT 89–100; BMI 18.5
--- NOTE | 2023-11-14 09:00 | MHC.CM.PN ---
EMR REVIEWED, PT REMAINS ON NPO PENDING SPEECH AND HI FLOW O2, PT ON REBREATHER OVER NOC, NO PLAN FOR DC AT THIS TIME, CM WILL CONT TO FOOLWO DC NEEDS.
--- NOTE | 2023-11-14 10:52 | HO.PM.IMPN ---
Subjective Subjective Date of Service: 11/14/23 Interval History: Patient appear comfortable, still on high flow and NRB and maintaining saturation c/o pain at the surgery site Physical Exam Vital Signs: Vital Signs: Last Vital Signs Temp 99.1 F 11/14/23 07:59 Pulse 106 H 11/14/23 07:59 Resp 20 11/14/23 08:49 BP 145/75 H 11/14/23 07:59 Pulse Ox 100 11/14/23 07:59 O2 Del Method High Flow Nasal C annula 11/14/23 07:59 O2 Flow Rate 50 11/14/23 07:59 FiO2 96 11/14/23 07:59 BMI result Body Mass Index 18.5 Const: Other: General: alert, oriented and not in distress, emaciated CVS: S1,S2,RRR GI: +BS, NT, no distention lungs: diffuse rhonchi Skin: No rash, BKA site dressing intact Neuro: motor grossly intact Psych: appropriate affect Objective Data Active Medications Acetaminophen (Acetaminophen 325 Mg Tablet) 650 mg PO Q6H PRN PRN Reason: Pain, Mild (Pain Scale 1-3) Last Admin: 11/12/23 01:31 Dose: 650 mg Documented By: FANY Dexamethasone (Dexamethasone 6 Mg Tablet) 6 mg PO DAILY COUNTS INCLUDE 234 BEDS AT THE [facility] Last Admin: 11/14/23 07:33 Dose: Not Given Documented By: CONCETTA Non-Admin Reason: NPO Dextrose (Dextrose 50 % 25 Gm/50 Ml Syringe) 25 gm IVPUSH Q15M PRN; Protocol PRN Reason: per Hypoglycemia Standing Ord. Last Admin: 10/31/23 10:26 Dose: 25 gm Documented By: SARABJIT Enoxaparin Sodium (Enoxaparin Sodium 40 Mg/0.4 Ml Syringe) 40 mg SUBCUT BEDTIME COUNTS INCLUDE 234 BEDS AT THE [facility] Last Admin: 11/13/23 20:35 Dose: 40 mg Documented By: ELDON Ferrous Sulfate (Ferrous Sulfate 324 Mg Tablet.) 324 mg PO BIDWM COUNTS INCLUDE 234 BEDS AT THE [facility] Last Admin: 11/14/23 07:33 Dose: Not Given Documented By: CONCETTA Non-Admin Reason: NPO Glucose (Glucose Gel 15 Gm Gel..Gram.) 15 gm PO Q15M PRN; Protocol PRN Reason: per Hypoglycemia Standing Ord. Cefazolin Sodium/Dextrose (Ancef) 2 gm in 50 mls @ 100 mls/hr IV Q8H COUNTS INCLUDE 234 BEDS AT THE [facility] Stop: 12/14/23 01:29 Last Admin: 11/14/23 09:19 Dose: 100 mls/hr Documented By: CONCETTA Metronidazole (Flagyl) 500 mg in 100 mls @ 100 mls/hr IV Q8H COUNTS INCLUDE 234 BEDS AT THE [facility] Last Infusion: 11/14/23 06:29 Dose: Infused Documented By: ANTOIC Furosemide 200 mg/ Sodium (Chloride) 100 mls @ 2.5 mls/hr IVCONT .Q24H COUNTS INCLUDE 234 BEDS AT THE [facility] Last Admin: 11/13/23 11:51 Dose: 5 mg/hr, 2.5 mls/hr Documented By: ROSATEKNicanor Insulin Human Lispro (Insulin Lispro 100 Unit/Ml 3 Ml Vial) 0 unit SUBCUT QIDACHS COUNTS INCLUDE 234 BEDS AT THE [facility]; Protocol Last Admin: 11/14/23 09:29 Dose: Not Given Documented By: CONCETTA Non-Admin Reason: NPO Lisinopril (Lisinopril 20 Mg Tablet) 20 mg PO DAILY COUNTS INCLUDE 234 BEDS AT THE [facility]; Protocol Last Admin: 11/14/23 07:33 Dose: Not Given Documented By: CONCETTA Non-Admin Reason: NPO Melatonin (Melatonin 3 Mg Tablet) 6 mg PO BEDTIME PRN PRN Reason: Insomnia Last Admin: 11/09/23 20:32 Dose: 6 mg Documented By: LI Morphine Sulfate (Morphine Sulfate 2 Mg/Ml Cartridge) 2 mg IVPUSH Q4H PRN; Protocol PRN Reason: Pain, Severe (Pain Scale 7-10) Last Admin: 11/14/23 09:33 Dose: 2 mg Documented By: CONCETTA Nystatin (Nystatin Oral Susp 500,000 Unit/5 Ml Oral.Susp) 500,000 unit PO QID COUNTS INCLUDE 234 BEDS AT THE [facility]; Protocol Last Admin: 11/14/23 07:34 Dose: Not Given Documented By: CONCETTA Non-Admin Reason: NPO Ondansetron HCl (Ondansetron Hcl 4 Mg/2 Ml Vial) 4 mg IVPUSH Q8H PRN PRN Reason: Nausea and Vomiting Last Admin: 11/07/23 03:53 Dose: 4 mg Documented By: LALITHA Sodium Chloride (0.9 % Sodium Chloride Flush 3 Ml Syringe) 3 ml IVFLUSH QSHIFT COUNTS INCLUDE 234 BEDS AT THE [facility] Last Admin: 11/14/23 09:19 Dose: 3 ml Documented By: JERMANAC Labs 11/12/23 10:51 11/14/23 10:26 Labs: Laboratory Results - last 24 hr 11/13/23 11/13/23 11/13/23 11:11 16:10 20:03 POC Glucose 108 132 H 149 H 11/14/23 07:16 POC Glucose 158 H Assessment and Plan (1) COVID-19: Status: Acute (2) ARDS (adult respiratory distress syndrome): Status: Acute (3) Status post below knee amputation of right lower extremity: Status: Acute (4) Gangrene of foot: Status: Acute (5) Bacteremia: Status: Acute Plan This is a 63-year-old male with pertinent history of insulin-dependent diabetes mellitus, noncompliant with medications who presented to the emergency department for evaluation of right foot pain found to have gangrene and eventually required right BKA course complicated by respiratory distress, ARDS and has now tested positive for COVID 19 currently on high flow/NRB. DEICER REPAIRER early this am (11/06) for hypoxia/lethargy Acute hypoxic resp failure, multifactorial, covid possible PNA, heart failure. Hypoxia persists despite hiflo and nrb. IV Decadron, pulmonary toileting, continue hiflow and nrb, antibiotics to cover pneumonia. Lasix drip for heart failure. Has completed remdesevir, decadron for 10 days. Wean off O2 as tolerated. Carilogy and pulmonology following. -repeat covid test is still + Heart failure with nl EF, clinically markedly fluid overloaded. 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 HTN, controlled , continue Lisinopril Iron def anemia. unspecified No acute blood loss; receive 1 unit of packed red cells as well as iron transfusion H/H stable continue oral iron supplement CKD stage 3, BRENAD worsening Insulin-dependent diabetes mellitus 2, AC1 5.7 -Lantus stopped d/t hypoglycemia, continue SSI, follow POCs Severe protein calorie malnutrition BMI 19.3 supplements added to diet Leukocytosis--likely from steroid Oral thrush--Nystatin swish and swallow Dysphagia-swallow eval Lovenox Full code HCP - brother Jeffy Ji - [phone], I spoke to his brother who asked that patient be transfer to [facility] with reason been that patient is not getting better here, I disussed the case with [facility] for transfer and they relate that since there is no specific treatment that is sought that they need case management to clear with insurance that transfer will be covered. I will relate to Jeffy that this will be a process that may take some time for the details to be worked out Requires ongoing hospitalization for IV antibiotics to treat bacteremia, probable pneumonia, CHF and ARDS/COVID now requiring high flow oxygen. needs close monitor of respiratory status as patient at high risk for decompensation. Prognosis is poor Quality Stroke Does the patient have a stroke diagnosis?: No VTE Prior VTE?: No VTE Risk Level:: Medical - moderate - high VTE Device Contraindication: Treatment Not Indicated VTE Drug Contraindication: N/A - Med Ordered
[2023-11-14 10:56] LABS: Anion Gap 16 (12-20); Blood Urea Nitrogen 58 mg/dL (9-16); Carbon Dioxide 18 mmol/L (22-29); Chloride 106 mmol/L (96-108); Creatinine Clr Calc Pharmacy 33.9; Estimated Glomerular Filt Rate 41; Glucose Random 202 mg/dL (60-115); Potassium 4.1 mmol/L (3.3-5.1); Sodium 136 mmol/L (135-145)
--- NOTE | 2023-11-14 12:09 | MHC.CLN ---
RE: CONSULT PT IS MODERATELY MALNOURISHED PT WITH MILDLY DEPLETED SUBCUTANEOUS FAT AND MUSCLE MASS S/P R BKA ON 11/03/23 WITH POOR PO INTAKE X 7 DAYS WITH INCREASED NUTRITION RISK R/T ACUTE ILLNESS (COVID & NOW ORAL THRUSH) PT WITH 8% SIGNIFICANT WT LOSS DURING ADMISSION, HOWEVER DURING ADMISSION S/P R BKA AND WT LOSS EXPECTED PT IS NOW 86% IBW INDICATES MILDLY UNDER WT FOR HT. PT ADMITTED ON 10/28/23 WITH NONCOMPLIANCE WITH MEDICATIONS AT HOME AND FOOT PAIN, THIN APPEARING PER MD, NOW S/P BKA, COVID AND NOTED 1/8 WITH ORAL THRUSH. PT WAS NPO PENDING SWALLOW EVAL X3 DAYS-OIL FIELD CASER RECOMMENDING PUREED WITH THIN LIQ RECOMMEND PPN FOR ADDITIONAL NUTRITION DISCUSSED WITH PHARMACY AND MD RECOMMEND PPN AT 45ML/HR TO PROVIDE 551KCALS, 108G DEXTROSE, 46G PROTEIN REPLETE LYTES NEEDED MONITOR PO INTAKE AND WOUND HEALING SEE ALSO FULL CLINICAL NUTRITION ASSESSMENT
--- NOTE | 2023-11-14 12:27 | MHC.SL.SWA ---
Speech Pathologist Impression: Risk of aspiration, oropharyngeal dysphagia Risk of Aspiration Due to: Medically Fragile History of Pneumonia Dysphasia Diet Status: Start on NDD1 Liquid Consistency and Strategies for Safe Swallow: Liquid Intake Recommendation: Thin Liquid Intake Strategies: Small Sips No Straws Solid Food Consistency: Dietary Recommendations: Pureed (NDD1) Additional Modifications to Solid Foods: Recommend UPGRADE from NPO, START on PUREED (NDD1) diet with THIN liquids via teaspoon or controlled cup (NO STRAWS), pills CRUSHED in PUREE. Pt requires total 1:1 assistance feeding and is recommended close monitoring and strict aspiration precautions. HOLD TRAY if pt is lethargic, does not attend to meal, or displays any overt s/s of aspiration. WEAVING INSPECTOR will continue to follow to monitor pt's tolerance of PO and to re-assess as appropriate for potential upgrade. Oral Medication Intake: Crushed with Puree Please contact the pharmacy regarding appropriate crushable or liquid drug formulations that are available whenever modified delivery is recommended. Compensatory Strategies and Precautions to be Taken for Safe Swallow: Sitting Upright (90 deg) Double Swallow No Straw Liquids from Cup Liquids from Spoon Small Bites and Sips Rate of Ingestion Change Oral Check Avoid Specific Foods Supervision While Eating and Drinking for Safe Swallow: Total Assistance (1:1) Foods to Avoid: Mixed textures Swallowing Recommended Treatments: Compens. Strategy Educat. Recommendation for Speech: Inpatient Speech Therapy Comment: Frequency/Duration: M-F PRN Date Range for Service Req: Timeline to reassess: Fare Collector Clinican/Clinical Fellow: No Supervisory Statement: I have reviewed and agree with the student/clinical fellow's documentation: N/A Speech Language Pathologist: Jazlyn Bowen M.A., CCC-WEAVING INSPECTOR
[2023-11-14 12:36] LABS: Albumin Level 1.9 g/dL (3.5-5.0); Magnesium 1.7 mg/dL (1.6-2.6); Phosphorus 3.6 mg/dL (2.7-4.5)
--- NOTE | 2023-11-14 13:11 | HO.WOUND ---
Wound Consult: Initial 63yr old male admitted to [facility] on?10/28/24 - See progress notes and H&P for detailed history. Wound consult placed for Left Heel DTI and Sacral wound. Arrival to bedside pt was resistant to care and repositions. He yelled out and at times was talking nonsensical - second staff member arrived to aid in reposition to assess skin. Pt was noted to be incontinent of bilious stool - incontinence care provided. Coccyx assessed pink and intact remains blanchable. The sacrum is noted to maroon pigmentation that remains intact but does not anitha. Bruising noted on admission charting. The area remains slow to anitha - Stage 1 pressure injury Present on admission. Foam dressing applied and repositioned off loading sacrum with pillows. Left heel assessed - noted for intact red dark purple irregular edges nonblanchable tissue. The patient is noted for Covid 19 and Thrombocytopenia per chart review which may play a part in pressure injury presentation. Left Heel Etiology: Deep Tissue Injury ? Measurements: 2.5cm x 2.2cm x 0cm Wound Bed: red and dark purple nonblanchable intact tissue Drainage / Odor: None Edges: ? irregular Gloria wound: ? No Induration, Fluctuance or Warmth noted Pain: Denies Goals of Treatment: ? Off Load Pressure - foam dressing application and off loading with boot and pillow Scrotum and Perineal Etiology: MASD-IAD (Moisture Associated Skin Damage- Incontinence Associated Dermatitis) ? Wound Bed: red pink tissue with scattered denuded areas Drainage / Odor: None noted Edges: ? irregular Gloria wound: ? No Induration, Fluctuance or Warmth noted Pain: reports pain Goals of Treatment: ? Triad to protect frmo moisture and friction and allow for autolytic healing. Sacrum Etiology: ??Stage 1 Pressure Injury Present on Admission Measurements: see charting for details Wound Bed: maroon red intact nonblanchable tissue Drainage / Odor: None Edges: ? irregular over bony prominence Gloria wound: ?MASD -IAD (Moisture associated skin damage - Incontinence Associated Dermatitis) No Induration, Fluctuance or Warmth noted Pain: denies Goals of Treatment: ? Off Load pressure and protect from moisture and friciton Recommendations: 1. Turn and Reposition every 2 hours and as needed for patient comfort.? Use pillows or wedges to support off loading positions. 2. Off Load all bony prominences with use of pillows and heel boots if needed.? Apply Preventative foams where needed. ? 3. Monitor for incontinence and moisture control, use barrier creams when needed for prevention and treatment. 4. Provide adequate and supplemental nutrition. 5. Order low air loss mattress. 6. Maintain blood glucose levels per Providers orders. 7. Left Heel - Off Load Pressure ? Apply Protective foam dressing to area q3days and PRN. ?Peel back and assess Q shift for skin assessments. 8. Sacrum - Off Load Pressure ? Apply Protective foam dressing to area q3days and PRN. ?Peel back and assess Q shift for skin assessments. 9. Buttocks, scrotum and perineal - Off Load Pressure - Cleanse with PH balance spray or wipes, pat dry. ?Apply thin layer of Triad to wound bed - only pat and dab no scrub and rub when soiling occurs. Reapply thin layer PRN after each episode of incontinence. Re-consult wound care Nurse for wound deterioration or wound changes.
[2023-11-14 16:23] LABS: Glucose, Whole Blood 225 mg/dL (60-115)
[2023-11-14] MEDS: Insulin Lispro 100 UNIT/ML 3 ML VIAL SUBCUT (16:24)
[2023-11-14] MEDS: Ferrous Sulfate 324 MG TABLET.DR PO (16:25)
[2023-11-14] MEDS: ceFAZolin Sodium/Dextrose,Iso 2 GM/50 ML PIGGYBACK IV (16:25)
--- NOTE | 2023-11-14 16:36 | PC.NURSE ---
Addendum entered by Maggi Mayorga RN 11/14/23 17:02: Dr Oden stated that he called pt's brother re: above question Original Note: pt's brother Jeffy came in this afternoon to visit his brothe , he is demanding to transfer hs brother to [facility], pino RN doesn't have any updated about transfer , message was sent to DR Oden
[2023-11-14] MEDS: Nystatin Oral Susp 500,000 UNIT/5 ML ORAL.SUSP 500000 UNIT PO ×2 (17:13→21:00)
[2023-11-14] MEDS: metroNIDAZOLE/NS 500 MG/100 ML PIGGYBACK 100 MG IV (19:29)
[2023-11-14 20:01] LABS: Glucose, Whole Blood 97 mg/dL (60-115)
[2023-11-14] MEDS: Morphine Sulfate 2 MG/ML CARTRIDGE IVPUSH (20:59)
[2023-11-14] MEDS: Enoxaparin Sodium 40 MG/0.4 ML SYRINGE SUBCUT (20:59)
[2023-11-15] VITALS (14 sets, daily range): BP systolic 121–161; BP diastolic 60–83; PULSE 86–112; RESP 16–22; TEMP 36.4–37.4; O2SAT 83–100; BMI 15.6
[2023-11-15] MEDS: 0.9 % Sodium Chloride Flush 3 ML SYRINGE IVFLUSH ×3 (00:53→15:56)
[2023-11-15] MEDS: ceFAZolin Sodium/Dextrose,Iso 2 GM/50 ML PIGGYBACK IV ×2 (00:53→15:56)
[2023-11-15] MEDS: metroNIDAZOLE/NS 500 MG/100 ML PIGGYBACK 100 MG IV ×2 (05:12→14:16)
[2023-11-15 07:54] LABS: Glucose, Whole Blood 162 mg/dL (60-115)
[2023-11-15 08:07] LABS: Albumin Level 1.8 g/dL (3.5-5.0); Anion Gap 13 (12-20); Blood Urea Nitrogen 61 mg/dL (9-16); Calcium 7.8 mg/dL (8.4-10.2); Chloride 107 mmol/L (96-108); Creatinine Clr Calc Pharmacy 27.2; Estimated Glomerular Filt Rate 39; Glucose Random 176 mg/dL (60-115); Magnesium 1.8 mg/dL (1.6-2.6); Phosphorus 2.7 mg/dL (2.7-4.5); Sodium 141 mmol/L (135-145)
[2023-11-15 08:24] LABS: Carbon Dioxide 24 mmol/L (22-29); Potassium 2.9 mmol/L (3.3-5.1)
--- NOTE | 2023-11-15 08:47 | P.PNPL_ITS ---
Subjective Subjective Date of Service: 11/15/23 Interval history: The patient was seen and examined. Still on max HF. CT chest with diffuse GGO. As per surgery the extremity infection is better. Objective Data Labs 11/12/23 10:51 11/15/23 07:21 Labs: Laboratory Results - last 24 hr 11/14/23 11/14/23 11/14/23 10:26 11:07 11:44 Hold Purple Top Sodium 136 Potassium 4.1 Chloride 106 Carbon Dioxide 18 L Anion Gap 16 BUN 58 H Creatinine 1.69 H Estim Creat Clear Calc 33.9 Estimated GFR 41 POC Glucose 192 H Random Glucose 202 H Calcium 8.0 L Phosphorus 3.6 Magnesium 1.7 Albumin 1.9 L COVID-19 (TOM) Positive A COVID-19 Clin Com See Note 11/14/23 11/14/23 11/15/23 16:19 19:58 07:21 Hold Purple Top SEE NOTE Sodium 141 Potassium 2.9 L* Chloride 107 Carbon Dioxide 24 Anion Gap 13 BUN 61 H Creatinine 1.78 H Estim Creat Clear Calc 27.2 Estimated GFR 39 POC Glucose 225 H 97 Random Glucose 176 H Calcium 7.8 L Phosphorus 2.7 Magnesium 1.8 Albumin 1.8 L COVID-19 (TOM) COVID-19 Clin Com 11/15/23 07:49 Hold Purple Top Sodium Potassium Chloride Carbon Dioxide Anion Gap BUN Creatinine Estim Creat Clear Calc Estimated GFR POC Glucose 162 H Random Glucose Calcium Phosphorus Magnesium Albumin COVID-19 (TOM) COVID-19 Clin Com Microbiology Microbiology Results: Microbiology 11/13/23 Unknown Urine Catheterized - Nolen Catheter Urine Culture - Final 11/02/23 14:00 Blood - Venous Blood Culture - Final No growth after 5 days. 11/02/23 14:00 Blood - Venous Blood Culture - Final No growth after 5 days. 10/28/23 22:40 Blood - Venous Blood Culture - Final Staphylococcus aureus 10/28/23 22:40 Blood - Venous Blood Culture - Final Staphylococcus aureus Review of Systems Constitutional: Reports body ache(s), Reports fatigue and Denies fever(s) Denies sore throat Cardiovascular: Denies chest pain and Reports dyspnea Respiratory: Reports cough, Reports dyspnea and Denies wheezing Gastrointestinal: Reports no additional gastrointestinal complaints Musculoskeletal: Reports as per HPI and Reports myalgias Reports as per HPI Endocrine: Reports fatigue Hematologic/Lymphatic: Denies easy bruising Allergic/Immunologic: Denies wheezing Physical Exam 2 Vital Signs: Vital Signs: Last Vital Signs Temp 99.3 F 11/15/23 07:47 Pulse 107 H 11/15/23 07:47 Resp 20 11/15/23 08:39 BP 145/72 H 11/15/23 07:47 Pulse Ox 98 11/15/23 07:47 O2 Del Method High Flow Nasal C annula 11/15/23 07:47 O2 Flow Rate 50 11/15/23 07:47 FiO2 98 11/15/23 07:47 BMI result Body Mass Index 15.6 Const: Other: thin, ill appearing General: tired appearing Nutritional Appearance: thin Neck: Neck: Yes supple Chest: Chest palpation & inspection: normal inspection of the chest Resp: Other: on high flow oxygen diminished breath sounds, no wheezing Effort & Inspection: no respiratory distress, tachypneic and no use of accessory muscles Cardio: Rate: regular rate GI: Inspection: No distended Palpation (GI): Soft to palpation and nontender Extrem: Other: s/p Right BKA dressing c/d/i Procedures Date of Service Date of Service: 11/15/23 Assessment and Plan Assessment and plan (1) COVID-19: Status: Acute (2) ARDS (adult respiratory distress syndrome): Status: Acute (3) Acute respiratory failure: Status: Acute (4) Bacteremia: Status: Acute (5) Gangrene of foot: Status: Acute Plan Start renal dose barcitinib continue abx therapy Bloodwork: Igg levels, Aspergillus ag strat emperic Voriconazole while await for Apergillus/ Galactomman Continue HF Guarded condition Time Spent With Patient Time: Total time managing care of this patient today ____ minutes. Progress Note: Quality Stroke Does the patient have a stroke diagnosis?: No
[2023-11-15] MEDS: Potassium Chloride/H20 10 MEQ/100 ML PIGGYBACK 100 MEQ IV ×4 (09:37→13:04)
[2023-11-15] MEDS: Insulin Lispro 100 UNIT/ML 3 ML VIAL SUBCUT ×4 (09:38→21:36)
[2023-11-15] MEDS: dexAMETHasone 6 MG TABLET PO (09:39)
[2023-11-15] MEDS: Nystatin Oral Susp 500,000 UNIT/5 ML ORAL.SUSP 500000 UNIT PO ×3 (09:39→21:35)
[2023-11-15] MEDS: Ferrous Sulfate 324 MG TABLET.DR PO ×2 (09:45→18:04)
[2023-11-15] MEDS: Morphine Sulfate 2 MG/ML CARTRIDGE IVPUSH ×4 (09:49→22:00)
--- NOTE | 2023-11-15 11:04 | MHC.CLN ---
RE: CONSULT REGARDING POOR PO PT IS MODERATELY MALNOURISHED SEE ALSO FULL CLINICAL NUTRITION ASSESSMENT DATED 11/15/23 FOR DETAILS PO INTAKE POOR PPN WAS NOT STARTED YESTERDAY DIET RX:1800DM PUREED WITH THIN LIQ DISCUSSED WITH PHARMACY AND MD RECOMMEND PPN AT 45ML/HR TO PROVIDE 551KCALS, 108G DEXTROSE, 46G PROTEIN REPLETE LYTES NEEDED MONITOR PO INTAKE AND WOUND HEALING
--- NOTE | 2023-11-15 11:28 | PC.NURSE ---
on 11/14 pts L arm IV infiltrated while on Lasix drip. Drip was stopped and moved to a R arm. Heat packs were applied to arm. Patient was holding arm in contracted position and due to confusion, this RN was unable to have patient elevated arm on pillow. When this RN came back today arm was more swollen and weeping. Due to improvement in mental status, RN was able to to elevate pts arm. MD was made aware
[2023-11-15 11:43] LABS: Glucose, Whole Blood 267 mg/dL (60-115)
--- NOTE | 2023-11-15 12:39 | MHC.SL.DTX ---
Dysphagia Diet modifications: Last documented Solid diet consistencies: Pureed (NDD1) Last documented Liquid consistency: Thin Last documented Medication Administration: Changes made to current diet?: Yes Liquid Consistency and Strategies: Liquid Intake Recommendation: Thin Compensatory Strategies for Safe Swallow: Small Sips Compensatory Strategies for Safe Swallow(b): Sitting Upright (90 deg) No Straw Liquids from Cup Liquids from Wide Cup Small Bites and Sips Alternate Liquids/Solids Oral Check Avoid Specific Foods Solid Food Consistency: Dietary Recommendations: Grnd/Mech Altered (NDD2) Oral Medication Intake: Crushed with Puree Strategies and Precautions to be Taken for Safe Swallow: Sitting Upright (90 deg) No Straw Liquids from Cup Liquids from Wide Cup Small Bites and Sips Alternate Liquids/Solids Oral Check Avoid Specific Foods Supervision While Eating and/Drinking: Intermittent Supervision Foods to Avoid: Mixed textures Swallowing Recommended Treatments: Compens. Strategy Educat. Recommendation for Speech: Inpatient Speech Therapy Comment: Pt requires 1:1 feeding and strict aspiration precautions Frequency/Duration: M-F PRN Date Range for Service Req: Timeline to reassess: Treatment: Pt is on HFNC and Non-rebreather mask. RN confirms that non-rebreather can be removed for PO trials. Pt accepts Thin Liquid (apple juice) with no overt s/s of aspiration. He is able to self-administer. He rejects Puree Solids from his lunch tray despite encouragement stating, not right now . He has a Gema' muffin at beside along with an iced coffee. He accepts a small bite of muffin which he masticates slowly but with adequate collection and no overt s/s of aspiration. He is more alert today and ready for an upgrade. His intake remains a concern however. Upon departure he is requesting pain medication. RN aware. Pv Design Engineer Clinican/Clinical Fellow: No Supervisory Statement: I have reviewed and agree with the student/clinical fellow's documentation: N/A Speech Language Pathologist: Inderjit Hunter M.A., CCC-LICENSED DIRECT ENTRY MIDWIFE
--- NOTE | 2023-11-15 16:39 | HO.PM.IMPN ---
Subjective Subjective Date of Service: 11/16/23 Interval History: Acute hypoxic resp failure, multifactorial, covid possible PNA Review of Systems still on high flow ,nbrm seems somewhat comfortable. Physical Exam Vital Signs: Vital Signs: Last Vital Signs Temp 98.7 F 11/15/23 11:32 Pulse 110 H 11/15/23 11:32 Resp 18 11/15/23 15:41 BP 121/60 11/15/23 11:32 Pulse Ox 97 11/15/23 11:32 O2 Del Method High Flow Nasal C annula 11/15/23 11:32 O2 Flow Rate 50 11/15/23 11:32 FiO2 98 11/15/23 11:32 BMI result Body Mass Index 15.6 General: alert, oriented and not in distress, emaciated CVS: S1,S2,RRR GI: +BS, NT, no distention lungs: diffuse rhonchi Skin: No rash, BKA site dressing intact Neuro: motor grossly intact Psych: appropriate affect Objective Data Active Medications Acetaminophen (Acetaminophen 325 Mg Tablet) 650 mg PO Q6H PRN PRN Reason: Pain, Mild (Pain Scale 1-3) Last Admin: 11/12/23 01:31 Dose: 650 mg Documented By: FANY Baricitinib (Baricitinib 2 Mg Tablet) 2 mg PO DAILY [facility] Stop: 11/28/23 09:01 Last Admin: 11/15/23 09:39 Dose: 2 mg Documented By: CONCETTA Dexamethasone (Dexamethasone 6 Mg Tablet) 6 mg PO DAILY [facility] Last Admin: 11/15/23 09:39 Dose: 6 mg Documented By: CONCETTA Dextrose (Dextrose 50 % 25 Gm/50 Ml Syringe) 25 gm IVPUSH Q15M PRN; Protocol PRN Reason: per Hypoglycemia Standing Ord. Last Admin: 10/31/23 10:26 Dose: 25 gm Documented By: SARABJIT Enoxaparin Sodium (Enoxaparin Sodium 30 Mg/0.3 Ml Syringe) 30 mg SUBCUT Q24H [facility] Ferrous Sulfate (Ferrous Sulfate 324 Mg Tablet.) 324 mg PO BIDWM [facility] Last Admin: 11/15/23 09:45 Dose: 324 mg Documented By: CONCETTA Glucose (Glucose Gel 15 Gm Gel..Gram.) 15 gm PO Q15M PRN; Protocol PRN Reason: per Hypoglycemia Standing Ord. Metronidazole (Flagyl) 500 mg in 100 mls @ 100 mls/hr IV Q8H [facility] Last Infusion: 11/15/23 15:44 Dose: Infused Documented By: TYRONE Cefazolin Sodium/Dextrose (Ancef) 2 gm in 50 mls @ 100 mls/hr IV Q12H [facility] Stop: 12/28/23 13:29 Last Admin: 11/15/23 15:56 Dose: 100 mls/hr Documented By: TYRONE Nutrition (Parenteral) (Parenteral Nutrition) 1,080 mls @ 45 mls/hr IV .Q24H [facility]; Protocol Stop: 11/16/23 20:59 Insulin Human Lispro (Insulin Lispro 100 Unit/Ml 3 Ml Vial) 0 unit SUBCUT QIDACHS [facility]; Protocol Last Admin: 11/15/23 12:02 Dose: 6 unit Documented By: CONCETTA Melatonin (Melatonin 3 Mg Tablet) 6 mg PO BEDTIME PRN PRN Reason: Insomnia Last Admin: 11/09/23 20:32 Dose: 6 mg Documented By: LI Morphine Sulfate (Morphine Sulfate 2 Mg/Ml Cartridge) 2 mg IVPUSH Q4H PRN; Protocol PRN Reason: Pain, Severe (Pain Scale 7-10) Last Admin: 11/15/23 13:57 Dose: 2 mg Documented By: CONCETTA Nystatin (Nystatin Oral Susp 500,000 Unit/5 Ml Oral.Susp) 500,000 unit PO QID [facility]; Protocol Last Admin: 11/15/23 14:16 Dose: Not Given Documented By: CONCETTA Non-Admin Reason: Patient Refused Ondansetron HCl (Ondansetron Hcl 4 Mg/2 Ml Vial) 4 mg IVPUSH Q8H PRN PRN Reason: Nausea and Vomiting Last Admin: 11/07/23 03:53 Dose: 4 mg Documented By: LALITHA Pharmacy Consult (Consult Rx Parenteral Nutrition Ordering) 1 each MISCELLANE DAILY [facility] Sodium Chloride (0.9 % Sodium Chloride Flush 3 Ml Syringe) 3 ml IVFLUSH QSHIFT [facility] Last Admin: 11/15/23 15:56 Dose: 3 ml Documented By: TYRONE Voriconazole (Voriconazole 200 Mg Tablet) 200 mg PO Q12H [facility] Last Admin: 11/15/23 05:30 Dose: 200 mg Documented By: JHONY Labs 11/16/23 09:24 11/16/23 07:32 Labs: Laboratory Results - last 24 hr 11/14/23 11/15/23 11/15/23 19:58 07:21 07:49 Hold Purple Top SEE NOTE Anion Gap 13 Estim Creat Clear Calc 27.2 Estimated GFR 39 POC Glucose 97 162 H Random Glucose 176 H Calcium 7.8 L Phosphorus 2.7 Magnesium 1.8 Albumin 1.8 L 11/15/23 11:38 Hold Purple Top Anion Gap Estim Creat Clear Calc Estimated GFR POC Glucose 267 H Random Glucose Calcium Phosphorus Magnesium Albumin Microbiology Microbiology Results: Microbiology 11/13/23 Unknown Urine Culture - Final Urine Catheterized - Nolen Catheter Assessment and Plan (1) MSSA (methicillin susceptible Staphylococcus aureus) pneumonia: Status: Acute (2) COVID-19: Status: Acute Plan 63-year-old male with pertinent history of insulin-dependent diabetes mellitus, noncompliant with medications who presented to the emergency department for evaluation of right foot pain found to have gangrene and eventually required right BKA course complicated by respiratory distress, ARDS and has now tested positive for COVID 19 currently on high flow/NRB. CRITICAL CARE CLINICAL NURSE SPECIALIST early this am (11/06) for hypoxia/lethargy Acute hypoxic resp failure, multifactorial, covid possible PNA, heart failure. Hypoxia persists despite hiflo and nrb. IV Decadron, pulmonary toileting, continue hiflow and nrb, antibiotics to cover pneumonia. Lasix drip for heart failure. Has completed remdesevir, decadron for 10 days. on barcitinib 11/15/23,Wean off O2 as tolerated. Cardiology and pulmonology following. -repeat covid test is still + pulmonary folowoing Heart failure with nl EF, clinically markedly fluid overloaded. 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 HTN, controlled , continue Lisinopril Iron def anemia. unspecified No acute blood loss; receive 1 unit of packed red cells as well as iron transfusion H/H stable continue oral iron supplement CKD stage 3, BRENDA worsening Insulin-dependent diabetes mellitus 2, AC1 5.7 -Lantus stopped d/t hypoglycemia, continue SSI, follow POCs Severe protein calorie malnutrition BMI 19.3 supplements added to diet Leukocytosis--likely from steroid Oral thrush--Nystatin swish and swallow Dysphagia-swallow eval Lovenox as per family request -called [facility] -they do not have beds currently. Requires ongoing hospitalization for IV antibiotics to treat bacteremia, probable pneumonia, CHF and ARDS/COVID now requiring high flow oxygen. needs close monitor of respiratory status as patient at high risk for decompensation. Prognosis is poor d/w ICu if further worsening -patient might need to go to icu. Quality Stroke Does the patient have a stroke diagnosis?: No VTE Prior VTE?: No VTE Risk Level:: Medical - moderate - high VTE Device Contraindication: Treatment Not Indicated VTE Drug Contraindication: N/A - Med Ordered
--- NOTE | 2023-11-15 16:57 | PC.NURSE ---
Received report from RN 7 a -3p Imelda that today pt required HF + NR d/t oxygen saturation dropping to low 80's . This RN tried to take NR and suddenly o2 sat dropped to 83% , pt is back on HF + NR
--- NOTE | 2023-11-15 17:02 | PC.NURSE ---
Received phone call from [facility] , spoke with Bill that arranges transfers , according to the HH pt is still on high demand of O2 and will need to be reevaluated tomorrow for transfer
[2023-11-15 18:11] LABS: Glucose, Whole Blood 202 mg/dL (60-115)
--- NOTE | 2023-11-15 18:36 | HO.PICC ---
[facility] Diagnosis: HEART FAILURE/COVID/ACUTE RESP DISTRESS Indication: TPN AND CREW MANAGER ANTIBX Pertinent Labs: REVIEWED Technique: Following informed consent including risks, benefits and alternatives and using sterile technique including cap and mask, sterile gown, glove and drape, the LEFT arm was prepped and draped in the usual sterile fashion of full barrier technique with CHG. Following completion of Onward Protocol the skin and soft tissues were anesthetized with 1% Lidocaine plain. Using ultrasound guidance, LEFT BASILIC vein access was obtained BY DR URIBE. Over an 0.018 wire through peel-away sheath, a 5FR TRIPLE LUMEN PASVPICC line was positioned. Catheter length is 39CM internal length, 0CM external length, for a total trimmed length of 39CM. The procedure was performed in 479. CXR WAS ORDERED BY DR URIBE--STILL PENDING TO BE DONE. Ultrasound was used to document vein patency and for needle entry. Vascular Can Repairer has NOT released the line for use UNTIL THE CXR IS DONE. Currently dressed with a StatLock, Tegaderm, and CHG disc. Verification has been performed for blood return and line patency. Arm Circumference: 19CM Equipment: [employer] SOLO PICC Catheter Type: 5FR TRIPLE LUMEN PASV PICC Lot #: [id number]
[2023-11-15 19:54] LABS: Glucose, Whole Blood 171 mg/dL (60-115)
--- NOTE | 2023-11-15 20:50 | PC.NURSE ---
Nonrebreather removed , pt used IS x5 1000 volume each time , had some fluids po , oxygen saturation 93% on HF 50L/ 100 %
[2023-11-15] MEDS: Parenteral Nutrition 1,080 ML 45 ML IV (21:35)
[2023-11-15] MEDS: Enoxaparin Sodium 30 MG/0.3 ML SYRINGE SUBCUT (21:43)
[2023-11-16] VITALS (13 sets, daily range): BP systolic 136–153; BP diastolic 66–74; PULSE 92–101; RESP 16–20; TEMP 36.4–37.2; O2SAT 92–98; BMI 17.4
[2023-11-16] MEDS: ceFAZolin Sodium/Dextrose,Iso 2 GM/50 ML PIGGYBACK IV ×2 (00:34→12:39)
[2023-11-16] MEDS: 0.9 % Sodium Chloride Flush 3 ML SYRINGE IVFLUSH ×2 (00:37→08:02)
[2023-11-16] MEDS: Morphine Sulfate 2 MG/ML CARTRIDGE IVPUSH ×5 (03:41→21:44)
[2023-11-16 07:49] LABS: Hematocrit 22.8 % (42.0-52.0); Hemoglobin 7.2 g/dl (14.0-18.0); Mean Corpuscular HGB Conc 31.6 g/dl (31.0-36.0); Mean Corpuscular Hemoglobin 28.6 pg (27.0-33.0); Mean Corpuscular Volume 90.5 fL (80.0-98.0); Mean Platelet Volume 10.3 fL (9.4-12.4); Red Blood Count 2.52 X10*6/uL (4.60-5.80); Red Cell Distribution Width 15.7 % (11.0-16.0); White Blood Count 5.5 X10*3/uL (4.8-10.8)
[2023-11-16 07:50] LABS: Platelet Count 97 X10*3/uL (160-400)
[2023-11-16 07:55] LABS: Glucose, Whole Blood 317 mg/dL (60-115)
[2023-11-16] MEDS: Nystatin Oral Susp 500,000 UNIT/5 ML ORAL.SUSP 500000 UNIT PO ×4 (08:02→21:44)
[2023-11-16] MEDS: Insulin Lispro 100 UNIT/ML 3 ML VIAL SUBCUT ×4 (08:02→21:44)
[2023-11-16] MEDS: dexAMETHasone 6 MG TABLET PO (08:02)
[2023-11-16] MEDS: Ferrous Sulfate 324 MG TABLET.DR PO ×2 (08:02→17:16)
[2023-11-16 08:10] LABS: Albumin Level 1.8 g/dL (3.5-5.0); Anion Gap 14 (12-20); Blood Urea Nitrogen 67 mg/dL (9-16); Calcium 7.9 mg/dL (8.4-10.2); Carbon Dioxide 23 mmol/L (22-29); Chloride 105 mmol/L (96-108); Creatinine Clr Calc Pharmacy 31.3; Estimated Glomerular Filt Rate 40; Glucose Random 289 mg/dL (60-115); Magnesium 2.1 mg/dL (1.6-2.6); Phosphorus 4.1 mg/dL (2.7-4.5); Potassium 4.5 mmol/L (3.3-5.1); Sodium 137 mmol/L (135-145)
--- NOTE | 2023-11-16 08:22 | PM.EVENT ---
Event Note Date of Service: 11/16/23 Event Note: Patient is a 63 Y M with insulin-dependent diabetes mellitus, initially presenting?on 10/28 w/ subacute R foot pain, found to have R LE gangrene in the setting of uncontrolled diabetes mellitus, s/p R BKA on 11/02; hospital course c/b pulmonary edema and COVID pneumonia c/b ARDS, s/p dexamethasone/remdesivir, on persistent HFNC, and MSSA bacteremia, now on cefazolin and barcitinib; ICU consulted given lack of improvement; upon evaluation, patient comfortable, in no acute distress, reclined, without use of accessory muscles, speaking in full sentences; appreciable diffuse rhonchi, L greater than R; S1, S2 appreciated; abdomen soft, non-distended, no appreciable guarding, rebound; extremities with trace edema; patient has no current indication for ICU admission; of note, CPAP unlikely to benefit patient, given disease process is not restrictive lung disease and patient does not exhibit increased work of breathing; continue with HFNC; appreciate pulmonology and ID recommendations; patient remains 6L positive, continue diuresis; consider HIV testing Time Spent With Patient Time: Total time managing care of this patient today ____ minutes.
--- NOTE | 2023-11-16 08:47 | P.PNPL_ITS ---
Subjective Subjective Date of Service: 11/16/23 Interval history: The patient was seen on exam. He was started on Barcitinib and voriconazole. Continues on the high-flow. Appears to be more mentally clear. The patient did have a chest x-ray done yesterday demonstrating some slight improvement the airspace disease. In addition to that he is more anemic this morning. Objective Data Labs 11/16/23 07:32 11/16/23 07:32 Labs: Laboratory Results - last 24 hr 11/15/23 11/15/23 11/15/23 11:38 17:58 19:48 WBC RBC Hgb Hct MCV MCH MCHC RDW Plt Count MPV Absolute Nucleated RBC Nucleated RBC % (auto) Sodium Potassium Chloride Carbon Dioxide Anion Gap BUN Creatinine Estim Creat Clear Calc Estimated GFR POC Glucose 267 H 202 H 171 H Random Glucose Calcium Phosphorus Magnesium Albumin 11/16/23 11/16/23 07:32 07:46 WBC 5.5 RBC 2.52 L Hgb 7.2 L Hct 22.8 L MCV 90.5 MCH 28.6 MCHC 31.6 RDW 15.7 Plt Count 97 L MPV 10.3 Absolute Nucleated RBC 0.000 Nucleated RBC % (auto) 0.0 Sodium 137 Potassium 4.5 D Chloride 105 Carbon Dioxide 23 Anion Gap 14 BUN 67 H Creatinine 1.72 H Estim Creat Clear Calc 31.3 Estimated GFR 40 POC Glucose 317 H Random Glucose 289 H Calcium 7.9 L Phosphorus 4.1 Magnesium 2.1 Albumin 1.8 L Microbiology Microbiology Results: Microbiology 11/13/23 Unknown Urine Catheterized - Nolen Catheter Urine Culture - Final 11/02/23 14:00 Blood - Venous Blood Culture - Final No growth after 5 days. 11/02/23 14:00 Blood - Venous Blood Culture - Final No growth after 5 days. 10/28/23 22:40 Blood - Venous Blood Culture - Final Staphylococcus aureus 10/28/23 22:40 Blood - Venous Blood Culture - Final Staphylococcus aureus Review of Systems Constitutional: Reports fatigue and Denies fever(s) Denies sore throat Cardiovascular: Denies chest pain and Reports dyspnea Respiratory: Reports cough, Reports dyspnea and Denies wheezing Gastrointestinal: Reports no additional gastrointestinal complaints Musculoskeletal: Reports as per HPI and Reports myalgias Reports as per HPI Endocrine: Reports fatigue Hematologic/Lymphatic: Denies easy bruising Allergic/Immunologic: Denies wheezing Physical Exam 2 Vital Signs: Vital Signs: Last Vital Signs Temp 98.9 F 11/16/23 07:48 Pulse 96 11/16/23 07:48 Resp 19 11/16/23 08:36 BP 147/72 H 11/16/23 07:48 Pulse Ox 92 11/16/23 07:48 O2 Del Method High Flow Nasal C annula 11/16/23 07:48 O2 Flow Rate 50 11/16/23 07:48 FiO2 100 11/16/23 07:48 BMI result Body Mass Index 17.4 Const: Other: thin, ill appearing General: comfortable, no acute distress and tired appearing Nutritional Appearance: thin Neck: Neck: Yes supple Chest: Chest palpation & inspection: normal inspection of the chest Resp: Other: on high flow oxygen diminished breath sounds, no wheezing Effort & Inspection: normal respiratory effort, no respiratory distress, not tachypneic and no use of accessory muscles Auscultation: crackles, rhonchi and diminished lung sounds Cardio: Rate: regular rate GI: Inspection: No distended Palpation (GI): Soft to palpation and nontender Extrem: Other: s/p Right BKA dressing c/d/i Procedures Date of Service Date of Service: 11/16/23 Assessment and Plan Assessment and plan (1) COVID-19: Status: Acute (2) ARDS (adult respiratory distress syndrome): Status: Acute (3) Acute respiratory failure: Status: Acute (4) Bacteremia: Status: Acute (5) Gangrene of foot: Status: Acute Plan continue renal dose barcitinib continue abx therapy Bloodwork: Igg levels, Aspergillus ag pending continue emperic Voriconazole while await for Apergillus/ Galactomman Continue HF monitor Hb Guarded condition Time Spent With Patient Time: Total time managing care of this patient today ____ minutes. Progress Note: Quality Stroke Does the patient have a stroke diagnosis?: No
[2023-11-16 09:48] LABS: Hematocrit 20.8 % (42.0-52.0); Hemoglobin 6.6 g/dl (14.0-18.0)
--- NOTE | 2023-11-16 09:56 | MHC.CLN ---
F/U PPN PO INTAKE 25% X 2 MEALS YESTERDAY DIET RX:1800DM PUREED WITH THIN LIQ ADVANCED TO GRD M/S PER INDUSTRIAL ENGINEERING TECHNICIAN DISCUSSED WITH PHARMACY RECOMMEND INCREASING PPN AT 65ML/HR TO PROVIDE 796KCALS, 156G DEXTROSE, 66G PROTEIN (1.2G/KG) REPLETE LYTES, BUN/CREAT NEEDED MONITOR PO INTAKE AND WOUND HEALING
[2023-11-16 10:00] LABS: Ferritin 3280 ng/mL (20-250)
[2023-11-16 11:23] LABS: Glucose, Whole Blood 251 mg/dL (60-115)
[2023-11-16] MEDS: Pantoprazole Sodium 40 MG/10 ML VIAL IVPUSH ×2 (12:38→17:16)
--- NOTE | 2023-11-16 12:51 | MHC.SL.SWA ---
Risk of Aspiration Due to: Medically Fragile History of Pneumonia Dysphasia Diet Status: Recommend continue with GROUND/MECH ALTERED solids (NDD2) and THIN liquids (NO STRAW). MEDS CRUSHED with PUREE. ASSIST with TRAY SET-UP. Intermittent supervision. HOLD TRAY if lethargic. Liquid Consistency and Strategies for Safe Swallow: Liquid Intake Recommendation: Thin Liquid Intake Strategies: Small Sips No Straws Solid Food Consistency: Dietary Recommendations: Grnd/Mech Altered (NDD2) Oral Medication Intake: Crushed with Puree Please contact the pharmacy regarding appropriate crushable or liquid drug formulations that are available whenever modified delivery is recommended. Compensatory Strategies and Precautions to be Taken for Safe Swallow: Sitting Upright (90 deg) No Straw Liquids from Cup Liquids from Wide Cup Small Bites and Sips Alternate Liquids/Solids Oral Check Avoid Specific Foods Supervision While Eating and Drinking for Safe Swallow: Intermittent Supervision Foods to Avoid: Mixed textures Swallowing Recommended Treatments: Compens. Strategy Educat. Recommendation for Speech: Inpatient Speech Therapy Patient eating belgian ice independently at bedside upon SENIOR TALENT MANAGEMENT CONSULTANT's arrival at 30 degree angle. Patient greeted SENIOR TALENT MANAGEMENT CONSULTANT with minimally wet/gurgly voice. Head of bed raised to 45 degrees by SENIOR TALENT MANAGEMENT CONSULTANT. Patient with untouched solids on breakfast tray. When SENIOR TALENT MANAGEMENT CONSULTANT inquired about tray, patient reported that he was tired. Top dentures at bedside were given to patient for PO trials. Patient tolerated bites of moistened/crushed anibal crackers in applesauce. Patient satisfied w/ this food combination; reporting it hit the spot. Mild lingual residue cleared w/ subsequent swallows/bites. Patient took sips of thin liquid via independent cup sip. Presented intermittently w/ mildly wet voice. Patient provided education to take his time drinking liquids and swallow again after liquids. Patient also encouraged to take breaks during meals. Patients SpO2 mid-high 90s throughout visit. Patient was frequently reported of his fatigue throughout SENIOR TALENT MANAGEMENT CONSULTANT visit. He was offered a downgrade to puree solids, to which he initially expressed preference. However he went on to request crackers w/ lunch. Patient appears to be on safest and least restrictive diet at this time secondary to pt's medical status and fatigue. No change recommended. Comment: Pt requires 1:1 feeding and strict aspiration precautions Frequency/Duration: M-F PRN Glove Wrapper Clinican/Clinical Fellow: No Supervisory Statement: I have reviewed and agree with the student/clinical fellow's documentation: N/A Speech Language Pathologist: Barbara Aguirre M.A., CCC-SENIOR TALENT MANAGEMENT CONSULTANT
[2023-11-16 12:52] LABS: Platelet Count 90 X10*3/uL (160-400)
--- NOTE | 2023-11-16 13:22 | P.CONNP_ITS ---
History of Present Illness Reason for Consult Consult date: 11/16/23 Reason for consult: BRENDA Chief Complaint Chief complaint: foot infection History of Present Illness Narrative: 63-year-old male with insulin-dependent diabetes mellitus, noncompliant with medications who presented to the emergency department for evaluation of right foot pain found to have gangrene and eventually required right BKA He had blood cultures positive for MSSA. He had been on lisinopril in the past. His hospital course was complicated by respiratory distress, ARDS and has now tested positive for COVID 19 currently on high flow/NRB. He had PATIENT PLACEMENT COORDINATOR on 11/06 for hypoxia/lethargy. His acute hypoxic resp failure was thought to be multifactorial, covid possible PNA & heart failure. Hypoxia persisted despite hiflo and nrb. IV Decadron, pulmonary toileting & antibiotics to cover pneumonia. He was also treated with lasix drip for heart failure. Has completed remdesevir, decadron for 10 days. He developed BRENDA. Nephrology is being consulted to assist in his clinical care during his current hospital stay. Review of Systems Review of Systems Yes all other systems are reviewed and are negative PMFSH Past Medical History Medical History (Updated 11/16/23 @ 13:27 by Brenton Avila MD) Gangrene of foot Bacteremia Neuropathy Diabetes Family History Family history: reviewed and not pertinent Social History Social History Household Members: Family Housing: Apartment Do you presently have visiting nurse or other home services: No Alcohol intake: current Alcohol intake frequency: does not drink Alcohol type: beer Comment: Patient off unit in [place] Patient Tobacco Use Status: Current everyday Tobacco user Tobacco use type: Cigarette e-Cigarette/Vaping Use: Never Used Second Hand Smoke Exposure: No Substance Use Type: Marijuana and Opiates service: No Meds Allergies Allergy/AdvReac Type Severity Reaction Status Date / Time amitriptyline Allergy Unknown stutter Verified 01/26/22 17:35 gabapentin Allergy Unknown confused Verified 01/26/22 17:35 Active Medications: Current Medications Acetaminophen (Acetaminophen 325 Mg Tablet) 650 mg PO Q6H PRN PRN Reason: Pain, Mild (Pain Scale 1-3) Last Admin: 11/12/23 01:31 Dose: 650 mg Baricitinib (Baricitinib 2 Mg Tablet) 2 mg PO DAILY [facility] Stop: 11/28/23 09:01 Last Admin: 11/16/23 08:02 Dose: 2 mg Dexamethasone (Dexamethasone 6 Mg Tablet) 6 mg PO DAILY [facility] Last Admin: 11/16/23 08:02 Dose: 6 mg Dextrose (Dextrose 50 % 25 Gm/50 Ml Syringe) 25 gm IVPUSH Q15M PRN; Protocol PRN Reason: per Hypoglycemia Standing Ord. Last Admin: 10/31/23 10:26 Dose: 25 gm Enoxaparin Sodium (Enoxaparin Sodium 30 Mg/0.3 Ml Syringe) 30 mg SUBCUT Q24H [facility] Last Admin: 11/15/23 21:43 Dose: 30 mg Ferrous Sulfate (Ferrous Sulfate 324 Mg Tablet.Dr) 324 mg PO BIDWM [facility] Last Admin: 11/16/23 08:02 Dose: 324 mg Glucose (Glucose Gel 15 Gm Gel..Gram.) 15 gm PO Q15M PRN; Protocol PRN Reason: per Hypoglycemia Standing Ord. Cefazolin Sodium/Dextrose (Ancef) 2 gm in 50 mls @ 100 mls/hr IV Q12H [facility] Stop: 12/28/23 13:29 Last Infusion: 11/16/23 13:16 Dose: Infused Nutrition (Parenteral) (Parenteral Nutrition) 1,080 mls @ 45 mls/hr IV .Q24H [facility]; Protocol Stop: 11/16/23 20:59 Last Admin: 11/15/23 21:35 Dose: 45 mls/hr Nutrition (Parenteral) (Parenteral Nutrition) 1,560 mls @ 65 mls/hr IV .Q24H [facility]; Protocol Stop: 11/17/23 20:59 Insulin Human Lispro (Insulin Lispro 100 Unit/Ml 3 Ml Vial) 0 unit SUBCUT QIDACHS [facility]; Protocol Last Admin: 11/16/23 12:38 Dose: 6 unit Melatonin (Melatonin 3 Mg Tablet) 6 mg PO BEDTIME PRN PRN Reason: Insomnia Last Admin: 11/09/23 20:32 Dose: 6 mg Morphine Sulfate (Morphine Sulfate 2 Mg/Ml Cartridge) 2 mg IVPUSH Q4H PRN; Protocol PRN Reason: Pain, Severe (Pain Scale 7-10) Last Admin: 11/16/23 13:12 Dose: 2 mg Nystatin (Nystatin Oral Susp 500,000 Unit/5 Ml Oral.Susp) 500,000 unit PO QID [facility]; Protocol Last Admin: 11/16/23 13:12 Dose: 500,000 unit Ondansetron HCl (Ondansetron Hcl 4 Mg/2 Ml Vial) 4 mg IVPUSH Q8H PRN PRN Reason: Nausea and Vomiting Last Admin: 11/07/23 03:53 Dose: 4 mg Pantoprazole Sodium (Pantoprazole Sodium 40 Mg/10 Ml Vial) 40 mg IVPUSH BID@0630,1630 [facility] Last Admin: 11/16/23 12:38 Dose: 40 mg Pharmacy Consult (Consult Rx Parenteral Nutrition Ordering) 1 each MISCELLANE DAILY [facility] Sodium Chloride (0.9 % Sodium Chloride Flush 3 Ml Syringe) 3 ml IVFLUSH QSHIFT [facility] Last Admin: 11/16/23 12:16 Dose: Not Given Voriconazole (Voriconazole 200 Mg Tablet) 200 mg PO Q12H [facility] Last Admin: 11/16/23 05:16 Dose: 200 mg Home Medications Medication Instructions Recorded Confirmed Last Taken Type diphenhydramine 25 2 tab PO BEDTIME PRN Pain 10/29/23 10/29/23 Unknown History mg-acetaminophen 500 mg tablet Physical Exam Vital Signs: Last Vital Signs Temp 98.2 F 11/16/23 12:01 Pulse 97 11/16/23 12:01 Resp 18 11/16/23 12:23 BP 136/67 11/16/23 12:01 Pulse Ox 97 11/16/23 12:00 O2 Del Method High Flow Nasal Cannula 11/16/23 12:00 O2 Flow Rate 50 11/16/23 12:00 FiO2 95 11/16/23 12:00 BMI result Body Mass Index 17.4 Const General: no acute distress Orientation/consciousness: patient oriented x3 HEENT Head: Yes normocephalic Mouth: Normal oral and palatal mucosa present Eyes EOM: EOMs intact bilaterally Neck Neck: Yes supple Resp Auscultation: diminished lung sounds Cardio Jugular venous distension: no JVD Rate: regular rate GI Palpation (GI): Soft to palpation Auscultation: normal bowel sounds General: Yes no CVA tenderness Back/Spine/Pelvis Back: no CVA tenderness Skin General skin exam: no rashes or lesions noted Neuro General: patient oriented x3 and moves all extremities Results Lab Results 11/16/23 09:24 11/16/23 07:32 Lab results: Chemistry 11/14/23 11/15/23 11/16/23 10:26 07:21 07:32 Sodium 136 141 137 Potassium 4.1 2.9 L* 4.5 D Carbon Dioxide 18 L 24 23 BUN 58 H 61 H 67 H Creatinine 1.69 H 1.78 H 1.72 H Calcium 8.0 L 7.8 L 7.9 L Phosphorus 3.6 2.7 4.1 Hematology 11/16/23 11/16/23 07:32 09:24 WBC 5.5 Hgb 7.2 L 6.6 L* Plt Count 97 L 90 L Assessment and Plan (1) Acute kidney injury: Status: Acute Plan Dov has BRENDA likely due to tubular injury. He is COVID positive. His renal functions are currently stable. Differential diagnosis includes joe infectious glomerulonephritis or AIN, both of which are clinically unlikely given the clinical picture. His platelet counts are low which raises the question of thrombotic microangiopathy but it is unlikely given normal bilirubin and stable creatinine ,after he developed BRENDA. We shall consider doing a urinalysis looking for blood and protein, urine for eosinophil, complement levels C3 and C4, IgA levels and ADAMTS 13 in the event that his serum creatinine continues to rise. There is no indication for any renal replacement therapy. His diuretics are put on hold. We shall continue current supportive care for now. We shall closely follow him up during his current hospital stay Procedures Date of Service Date of Service: 11/16/23
--- NOTE | 2023-11-16 13:58 | MHC.CM.PN ---
Pt remains acute, provider in touch with HCP / Brother, Jeffy to update and discuss prognosis. CM to follow and assist as needed.
[2023-11-16 15:00] LABS: OBS Int Ctl Valid YES; OBS1 POSITIVE (NEGATIVE)
[2023-11-16 15:52] LABS: Glucose, Whole Blood 299 mg/dL (60-115)
--- NOTE | 2023-11-16 16:45 | HO.PM.IMPN ---
Subjective Subjective Date of Service: 11/16/23 Interval History: Acute hypoxic resp failure, multifactorial, covid possible PNA Review of Systems still on high flow ,nbrm h/h trending down seems somewhat comfortable. denies any vomit with blood or blood in stool Physical Exam Vital Signs: Vital Signs: Last Vital Signs Temp 98.1 F 11/16/23 15:46 Pulse 93 11/16/23 15:46 Resp 16 11/16/23 15:46 BP 143/70 H 11/16/23 15:46 Pulse Ox 98 11/16/23 15:23 O2 Del Method High Flow Nasal C annula 11/16/23 15:23 O2 Flow Rate 50 11/16/23 15:23 FiO2 95 11/16/23 15:23 BMI result Body Mass Index 17.4 General: alert, oriented and not in distress, emaciated CVS: S1,S2,RRR GI: +BS, NT, no distention lungs: diffuse rhonchi Skin: No rash, BKA site dressing intact Neuro: motor grossly intact Psych: appropriate affect Objective Data Active Medications Acetaminophen (Acetaminophen 325 Mg Tablet) 650 mg PO Q6H PRN PRN Reason: Pain, Mild (Pain Scale 1-3) Last Admin: 11/12/23 01:31 Dose: 650 mg Documented By: FANY Baricitinib (Baricitinib 2 Mg Tablet) 2 mg PO DAILY [facility] Stop: 11/28/23 09:01 Last Admin: 11/16/23 08:02 Dose: 2 mg Documented By: CONCETTA Dexamethasone (Dexamethasone 6 Mg Tablet) 6 mg PO DAILY [facility] Last Admin: 11/16/23 08:02 Dose: 6 mg Documented By: CONCETTA Dextrose (Dextrose 50 % 25 Gm/50 Ml Syringe) 25 gm IVPUSH Q15M PRN; Protocol PRN Reason: per Hypoglycemia Standing Ord. Last Admin: 10/31/23 10:26 Dose: 25 gm Documented By: SARABJIT Enoxaparin Sodium (Enoxaparin Sodium 30 Mg/0.3 Ml Syringe) 30 mg SUBCUT Q24H [facility] Last Admin: 11/15/23 21:43 Dose: 30 mg Documented By: TYRONE Ferrous Sulfate (Ferrous Sulfate 324 Mg Arun.) 324 mg PO BIDWM [facility] Last Admin: 11/16/23 08:02 Dose: 324 mg Documented By: CONCETTA Glucose (Glucose Gel 15 Gm Gel..Gram.) 15 gm PO Q15M PRN; Protocol PRN Reason: per Hypoglycemia Standing Ord. Cefazolin Sodium/Dextrose (Ancef) 2 gm in 50 mls @ 100 mls/hr IV Q12H [facility] Stop: 12/28/23 13:29 Last Infusion: 11/16/23 13:16 Dose: Infused Documented By: CONCETTA Nutrition (Parenteral) (Parenteral Nutrition) 1,080 mls @ 45 mls/hr IV .Q24H [facility]; Protocol Stop: 11/16/23 20:59 Last Admin: 11/15/23 21:35 Dose: 45 mls/hr Documented By: TYRONE Nutrition (Parenteral) (Parenteral Nutrition) 1,560 mls @ 65 mls/hr IV .Q24H [facility]; Protocol Stop: 11/17/23 20:59 Insulin Human Lispro (Insulin Lispro 100 Unit/Ml 3 Ml Vial) 0 unit SUBCUT QIDACHS [facility]; Protocol Last Admin: 11/16/23 12:38 Dose: 6 unit Documented By: CONCETTA Melatonin (Melatonin 3 Mg Tablet) 6 mg PO BEDTIME PRN PRN Reason: Insomnia Last Admin: 11/09/23 20:32 Dose: 6 mg Documented By: LI Morphine Sulfate (Morphine Sulfate 2 Mg/Ml Cartridge) 2 mg IVPUSH Q4H PRN; Protocol PRN Reason: Pain, Severe (Pain Scale 7-10) Last Admin: 11/16/23 13:12 Dose: 2 mg Documented By: CONCETTA Nystatin (Nystatin Oral Susp 500,000 Unit/5 Ml Oral.Susp) 500,000 unit PO QID [facility]; Protocol Last Admin: 11/16/23 13:12 Dose: 500,000 unit Documented By: CONCETTA Ondansetron HCl (Ondansetron Hcl 4 Mg/2 Ml Vial) 4 mg IVPUSH Q8H PRN PRN Reason: Nausea and Vomiting Last Admin: 11/07/23 03:53 Dose: 4 mg Documented By: LALITHA Pantoprazole Sodium (Pantoprazole Sodium 40 Mg/10 Ml Vial) 40 mg IVPUSH BID@0630,1630 [facility] Last Admin: 11/16/23 12:38 Dose: 40 mg Documented By: CONCETTA Pharmacy Consult (Consult Rx Parenteral Nutrition Ordering) 1 each MISCELLANE DAILY [facility] Sodium Chloride (0.9 % Sodium Chloride Flush 3 Ml Syringe) 3 ml IVFLUSH QSHIFT [facility] Last Admin: 11/16/23 12:16 Dose: Not Given Documented By: LYRIC Non-Admin Reason: See Note Voriconazole (Voriconazole 200 Mg Tablet) 200 mg PO Q12H [facility] Last Admin: 11/16/23 05:16 Dose: 200 mg Documented By: SIDNEY Labs 11/16/23 09:24 11/16/23 07:32 Labs: Laboratory Results - last 24 hr 11/15/23 11/15/23 11/16/23 17:58 19:48 07:32 MCV 90.5 MCH 28.6 MCHC 31.6 RDW 15.7 Plt Count 97 L MPV 10.3 Absolute Nucleated RBC 0.000 Nucleated RBC % (auto) 0.0 Anion Gap 14 Estim Creat Clear Calc 31.3 Estimated GFR 40 POC Glucose 202 H 171 H Random Glucose 289 H Calcium 7.9 L Phosphorus 4.1 Magnesium 2.1 Ferritin 3280 H Albumin 1.8 L Stool Occult Blood Blood Type Antibody Screen Crossmatch 11/16/23 11/16/23 11/16/23 07:46 09:24 11:20 MCV MCH MCHC RDW Plt Count 90 L MPV Absolute Nucleated RBC Nucleated RBC % (auto) Anion Gap Estim Creat Clear Calc Estimated GFR POC Glucose 317 H 251 H Random Glucose Calcium Phosphorus Magnesium Ferritin Albumin Stool Occult Blood Blood Type O Positive Antibody Screen NEGATIVE Crossmatch See Detail 11/16/23 11/16/23 14:26 15:48 MCV MCH MCHC RDW Plt Count MPV Absolute Nucleated RBC Nucleated RBC % (auto) Anion Gap Estim Creat Clear Calc Estimated GFR POC Glucose 299 H Random Glucose Calcium Phosphorus Magnesium Ferritin Albumin Stool Occult Blood POSITIVE Blood Type Antibody Screen Crossmatch Assessment and Plan (1) COVID-19: Status: Acute (2) MSSA (methicillin susceptible Staphylococcus aureus) pneumonia: Status: Acute (3) Anemia: Status: Acute Plan 63-year-old male with pertinent history of insulin-dependent diabetes mellitus, noncompliant with medications who presented to the emergency department for evaluation of right foot pain found to have gangrene and eventually required right BKA course complicated by respiratory distress, ARDS and has now tested positive for COVID 19 currently on high flow/NRB. [employer] [employer] early this am (11/06) for hypoxia/lethargy Acute hypoxic resp failure, multifactorial, covid possible PNA, heart failure. Hypoxia persists despite hiflo and nrb. IV Decadron, pulmonary toileting, continue hiflow and nrb, antibiotics to cover pneumonia. Lasix drip for heart failure. Has completed remdesevir, decadron for 10 days. on barcitinib 11/15/23,Wean off O2 as tolerated. Cardiology and pulmonology following. -repeat covid test is still + pulmonary folowoing Heart failure with nl EF, clinically markedly fluid overloaded. 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 HTN, controlled , continue Lisinopril possible acute blood loss anemia on Iron def anemia. unspecified fobt positive No acute blood loss; receive 1 unit of packed red cells as well as iron transfusion H/H trending down 6.6 added 1 prbc.give small dose lasix after transfusion,hold dexamethsone/lovenox ppi,continue oral iron supplement will add Gi eval CKD stage 3, BRENDA worsening Insulin-dependent diabetes mellitus 2, AC1 5.7 -Lantus stopped d/t hypoglycemia, continue SSI, follow POCs Severe protein calorie malnutrition BMI 19.3 supplements added to diet Leukocytosis--likely from steroid Oral thrush--Nystatin swish and swallow Dysphagia-swallow eval Lovenox as per family request -called [facility] -they do not have beds currently. Requires ongoing hospitalization for IV antibiotics to treat bacteremia, probable pneumonia, CHF and ARDS/COVID now requiring high flow oxygen. needs close monitor of respiratory status as patient at high risk for decompensation. Prognosis is poor seen bY icU-currently recomended continue current management. above is d/e detail with patient and his brother. Quality Stroke Does the patient have a stroke diagnosis?: No VTE Prior VTE?: No VTE Risk Level:: Medical - moderate - high VTE Device Contraindication: Treatment Not Indicated VTE Drug Contraindication: N/A - Med Ordered
[2023-11-16] MEDS: Furosemide 20 MG/2 ML VIAL IVPUSH (18:35)
[2023-11-16 19:12] LABS: Hematocrit 26.7 % (42.0-52.0); Hemoglobin 8.8 g/dl (14.0-18.0)
[2023-11-16 20:00] LABS: Glucose, Whole Blood 359 mg/dL (60-115)
[2023-11-16] MEDS: Parenteral Nutrition 1,560 ML 65 ML IV (21:44)
[2023-11-17] VITALS (12 sets, daily range): BP systolic 121–158; BP diastolic 57–87; PULSE 89–128; RESP 18–24; TEMP 36.4–38.3; O2SAT 87–100; BMI 18.1
[2023-11-17] MEDS: ceFAZolin Sodium/Dextrose,Iso 2 GM/50 ML PIGGYBACK IV ×2 (00:36→12:37)
[2023-11-17] MEDS: Morphine Sulfate 2 MG/ML CARTRIDGE IVPUSH ×5 (03:50→22:32)
[2023-11-17] MEDS: Pantoprazole Sodium 40 MG/10 ML VIAL IVPUSH ×2 (06:15→16:25)
[2023-11-17 07:41] LABS: Albumin Level 1.9 g/dL (3.5-5.0); Anion Gap 12 (12-20); Blood Urea Nitrogen 79 mg/dL (9-16); Calcium 8.2 mg/dL (8.4-10.2); Carbon Dioxide 22 mmol/L (22-29); Chloride 107 mmol/L (96-108); Creatinine Clr Calc Pharmacy 34.9; Estimated Glomerular Filt Rate 44; Glucose Random 287 mg/dL (60-115); Magnesium 2.4 mg/dL (1.6-2.6); Phosphorus 4.3 mg/dL (2.7-4.5); Sodium 136 mmol/L (135-145)
[2023-11-17 08:03] LABS: Glucose, Whole Blood 270 mg/dL (60-115)
[2023-11-17 08:16] LABS: Hematocrit 28.3 % (42.0-52.0); Hemoglobin 9.3 g/dl (14.0-18.0)
[2023-11-17 08:17] LABS: Platelet Count 89 X10*3/uL (160-400)
[2023-11-17] MEDS: Insulin Lispro 100 UNIT/ML 3 ML VIAL SUBCUT ×4 (09:17→21:34)
[2023-11-17] MEDS: Acetaminophen 325 MG TABLET 650 MG PO (09:21)
[2023-11-17] MEDS: Ferrous Sulfate 324 MG TABLET.DR PO ×2 (09:22→16:25)
[2023-11-17] MEDS: 0.9 % Sodium Chloride Flush 3 ML SYRINGE IVFLUSH ×2 (09:22→16:25)
[2023-11-17] MEDS: Nystatin Oral Susp 500,000 UNIT/5 ML ORAL.SUSP 500000 UNIT PO ×3 (09:22→21:34)
--- NOTE | 2023-11-17 10:00 | MHC.CLN ---
F/U PPN PO INTAKE REMAINS POOR DIET RX:1800DM GRD M/S-APPROPRIATE PER MONEY ROOM TELLER MONEY ROOM TELLER FOLLOWING FOR APPROPRIATE DIET CONSISTENCY DISCUSSED WITH PHARMACY RECOMMEND CONTINUING PPN AT 65ML/HR TO PROVIDE 796KCALS, 156G DEXTROSE, 66G PROTEIN (1.2G/KG) CHECK TRIGS RECOMMEND ADDING 81G LIPIDS TO PROVIDE AN ADDITIONAL 810KCALS (1606TOTAL KCALS; 30KCLAS/KG) REPLETE LYTES NEEDED FOLLOW LYTES CLOSELY MONITOR PO INTAKE
[2023-11-17 10:45] LABS: Triglycerides 264 mg/dL (<150)
[2023-11-17 10:45] LABS: Folate > 20.0 ng/mL (> or = 4.0); Vitamin B12 1398 pg/mL (200-900)
--- NOTE | 2023-11-17 11:08 | HE.PHANOTE ---
PPN-11/16/23 to 11/17/23 PPN brought back to pharmacy by compounding pharmacy technician this morning. PPN not administered on 11/16/23 at 2100 due to no PICC Line access. PPN can be administered peripherally... contacted RN Mike who was able to start hanging around 1100. Todd and both aware of late administration.
[2023-11-17 11:59] LABS: HIV AB/AG Nonreactive (Nonreactive); HIV Num 1 0.08 S/CO (0.00-0.99)
[2023-11-17 12:09] LABS: Glucose, Whole Blood 305 mg/dL (60-115)
--- NOTE | 2023-11-17 14:14 | HO.SKINPHOTO ---
Location: Coccyx Category: Pressure Stage: Unstageable Length: Width: Depth: cm Location: Scrotum Category: Maceration + Excoriation Stage: N/A Length: Width: Depth: cm
--- NOTE | 2023-11-17 14:27 | MHC.SL.SWA ---
Speech Pathologist Impression: Risk of Aspiration Due to: Medically Fragile History of Pneumonia Dysphasia Diet Status: Recommend continue with GROUND/MECH ALTERED solids (NDD2) and THIN liquids (NO STRAW). MEDS CRUSHED with PUREE. ASSIST with TRAY SET-UP. Intermittent supervision. HOLD TRAY if lethargic. Provide patient with frequent O2 breaks with mask during meal. Liquid Consistency and Strategies for Safe Swallow: Liquid Intake Recommendation: Thin Liquid Intake Strategies: Small Sips No Straws Solid Food Consistency: Dietary Recommendations: Grnd/Mech Altered (NDD2) Additional Modifications to Solid Foods: Recommend UPGRADE from NPO, START on PUREED (NDD1) diet with THIN liquids via teaspoon or controlled cup (NO STRAWS), pills CRUSHED in PUREE. Pt requires total 1:1 assistance feeding and is recommended close monitoring and strict aspiration precautions. HOLD TRAY if pt is lethargic, does not attend to meal, or displays any overt s/s of aspiration. CERTIFIED ALCOHOL COUNSELOR will continue to follow to monitor pt's tolerance of PO and to re-assess as appropriate for potential upgrade. Oral Medication Intake: Crushed with Puree Please contact the pharmacy regarding appropriate crushable or liquid drug formulations that are available whenever modified delivery is recommended. Compensatory Strategies and Precautions to be Taken for Safe Swallow: Sitting Upright (90 deg) No Straw Liquids from Cup Liquids from Wide Cup Small Bites and Sips Alternate Liquids/Solids Oral Check Avoid Specific Foods Supervision While Eating and Drinking for Safe Swallow: Intermittent Supervision Foods to Avoid: Mixed textures Swallowing Recommended Treatments: Compens. Strategy Educat. Recommendation for Speech: Inpatient Speech Therapy Comment: Patient continues of HFNC with Oxy Mask. Attempted to see patient at lunch time, per friends visiting, tray had been removed as patient c/o not hungry. Patient had container of Bulgarian Ice and chocolate shake brought in by friends, expressed interest in Bulgarian Ice. Patient was directly assisted with eating the Bulgarian Ice, removing mask and taking bites by tsp. Patient produce a mildly prolonged oral phase followed by timely swallow with no clinical signs of aspiration. Patient was given periodic O2 breaks during eating, but evidenced fatigue at end of container being administered. Patient declined all other food trials. Recommend continue on current diet of Chopped/Advanced (NDD2) with Thin liquids, pills crushed in puree (no change). Frequency/Duration: M-F PRN Date Range for Service Req: Timeline to reassess: Office Bookkeeper Clinican/Clinical Fellow: No Supervisory Statement: I have reviewed and agree with the student/clinical fellow's documentation: N/A Speech Language Pathologist: Mattie Nichols M.A., CCC-CERTIFIED ALCOHOL COUNSELOR
--- NOTE | 2023-11-17 16:07 | P.CNGI_ITS ---
History of Present Illness Data of Consult Service Date: 11/17/23 Requesting physician: Georgi Roger Primary Care Provider: None Physician HPI Reason for consult: anemia ?iron deficiency with fobt+ Patient is a 63 Y M with insulin-dependent diabetes mellitus, [place] [facility] w/ subacute R foot pain and found to have R LE gangrene in the setting of uncontrolled diabetes mellitus, Pt had a Rt BKA on 11/02; hospital course c/b pulmonary edema and COVID pneumonia c/b ARDS, s/p dexamethasone/remdesivir, on persistent HFNC, and MSSA bacteremia, now on cefazolin and barcitinib; GI consulted due to a decrease in Hb/hct on 11/16/23. Labs showed H & H of 7.2 & 22.8 on 11/16/23 in the am. Repeat H & H was 6.6 & 20.8. Pt was transfused 1 U PRBC and post transfusion H & H was 8.8 & 26.7 Repeat labs on 11/17/23 showed H & H of 9.3 & 28.3 Iron studies were cw anemia of chronic disease with ferritin of 3280 Patient denies abdominal pain, heartburn or dysphagia, history of peptic ulcer disease or GI bleeding in the past. He does not recall having an upper endoscopy or colonoscopy in the past Nursing staff reports pt had some dark stools ? yesterday. Today he had a small amout of dark green BM. Review of Systems 2 Constitutional: Constitutional: Reports fatigue and Denies fever(s) ENT: Denies sore throat Cardiovascular: Cardiovascular: Denies chest pain and Reports dyspnea Respiratory: Respiratory: Reports cough, Reports dyspnea and Denies wheezing Gastrointestinal: Gastrointestinal: Reports no additional gastrointestinal complaints Musculoskeletal: Musculoskeletal: Reports as per HPI and Reports myalgias Neurologic: Reports as per HPI Endocrine: Endocrine: Reports fatigue Hematologic/Lymphatic: Hematologic/Lymphatic: Denies easy bruising Allergic/Immunologic: Allergic/Immunologic: Denies wheezing PMFSH Past Medical History Medical History (Updated 11/26/23 @ 00:03 by German Melgoza) Congestive cardiomyopathy Acute CHF PAD (peripheral artery disease) Foot infection Sepsis Gangrene of foot Bacteremia Neuropathy Diabetes Family History Family history: reviewed and not pertinent Social History Social History Household Members: Family Housing: Apartment Do you presently have visiting nurse or other home services: No Alcohol intake: current Alcohol intake frequency: does not drink Alcohol type: beer Comment: Patient off unit in [place] Patient Tobacco Use Status: Current everyday Tobacco user Tobacco use type: Cigarette e-Cigarette/Vaping Use: Never Used Second Hand Smoke Exposure: No Substance Use Type: Marijuana and Opiates service: No Meds Allergies Allergy/AdvReac Type Severity Reaction Status Date / Time amitriptyline Allergy Unknown stutter Verified 01/26/22 17:35 gabapentin Allergy Unknown confused Verified 01/26/22 17:35 Active Medications: Current Medications Acetaminophen (Acetaminophen 325 Mg Tablet) 650 mg PO Q6H PRN PRN Reason: Pain, Mild (Pain Scale 1-3) Last Admin: 11/17/23 09:21 Dose: 650 mg Baricitinib (Baricitinib 2 Mg Tablet) 2 mg PO DAILY [facility] Stop: 11/28/23 09:01 Last Admin: 11/17/23 09:22 Dose: 2 mg Dexamethasone (Dexamethasone 6 Mg Tablet) 6 mg PO DAILY [facility] Last Admin: 11/16/23 08:02 Dose: 6 mg Dextrose (Dextrose 50 % 25 Gm/50 Ml Syringe) 25 gm IVPUSH Q15M PRN; Protocol PRN Reason: per Hypoglycemia Standing Ord. Last Admin: 10/31/23 10:26 Dose: 25 gm Enoxaparin Sodium (Enoxaparin Sodium 30 Mg/0.3 Ml Syringe) 30 mg SUBCUT Q24H [facility] Last Admin: 11/15/23 21:43 Dose: 30 mg Ferrous Sulfate (Ferrous Sulfate 324 Mg Tablet.Dr) 324 mg PO BIDWM [facility] Last Admin: 11/17/23 09:22 Dose: 324 mg Glucose (Glucose Gel 15 Gm Gel..Gram.) 15 gm PO Q15M PRN; Protocol PRN Reason: per Hypoglycemia Standing Ord. Cefazolin Sodium/Dextrose (Ancef) 2 gm in 50 mls @ 100 mls/hr IV Q12H [facility] Stop: 12/28/23 13:29 Last Infusion: 11/17/23 13:29 Dose: Infused Nutrition (Parenteral) (Parenteral Nutrition) 1,560 mls @ 65 mls/hr IV .Q24H [facility]; Protocol Stop: 11/17/23 20:59 Last Admin: 11/16/23 21:44 Dose: 65 mls/hr Nutrition (Parenteral) (Parenteral Nutrition) 1,560 mls @ 65 mls/hr IV .Q24H [facility]; Protocol Stop: 11/18/23 20:59 Insulin Human Lispro (Insulin Lispro 100 Unit/Ml 3 Ml Vial) 0 unit SUBCUT QIDACHS [facility]; Protocol Last Admin: 11/17/23 12:37 Dose: 8 unit Melatonin (Melatonin 3 Mg Tablet) 6 mg PO BEDTIME PRN PRN Reason: Insomnia Last Admin: 11/09/23 20:32 Dose: 6 mg Morphine Sulfate (Morphine Sulfate 2 Mg/Ml Cartridge) 2 mg IVPUSH Q4H PRN; Protocol PRN Reason: Pain, Severe (Pain Scale 7-10) Last Admin: 11/17/23 13:23 Dose: 2 mg Nystatin (Nystatin Oral Susp 500,000 Unit/5 Ml Oral.Susp) 500,000 unit PO QID [facility]; Protocol Last Admin: 11/17/23 12:37 Dose: 500,000 unit Ondansetron HCl (Ondansetron Hcl 4 Mg/2 Ml Vial) 4 mg IVPUSH Q8H PRN PRN Reason: Nausea and Vomiting Last Admin: 11/07/23 03:53 Dose: 4 mg Pantoprazole Sodium (Pantoprazole Sodium 40 Mg/10 Ml Vial) 40 mg IVPUSH BID@0630,1630 [facility] Last Admin: 11/17/23 06:15 Dose: 40 mg Pharmacy Consult (Consult Rx Parenteral Nutrition Ordering) 1 each MISCELLANE DAILY [facility] Sodium Chloride (0.9 % Sodium Chloride Flush 3 Ml Syringe) 3 ml IVFLUSH QSHIFT [facility] Last Admin: 11/17/23 09:22 Dose: 3 ml Voriconazole (Voriconazole 200 Mg Tablet) 200 mg PO Q12H [facility] Last Admin: 11/17/23 06:16 Dose: 200 mg Home Medications Medication Instructions Recorded Confirmed Last Taken Type diphenhydramine 25 2 tab PO BEDTIME PRN Pain 10/29/23 10/29/23 Unknown History mg-acetaminophen 500 mg tablet Physical Exam 2 Vital Signs: Vital Signs: Last Vital Signs Temp 97.8 F 11/17/23 12:00 Pulse 102 H 11/17/23 12:00 Resp 20 11/17/23 15:09 BP 153/74 H 11/17/23 12:00 Pulse Ox 100 11/17/23 12:00 O2 Del Method High Flow Nasal C annula 11/17/23 12:00 O2 Flow Rate 50 11/17/23 12:00 FiO2 60.5 11/17/23 12:00 BMI result Body Mass Index 18.1 Const: General: no acute distress Orientation/consciousness: patient oriented x3 HEENT: Head: Yes normocephalic Mouth: Normal oral and palatal mucosa present Eyes: EOM: EOMs intact bilaterally Neck: Neck: Yes supple Resp: Auscultation: diminished lung sounds Cardio: Jugular venous distension: no JVD Rate: regular rate GI: Palpation (GI): Soft to palpation Auscultation: normal bowel sounds : General: Yes no CVA tenderness Back/Spine/Pelvis: Back: no CVA tenderness Skin: General skin exam: no rashes or lesions noted Neuro: General: patient oriented x3 and moves all extremities Results Labs 11/18/23 12:02 11/18/23 12:02 Labs: Short CBC 11/16/23 11/17/23 Range/Units 18:46 06:52 Hgb 8.8 L D 9.3 L (14.0-18.0) g/dl Hct 26.7 L D 28.3 L (42.0-52.0) % Plt Count 89 L (160-400) X10*3/uL BMP 11/17/23 06:52 Sodium 136 Potassium 5.0 Chloride 107 Carbon Dioxide 22 BUN 79 H Creatinine 1.60 H Calcium 8.2 L Liver Function 11/17/23 Range/Units 06:52 Albumin 1.9 L (3.5-5.0) g/dL Microbiology Microbiology Results: Microbiology 11/13/23 Unknown Urine Catheterized - Nolen Catheter Urine Culture - Final 11/02/23 14:00 Blood - Venous Blood Culture - Final No growth after 5 days. 11/02/23 14:00 Blood - Venous Blood Culture - Final No growth after 5 days. 10/28/23 22:40 Blood - Venous Blood Culture - Final Staphylococcus aureus 10/28/23 22:40 Blood - Venous Blood Culture - Final Staphylococcus aureus Assessment and Plan (1) Anemia: Status: Acute (2) Heme positive stool: Status: Acute Plan Patient is a 63 Y M with insulin-dependent diabetes mellitus, [place] [facility] [place] w/ subacute R foot pain and found to have R LE gangrene in the setting of uncontrolled diabetes mellitus, Pt had a Rt BKA on 11/02; hospital course c/b pulmonary edema and COVID pneumonia c/b ARDS, s/p dexamethasone/remdesivir, on persistent HFNC, and MSSA bacteremia, now on cefazolin and barcitinib; GI consulted due to a decrease in Hb/hct on 11/16/23. Labs showed H & H of 7.2 & 22.8 on 11/16/23 in the am. Repeat H & H was 6.6 & 20.8. Pt was transfused 1 U PRBC and post transfusion H & H was 8.8 & 26.7 Repeat labs on 11/17/23 showed H & H of 9.3 & 28.3 Iron studies were cw anemia of chronic disease with ferritin of 3280 Acute on chronic anemia likely due to GI blood loss from PUD or stress gastritis RECOMMENDATIONS: 1. Agree with IV PPI 2. Monitor CBC daily 3. Recommend continuing conservative management and holding off on endoscopic evaluation given multipel comorbidities and tenous respiratory status. Procedures Date of Service Date of Service: 12/19/23
--- NOTE | 2023-11-17 16:10 | P.CDIM_ITS ---
PROVIDER RESPONSE TEXT: To clarify, the appropriate diagnosis supported by the clinical indicators: Moderate Protein Calorie Malnutrition QUERY TEXT: PHYSICIAN'S DOCUMENTATION REQUEST Date of Query: 11/16/2023 08:04 AM EST Patient Name: Dov Ji Admit Date: 10/29/2023 Dear Georgi Roger, A review of the medical record indicates additional documentation may be needed. Please review below and update the documentation accordingly. Documentation on 11/15/22 includes the diagnosis of severe protein calorie malnutrition. Additional clinical indicators from the record include: Physician clarification sent to provider on 11/04/23 was responded as Moderate Protein Calorie Malnut rition To ensure the quality of the medical record, based on the above information could you please verify w hich of the following diagnoses best reflects the patient's nutritional status. Severe Protein Calorie Malnutrition is/was present and is a clinical diagnosis Moderate Protein Calorie Malnutrition Other (explain) Clinically unable to determine (explain) Thank you, Mary Lundberg RN Use of terms such as suspected, likely, concern for, or probable (associated with a specific diagnosi s that is being evaluated, monitored, or treated as if it exists) are acceptable and can be coded in the inpatient se tting, when documented at the time of discharge. Please use your independent medical judgment in providing your response. THIS QUERY IS PART OF THE PERMANENT MEDICAL RECORD
[2023-11-17 16:33] LABS: Glucose, Whole Blood 273 mg/dL (60-115)
--- NOTE | 2023-11-17 17:17 | HO.PM.IMPN ---
Subjective Subjective Date of Service: 11/17/23 Interval History: Acute hypoxic resp failure, multifactorial, covid possible PNA Review of Systems still on high flow ,nbrm- able to taper h/h improving after prbc seems somewhat comfortable. denies any vomit with blood or blood in stool Physical Exam Vital Signs: Vital Signs: Last Vital Signs Temp 97.8 F 11/17/23 16:00 Pulse 95 11/17/23 16:00 Resp 20 11/17/23 16:00 BP 121/60 11/17/23 16:00 Pulse Ox 94 11/17/23 16:00 O2 Del Method High Flow Nasal C annula 11/17/23 16:00 O2 Flow Rate 50 11/17/23 16:00 FiO2 84 11/17/23 16:00 BMI result Body Mass Index 18.1 General: alert, oriented and not in distress, emaciated CVS: S1,S2,RRR GI: +BS, NT, no distention lungs: diffuse rhonchi Skin: No rash, BKA site dressing intact Neuro: motor grossly intact Psych: appropriate affect Objective Data Active Medications Acetaminophen (Acetaminophen 325 Mg Tablet) 650 mg PO Q6H PRN PRN Reason: Pain, Mild (Pain Scale 1-3) Last Admin: 11/17/23 09:21 Dose: 650 mg Documented By: JOHN Baricitinib (Baricitinib 2 Mg Tablet) 2 mg PO DAILY [facility] Stop: 11/28/23 09:01 Last Admin: 11/17/23 09:22 Dose: 2 mg Documented By: JOHN Dexamethasone (Dexamethasone 6 Mg Tablet) 6 mg PO DAILY [facility] Last Admin: 11/16/23 08:02 Dose: 6 mg Documented By: CONCETTA Dextrose (Dextrose 50 % 25 Gm/50 Ml Syringe) 25 gm IVPUSH Q15M PRN; Protocol PRN Reason: per Hypoglycemia Standing Ord. Last Admin: 10/31/23 10:26 Dose: 25 gm Documented By: SARABJIT Enoxaparin Sodium (Enoxaparin Sodium 30 Mg/0.3 Ml Syringe) 30 mg SUBCUT Q24H [facility] Last Admin: 11/15/23 21:43 Dose: 30 mg Documented By: TYRONE Ferrous Sulfate (Ferrous Sulfate 324 Mg Tablet.) 324 mg PO BIDWM [facility] Last Admin: 11/17/23 16:25 Dose: 324 mg Documented By: JOHN Glucose (Glucose Gel 15 Gm Gel..Gram.) 15 gm PO Q15M PRN; Protocol PRN Reason: per Hypoglycemia Standing Ord. Cefazolin Sodium/Dextrose (Ancef) 2 gm in 50 mls @ 100 mls/hr IV Q12H [facility] Stop: 12/28/23 13:29 Last Infusion: 11/17/23 13:29 Dose: Infused Documented By: JOHN Nutrition (Parenteral) (Parenteral Nutrition) 1,560 mls @ 65 mls/hr IV .Q24H [facility]; Protocol Stop: 11/17/23 20:59 Last Admin: 11/16/23 21:44 Dose: 65 mls/hr Documented By: ELENALAMC Nutrition (Parenteral) (Parenteral Nutrition) 1,560 mls @ 65 mls/hr IV .Q24H [facility]; Protocol Stop: 11/18/23 20:59 Insulin Human Lispro (Insulin Lispro 100 Unit/Ml 3 Ml Vial) 0 unit SUBCUT QIDACHS [facility]; Protocol Last Admin: 11/17/23 16:54 Dose: 6 unit Documented By: JOHN Melatonin (Melatonin 3 Mg Tablet) 6 mg PO BEDTIME PRN PRN Reason: Insomnia Last Admin: 11/09/23 20:32 Dose: 6 mg Documented By: LI Morphine Sulfate (Morphine Sulfate 2 Mg/Ml Cartridge) 2 mg IVPUSH Q4H PRN; Protocol PRN Reason: Pain, Severe (Pain Scale 7-10) Last Admin: 11/17/23 13:23 Dose: 2 mg Documented By: JOHN Nystatin (Nystatin Oral Susp 500,000 Unit/5 Ml Oral.Susp) 500,000 unit PO QID [facility]; Protocol Last Admin: 11/17/23 16:51 Dose: Not Given Documented By: JOHN Non-Admin Reason: Patient Refused Ondansetron HCl (Ondansetron Hcl 4 Mg/2 Ml Vial) 4 mg IVPUSH Q8H PRN PRN Reason: Nausea and Vomiting Last Admin: 11/07/23 03:53 Dose: 4 mg Documented By: LALITHA Pantoprazole Sodium (Pantoprazole Sodium 40 Mg/10 Ml Vial) 40 mg IVPUSH BID@0630,1630 [facility] Last Admin: 11/17/23 16:25 Dose: 40 mg Documented By: JOHN Pharmacy Consult (Consult Rx Parenteral Nutrition Ordering) 1 each MISCELLANE DAILY [facility] Sodium Chloride (0.9 % Sodium Chloride Flush 3 Ml Syringe) 3 ml IVFLUSH QSHIFT [facility] Last Admin: 11/17/23 16:25 Dose: 3 ml Documented By: JOHN Voriconazole (Voriconazole 200 Mg Tablet) 200 mg PO Q12H [facility] Last Admin: 11/17/23 16:54 Dose: 200 mg Documented By: JOHN Labs 11/17/23 06:52 11/17/23 06:52 Labs: Laboratory Results - last 24 hr 11/16/23 11/16/23 11/17/23 09:24 19:56 06:52 Plt Count 89 L Smear Path Review SEE NOTE Hold Purple Top SEE NOTE Anion Gap 12 Estim Creat Clear Calc 34.9 Estimated GFR 44 POC Glucose 359 H* Random Glucose 287 H Calcium 8.2 L Phosphorus 4.3 Magnesium 2.4 Albumin 1.9 L Triglycerides 264 H Vitamin B12 Folate HIV 1&2 Ab/P24 Ag 4thGn 11/17/23 11/17/23 11/17/23 07:15 09:27 12:04 Plt Count Smear Path Review Hold Purple Top Anion Gap Estim Creat Clear Calc Estimated GFR POC Glucose 270 H 305 H Random Glucose Calcium Phosphorus Magnesium Albumin Triglycerides Vitamin B12 1398 H Folate > 20.0 HIV 1&2 Ab/P24 Ag 4thGn Nonreactive 11/17/23 16:19 Plt Count Smear Path Review Hold Purple Top Anion Gap Estim Creat Clear Calc Estimated GFR POC Glucose 273 H Random Glucose Calcium Phosphorus Magnesium Albumin Triglycerides Vitamin B12 Folate HIV 1&2 Ab/P24 Ag 4thGn Assessment and Plan (1) COVID-19: Status: Acute (2) MSSA (methicillin susceptible Staphylococcus aureus) pneumonia: Status: Acute (3) Anemia: Status: Acute Plan 63-year-old male with pertinent history of insulin-dependent diabetes mellitus, noncompliant with medications who presented to the emergency department for evaluation of right foot pain found to have gangrene and eventually required right BKA course complicated by respiratory distress, ARDS and has now tested positive for COVID 19 currently on high flow/NRB. [employer] early this am (11/06) for hypoxia/lethargy Acute hypoxic resp failure, multifactorial, covid possible PNA, heart failure. Hypoxia persists despite hiflo and nrb. IV Decadron, pulmonary toileting, continue hiflow and nrb, antibiotics to cover pneumonia. Lasix drip for heart failure. Has completed remdesevir, decadron for 10 days. on barcitinib 11/15/23,Wean off O2 as tolerated(fio2 taper flow 50 liter/fio2 -84 ). Cardiology and pulmonology following. -repeat covid test is still + pulmonary folowoing Heart failure with nl EF, clinically markedly fluid overloaded. negatitive 2579/24 hrs holding lasix drip d/t increasing Scr Sepsis due to right foot wet gangrene with purulent cellulitis and MSSA bacteremia s/p right BKA 11/02 12/09 blood cultures with MSSA - Kefzol until 12/14/23 -had an isolated temp of 101, if fever persist, will repeat blood cultures - repeat blood cultures negative to date - will need PICC line for chcf abx - Wound looks good per surgery, dressing changes with dry dressing -Oxycodone for pain HypOkalemia, resolved. HTN, controlled , continue Lisinopril possible acute blood loss anemia on Iron def anemia. unspecified fobt positive h/h went up from 6.6 to 9.3 ,platlets stable around 90( received 1 prbc 11/16/23) denies any gross bleedin added 1 prbc.give small dose lasix after transfusion,hold dexamethsone ppi,continue oral iron supplement moniter cbc daily Gi eval-Recommend continuing conservative management and holding off on endoscopic evaluation given multipel comorbidities and tenous respiratory status. CKD stage 3, BRENDA worsening Insulin-dependent diabetes mellitus 2, AC1 5.7 -Lantus stopped d/t hypoglycemia, continue SSI, follow POCs Severe protein calorie malnutrition BMI 19.3 supplements added to diet Leukocytosis--likely from steroid Oral thrush--Nystatin swish and swallow Dysphagia-swallow eval Lovenox as per family request -called [facility] -they do not have beds currently. Requires ongoing hospitalization for IV antibiotics to treat bacteremia, probable pneumonia, CHF and ARDS/COVID now requiring high flow oxygen. needs close monitor of respiratory status as patient at high risk for decompensation. Prognosis is poor seen bY icU-currently recomended continue current management. above is d/e detail with patient and his brother. overlal prognosis is poor, [facility]-bed awaiting as per family request. Quality Stroke Does the patient have a stroke diagnosis?: No VTE Prior VTE?: No VTE Risk Level:: Medical - moderate - high VTE Device Contraindication: Treatment Not Indicated VTE Drug Contraindication: N/A - Med Ordered
[2023-11-17 20:34] LABS: Glucose, Whole Blood 236 mg/dL (60-115)
[2023-11-17] MEDS: Parenteral Nutrition 1,560 ML 65 ML IV (21:40)
[2023-11-18] VITALS (12 sets, daily range): BP systolic 128–150; BP diastolic 58–77; PULSE 101–133; RESP 20–44; TEMP 36.8–38.6; O2SAT 88–100; BMI 19.0
[2023-11-18] MEDS: Acetaminophen 325 MG TABLET 650 MG PO (00:34)
[2023-11-18] MEDS: ceFAZolin Sodium/Dextrose,Iso 2 GM/50 ML PIGGYBACK IV (00:35)
[2023-11-18] MEDS: LORazepam 2 MG/ML VIAL 1 MG IVPUSH (00:35)
[2023-11-18] MEDS: Acetaminophen 1,000 MG/100 ML PIGGYBACK 400 MG IV (02:19)
[2023-11-18] MEDS: 0.9 % Sodium Chloride 1,000 ML 999 ML IV (02:31)
[2023-11-18 02:37] LABS: Basophils Percent Auto 0.1 % (0-2); Eosinophils Absolute Auto 0.1 X10*3/uL (0.0-0.4); Eosinophils Percent Auto 0.5 % (0-4); Hematocrit 32.1 % (42.0-52.0); Hemoglobin 10.6 g/dl (14.0-18.0); Imm Gran Abs Auto 0.09 X10*3/uL (0.00-0.03); Imm Gran Pct Auto 0.7 % (0.0-0.4); Lymphocytes Absolute Auto 0.6 X10*3/uL (1.2-4.9); Lymphocytes Percent Auto 4.9 % (20-40); MANUAL DIFF FLAG SCAN; Mean Corpuscular Volume 90.9 fL (80.0-98.0); Mean Platelet Volume 10.3 fL (9.4-12.4); Monocytes Absolute Auto 0.2 X10*3/uL (0.1-1.2); Monocytes Percent Auto 1.6 % (2-11); Neutrophils Absolute Auto 11.9 x10*3/uL (2.0-8.3); Neutrophils Percent Auto 92.2 % (45-73); Platelet Count 85 X10*3/uL (160-400); Red Blood Count 3.53 X10*6/uL (4.60-5.80); Red Cell Distribution Width 15.8 % (11.0-16.0); SCAN SMEAR FLAG 1; White Blood Count 12.9 X10*3/uL (4.8-10.8)
--- NOTE | 2023-11-18 02:45 | PC.NURSE ---
Addendum entered by Adiel Ramirez RN 11/18/23 03:20: 100.5 rectal following IV Tylenol Original Note: Around 0045, pt febrile 101.0 rectal. MD made aware. Gave Tylenol PO. Reassessment of temp after an hour showed temp 101.5 rectal. Pt exhibiting increased lethargy. Pt Slow to respond, oriented, vague on situation. At 0200, MD at bedside. Labs, cultures, fluid bolus, IV Tylenol ordered. Plan of care continues.
[2023-11-18 02:55] LABS: SLIDE REVIEW VERIFIED
[2023-11-18 03:01] LABS: Lactic Acid 1.9 mmol/L (0.5-2.0)
[2023-11-18 03:05] LABS: Alanine Aminotransferase 9 U/L (0-40); Albumin Level 2.1 g/dL (3.5-5.0); Alkaline Phosphatase 175 U/L (39-117); Anion Gap 14 (12-20); Aspartate Amino Transferase 57 U/L (5-37); Bilirubin Total 0.3 mg/dL (0.0-1.0); Blood Urea Nitrogen 91 mg/dL (9-16); Calcium 8.4 mg/dL (8.4-10.2); Carbon Dioxide 19 mmol/L (22-29); Chloride 108 mmol/L (96-108); Creatinine Clr Calc Pharmacy 33.6; Estimated Glomerular Filt Rate 42; Glucose Random 220 mg/dL (60-115); Potassium 5.9 mmol/L (3.3-5.1); Sodium 135 mmol/L (135-145); Total Protein 6.8 g/dL (6.5-8.0)
[2023-11-18 03:06] LABS: Appearance Urine Cloudy; Color Urine Yellow; Glucose Urine UA 250 mg/dL (Negative); Leukocyte Esterase Urine Negative (Negative); Nitrite Urine Negative (Negative); PH 5.5 (5.0-9.0); UMIC TRIGGER UA YES; Urine Blood Large (3+) (Negative); Urine Ketones Negative (Negative); Urine Protein 100 (2+) mg/dL (Neg-Trace)
[2023-11-18 03:32] LABS: Bacteria Urine None Seen (None Seen); WBC Urine 0-5 /HPF (0-5)
[2023-11-18] MEDS: Piperacillin Sodium/Tazobactam 3.375 GM in 0.9 % Sodium Chloride 50 ML IV ×2 (03:45→08:58)
[2023-11-18] MEDS: vancomycin HCL 1,250 MG in 0.9 % Sodium Chloride 250 ML 166.67 MG IV (03:49)
--- NOTE | 2023-11-18 04:03 | PM.EVENT ---
Event Note Date of Service: 11/18/23 Event Note: Contacted to notify patient has been developing fever. 101.5. He persists with significant sinus tachycardia. Blood pressure is stable. He is currently on high-flow and non-rebreather mask. O2 sat is adequate. Patient is also becoming lethargic. He responds to verbal stimuli. Cardiopulmonary auscultation is remarkable for tachycardia with regular rhythm and mild crackles. Stat labs were ordered including CBC, CMP, lactic acid and blood cultures x2. These are remarkable for leukocytosis of 12.9. Anemia is stable, as well as the creatinine. There is hyperkalemia of 5.9 and hyperglycemia of 220. Lactic acid is normal. Bicarb dropped to 19. Patient has been receiving treatment with cefazolin and he was diagnosed with MSSA bacteremia on October 28. Patient has sepsis criteria and I am concerned he might be developing bacteremia but other agents such as MRSA. He is at risk of bacteremia and healthcare pneumonia as he has been hospitalized for at least 21 days and has been receiving TPN. We will recheck a CXR. We will also check a repeat urinalysis. I will start him broad-spectrum antibiotic therapy with vancomycin and Zosyn and will discontinue current antibiotics. A bolus of NS (1L) was ordered. Per sepsis protocol he should get 1.5 L of NS but will avoid aggressive IVFs administration at this time as the patient has history of congestive heart failure. Insulin are was ordered as the patient has hyperkalemia. We will recheck potassium levels later in the morning. Time Spent With Patient Time: Total time managing care of this patient today ____ minutes.
[2023-11-18] MEDS: Insulin Regular, Human 100 UNIT/ML 3 ML VIAL IVPUSH (04:22)
[2023-11-18] MEDS: Pantoprazole Sodium 40 MG/10 ML VIAL IVPUSH (06:17)
--- NOTE | 2023-11-18 07:50 | PHA.PROG ---
Admission Date/Time: October 28, 2023 23:35 Indication: SEPSIS Weight in k kg Adjusted body weight in K.66 [place] body weight in Kg: Obesity Dosing Indication % IBW: Serum Creatinine - Last 168 Hours 11/11/23 11/12/23 11/13/23 11:31 12:30 08:09 Creatinine 1.21 1.26 Cancelled 11/13/23 11/14/23 11/15/23 08:09 10:26 07:21 Creatinine 1.27 1.69 H 1.78 H 11/16/23 11/17/23 11/18/23 07:32 06:52 02:30 Creatinine 1.72 H 1.60 H 1.66 H Estimated CrCl and GFR - Last 168 Hours 11/11/23 11/12/23 11/13/23 11:31 12:30 08:09 Estim Creat Clear Calc 51.4 45.5 Cancelled Estimated GFR > 60 58 11/13/23 11/13/23 11/14/23 08:09 08:09 10:26 Estim Creat Clear Calc 45.2 33.9 Estimated GFR Cancelled 57 41 11/15/23 11/16/23 11/17/23 07:21 07:32 06:52 Estim Creat Clear Calc 27.2 31.3 34.9 Estimated GFR 39 40 44 11/18/23 02:30 Estim Creat Clear Calc 33.6 Estimated GFR 42 Vancomycin Loading Dose: 1250 MG Current Vancomycin Dosing Regimen: 1000 MG Q24H Vancomycin Monitoring using AUC goal of 400 - 600 range with trough as surrogate marker: 568 Date and Time for next Vancomycin Level to be drawn: 11/18/2023 @2100 Vancomycin Trough 28.9 mcg/mL (10.0-20.0) H* 10/30/23 08:39 Pharmacist Comments on Vancomycin Plan: Based on indication of sepsis and patient's sCr of 1.66, dose is determined to be 1000 mg q24h (predicted AUC of 568 and trough of 17.7) at 2300 11/18/23 with random being drawn at 2100. Vancomycin dosing will take advantage of [employer] as a clinical decision support tool that uses Bayesian modeling to calculate individual patient's pharmacokinetic parameters and forecast the patient's drug concentration time course with the target goal AUC 24 range of 400 - 600 mg/L/hr.
[2023-11-18 07:54] LABS: Hematocrit 25.2 % (42.0-52.0); Hemoglobin 8.2 g/dl (14.0-18.0)
[2023-11-18 08:02] LABS: Glucose, Whole Blood 247 mg/dL (60-115)
[2023-11-18 08:06] LABS: Albumin Level 1.7 g/dL (3.5-5.0); Anion Gap 11 (12-20); Blood Urea Nitrogen 90 mg/dL (9-16); Calcium 7.7 mg/dL (8.4-10.2); Carbon Dioxide 19 mmol/L (22-29); Chloride 111 mmol/L (96-108); Creatinine Clr Calc Pharmacy 37.4; Estimated Glomerular Filt Rate 45; Glucose Random 242 mg/dL (60-115); Magnesium 2.5 mg/dL (1.6-2.6); Phosphorus 2.9 mg/dL (2.7-4.5); Potassium 5.2 mmol/L (3.3-5.1); Sodium 136 mmol/L (135-145); Triglycerides 287 mg/dL (<150)
[2023-11-18] MEDS: Sodium Zirconium Cyclosilicate 10 GM POWD.PACK PO (08:57)
[2023-11-18] MEDS: Nystatin Oral Susp 500,000 UNIT/5 ML ORAL.SUSP 500000 UNIT PO ×2 (08:57→12:28)
[2023-11-18] MEDS: Insulin Lispro 100 UNIT/ML 3 ML VIAL SUBCUT ×2 (08:58→12:49)
[2023-11-18] MEDS: Ferrous Sulfate 324 MG TABLET.DR PO (08:58)
[2023-11-18] MEDS: 0.9 % Sodium Chloride Flush 3 ML SYRINGE IVFLUSH (08:58)
[2023-11-18 09:40] LABS: ABG Base Excess -3.7 mmol/L; ABG HCO3 19 mmol/L (22-26); ABG pCO2 29 mmHg (32-45); ABG pH 7.43 (7.35-7.45); ABG pO2 78 mmHg (83-108)
--- NOTE | 2023-11-18 09:56 | PC.NURSE ---
Second witness between MD and pt brother on phone . Full code to continue per family's wishes.
--- NOTE | 2023-11-18 09:59 | P.PNPL_ITS ---
Subjective Subjective Date of Service: 11/18/23 Interval history: The patient was seen and examined. Had a fever last night and worsening hypoxia. CXR with worsening airspace disease. ABG with respiratory alkalosis due to hypoxia. Concern for the development of sepsis in view of his immunosuppressant therapy, therefore, will d/c Barcitinib at this time. He was started on broad spectrum abx and diuresis. Objective Data Labs 11/18/23 06:49 11/18/23 06:49 Labs: Laboratory Results - last 24 hr 11/17/23 11/17/23 11/17/23 06:52 09:27 12:04 WBC RBC Hgb Hct MCV MCH MCHC RDW Plt Count MPV Immature Gran % (Auto) Neut % (Auto) Lymph % (Auto) [place] % (Auto) Eos % (Auto) Baso % (Auto) Lymph # (Auto) [place] # (Auto) Eos # (Auto) Baso # (Auto) Abs Immat Gran (auto) Absolute Neuts (auto) Absolute Nucleated RBC Nucleated RBC % (auto) Smear Tech's Comments O2 Saturation ABG pH at Pt Temp ABG pCO2 at Pt Temp ABG pO2 at Pt Temp ABG HCO3 ABG Base Excess (Actual) Sodium Potassium Chloride Carbon Dioxide Anion Gap BUN Creatinine Estim Creat Clear Calc Estimated GFR POC Glucose 305 H Random Glucose Lactic Acid Calcium Phosphorus Magnesium Total Bilirubin AST ALT Alkaline Phosphatase Total Protein Albumin Triglycerides 264 H Vitamin B12 1398 H Folate > 20.0 Urine Color Urine Appearance Urine pH Ur Specific [place] Urine Protein Urine Glucose (UA) Urine Ketones Urine Blood Urine Nitrite Ur Leukocyte Esterase Urine RBC Urine WBC Ur Squamous Epith Cells Urine Bacteria Hyaline Casts HIV 1&2 Ab/P24 Ag 4thGn Nonreactive 11/17/23 11/17/23 11/18/23 16:19 20:30 02:30 WBC 12.9 H RBC 3.53 L D Hgb 10.6 L Hct 32.1 L MCV 90.9 MCH 30.0 MCHC 33.0 RDW 15.8 Plt Count 85 L MPV 10.3 Immature Gran % (Auto) 0.7 H Neut % (Auto) 92.2 H Lymph % (Auto) 4.9 L [place] % (Auto) 1.6 L Eos % (Auto) 0.5 Baso % (Auto) 0.1 Lymph # (Auto) 0.6 L [place] # (Auto) 0.2 Eos # (Auto) 0.1 Baso # (Auto) 0.0 Abs Immat Gran (auto) 0.09 H Absolute Neuts (auto) 11.9 H Absolute Nucleated RBC 0.000 Nucleated RBC % (auto) 0.0 Smear Tech's Comments VERIFIED O2 Saturation ABG pH at Pt Temp ABG pCO2 at Pt Temp ABG pO2 at Pt Temp ABG HCO3 ABG Base Excess (Actual) Sodium 135 Potassium 5.9 H Chloride 108 Carbon Dioxide 19 L Anion Gap 14 BUN 91 H Creatinine 1.66 H Estim Creat Clear Calc 33.6 Estimated GFR 42 POC Glucose 273 H 236 H Random Glucose 220 H Lactic Acid 1.9 Calcium 8.4 Phosphorus Magnesium Total Bilirubin 0.3 AST 57 H ALT 9 Alkaline Phosphatase 175 H Total Protein 6.8 Albumin 2.1 L Triglycerides Vitamin B12 Folate Urine Color Urine Appearance Urine pH Ur Specific [place] Urine Protein Urine Glucose (UA) Urine Ketones Urine Blood Urine Nitrite Ur Leukocyte Esterase Urine RBC Urine WBC Ur Squamous Epith Cells Urine Bacteria Hyaline Casts HIV 1&2 Ab/P24 Ag 4thGn 11/18/23 11/18/23 11/18/23 02:50 06:49 07:53 WBC RBC Hgb 8.2 L D Hct 25.2 L D MCV MCH MCHC RDW Plt Count MPV Immature Gran % (Auto) Neut % (Auto) Lymph % (Auto) [place] % (Auto) Eos % (Auto) Baso % (Auto) Lymph # (Auto) [place] # (Auto) Eos # (Auto) Baso # (Auto) Abs Immat Gran (auto) Absolute Neuts (auto) Absolute Nucleated RBC Nucleated RBC % (auto) Smear Tech's Comments O2 Saturation ABG pH at Pt Temp ABG pCO2 at Pt Temp ABG pO2 at Pt Temp ABG HCO3 ABG Base Excess (Actual) Sodium 136 Potassium 5.2 H Chloride 111 H Carbon Dioxide 19 L Anion Gap 11 L BUN 90 H Creatinine 1.57 H Estim Creat Clear Calc 37.4 Estimated GFR 45 POC Glucose 247 H Random Glucose 242 H Lactic Acid Calcium 7.7 L D Phosphorus 2.9 Magnesium 2.5 Total Bilirubin AST ALT Alkaline Phosphatase Total Protein Albumin 1.7 L Triglycerides 287 H Vitamin B12 Folate Urine Color Yellow Urine Appearance Cloudy Urine pH 5.5 Ur Specific [place] 1.020 Urine Protein 100 (2+) H Urine Glucose (UA) 250 H Urine Ketones Negative Urine Blood Large (3+) H Urine Nitrite Negative Ur Leukocyte Esterase Negative Urine RBC 11-20 H Urine WBC 0-5 Ur Squamous Epith Cells 3-5 Urine Bacteria None Seen Hyaline Casts 6-10 HIV 1&2 Ab/P24 Ag 4thGn 11/18/23 09:34 WBC RBC Hgb Hct MCV MCH MCHC RDW Plt Count MPV Immature Gran % (Auto) Neut % (Auto) Lymph % (Auto) [place] % (Auto) Eos % (Auto) Baso % (Auto) Lymph # (Auto) [place] # (Auto) Eos # (Auto) Baso # (Auto) Abs Immat Gran (auto) Absolute Neuts (auto) Absolute Nucleated RBC Nucleated RBC % (auto) Smear Tech's Comments O2 Saturation 96.0 ABG pH at Pt Temp 7.43 ABG pCO2 at Pt Temp 29 L ABG pO2 at Pt Temp 78 L ABG HCO3 19 L ABG Base Excess (Actual) -3.7 Sodium Potassium Chloride Carbon Dioxide Anion Gap BUN Creatinine Estim Creat Clear Calc Estimated GFR POC Glucose Random Glucose Lactic Acid Calcium Phosphorus Magnesium Total Bilirubin AST ALT Alkaline Phosphatase Total Protein Albumin Triglycerides Vitamin B12 Folate Urine Color Urine Appearance Urine pH Ur Specific [place] Urine Protein Urine Glucose (UA) Urine Ketones Urine Blood Urine Nitrite Ur Leukocyte Esterase Urine RBC Urine WBC Ur Squamous Epith Cells Urine Bacteria Hyaline Casts HIV 1&2 Ab/P24 Ag 4thGn Microbiology Microbiology Results: Microbiology 11/13/23 Unknown Urine Catheterized - Nolen Catheter Urine Culture - Final 11/02/23 14:00 Blood - Venous Blood Culture - Final No growth after 5 days. 11/02/23 14:00 Blood - Venous Blood Culture - Final No growth after 5 days. 10/28/23 22:40 Blood - Venous Blood Culture - Final Staphylococcus aureus 10/28/23 22:40 Blood - Venous Blood Culture - Final Staphylococcus aureus Review of Systems Constitutional: Reports fatigue and Reports fever(s) Denies sore throat Cardiovascular: Denies chest pain and Reports dyspnea Respiratory: Reports cough, Reports dyspnea and Denies wheezing Gastrointestinal: Reports no additional gastrointestinal complaints Musculoskeletal: Reports as per HPI and Reports myalgias Reports as per HPI Endocrine: Reports fatigue Hematologic/Lymphatic: Denies easy bruising Allergic/Immunologic: Denies wheezing Physical Exam 2 Vital Signs: Vital Signs: Last Vital Signs Temp 98.4 F 11/18/23 07:50 Pulse 101 H 11/18/23 07:50 Resp 28 H 11/18/23 08:30 BP 145/70 H 11/18/23 07:50 Pulse Ox 94 11/18/23 07:50 O2 Del Method High Flow Nasal C annula 11/18/23 07:50 O2 Flow Rate 50 11/18/23 07:50 FiO2 95 11/18/23 07:50 BMI result Body Mass Index 19.0 Const: Other: thin, ill appearing General: in distress mild, ill appearing and tired appearing Nutritional Appearance: thin Neck: Neck: Yes supple Chest: Chest palpation & inspection: normal inspection of the chest Resp: Other: on high flow oxygen diminished breath sounds, no wheezing Effort & Inspection: respiratory distress, tachypneic and uses accessory muscles Auscultation: crackles, rhonchi and diminished lung sounds Cardio: Rate: regular rate GI: Inspection: No distended Palpation (GI): Soft to palpation and nontender Extrem: Other: s/p Right BKA dressing c/d/i Procedures Date of Service Date of Service: 11/18/23 Assessment and Plan Assessment and plan (1) COVID-19: Status: Acute (2) ARDS (adult respiratory distress syndrome): Status: Acute (3) Acute respiratory failure: Status: Acute (4) Bacteremia: Status: Acute (5) Gangrene of foot: Status: Acute Plan stop barcitinib continue broad spectrum abx therapy continue emperic Voriconazole while await for Apergillus/ Galactomman Continue HF/NRB diuresis panculture Guarded condition, may benefit from ANJU for work of breathing Time Spent With Patient Time: Total time managing care of this patient today ____ minutes. Progress Note: Quality Stroke Does the patient have a stroke diagnosis?: No
[2023-11-18] MEDS: Furosemide 40 MG/4 ML VIAL IVPUSH (10:18)
--- NOTE | 2023-11-18 10:37 | MHC.CLN ---
F/U PPN PO INTAKE REMAINS POOR DIET RX:1800DM GRD M/S-APPROPRIATE PER FRONT DESK [employer]ILI[employer] DISCUSSED WITH PHARMACY RECOMMEND CONTINUING PPN AT 65ML/HR WITH 81G LIPIDS PROVIDES 1606 TOTAL KCALS (30KCALS/KG), 156G DEXTROSE, 66G PROTEIN (1.2G/KG) CHECK TRIGS REPLETE LYTES NEEDED FOLLOW LYTES CLOSELY MONITOR PO INTAKE
--- NOTE | 2023-11-18 10:55 | PM.CCPN ---
Subjective Subjective Date of Service: 11/18/23 Interval History: worsening hypoxic respiratory failure; upon evaluation, patient appears lethargic, plan to admit ICU for further care Critical Care Time (minutes): 90 Physical Exam Vital Signs: Vital Signs: Last Vital Signs Temp 98.4 F 11/18/23 07:50 Pulse 101 H 11/18/23 07:50 Resp 28 H 11/18/23 08:30 BP 145/70 H 11/18/23 07:50 Pulse Ox 94 11/18/23 07:50 O2 Del Method High Flow Nasal C annula 11/18/23 07:50 O2 Flow Rate 50 11/18/23 07:50 FiO2 95 11/18/23 07:50 BMI result Body Mass Index 19.0 Const: Other: lethargic; oriented to person, place, and general situation, but unable to answer tiered questions Orientation/consciousness: patient oriented x3 HEENT: Head: Yes normal to inspection, Yes normocephalic and Yes atraumatic Eyes: General: appearance normal, both eyes and all related structures Neck: Neck: Yes normal visual inspection, Yes full ROM and Yes supple Chest: Chest palpation & inspection: normal inspection of the chest Resp: Other: appreciable diffuse rhonchi and rales; no appreciable wheezing Cardio: Rate: regular rate Rhythm: regular rhythm GI: Inspection: Yes normal to inspection, No Abdominal wall edema and No distended Palpation (GI): Soft to palpation, not firm, nontender, no guarding and not rigid : Male General Exam: Yes normal external exam Skin: General skin exam: no rashes or lesions noted Neuro: Other: appreciable R LE BKA General: patient oriented x3, tone normal, moves all extremities and no focal motor deficits Extrem: General: Yes capillary refill normal and Yes no clubbing, cyanosis or edema Psych: Other: unabel to assess Objective Data Labs 11/18/23 06:49 11/18/23 06:49 Labs: Laboratory Results - last 24 hr 11/17/23 11/17/23 11/17/23 09:27 12:04 16:19 WBC RBC Hgb Hct MCV MCH MCHC RDW Plt Count MPV Immature Gran % (Auto) Neut % (Auto) Lymph % (Auto) [place] % (Auto) Eos % (Auto) Baso % (Auto) Lymph # (Auto) [place] # (Auto) Eos # (Auto) Baso # (Auto) Abs Immat Gran (auto) Absolute Neuts (auto) Absolute Nucleated RBC Nucleated RBC % (auto) Smear Tech's Comments O2 Saturation ABG pH at Pt Temp ABG pCO2 at Pt Temp ABG pO2 at Pt Temp ABG HCO3 ABG Base Excess (Actual) Sodium Potassium Chloride Carbon Dioxide Anion Gap BUN Creatinine Estim Creat Clear Calc Estimated GFR POC Glucose 305 H 273 H Random Glucose Lactic Acid Calcium Phosphorus Magnesium Total Bilirubin AST ALT Alkaline Phosphatase Total Protein Albumin Triglycerides Urine Color Urine Appearance Urine pH Ur Specific [place] Urine Protein Urine Glucose (UA) Urine Ketones Urine Blood Urine Nitrite Ur Leukocyte Esterase Urine RBC Urine WBC Ur Squamous Epith Cells Urine Bacteria Hyaline Casts HIV 1&2 Ab/P24 Ag 4thGn Nonreactive 11/17/23 11/18/23 11/18/23 20:30 02:30 02:50 WBC 12.9 H RBC 3.53 L D Hgb 10.6 L Hct 32.1 L MCV 90.9 MCH 30.0 MCHC 33.0 RDW 15.8 Plt Count 85 L MPV 10.3 Immature Gran % (Auto) 0.7 H Neut % (Auto) 92.2 H Lymph % (Auto) 4.9 L [place] % (Auto) 1.6 L Eos % (Auto) 0.5 Baso % (Auto) 0.1 Lymph # (Auto) 0.6 L [place] # (Auto) 0.2 Eos # (Auto) 0.1 Baso # (Auto) 0.0 Abs Immat Gran (auto) 0.09 H Absolute Neuts (auto) 11.9 H Absolute Nucleated RBC 0.000 Nucleated RBC % (auto) 0.0 Smear Tech's Comments VERIFIED O2 Saturation ABG pH at Pt Temp ABG pCO2 at Pt Temp ABG pO2 at Pt Temp ABG HCO3 ABG Base Excess (Actual) Sodium 135 Potassium 5.9 H Chloride 108 Carbon Dioxide 19 L Anion Gap 14 BUN 91 H Creatinine 1.66 H Estim Creat Clear Calc 33.6 Estimated GFR 42 POC Glucose 236 H Random Glucose 220 H Lactic Acid 1.9 Calcium 8.4 Phosphorus Magnesium Total Bilirubin 0.3 AST 57 H ALT 9 Alkaline Phosphatase 175 H Total Protein 6.8 Albumin 2.1 L Triglycerides Urine Color Yellow Urine Appearance Cloudy Urine pH 5.5 Ur Specific [place] 1.020 Urine Protein 100 (2+) H Urine Glucose (UA) 250 H Urine Ketones Negative Urine Blood Large (3+) H Urine Nitrite Negative Ur Leukocyte Esterase Negative Urine RBC 11-20 H Urine WBC 0-5 Ur Squamous Epith Cells 3-5 Urine Bacteria None Seen Hyaline Casts 6-10 HIV 1&2 Ab/P24 Ag 4thGn 11/18/23 11/18/23 11/18/23 06:49 07:53 09:34 WBC RBC Hgb 8.2 L D Hct 25.2 L D MCV MCH MCHC RDW Plt Count MPV Immature Gran % (Auto) Neut % (Auto) Lymph % (Auto) [place] % (Auto) Eos % (Auto) Baso % (Auto) Lymph # (Auto) [place] # (Auto) Eos # (Auto) Baso # (Auto) Abs Immat Gran (auto) Absolute Neuts (auto) Absolute Nucleated RBC Nucleated RBC % (auto) Smear Tech's Comments O2 Saturation 96.0 ABG pH at Pt Temp 7.43 ABG pCO2 at Pt Temp 29 L ABG pO2 at Pt Temp 78 L ABG HCO3 19 L ABG Base Excess (Actual) -3.7 Sodium 136 Potassium 5.2 H Chloride 111 H Carbon Dioxide 19 L Anion Gap 11 L BUN 90 H Creatinine 1.57 H Estim Creat Clear Calc 37.4 Estimated GFR 45 POC Glucose 247 H Random Glucose 242 H Lactic Acid Calcium 7.7 L D Phosphorus 2.9 Magnesium 2.5 Total Bilirubin AST ALT Alkaline Phosphatase Total Protein Albumin 1.7 L Triglycerides 287 H Urine Color Urine Appearance Urine pH Ur Specific [place] Urine Protein Urine Glucose (UA) Urine Ketones Urine Blood Urine Nitrite Ur Leukocyte Esterase Urine RBC Urine WBC Ur Squamous Epith Cells Urine Bacteria Hyaline Casts HIV 1&2 Ab/P24 Ag 4thGn Microbiology Microbiology Results: Microbiology 11/13/23 Unknown Urine Catheterized - Nolen Catheter Urine Culture - Final 11/02/23 14:00 Blood - Venous Blood Culture - Final No growth after 5 days. 11/02/23 14:00 Blood - Venous Blood Culture - Final No growth after 5 days. 10/28/23 22:40 Blood - Venous Blood Culture - Final Staphylococcus aureus 10/28/23 22:40 Blood - Venous Blood Culture - Final Staphylococcus aureus Progress Note: A&P Assessment and plan (1) MSSA (methicillin susceptible Staphylococcus aureus) pneumonia: Status: Acute (2) COVID-19: Status: Acute (3) Acute hypoxemic respiratory failure: Status: Acute (4) ARDS (adult respiratory distress syndrome): Status: Acute (5) Status post below knee amputation of right lower extremity: Status: Acute Plan Patient is a 63 Y M with insulin-dependent diabetes mellitus, initially presenting?on 10/28 w/ subacute R foot pain, found to have R LE gangrene in the setting of uncontrolled diabetes mellitus, s/p R BKA on 11/02; hospital course c/b pulmonary edema and COVID pneumonia c/b ARDS, s/p dexamethasone/remdesivir, on persistent HFNC, and MSSA bacteremia, now on cefazolin and barcitinib, transferred to ICU 11/18 d/t worsening hypoxic respiratory failure N: encephalopathic, likely toxic-metabolic CV: no acute issues; to monitor closely R: COVID pneumonia c/b ARDS, on persistent HFNC w/ NRB; to monitor very closely GI: NPO while encephalopathic : acute renal insufficiency, hyperkalemia, given furosemide, insulin/glucose, bicarbonate H: leukocytosis, anemia, and thrombocytopenia; to continue to monitor; to discontinue chemical DVT prophylaxis w/ platelets less than 50 ID: COVID [place], c/f bacterial superinfection; appreciate ID recommendations E: diabetes mellitus c/b hyperglycemia; insulin sliding scale P: no acute issues Quality Stroke Does the patient have a stroke diagnosis?: No VTE Prior VTE?: No VTE Risk Level:: Medical - moderate - high VTE Device Contraindication: Treatment Not Indicated VTE Drug Contraindication: N/A - Med Ordered
--- NOTE | 2023-11-18 11:39 | HO.PM.IMPN ---
Subjective Subjective Date of Service: 11/18/23 Interval History: Hypoxemic respiratory failure secondary to COVID Review of Systems Patient had fever, becoming more weak Overnight events noted. still on high flow ,nbrm- able to taper Physical Exam Vital Signs: Vital Signs: Last Vital Signs Temp 98.4 F 11/18/23 07:50 Pulse 101 H 11/18/23 07:50 Resp 32 H 11/18/23 11:38 BP 145/70 H 11/18/23 07:50 Pulse Ox 94 11/18/23 07:50 O2 Del Method High Flow Nasal C annula 11/18/23 07:50 O2 Flow Rate 50 11/18/23 07:50 FiO2 95 11/18/23 07:50 BMI result Body Mass Index 19.0 General: alert, oriented ,weak ,sob CVS: S1,S2,RRR GI: +BS, NT, no distention lungs:dimished breath sounds, diffuse rhonchii Skin: No rash, BKA site dressing intact Neuro: motor grossly intact Psych: appropriate affect Objective Data Active Medications Acetaminophen (Acetaminophen 325 Mg Tablet) 975 mg PO Q6H PRN PRN Reason: Fever Dexamethasone (Dexamethasone 6 Mg Tablet) 6 mg PO DAILY [facility] Last Admin: 11/16/23 08:02 Dose: 6 mg Documented By: CONCETTA Dextrose (Dextrose 50 % 25 Gm/50 Ml Syringe) 25 gm IVPUSH Q15M PRN; Protocol PRN Reason: per Hypoglycemia Standing Ord. Last Admin: 10/31/23 10:26 Dose: 25 gm Documented By: SARABJIT Enoxaparin Sodium (Enoxaparin Sodium 30 Mg/0.3 Ml Syringe) 30 mg SUBCUT Q24H [facility] Last Admin: 11/17/23 21:50 Dose: Not Given Documented By: FANY Non-Admin Reason: Physician Approved Comments: low platelets, positive occult blood test Ferrous Sulfate (Ferrous Sulfate 324 Mg Arun.) 324 mg PO BIDWM [facility] Last Admin: 11/18/23 08:58 Dose: 324 mg Documented By: TERRA Glucose (Glucose Gel 15 Gm Gel..Gram.) 15 gm PO Q15M PRN; Protocol PRN Reason: per Hypoglycemia Standing Ord. Nutrition (Parenteral) (Parenteral Nutrition) 1,560 mls @ 65 mls/hr IV .Q24H ANN; Protocol Stop: 11/18/23 20:59 Last Admin: 11/17/23 21:40 Dose: 65 mls/hr Documented By: FANY Piperacillin Sod/Tazobactam (Sod 3.375 gm/ Sodium Chloride) 50 mls @ 100 mls/hr IV Q6H [facility] Last Infusion: 11/18/23 09:29 Dose: Infused Documented By: TERRA Vancomycin HCl 1,000 mg/ (Sodium Chloride) 270 mls @ 270 mls/hr IV Q24H [facility] Insulin Human Lispro (Insulin Lispro 100 Unit/Ml 3 Ml Vial) 0 unit SUBCUT QIDACHS [facility]; Protocol Last Admin: 11/18/23 08:58 Dose: 4 unit Documented By: TERRA Melatonin (Melatonin 3 Mg Tablet) 6 mg PO BEDTIME PRN PRN Reason: Insomnia Last Admin: 11/09/23 20:32 Dose: 6 mg Documented By: LI Nystatin (Nystatin Oral Susp 500,000 Unit/5 Ml Oral.Susp) 500,000 unit PO QID [facility]; Protocol Last Admin: 11/18/23 08:57 Dose: 500,000 unit Documented By: TERRA Ondansetron HCl (Ondansetron Hcl 4 Mg/2 Ml Vial) 4 mg IVPUSH Q8H PRN PRN Reason: Nausea and Vomiting Last Admin: 11/07/23 03:53 Dose: 4 mg Documented By: LALITHA Pantoprazole Sodium (Pantoprazole Sodium 40 Mg/10 Ml Vial) 40 mg IVPUSH BID@0630,1630 [facility] Last Admin: 11/18/23 06:17 Dose: 40 mg Documented By: FANY Pharmacy Consult (Consult Rx Parenteral Nutrition Ordering) 1 each MISCELLANE DAILY [facility] Pharmacy Consult (Consult Rx Vancomycin Dosing) 1 each MISCELLANE DAILY PRN PRN Reason: Consult order Sodium Bicarbonate (Sodium Bicarbonate 8.4% 50 Meq/50 Ml Vial) 50 meq IVPUSH ONCE ONE Stop: 11/18/23 11:46 Sodium Chloride (0.9 % Sodium Chloride Flush 3 Ml Syringe) 3 ml IVFLUSH QSHIFT [facility] Last Admin: 11/18/23 08:58 Dose: 3 ml Documented By: TERRA Voriconazole (Voriconazole 200 Mg Tablet) 200 mg PO Q12H [facility] Last Admin: 11/18/23 06:20 Dose: Not Given Documented By: FANY Non-Admin Reason: Patient Condition Contraindication Labs 11/18/23 06:49 11/18/23 06:49 Labs: Laboratory Results - last 24 hr 11/17/23 11/17/23 11/17/23 09:27 12:04 16:19 MCV MCH MCHC RDW Plt Count MPV Immature Gran % (Auto) Neut % (Auto) Lymph % (Auto) [place] % (Auto) Eos % (Auto) Baso % (Auto) Lymph # (Auto) [place] # (Auto) Eos # (Auto) Baso # (Auto) Abs Immat Gran (auto) Absolute Neuts (auto) Absolute Nucleated RBC Nucleated RBC % (auto) Smear Tech's Comments O2 Saturation ABG pH at Pt Temp ABG pCO2 at Pt Temp ABG pO2 at Pt Temp ABG HCO3 ABG Base Excess (Actual) Anion Gap Estim Creat Clear Calc Estimated GFR POC Glucose 305 H 273 H Random Glucose Lactic Acid Calcium Phosphorus Magnesium Total Bilirubin AST ALT Alkaline Phosphatase Total Protein Albumin Triglycerides Urine Color Urine Appearance Urine pH Ur Specific [place] Urine Protein Urine Glucose (UA) Urine Ketones Urine Blood Urine Nitrite Ur Leukocyte Esterase Urine RBC Urine WBC Ur Squamous Epith Cells Urine Bacteria Hyaline Casts HIV 1&2 Ab/P24 Ag 4thGn Nonreactive 11/17/23 11/18/23 11/18/23 20:30 02:30 02:50 MCV 90.9 MCH 30.0 MCHC 33.0 RDW 15.8 Plt Count 85 L MPV 10.3 Immature Gran % (Auto) 0.7 H Neut % (Auto) 92.2 H Lymph % (Auto) 4.9 L Victoria % (Auto) 1.6 L Eos % (Auto) 0.5 Baso % (Auto) 0.1 Lymph # (Auto) 0.6 L Victoria # (Auto) 0.2 Eos # (Auto) 0.1 Baso # (Auto) 0.0 Abs Immat Gran (auto) 0.09 H Absolute Neuts (auto) 11.9 H Absolute Nucleated RBC 0.000 Nucleated RBC % (auto) 0.0 Smear Tech's Comments VERIFIED O2 Saturation ABG pH at Pt Temp ABG pCO2 at Pt Temp ABG pO2 at Pt Temp ABG HCO3 ABG Base Excess (Actual) Anion Gap 14 Estim Creat Clear Calc 33.6 Estimated GFR 42 POC Glucose 236 H Random Glucose 220 H Lactic Acid 1.9 Calcium 8.4 Phosphorus Magnesium Total Bilirubin 0.3 AST 57 H ALT 9 Alkaline Phosphatase 175 H Total Protein 6.8 Albumin 2.1 L Triglycerides Urine Color Yellow Urine Appearance Cloudy Urine pH 5.5 Ur Specific [place] 1.020 Urine Protein 100 (2+) H Urine Glucose (UA) 250 H Urine Ketones Negative Urine Blood Large (3+) H Urine Nitrite Negative Ur Leukocyte Esterase Negative Urine RBC 11-20 H Urine WBC 0-5 Ur Squamous Epith Cells 3-5 Urine Bacteria None Seen Hyaline Casts 6-10 HIV 1&2 Ab/P24 Ag 4thGn 11/18/23 11/18/23 11/18/23 06:49 07:53 09:34 MCV MCH MCHC RDW Plt Count MPV Immature Gran % (Auto) Neut % (Auto) Lymph % (Auto) Victoria % (Auto) Eos % (Auto) Baso % (Auto) Lymph # (Auto) Victoria # (Auto) Eos # (Auto) Baso # (Auto) Abs Immat Gran (auto) Absolute Neuts (auto) Absolute Nucleated RBC Nucleated RBC % (auto) Smear Tech's Comments O2 Saturation 96.0 ABG pH at Pt Temp 7.43 ABG pCO2 at Pt Temp 29 L ABG pO2 at Pt Temp 78 L ABG HCO3 19 L ABG Base Excess (Actual) -3.7 Anion Gap 11 L Estim Creat Clear Calc 37.4 Estimated GFR 45 POC Glucose 247 H Random Glucose 242 H Lactic Acid Calcium 7.7 L D Phosphorus 2.9 Magnesium 2.5 Total Bilirubin AST ALT Alkaline Phosphatase Total Protein Albumin 1.7 L Triglycerides 287 H Urine Color Urine Appearance Urine pH Ur Specific [place] Urine Protein Urine Glucose (UA) Urine Ketones Urine Blood Urine Nitrite Ur Leukocyte Esterase Urine RBC Urine WBC Ur Squamous Epith Cells Urine Bacteria Hyaline Casts HIV 1&2 Ab/P24 Ag 4thGn Assessment and Plan (1) COVID-19: Status: Acute (2) MSSA (methicillin susceptible Staphylococcus aureus) pneumonia: Status: Acute (3) Anemia: Status: Acute Plan 63-year-old male with pertinent history of insulin-dependent diabetes mellitus, noncompliant with medications who presented to the emergency department for evaluation of right foot pain found to have gangrene and eventually required right BKA course complicated by respiratory distress, ARDS and has now tested positive for COVID 19 currently on high flow/NRB. DENTIST early this am (11/06) for hypoxia/lethargy Acute hypoxic resp failure, multifactorial, covid possible PNA, heart failure. Hypoxia persists despite hiflo and nrb. IV Decadron, pulmonary toileting, continue hiflow and nrb, antibiotics to cover pneumonia. Lasix drip for heart failure. repeat covid test is still + Has completed remdesevir, decadron for 10 days. on barcitinib 11/15/23,on high flow /nbrm. also add aspergillus ag and igg as per pulm overnight patient met sepsis -started on vanco and zosyn ,also received ivf ( please see night physician note 11/18/23 ) pulm saw the patient -currently receomended to stop baricitininb ,consider NIv for work of breathing Heart failure with nl EF, clinically markedly fluid overloaded. negatitive 257/24 hrs holding lasix drip d/t increasing Scr given iv lasix 40 mg x 1 now Sepsis due to right foot wet gangrene with purulent cellulitis and MSSA bacteremia s/p right BKA 11/02 2/2 blood cultures with MSSA was on Kefzol -now switched to vanco zosyn ( please see above Acute hypoxic resp failure section). Wound looks good per surgery, dressing changes with dry dressing Oxycodone prn for pain mild hyperkalemia : d/w pharmacy to adjust tpn it . HTN, controlled , hold Lisinopril due to slightly worsening creatinine, possible acute blood loss anemia on Iron def anemia. unspecified fobt positive h/h went up from 6.6 to 9.3 ,platlets stable around 90( received 1 prbc 11/16/23) denies any gross bleedin -received 1 prbc 2days back ppi,continue oral iron supplement moniter cbc daily Gi eval-Recommend continuing conservative management and holding off on endoscopic evaluation given multipel comorbidities and tenous respiratory status. consider holding lovenox /steriods if psosible. CKD stage 3, BRENDA : cr flacuting Insulin-dependent diabetes mellitus 2, AC1 5.7 -Lantus stopped d/t hypoglycemia, continue SSI, follow POCs Severe protein calorie malnutrition BMI 19.3 supplements added to diet Oral thrush--Nystatin swish and swallow Dysphagia-swallow eval Lovenox as per family request -called [facility] -they do not have beds currently( last time checked 11/17/23). Requires ongoing hospitalization for IV antibiotics to treat bacteremia, probable pneumonia, CHF and ARDS/COVID now requiring high flow oxygen. needs close monitor of respiratory status as patient at high risk for decompensation. Prognosis is poor above is d/e detail with patient and his brother. overlal prognosis is poor, [facility]-bed awaiting as per family request. above is d/w ICU in detail. Quality Stroke Does the patient have a stroke diagnosis?: No VTE Prior VTE?: No VTE Risk Level:: Medical - moderate - high VTE Device Contraindication: Treatment Not Indicated VTE Drug Contraindication: N/A - Med Ordered
--- NOTE | 2023-11-18 11:43 | W.MHC.ACPN ---
Advanced Care Planning Note Advanced Care Planning Note Discussed with: family member(s) Time spent (in minutes): 30 Narrative: Upon my evaluation, Mr. iJ was lethargic and oriented to person, place, and general situation, but unable to respond to tiered questions. I reviewed his chart and was unable to find a signed healthcare proxy. I contacted Mr. Qiu brother, Jeffy. Jeffy does not believe Mr. Ji has ever filed healthcare proxy paperwork. Furthermore, Mr. Qiu has a partner, though they are not , and Jeffy would like us to contact him with regards to Mr. Qiu care. We discussed Mr. Qiu hospital course, that he presented initially with extremity pain and found to have wet gangrene necessitating amputation. Since, Mr. Ji has suffered from COVID pneumonia complicated by hypoxic respiratory failure necessitating oxygen support. Jeffy expressed understanding of this. We then discussed next steps, which may include intubation/ventilation. Jeffy expressed concerns that Mr. Ji, if intubated, may never be extubated given the extent of his lung injury. I agreed with this sentiment. Given such, Jeffy stated that in the event Mr. Ji develops worsening respiratory failure in the next 2 hours it takes for Jeffy to come to the hospital, that Mr. Ji is DNI. However, Jeffy agrees with resuscitation. I clarified that for the time being, Mr. Ji is DNI, but okay for resuscitation, which Jeffy confirmed. Jeffy unfortunately is suffering from health issues and was in the process of driving to [facility] and plans to arrive in the next 2 hours. Problems Discussed (1) MSSA (methicillin susceptible Staphylococcus aureus) pneumonia: (2) COVID-19: (3) Acute hypoxemic respiratory failure: (4) ARDS (adult respiratory distress syndrome): (5) Status post below knee amputation of right lower extremity:
[2023-11-18 12:11] LABS: Venous Blood Gas Refer to POC result
[2023-11-18 12:12] LABS: Basophils Percent Auto 0.1 % (0-2); Eosinophils Absolute Auto 0.1 X10*3/uL (0.0-0.4); Eosinophils Percent Auto 0.4 % (0-4); Hematocrit 29.3 % (42.0-52.0); Hemoglobin 9.6 g/dl (14.0-18.0); Imm Gran Abs Auto 0.07 X10*3/uL (0.00-0.03); Imm Gran Pct Auto 0.5 % (0.0-0.4); Lymphocytes Absolute Auto 0.5 X10*3/uL (1.2-4.9); Lymphocytes Percent Auto 3.4 % (20-40); MANUAL DIFF FLAG SCAN; Mean Corpuscular HGB Conc 32.8 g/dl (31.0-36.0); Mean Corpuscular Hemoglobin 30.2 pg (27.0-33.0); Mean Corpuscular Volume 92.1 fL (80.0-98.0); Monocytes Absolute Auto 0.2 X10*3/uL (0.1-1.2); Monocytes Percent Auto 1.3 % (2-11); Neutrophils Absolute Auto 14.5 x10*3/uL (2.0-8.3); Neutrophils Percent Auto 94.3 % (45-73); Platelet Count 76 X10*3/uL (160-400); Red Blood Count 3.18 X10*6/uL (4.60-5.80); Red Cell Distribution Width 15.8 % (11.0-16.0); SCAN SMEAR FLAG 1; White Blood Count 15.4 X10*3/uL (4.8-10.8)
[2023-11-18 12:12] LABS: VBG Base Excess -4.3 mmol/L; VBG HCO3 19 mmol/L (22-26); VBG pCO2 28 mmHg; VBG pH 7.42 (7.32-7.43); VBG pO2 72 mmHg
--- NOTE | 2023-11-18 12:14 | MHC.CM.PN ---
EMR REVIEWED, PER MULTIDISCIPLINARY ROUNDS PLAN FOR TXFR TO ICU VS GOALS OF CARE MTG W/FAMILY, PT TRANSFERRED TO ICU PRIOR TO THIS NOTE, CM WILL CONT TO FOLLOW DC NEEDS.
[2023-11-18 12:25] LABS: Anion Gap 13 (12-20); Blood Urea Nitrogen 90 mg/dL (9-16); Carbon Dioxide 18 mmol/L (22-29); Chloride 110 mmol/L (96-108); Creatinine Clr Calc Pharmacy 35.4; Estimated Glomerular Filt Rate 42; Glucose Random 283 mg/dL (60-115); Potassium 5.2 mmol/L (3.3-5.1); Sodium 136 mmol/L (135-145)
[2023-11-18 12:26] LABS: Lactic Acid 2.5 mmol/L (0.5-2.0)
[2023-11-18] MEDS: Calcium Gluconate/NaCl,Iso-Osm 1 GM/50 ML PLAST..BAG IV (12:27)
[2023-11-18] MEDS: Bumetanide 1 MG/4 ML VIAL IVPUSH (12:27)
[2023-11-18] MEDS: Albumin Human 25 % 100 ML IV ×2 (12:27→13:19)
[2023-11-18] MEDS: Sodium Bicarbonate 8.4% 50 MEQ/50 ML VIAL IVPUSH (12:27)
[2023-11-18 12:48] LABS: Glucose, Whole Blood 278 mg/dL (60-115)
[2023-11-18] MEDS: Labetalol HCL 100 MG/20 ML VIAL IVPUSH ×2 (12:49→14:35)
[2023-11-18 12:54] LABS: SLIDE REVIEW VERIFIED
--- NOTE | 2023-11-18 12:54 | W.MHC.ACPN ---
Advanced Care Planning Note Advanced Care Planning Note Discussed with: family member(s) Time spent (in minutes): 30 Narrative: I met Mr. Qiu brother, Jeffy, at bedside. I offered any clarifications. Jeffy expresses concern that Mr. Ji is unlikely to survive this ICU stay. I agreed with this sentiment. Jeffy reports Mr. Qiu has another brother who is coming to the hospital today to discuss next steps. However, in the meantime, Jeffy feels that DNR would be most appropriate, but to give Mr. Ji until tomorrow morning for a chance to perhaps overcome his illness. I clarified that Mr. Ji will be DNR, DNI, and we would maintain his current oxygen support, but avoid other invasive procedures/treatments such as arterial lines, hemodialysis, etc. Jeffy said if Mr. Ji does not significantly improve by tomorrow morning, it would be appropriate to transition his philosophy of care to comfort-focused care at that time. Problems Discussed (1) COVID-19: (2) MSSA (methicillin susceptible Staphylococcus aureus) pneumonia: (3) Anemia: (4) Status post below knee amputation of right lower extremity: (5) ARDS (adult respiratory distress syndrome): (6) Acute hypoxemic respiratory failure:
[2023-11-18 13:50] LABS: ABG Refer to POC result
[2023-11-18 14:04] LABS: Reflex Lactate? Lactic Acid Added
--- NOTE | 2023-11-18 14:14 | MHC.SL.SWA ---
Speech Pathologist Impression: Risk of aspiration, oropharyngeal dysphagia Risk of Aspiration Due to: Medically Fragile History of Pneumonia Dysphasia Diet Status: DOWNGRADE TO NPO Liquid Consistency and Strategies for Safe Swallow: Liquid Intake Recommendation: NPO Solid Food Consistency: Dietary Recommendations: NPO Additional Modifications to Solid Foods: Pt NPO at this time per Production Intern d/t pt's lethargic state Oral Medication Intake: NPO Please contact the pharmacy regarding appropriate crushable or liquid drug formulations that are available whenever modified delivery is recommended. Supervision While Eating and Drinking for Safe Swallow: PO with SPECIAL TECHNICAL OPERATIONS OFFICER Swallowing Recommended Treatments: Compens. Strategy Educat. Recommendation for Speech: Inpatient Speech Therapy Steam Powerplant Supervisor Clinican/Clinical Fellow: No Supervisory Statement: I have reviewed and agree with the student/clinical fellow's documentation: N/A Speech Language Pathologist: Jazlyn Bowen M.A., [facility]-SPECIAL TECHNICAL OPERATIONS OFFICER
[2023-11-18 14:46] LABS: ~Lactic Acid-LAB USE ONLY 2.5 mmol/L (0.5-2.0)
[2023-11-18] MEDS: HYDROmorphone HCl 0.5 MG/0.5 ML SYRINGE IVPUSH (15:05)
--- NOTE | 2023-11-18 15:28 | W.MHC.ACPN ---
Advanced Care Planning Note Advanced Care Planning Note Discussed with: family member(s) Time spent (in minutes): 10 Narrative: Mr. Ji became increasingly hypoxic, and began to endorse pain. I called Jeffy to update him. At this point in time, Jeffy would like to transition Mr. Ji' philosophy of care to comfort-focused care. Problems Discussed (1) COVID-19: (2) MSSA (methicillin susceptible Staphylococcus aureus) pneumonia: (3) Anemia: (4) Status post below knee amputation of right lower extremity: (5) ARDS (adult respiratory distress syndrome): (6) Acute hypoxemic respiratory failure:
[2023-11-18] MEDS: fentaNYL citrate/NS 1,000 MCG/100 ML PLAST..BAG 2.5 MCG IVCONT (15:30)
--- NOTE | 2023-11-18 15:30 | P.DN_ITS ---
Discharge Sum: Prov Provider Pronouncing clinician: Agustina Gutiérrez Discharge Sum: Diag PCOD Cause of : Acute respiratory distress syndrome (ARDS) Contributing Factors (1) ARDS (adult respiratory distress syndrome): (2) Pneumonia due to COVID-19 virus: (3) Diabetes: Discharge Sum: Summary Date and Time Date of admission: 10/28/23 23:35 Date of : 11/18/23 Time of : 15:45 Summary Details: Mr. Ji was a 63 year-old male with insulin-dependent diabetes mellitus who initially presented?on 10/28 with subacute R foot pain and found to have R LE wet gangrene in the setting of uncontrolled diabetes mellitus, for which he underwent a R maiys-cjo-ruow amputation on 11/02. Mr Ji' hospital course was complicated by COVID pneumonia, further complicated by acute respiratory distr ess syndrome despite dexamethasone, remdesivir, and barcitinib. Mr. Ji was on persistent high-flow nasal cannula. On 11/18, Mr. Ji developed worsening hypoxic respiratory failure and was transferred to the ICU. Mr. Ji family was contacted. The decision was made to transition Mr. Ji to DNR/DNI and ultimately comfort-focused care. Mr Ji passed later on 11/18. Additional Data Confirmation of as documented by pronouncing clinician: no pulse Family: at bedside and contacted Attending physician: Agustina Gutiérrez MD
--- NOTE | 2023-11-18 15:49 | MHC.CM.PN ---
Pt transferred to ICU for possible respiratory interventions. 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
[2023-11-18 16:14] LABS: Reflex Lactate? 2 Y
--- NOTE | 2023-11-18 16:43 | PC.NURSE ---
[facility] got bedside report from Belia GREEN on this patient. Per plan, transferred pt from Med-tele to ICU. Goals of care was discussed with family by , who decided to make the pt DNI and then later DNR/ DNI. Pt continued to be on HFNC and NRB at 50L 100% and 100% respectively; satting appropriately in the high 90s. Pt tachy in the 130s, 5 mg IVP Labetalol administered x2 per order with good effect. Family and friends visiting at bedside. Pt maintained on Airborne precautions for COVID+. At approximately 1500, pt starting to remove the NRB mask and getting agitated, O2 Sat trending down to mid 80s, tachy on tele in the 120s. Pt in distress, made aware and at bedside. Per order, gave 0.5mg of IV Dilaudid after which pt calmed down. Pt's O2 Sat continued to trend down even when back on the NRB mask. Goals of care revisited by MD with family who decided to make the pt REPORT DEVELOPER at approximately 1530. Pt then put on Fentanyl gtt per order. Pt in no acute distress. Family at bedside. pronounced pt's at 1545. NEOLuan contacted, spoke with Leila, case # [id number]; declined. Valuables sent home with family. Post mortem care completed. Pt brought down to [facility] [place] by staff.
[2023-11-21 15:34] LABS: Immunoglobulin G Subclass 1 1204 mg/dL (382-929); Immunoglobulin G Subclass 2 199 mg/dL (241-700); Immunoglobulin G Subclass 3 85 mg/dL (22-178); Immunoglobulin G Subclass 4 75.9 mg/dL (4-86); Immunoglobulin G Total 1605 mg/dL (600-1540)
[2023-11-23 17:24] LABS: Aspergillus Antigen Not Detected (Not Detected); Index Value 0.08 (<0.50)
== END 2023-11-18 15:45 | disposition expired | DRG 710 ==
LOC: HO.ED 23:47 → HO.EDOVER 23:54 → HO.IMC 10-29 05:11 → HO.ICU 11-04 10:41 → HO.IMC 11-04 11:20 → HO.ICU 11-18 11:02
PROVIDERS: Hospitalist; Internal Medicine; Nurse Practitioner Acute Care; Physician Assistant Medical; Surgery; Admitting Provider Student in an Organized Health Care Education/Training Program; Emergency Provider Internal Medicine; Visit Provider Internal Medicine Critical Care Medicine
PROC: (CPT 27880; principal; 2023-11-02 07:30)
PROC: 02HV33Z Insertion of Infusion Device into Superior Vena Cava, Percutaneous Approach (ICD-10-PCS; principal; 2023-11-15 16:30)
DX: A41.01 Sepsis due to Methicillin susceptible Staphylococcus aureus (principal); J80 Acute respiratory distress syndrome; J12.82 Pneumonia due to coronavirus disease 2019; N17.0 Acute kidney failure with tubular necrosis; G92.8 Other toxic encephalopathy; E43 Unspecified severe protein-calorie malnutrition; I50.31 Acute diastolic (congestive) heart failure; U07.1 COVID-19; E11.52 Type 2 diabetes mellitus with diabetic peripheral angiopathy with gangrene; J15.211 Pneumonia due to Methicillin susceptible Staphylococcus aureus; I70.261 Atherosclerosis of native arteries of extremities with gangrene, right leg; I13.0 Hypertensive heart and chronic kidney disease with heart failure and stage 1 through stage 4 chronic kidney disease, or unspecified chronic kidney disease; B37.0 Candidal stomatitis; E11.649 Type 2 diabetes mellitus with hypoglycemia without coma; L97.419 Non-pressure chronic ulcer of right heel and midfoot with unspecified severity; D62 Acute posthemorrhagic anemia; Z51.5 Encounter for palliative care; K92.1 Melena; D63.1 Anemia in chronic kidney disease; Z66 Do not resuscitate; N18.30 Chronic kidney disease, stage 3 unspecified; E11.22 Type 2 diabetes mellitus with diabetic chronic kidney disease; E87.6 Hypokalemia; Z68.1 Body mass index [BMI] 19.9 or less, adult; R13.10 Dysphagia, unspecified; F17.210 Nicotine dependence, cigarettes, uncomplicated; E11.65 Type 2 diabetes mellitus with hyperglycemia; Z71.6 Tobacco abuse counseling; Z91.148 Patient's other noncompliance with medication regimen for other reason
CPT/HCPCS: 0241U; 36415; 36573; 36600; 71045; 71250; 73701; 80048; 80051; 80053; 80202; 81001; 82040; 82272; 82565; 82607; 82728; 82746; 82784; 82803; 82947; 83036; 83540; 83605; 83690; 83735; 83880; 83930; 83935; 84100; 84145; 84300; 84443; 84478; 84484; 85014; 85018; 85025; 85027; 85049; 86850; 86900; 86901; 86923; 87040; 87077; 87086; 87147; 87186; 87205; 87305; 87389; 87493; 87507; 87633; 87635; 88307; 88311; 89055; 92526; 92610; 92950; 93005; 93306; 93926; 94799; 99024; 99285; C1751; C1758; C9113; J0131; J0248; J0295; J0613; J0665; J0690; J0736; J1100; J1170; J1650; J1756; J1836; J1920; J1939; J1940; J1956; J2060; J2250; J2270; J2405; J2543; J2704; J2795; J3010; J3370; J3371; J3480; J7120; J8540; P9016; P9047; Q9957; Q9967

== ENCOUNTER → 2023-10-28 22:30 | Outpatient (BNV) | payer MEDICAID, SELFPAY | PROVIDERS: Admitting Provider Student in an Organized Health Care Education/Training Program; Emergency Provider Internal Medicine; Visit Provider Internal Medicine Cardiovascular Disease | DX: R94.31 Abnormal electrocardiogram [ECG] [EKG] (principal) | CPT/HCPCS: 93010 ==

== ENCOUNTER 2023-10-28 23:35 | Outpatient (BNV) | payer MEDICAID, SELFPAY | END 2023-11-01 07:00 | PROVIDERS: Admitting Provider Student in an Organized Health Care Education/Training Program; Emergency Provider Internal Medicine; Visit Provider Internal Medicine | DX: I50.30 Unspecified diastolic (congestive) heart failure (principal) | CPT/HCPCS: 93306 ==

== ENCOUNTER 2023-10-28 23:35 | Outpatient (BNV) | payer MEDICAID, SELFPAY | END 2023-11-10 11:37 | PROVIDERS: Admitting Provider Student in an Organized Health Care Education/Training Program; Emergency Provider Internal Medicine; Visit Provider Internal Medicine Cardiovascular Disease | DX: R00.0 Tachycardia, unspecified (principal); R94.31 Abnormal electrocardiogram [ECG] [EKG] | CPT/HCPCS: 93010 ==

== ENCOUNTER 2023-10-28 23:35 | Outpatient (BNV) | payer MEDICAID, SELFPAY | END 2023-11-12 16:35 | PROVIDERS: Admitting Provider Student in an Organized Health Care Education/Training Program; Emergency Provider Internal Medicine; Visit Provider Internal Medicine Cardiovascular Disease | DX: R00.0 Tachycardia, unspecified (principal); R94.31 Abnormal electrocardiogram [ECG] [EKG] | CPT/HCPCS: 93010 ==

== ENCOUNTER 2023-10-28 23:35 | Outpatient (BNV) | payer MEDICAID, SELFPAY | END 2023-11-04 08:05 | PROVIDERS: Admitting Provider Student in an Organized Health Care Education/Training Program; Emergency Provider Internal Medicine; Visit Provider Internal Medicine | DX: R00.0 Tachycardia, unspecified (principal) | CPT/HCPCS: 93010 ==

== ENCOUNTER → 2023-10-28 23:35 | Outpatient (BNV) | payer MEDICAID, SELFPAY | PROVIDERS: Admitting Provider Student in an Organized Health Care Education/Training Program; Emergency Provider Internal Medicine; Visit Provider Internal Medicine Cardiovascular Disease | DX: J80 Acute respiratory distress syndrome (principal); U07.1 COVID-19; J12.82 Pneumonia due to coronavirus disease 2019; E11.9 Type 2 diabetes mellitus without complications; J15.211 Pneumonia due to Methicillin susceptible Staphylococcus aureus; D64.9 Anemia, unspecified; Z89.511 Acquired absence of right leg below knee; J96.01 Acute respiratory failure with hypoxia | CPT/HCPCS: 99238; 99291; 99499 ==

== ENCOUNTER → 2023-10-28 23:35 | Outpatient (BNV) | payer MEDICAID, SELFPAY | PROVIDERS: Admitting Provider Student in an Organized Health Care Education/Training Program; Emergency Provider Internal Medicine; Visit Provider Hospitalist | DX: U07.1 COVID-19 (principal); J80 Acute respiratory distress syndrome; R78.81 Bacteremia; I96 Gangrene, not elsewhere classified | CPT/HCPCS: 99223; 99232; 99233 ==

== ENCOUNTER → 2023-10-28 23:35 | Outpatient (BNV) | payer MEDICAID, SELFPAY | PROVIDERS: Admitting Provider Student in an Organized Health Care Education/Training Program; Emergency Provider Internal Medicine; Visit Provider Internal Medicine Hypertension Specialist | DX: N17.9 Acute kidney failure, unspecified (principal); A41.9 Sepsis, unspecified organism | CPT/HCPCS: 99223; 99499 ==

== ENCOUNTER → 2023-10-28 23:35 | Outpatient (BNV) | payer MEDICAID, SELFPAY | PROVIDERS: Admitting Provider Student in an Organized Health Care Education/Training Program; Emergency Provider Internal Medicine; Visit Provider Surgery | DX: I96 Gangrene, not elsewhere classified (principal) | CPT/HCPCS: 27880; 99222; 99232; 99499 ==

== ENCOUNTER → 2023-10-28 23:35 | Outpatient (BNV) | payer MEDICAID, SELFPAY | PROVIDERS: Admitting Provider Student in an Organized Health Care Education/Training Program; Emergency Provider Internal Medicine; Visit Provider Internal Medicine | DX: I73.9 Peripheral vascular disease, unspecified (principal); L08.9 Local infection of the skin and subcutaneous tissue, unspecified; A41.9 Sepsis, unspecified organism; E11.9 Type 2 diabetes mellitus without complications; R78.81 Bacteremia | CPT/HCPCS: 99222 ==

== ENCOUNTER → 2023-10-28 23:35 | Outpatient (BNV) | payer MEDICAID, SELFPAY | PROVIDERS: Admitting Provider Student in an Organized Health Care Education/Training Program; Emergency Provider Internal Medicine; Visit Provider Surgery Vascular Surgery | DX: I73.9 Peripheral vascular disease, unspecified (principal) | CPT/HCPCS: 99222 ==

== ENCOUNTER → 2023-10-28 23:35 | Outpatient (BNV) | payer MEDICAID, SELFPAY | PROVIDERS: Admitting Provider Student in an Organized Health Care Education/Training Program; Emergency Provider Internal Medicine; Visit Provider Internal Medicine | DX: J96.00 Acute respiratory failure, unspecified whether with hypoxia or hypercapnia (principal); I50.9 Heart failure, unspecified | CPT/HCPCS: 99223; 99233 ==

== ENCOUNTER → 2023-10-28 23:35 | Outpatient (BNV) | payer MEDICAID, SELFPAY | PROVIDERS: Admitting Provider Student in an Organized Health Care Education/Training Program; Emergency Provider Internal Medicine; Visit Provider Internal Medicine Gastroenterology | DX: D64.9 Anemia, unspecified (principal); R19.5 Other fecal abnormalities; U07.1 COVID-19 | CPT/HCPCS: 99223 ==

== ENCOUNTER → 2023-10-28 23:35 | Outpatient (BNV) | payer MEDICAID, SELFPAY | PROVIDERS: Admitting Provider Student in an Organized Health Care Education/Training Program; Emergency Provider Internal Medicine; Visit Provider Student in an Organized Health Care Education/Training Program | DX: U07.1 COVID-19 (principal); J80 Acute respiratory distress syndrome; Z89.511 Acquired absence of right leg below knee; I96 Gangrene, not elsewhere classified; R78.81 Bacteremia | CPT/HCPCS: 99222; 99232; 99233; 99499 ==